=== PATIENT | male | born 1955 | race Caucasian/White ===

== ENCOUNTER 2016-12-27 20:07 | Inpatient (IN) | payer BC ==
[~2016-12-27] VITALS: Ht 182.9 cm; Wt 53.6 kg
[~2016-12-27 20:07] MED LIST changes: -ASPCH81X PO; -ASPI81TA28 PO; -CIPR-255 PO; -CIPR1TAB11 PO; -CLOP1TAB15 PO; -IMD2X PO; -MCRK20 PO; -METO25TA3 PO; -METO25TA56 PO; -MTR500 PO; -RIVA1TAB4 PO; -SIMV20TA2 PO; -SIMV40TA2 PO; -XRL15 PO
[2016-12-27] MEDS ORDERED: METO25TA56 PO ×2 (21:19→22:52)
[2016-12-27] MEDS ORDERED: SIMV20TA2 PO (21:19)
[2016-12-27 21:54] LABS: BASO % 0.3 %; BASO ABS # 0.02 K/uL (0-0.2); COMPLETE YES; EOS % 2.2 %; HEMATOCRIT 35.4 % (42-52); IG% 0.5 %; LYMPH % 26.4 %; LYMPH ABS # 1.67 K/uL (1.2-3.4); MEAN CELL VOLUME 94.4 fL (80-100); MEAN CORPUSCULAR HEMOGLOBIN 30.1 pg (25-34); MEAN CORPUSCULAR HGB CONC 31.9 g/dl (32-36); MEAN PLATELET VOLUME 8.6 fL (7.4-10.4); MONO % 10.4 %; NEUT % 60.2 %; PLATELET COUNT 540 K/uL (130-400); RED BLOOD COUNT 3.75 M/uL (4.7-6.1); WHITE BLOOD COUNT 6.32 K/uL (4.8-10.8)
[2016-12-27] MEDS ORDERED: HEPARIN SOD 5000 UNIT/0.5 ML CARP ONE (21:56)
[2016-12-27] MEDS ORDERED: HEPARIN 25000 UNIT/500 ML D5W ONE (21:56)
[2016-12-27 21:57] LABS: INR 1.1 (0.9-1.1); PARTIAL THROMBOPLASTIN RATIO 1.1; PROTHROMBIN TIME (PATIENT) 11.7 SECONDS (9.0-12.0)
[2016-12-27 22:09] LABS: BUN/CREATININE RATIO 11.8 (10-20); CALCIUM 8.1 mg/dl (8.5-10.1); CREATININE 0.62 mg/dl (0.60-1.40); MAGNESIUM 2.1 mg/dl (1.8-2.4); POTASSIUM 3.4 mmol/L (3.5-5.1)
[2016-12-27 22:20] LABS: ALB/GLOB RATIO 0.3 (0.9-2); THYROID STIMULATING HORMONE 0.921 uIu/ml (0.300-4.500)
--- NOTE | 2016-12-27 22:25 | History and Physical ---
History & Physical Date & Time of Service: Dec 27, 2016 at 22:25 Chief Complaint: L Leg Swelling Primary Care Physician: Alfred Al D.O. History of Present Illness Source: patient, clinic records, hospital records Last May 2016 patient underwent aorto bifemoral bypass, bilateral common femoral endarterectomy at [facility]. Last June 2016, patient woke up with bleeding from his right groin. Patient initially admitted at [facility] where he underwent emergent repair of right femoral artery-graft anastomosis (for bleeding) and thrombectomy of graft as well as femoral arteries. Subsequently transferred to [facility] for definitive care. Upon arrival at [facility], patient was intubated for hemorrhagic shock. R foot remained cadaveric. About 14 surgical procedures during monthlong confinement, including right above -the-knee amputation. Intractable diarrhea also noted during confinement. Stool C. difficile negative. Limited flexible sigmoidoscopy showed diffuse proctosigmoiditis possibly ischemic as per GI note. Loose stools persist as per patient but nothing more than usual. Occasional drainage from right AKA stump, better than usual. No fever, no chills. 2 weeks ago patient fell off his truck while trying to get on a scooter. Patient noted achy left lower extremity pain. Unable to get up us much. Increased left leg swelling noted. No fever no chills. Patient denies chest pain or shortness of breath. Patient saw his PCP yesterday. Sent to [facility] for lower extremity ultrasound. Ultrasound off the left lower extremity showed extensive DVT. Patient sent to the ER by PCPs office. IV heparin started. 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 Physical Exam Vital Signs Date Time Temp Pulse Resp B/P (MAP) Pulse Ox O2 Delivery O2 Flow Rate FiO2 12/27/16 22:17 108 24 107/83 99 Room Air 12/27/16 21:32 100 Room Air 12/27/16 21:30 111 16 119/84 98 Room Air 12/27/16 20:10 36.9 116 18 122/76 99 Room Air General Appearance: + cachetic Head: normocephalic Eyes: + pertinent finding (pale palpebral conjunctivae, dry buccal mucosa) Neck: supple Respiratory/Chest: + decreased breath sounds Cardiovascular: + tachycardia Abdomen/GI: soft Extremities/Musculoskelatal: + pertinent finding (right AKA stump with minimal drainage; left lower extremity swelling some tenderness) Neurologic/Psych: alert Skin: + pallor Diagnostics Laboratory Results Results Past 24 Hours Test 12/27/16 21:00 Range/Units White Blood Count 6.32 4.8-10.8 K/uL Red Blood Count 3.75 4.7-6.1 M/uL Hemoglobin 11.3 14.0-18.0 g/dL Hematocrit 35.4 42-52 % Mean Corpuscular Volume 94.4 80-100 fL Mean Corpuscular Hemoglobin 30.1 25-34 pg Mean Corpuscular Hemoglobin Concent 31.9 32-36 g/dl Platelet Count 540 130-400 K/uL Mean Platelet Volume 8.6 7.4-10.4 fL Neutrophils (%) (Auto) 60.2 % Lymphocytes (%) (Auto) 26.4 % Monocytes (%) (Auto) 10.4 % Eosinophils (%) (Auto) 2.2 % Basophils (%) (Auto) 0.3 % Neutrophils # (Auto) 3.80 1.4-6.5 K/uL Lymphocytes # (Auto) 1.67 1.2-3.4 K/uL Monocytes # (Auto) 0.66 0.11-0.59 K/uL Eosinophils # (Auto) 0.14 0-0.5 K/uL Basophils # (Auto) 0.02 0-0.2 K/uL RDW Standard Deviation 51.6 36.4-46.3 fL RDW Coefficient of Variation 15.0 11.5-14.5 % Immature Granulocyte % (Auto) 0.5 % Immature Granulocyte # (Auto) 0.03 0.00-0.02 K/uL Prothrombin Time 11.7 9.0-12.0 SECONDS Prothromb Time International Ratio 1.1 0.9-1.1 Activated Partial Thromboplast Time 29.3 21.0-31.0 SECONDS Partial Thromboplastin Ratio 1.1 Sodium Level 134 136-145 mmol/L Potassium Level 3.4 3.5-5.1 mmol/L Chloride Level 101 98-107 mmol/L Carbon Dioxide Level 25 21-32 mmol/L Anion Gap 8.0 3-11 mmol/L Blood Urea Nitrogen 7 7-18 mg/dl Creatinine 0.62 0.60-1.40 mg/dl Est Creatinine Clear Calc Drug Dose 94.9 ml/min Estimated GFR () 124.1 Estimated GFR (Non- 107.1 BUN/Creatinine Ratio 11.8 10-20 Random Glucose 79 70-99 mg/dl Calcium Level 8.1 8.5-10.1 mg/dl Magnesium Level 2.1 1.8-2.4 mg/dl Total Bilirubin 0.2 0.2-1 mg/dl Aspartate Amino Transf (AST/SGOT) 29 15-37 U/L Alanine Aminotransferase (ALT/SGPT) 27 12-78 U/L Alkaline Phosphatase 99 45-117 U/L Total Protein 7.9 6.4-8.2 gm/dl Albumin 2.0 3.4-5.0 gm/dl Globulin 5.9 2.5-4.0 gm/dl Albumin/Globulin Ratio 0.3 0.9-2 Thyroid Stimulating Hormone (TSH) 0.921 0.300-4.500 uIu/ml Diagnostic Radiology ULTRASOUND LEFT VENOUS DOPP LOWER EXT UNILAT CLINICAL HISTORY: Left leg swelling COMPARISON STUDY: No previous studies for comparison. FINDINGS: There is extensive thrombus within the left common femoral, superficial femoral, popliteal, and profunda veins. There is also probable thrombus within the posterior tibial and peroneal veins. Color flow is identified within the anterior tibial veins. IMPRESSION: Extensive acute left lower extremity DVT extending from the common femoral vein to the calf veins. Impression Assessment and Plan AP Acute left lower extremity DVT Immobilization from fall from 2 weeks ago Rule out bony lower extremity injury as etiology of lower extremity pain PVD status post her surgery Anemia, hemoglobin better than baseline Hyponatremia possibly chronic Chronic diarrhea from possible ischemic colitis as per inpatient GI evaluation at [facility] 2016. Symptoms at baseline as per patient. Hypokalemia secondary to chronic diarrhea Daily alcohol intake Past tobacco abuse Malnutrition [facility] IV heparin Deferred discussion regarding choice of oral anticoagulant between patient and a.m. provider. Replace potassium plain Xrays of the LLE re post-traumatic pain DT precautions Nutrition consult re: low BMI PTOT eval DVT prophylaxis. Heparin Full code VTE Prophylaxis VTE Risk Assessment Done? Y/N: Yes Risk Level: High
[2016-12-27] MEDS ORDERED: HEPARIN IV LOW DOSE NO BOLUS STA (22:26)
[2016-12-27] MEDS ORDERED: POTASSIUM CHLORIDE 10 MEQ TABCR PO STA (22:26)
[2016-12-27] MEDS ORDERED: MoRPHine SULFATE 2 MG/ML CARP IV PRN (22:30)
[2016-12-27] MEDS ORDERED: ACETAMINOPHEN 325 MG TAB PO PRN (22:30)
[2016-12-27] MEDS ORDERED: LORAZEPAM 2 MG/ML 1 ML VIAL IV PRN (22:30)
[2016-12-27] MEDS ORDERED: ONDANSETRON INJ 2 MG/ML 2 ML VIAL IV PRN (22:30)
[2016-12-27] MEDS ORDERED: MULTI-VITAMIN INFUSION INJ 10 ML, THIAMINE HCL INJ 100 MG, FoLIC ACID INJ 1 MG, POTASSI... IV ONE ×5 (22:30)
[2016-12-27] MEDS ORDERED: TRAMADOL HCL 50 MG TAB PO PRN (22:30)
[2016-12-27] MEDS ORDERED: CLOP1TAB15 PO (22:46)
[2016-12-27] MEDS ORDERED: ASPI81TA28 PO (22:46)
--- NOTE | 2016-12-27 22:47 | EMERGENCY ROOM VISIT NOTE ---
History Report prepared by Iraida: Katherine Delgado Under the Supervision of: Dr. Franco Koenig M.D. First contact with patient: 20:13 Chief Complaint: SWELLING TO EXTREMITY Stated Complaint: L LEG SWELLING History of Present Illness The patient is a 61 year old male who presents to the Emergency Room with complaints of constant left leg swelling beginning 2 weeks ago. The patient states that he has had leg swelling over the last 7 months but in the last 2 weeks it has significantly worsened. He reports that he was seen today by Dr. Al 2 hours ago and was sent for an ultrasound. After the ultrasound resulted 1 hour ago he was told to come in to the ED before he returned home. Per the ultrasound results, the patient has a blood clot in his left leg. He notes that he is on Plavix and has no history of blood clot in leg, lung, or heart. The patient reports that he lost his right leg at the beginning of this year to a vascular blockage with a blowout in the right groin. He notes that he had a muscle taken from the left leg for his right groin and he had pain in the left leg at the time of his right leg surgery. Pt denies LOC, headache, fevers, chills, diaphoresis, visual changes, neck pain, chest pain, breathing difficulties, nausea, vomiting, abdominal pain, back pain, melena, hematochezia , urinary symptoms, numbness, weakness, lymphadenopathy, rash, or other complaints. He states that he has had some diarrhea for 6 months since he left the hospital. The patient reports that he is weak in the left leg due to the muscle flap that they took. He denies any long trips or extended periods of laying down in the weeks prior to his leg pain. Per patient's MRI in October, he has an insufficiency fracture of his lateral tibia plateau and a partial tear of his quad tendon. Source of History: patient Onset: 2 weeks ago Position: knee (left) Quality: other (swelling) Timing: constant Review of Systems See HPI for pertinent positives and negatives. A total of ten systems were reviewed and were otherwise negative. Past Medical & Surgical Medical Problems: (1) DVT (deep venous thrombosis) (2) Hypertension Family History No pertinent family history stated. Social History Smoking Status: Former Smoker Marital Status: Housing Status: lives with significant other Occupation Status: retired Current/Historical Medications Scheduled Metoprolol Tartrate (Lopressor) (Lopressor), 25 MG PO BID Simvastatin (Zocor), 20 MG PO QPM Allergies Coded Allergies: No Known Allergies (Verified , `, 12/27/16) Physical Exam Vital Signs Date Time Temp Pulse Resp B/P (MAP) Pulse Ox O2 Delivery O2 Flow Rate FiO2 12/27/16 22:17 108 24 107/83 99 Room Air 12/27/16 21:32 100 Room Air 12/27/16 21:30 111 16 119/84 98 Room Air 12/27/16 20:10 36.9 116 18 122/76 99 Room Air Physical Exam GENERAL: Awake, alert, well-appearing, in no distress HENT: Normocephalic, atraumatic. Oropharynx unremarkable. EYES: Normal conjunctiva. Sclera non-icteric. NECK: Supple. No nuchal rigidity. FROM. No JVD. RESPIRATORY: Clear to auscultation. CARDIAC: Regular rate, normal rhythm. Extremities warm and well perfused. Pulses equal. ABDOMEN: Soft, non-distended. No tenderness to palpation. No rebound or guarding. No masses. RECTAL: Deferred. MUSCULOSKELETAL: Chest examination reveals no tenderness. The back is symmetrical on inspection without obvious abnormality. There is no CVA tenderness to palpation. No joint edema. LOWER EXTREMITIES: Right AKA present. He had 3+ pitting edema bilaterally, surgical change on the thigh. NEURO: Normal sensorium. No sensory or motor deficits noted. SKIN: No rash or jaundice noted. Medical Decision & Procedures ER Provider Diagnostic Interpretation: Outpatient ultrasound reveals extensive left lower extremity DVT. Laboratory Results 12/27/16 21:00 Red Blood Count 3.75, Mean Corpuscular Volume 94.4, Mean Corpuscular Hemoglobin 30.1, Mean Corpuscular Hemoglobin Concent 31.9, Mean Platelet Volume 8.6, Neutrophils (%) (Auto) 60.2, Lymphocytes (%) (Auto) 26.4, Monocytes (%) (Auto) 10.4, Eosinophils (%) (Auto) 2.2, Basophils (%) (Auto) 0.3, Neutrophils # (Auto ) 3.80, Lymphocytes # (Auto) 1.67, Monocytes # (Auto) 0.66, Eosinophils # (Auto ) 0.14, Basophils # (Auto) 0.02 12/27/16 21:00 Test 12/27/16 21:00 White Blood Count 6.32 K/uL (4.8-10.8) Red Blood Count 3.75 M/uL (4.7-6.1) Hemoglobin 11.3 g/dL (14.0-18.0) Hematocrit 35.4 % (42-52) Mean Corpuscular Volume 94.4 fL (80-100) Mean Corpuscular Hemoglobin 30.1 pg (25-34) Mean Corpuscular Hemoglobin Concent 31.9 g/dl (32-36) Platelet Count 540 K/uL (130-400) Mean Platelet Volume 8.6 fL (7.4-10.4) Neutrophils (%) (Auto) 60.2 % Lymphocytes (%) (Auto) 26.4 % Monocytes (%) (Auto) 10.4 % Eosinophils (%) (Auto) 2.2 % Basophils (%) (Auto) 0.3 % Neutrophils # (Auto) 3.80 K/uL (1.4-6.5) Lymphocytes # (Auto) 1.67 K/uL (1.2-3.4) Monocytes # (Auto) 0.66 K/uL (0.11-0.59) Eosinophils # (Auto) 0.14 K/uL (0-0.5) Basophils # (Auto) 0.02 K/uL (0-0.2) RDW Standard Deviation 51.6 fL (36.4-46.3) RDW Coefficient of Variation 15.0 % (11.5-14.5) Immature Granulocyte % (Auto) 0.5 % Immature Granulocyte # (Auto) 0.03 K/uL (0.00-0.02) Prothrombin Time 11.7 SECONDS (9.0-12.0) Prothromb Time International Ratio 1.1 (0.9-1.1) Activated Partial Thromboplast Time 29.3 SECONDS (21.0-31.0) Partial Thromboplastin Ratio 1.1 Anion Gap 8.0 mmol/L (3-11) Est Creatinine Clear Calc Drug Dose 94.9 ml/min Estimated GFR () 124.1 Estimated GFR (Non- 107.1 BUN/Creatinine Ratio 11.8 (10-20) Calcium Level 8.1 mg/dl (8.5-10.1) Magnesium Level 2.1 mg/dl (1.8-2.4) Total Bilirubin 0.2 mg/dl (0.2-1) Aspartate Amino Transf (AST/SGOT) 29 U/L (15-37) Alanine Aminotransferase (ALT/SGPT) 27 U/L (12-78) Alkaline Phosphatase 99 U/L (45-117) Total Protein 7.9 gm/dl (6.4-8.2) Albumin 2.0 gm/dl (3.4-5.0) Globulin 5.9 gm/dl (2.5-4.0) Albumin/Globulin Ratio 0.3 (0.9-2) Thyroid Stimulating Hormone (TSH) 0.921 uIu/ml (0.300-4.500) Laboratory results reviewed by me Medications Administered Medications (Trade) Dose Ordered Sig/Nadia Route Start Time Stop Time Status Last Admin Dose Admin Heparin Sodium/ Dextrose (Heparin 25,000 Unit/500ml D5W) 25,000 unit STK-MED ONCE .ROUTE 12/27/16 21:56 12/27/16 21:57 DC 12/27/16 22:15 25,000 UNIT Heparin Sodium (Porcine) (Heparin Sq 5000 Unit/0.5ml) 5,000 unit STK-MED ONCE .ROUTE 12/27/16 21:56 12/27/16 21:57 DC 12/27/16 22:14 3,000 UNIT ED Course 2012: The patient was evaluated in room B12B. A complete history and physical exam was performed. 2043: Heparin Sodium/Dextrose 1 ea N/A. 2115: Discussed the patient's case with Dr. Sheth of [facility]. The patient will be evaluated for further treatment and disposition. 2122: Upon reexamination, the patient was doing well. I discussed the test results and treatment plan with him. The patient will be evaluated for further management. Medical Decision Medication Reconciliation: I attest that I have personally reviewed the patient' s current medication list Patient was found to have a slightly elevated blood pressure due to circumstances. I do not believe that the patient requires emergent hypertension monitoring. Prior records reviewed and summarized above. Triage Nursing notes reviewed and agree them. Additional history obtained from the family. The patient's history was concerning for swelling and pain in the leg. Differential diagnosis: Etiologies such as DVT, joint effusion, infection, trauma, muscular, lymphedema , idiopathic, CHF, as well as others were entertained.. Physical examination: The physical examination revealed no signs of infection. Neurovascularly intact. ER treatment provided: IV heparin bolus and drip Diagnostics interpreted by me: The labs revealed mild anemia on CBC. The patient's coags were unremarkable. The chemistries were unremarkable. Imaging studies: The patient's ultrasound report from earlier this evening was reviewed and shows extensive left leg DVT. Consultation: A consultation was placed with the hospitalist. The case was discussed and diagnostics were reviewed. The patient was evaluated in the ER for further treatment. Consults Time Called: 2113 Consulting Physician: Dr. Sheth Returned Call: 2115 Discussed the patient's case with Dr. Sheth of [facility]. The patient will be evaluated for further treatment and disposition. Impression Primary Impression: Deep vein thrombosis (DVT) of left lower extremity Scribe Attestation The scribe's documentation has been prepared under my direction and personally reviewed by me in its entirety. I confirm that the note above accurately reflects all work, treatment, procedures, and medical decision making performed by me. Departure Information Dispostion Being Evaluated By Hospitalist Referrals Alfred Al D.O. (PCP) Patient Instructions My [facility]
[2016-12-27] MEDS ORDERED: SIMV40TA2 PO (22:51)
[2016-12-27 23:45] VITALS: BP 103/73; PULSE 102; TEMP 36.7; O2SAT 98; Ht 182.9 cm; Wt 53.6 kg
[2016-12-28] MEDS ORDERED: LORAZEPAM INJ 0.5 MG in SYRINGE 0.75 ML IV PRN (00:45)
[2016-12-28 04:19] LABS: BASO % 0.5 %; BASO ABS # 0.02 K/uL (0-0.2); COMPLETE YES; EOS % 3.5 %; HEMATOCRIT 27.7 % (42-52); IG% 0.7 %; LYMPH % 33.6 %; LYMPH ABS # 1.36 K/uL (1.2-3.4); MEAN CELL VOLUME 93.9 fL (80-100); MEAN CORPUSCULAR HEMOGLOBIN 30.5 pg (25-34); MEAN CORPUSCULAR HGB CONC 32.5 g/dl (32-36); MEAN PLATELET VOLUME 8.2 fL (7.4-10.4); MONO % 11.1 %; NEUT % 50.6 %; PLATELET COUNT 359 K/uL (130-400); RED BLOOD COUNT 2.95 M/uL (4.7-6.1); WHITE BLOOD COUNT 4.05 K/uL (4.8-10.8)
[2016-12-28 04:50] LABS: INR 1.2 (0.9-1.1); PARTIAL THROMBOPLASTIN RATIO 1.2; PROTHROMBIN TIME (PATIENT) 12.4 SECONDS (9.0-12.0)
[2016-12-28 04:51] LABS: BUN/CREATININE RATIO 10.1 (10-20); CALCIUM 7.5 mg/dl (8.5-10.1); CREATININE 0.46 mg/dl (0.60-1.40); POTASSIUM 3.8 mmol/L (3.5-5.1)
[2016-12-28] MEDS ORDERED: HEPARIN IV BOLUS 4,000 UNIT in SYRINGE 0 ML IV ONE ×2 (05:45→13:30)
[2016-12-28] MEDS: HEPARIN 25000 UNIT/ D5W 500 ML (PHARMACY PREPARED) IV PRN ×4 (06:03→21:24)
--- NOTE | 2016-12-28 06:42 | DIAGNOSTIC IMAGING REPORT ---
LEFT FEMUR 2 VIEWS ROUTINE CLINICAL HISTORY: Left lower extremity pain following fall 2 weeks ago. COMPARISON: None FINDINGS: A left iliac stent is in place. There is extensive vascular calcification. Alignment of the left hip is anatomic. There is no acute fracture within the left femur. There is mild arthritis of the left hip. IMPRESSION: 1. No acute fracture within the left femur. 2. Extensive vascular calcification. Electronically signed by: Tim Avila M.D. 12/28/2016 6:41 AM Dictated Date/Time: 12/28/2016 6:39 AM
--- NOTE | 2016-12-28 06:43 | DIAGNOSTIC IMAGING REPORT ---
LEFT HIP UNILATERAL 2 VIEWS CLINICAL HISTORY: Left lower extremity pain following fall. COMPARISON: None FINDINGS: A left iliac stent is in place. There is extensive vascular calcification. No acute fracture of the left hip is identified. Left hip joint space is preserved. There is mild osteophytosis. IMPRESSION: No acute fracture or dislocation of the left hip. Electronically signed by: Tim Avila M.D. 12/28/2016 6:42 AM Dictated Date/Time: 12/28/2016 6:41 AM
--- NOTE | 2016-12-28 06:44 | DIAGNOSTIC IMAGING REPORT ---
LEFT TIBIA/FIBULA 2 VIEWS ROUTINE CLINICAL HISTORY: Left lower extremity pain following fall. COMPARISON: None FINDINGS: No acute fracture of the left tibia or fibula is identified. Alignment of the left ankle is anatomic. Talar dome is intact. IMPRESSION: No acute fracture of the left tibia or fibula. Electronically signed by: Tim Avila M.D. 12/28/2016 6:43 AM Dictated Date/Time: 12/28/2016 6:42 AM
[2016-12-28 07:26] VITALS: BP 122/74; PULSE 78; TEMP 36.7; O2SAT 98
[2016-12-28] MEDS ORDERED: CLOPIDOGREL BISULFATE 75 MG TAB PO SCH (08:00)
[2016-12-28] MEDS: ASPIRIN 81 MG ECTAB PO SCH (08:20)
[2016-12-28] MEDS: METOPROLOL SUCC 25MG EXT REL TAB PO SCH (08:20)
[2016-12-28] MEDS: RANITIDINE HCL 150 MG TAB PO SCH ×2 (08:20→20:59)
[2016-12-28 12:59] LABS: PARTIAL THROMBOPLASTIN RATIO 1.3
[2016-12-28] MEDS: BOOST PLUS VANILLA PO SCH ×4 (14:18→20:58)
[2016-12-28 15:46] VITALS: BP 102/63; PULSE 69; TEMP 37.1; O2SAT 96
--- NOTE | 2016-12-28 18:33 | Progress Note ---
Medicine Progress Note Date & Time of Visit: Dec 28, 2016 at 18:12. Subjective Pt was seen and examined Lying in bed with no distress sitting at bedside Pt said that his LE swelling improved He denies any chest pain, palpitation, hematuria, dizziness and SOB Objective Last 8 Hrs Date Time Temp Pulse Resp B/P (MAP) Pulse Ox O2 Delivery O2 Flow Rate FiO2 12/28/16 16:00 Room Air 12/28/16 15:46 37.1 69 18 102/63 (76) 96 Room Air Physical Exam: General- No acute distress Head- atraumatic Eyes- PERRL, EOMI ENT- oropharynx clear Neck- supple, no JVD Lungs- clear to auscultation Heart- regular rhythm; no murmur Abdomen- normal bowel sounds, soft, nontender Extremities- +LLE edema, no calf tenderness,right AKA stump with minimal drainage Neuro- alert, oriented x 3; PERRL, EOMI; no facial palsy Skin- warm & dry Laboratory Results: Last 24 Hours Test 12/27/16 21:00 12/28/16 04:03 12/28/16 12:39 White Blood Count 6.32 K/uL 4.05 K/uL Red Blood Count 3.75 M/uL 2.95 M/uL Hemoglobin 11.3 g/dL 9.0 g/dL Hematocrit 35.4 % 27.7 % Mean Corpuscular Volume 94.4 fL 93.9 fL Mean Corpuscular Hemoglobin 30.1 pg 30.5 pg Mean Corpuscular Hemoglobin Concent 31.9 g/dl 32.5 g/dl Platelet Count 540 K/uL 359 K/uL Mean Platelet Volume 8.6 fL 8.2 fL Neutrophils (%) (Auto) 60.2 % 50.6 % Lymphocytes (%) (Auto) 26.4 % 33.6 % Monocytes (%) (Auto) 10.4 % 11.1 % Eosinophils (%) (Auto) 2.2 % 3.5 % Basophils (%) (Auto) 0.3 % 0.5 % Neutrophils # (Auto) 3.80 K/uL 2.05 K/uL Lymphocytes # (Auto) 1.67 K/uL 1.36 K/uL Monocytes # (Auto) 0.66 K/uL 0.45 K/uL Eosinophils # (Auto) 0.14 K/uL 0.14 K/uL Basophils # (Auto) 0.02 K/uL 0.02 K/uL RDW Standard Deviation 51.6 fL 50.7 fL RDW Coefficient of Variation 15.0 % 14.8 % Immature Granulocyte % (Auto) 0.5 % 0.7 % Immature Granulocyte # (Auto) 0.03 K/uL 0.03 K/uL Prothrombin Time 11.7 SECONDS 12.4 SECONDS Prothromb Time International Ratio 1.1 1.2 Activated Partial Thromboplast Time 29.3 SECONDS 31.8 SECONDS 32.7 SECONDS Partial Thromboplastin Ratio 1.1 1.2 1.3 Sodium Level 134 mmol/L 141 mmol/L Potassium Level 3.4 mmol/L 3.8 mmol/L Chloride Level 101 mmol/L 111 mmol/L Carbon Dioxide Level 25 mmol/L 26 mmol/L Anion Gap 8.0 mmol/L 4.0 mmol/L Blood Urea Nitrogen 7 mg/dl 5 mg/dl Creatinine 0.62 mg/dl 0.46 mg/dl Est Creatinine Clear Calc Drug Dose 94.9 ml/min 127.9 ml/min Estimated GFR () 124.1 140.3 Estimated GFR (Non- 107.1 121.0 BUN/Creatinine Ratio 11.8 10.1 Random Glucose 79 mg/dl 82 mg/dl Calcium Level 8.1 mg/dl 7.5 mg/dl Magnesium Level 2.1 mg/dl Total Bilirubin 0.2 mg/dl Aspartate Amino Transf (AST/SGOT) 29 U/L Alanine Aminotransferase (ALT/SGPT) 27 U/L Alkaline Phosphatase 99 U/L Total Protein 7.9 gm/dl Albumin 2.0 gm/dl Globulin 5.9 gm/dl Albumin/Globulin Ratio 0.3 Thyroid Stimulating Hormone (TSH) 0.921 uIu/ml Hepatitis C Antibody Screen NEG Date/Time Source Procedure Growth Status 12/28/16 10:18 Stool C.difficile Toxin B Gene (PCR) - Final No C. difficile toxin B gene detected Complete 12/28/16 01:10 Drainage - Surface Leg Right Upper Gram Stain - Final Resulted 12/28/16 01:10 Drainage - Surface Leg Right Upper Wound Culture Pending Resulted Assessment & Plan Acute LLE DVT s/p fall 2 weeks ago, has not been moving around much Venous Doppler of LLE showed Extensive acute LLE DVT extending from common femoral vein to calf vein Started on heparin drip Already on plavix and aspirin case discussed with Vascular surgery in [place] Dr. Garrett No hx of cardiac stent placed that recommended to stop the plavix and continue aspirin with anticoagulant to lower the risk of bleeding Choice of anticoagulant discussed with patient and bleeding risks discussed for eliquis/xarelto and coumadin Pt does not want to start on comadin he prefers the NOAC will start on xarelto tomorrow family independence case manager will check on stewart PVD status post her surgery Continue aspirin Will discontinue plavix due to the risk of bleeding while on anticoagulant Case discussed with vascular Dr. Garrett Anemia hgb 9 will monitor cbc Hypokalemia Possible related to diarrhea K stable monitor bmp Diarrhea Stools for c-diff negative DVT px On heparin drip CODE STATUS FULL CODE Current Inpatient Medications: Current Inpatient Medications Medications (Trade) Dose Ordered Sig/Nadia Route Start Time Stop Time Status Last Admin Dose Admin Acetaminophen (Tylenol Tab) 650 mg Q4H PRN PO 12/27/16 22:30 01/26/17 22:29 Tramadol HCl (Ultram Tab) 25 mg Q6H PRN PO 12/27/16 22:30 01/26/17 22:29 Ondansetron HCl (Zofran Inj) 4 mg Q6H PRN IV 12/27/16 22:30 01/26/17 22:29 Morphine Sulfate (MoRPHine SULFATE INJ) 2 mg Q3H PRN IV 12/27/16 22:30 01/10/17 22:29 Thiamine HCl (Vitamin B-1 Tab) 100 mg QAM PO 12/29/16 08:00 01/28/17 08:59 Multivitamins (Multivitamin Tab) 1 tab QAM PO 12/29/16 08:00 01/28/17 08:59 Folic Acid (Folvite Tab) 1 mg QAM PO 12/29/16 08:00 01/28/17 08:59 Heparin Sodium (Porcine) 15462 unit/Dextrose 500 ml @ 17 mls/hr Q24H PRN IV 12/27/16 22:45 01/26/17 22:44 12/28/16 06:03 15 MLS/HR Aspirin (Ecotrin Tab) 81 mg DAILY PO 12/28/16 08:00 01/27/17 08:59 12/28/16 08:20 81 MG Clopidogrel Bisulfate (plAVix TAB) 75 mg DAILY PO 12/28/16 08:00 01/27/17 08:59 12/28/16 08:20 75 MG Simvastatin (Zocor Tab) 40 mg QPM PO 12/28/16 21:00 01/27/17 20:59 Metoprolol Succinate (Toprol Xl Tab) 25 mg QAM PO 12/28/16 08:00 01/27/17 08:59 12/28/16 08:20 25 MG Ranitidine HCl (zANTac TAB) 150 mg BID PO 12/28/16 08:00 01/27/17 08:59 12/28/16 08:20 150 MG Lorazepam 0.5 mg/ Syringe 1 ml @ 1 mls/min Q4H PRN IV 12/28/16 00:45 01/27/17 00:44 Enteral Nutritional Formula (Boost Plus Vanilla) 1 can TID PO 12/28/16 14:00 01/27/17 13:59 12/28/16 14:18 1 CAN
[2016-12-28 19:52] LABS: PARTIAL THROMBOPLASTIN RATIO 1.4
[2016-12-28] MEDS ORDERED: HEPARIN IV BOLUS 4,000 UNIT in SYRINGE 0 ML IV SCH (20:45)
[2016-12-28] MEDS ORDERED: SIMVASTATIN 40 MG TAB PO SCH (21:00)
[2016-12-28 23:57] VITALS: BP 120/72; PULSE 75; TEMP 36.8; O2SAT 97
[2016-12-29 03:14] LABS: BASO % 0.4 %; BASO ABS # 0.02 K/uL (0-0.2); EOS % 2.4 %; IG% 0.4 %; LYMPH % 24.7 %; LYMPH ABS # 1.24 K/uL (1.2-3.4); MEAN CELL VOLUME 95.4 fL (80-100); MEAN CORPUSCULAR HEMOGLOBIN 29.3 pg (25-34); MEAN CORPUSCULAR HGB CONC 30.7 g/dl (32-36); MEAN PLATELET VOLUME 8.3 fL (7.4-10.4); NEUT % 64.1 %; PLATELET COUNT 363 K/uL (130-400); RED BLOOD COUNT 3.04 M/uL (4.7-6.1); WHITE BLOOD COUNT 5.03 K/uL (4.8-10.8)
[2016-12-29 03:31] LABS: BUN/CREATININE RATIO 13.6 (10-20); CALCIUM 7.4 mg/dl (8.5-10.1); CREATININE 0.56 mg/dl (0.60-1.40); POTASSIUM 4.1 mmol/L (3.5-5.1)
[2016-12-29 03:37] LABS: INR 1.1 (0.9-1.1); PARTIAL THROMBOPLASTIN RATIO 1.5; PROTHROMBIN TIME (PATIENT) 11.6 SECONDS (9.0-12.0)
[2016-12-29 03:47] LABS: COMPLETE YES; ECHINOCYTES 2+
[2016-12-29] MEDS ORDERED: HEPARIN IV BOLUS 4,000 UNIT in SYRINGE 0 ML IV ONE ×2 (05:15→13:00)
[2016-12-29 07:20] VITALS: BP 116/74; PULSE 65; TEMP 36.6; O2SAT 98
[2016-12-29] MEDS ORDERED: MULTIVITAMIN TAB PO SCH (08:00)
[2016-12-29] MEDS ORDERED: THIAMINE HCL 100 MG TAB PO SCH (08:00)
[2016-12-29] MEDS: RANITIDINE HCL 150 MG TAB PO SCH (08:26)
[2016-12-29] MEDS: METOPROLOL SUCC 25MG EXT REL TAB PO SCH (08:26)
[2016-12-29] MEDS: ASPIRIN 81 MG ECTAB PO SCH (08:26)
[2016-12-29] MEDS: BOOST PLUS VANILLA PO SCH ×4 (08:29→14:00)
[2016-12-29 12:23] LABS: PARTIAL THROMBOPLASTIN RATIO 1.5
[2016-12-29] MEDS ORDERED: RIVAROXABAN TAB 15 MG TAB PO ONE (14:19)
--- NOTE | 2016-12-29 14:32 | Progress Note ---
Medicine Progress Note Date & Time of Visit: Dec 29, 2016 at 14:21. Subjective Pt was seen and examined Sitting in chair with no distress Pt said that he feels fine He said that his LE swelling is much better Denies any chest pain, palpitation dizziness and SOB Objective Last 8 Hrs Date Time Temp Pulse Resp B/P (MAP) Pulse Ox O2 Delivery O2 Flow Rate FiO2 12/29/16 08:00 Room Air 12/29/16 07:20 36.6 65 20 116/74 (88) 98 Room Air Physical Exam: General- No acute distress Head- atraumatic Eyes- PERRL, EOMI ENT- oropharynx clear Neck- supple, no JVD Lungs- clear to auscultation Heart- regular rhythm; no murmur Abdomen- normal bowel sounds, soft, nontender Extremities- +LLE edema, no calf tenderness,right AKA stump with minimal drainage Neuro- alert, oriented x 3; PERRL, EOMI; no facial palsy Skin- warm & dry Laboratory Results: Last 24 Hours Test 12/28/16 19:29 12/29/16 03:03 12/29/16 11:58 Activated Partial Thromboplast Time 36.9 SECONDS 38.6 SECONDS 39.7 SECONDS Partial Thromboplastin Ratio 1.4 1.5 1.5 White Blood Count 5.03 K/uL Red Blood Count 3.04 M/uL Hemoglobin 8.9 g/dL Hematocrit 29.0 % Mean Corpuscular Volume 95.4 fL Mean Corpuscular Hemoglobin 29.3 pg Mean Corpuscular Hemoglobin Concent 30.7 g/dl Platelet Count 363 K/uL Mean Platelet Volume 8.3 fL Neutrophils (%) (Auto) 64.1 % Lymphocytes (%) (Auto) 24.7 % Monocytes (%) (Auto) 8.0 % Eosinophils (%) (Auto) 2.4 % Basophils (%) (Auto) 0.4 % Neutrophils # (Auto) 3.23 K/uL Lymphocytes # (Auto) 1.24 K/uL Monocytes # (Auto) 0.40 K/uL Eosinophils # (Auto) 0.12 K/uL Basophils # (Auto) 0.02 K/uL RDW Standard Deviation 53.0 fL RDW Coefficient of Variation 15.1 % Immature Granulocyte % (Auto) 0.4 % Immature Granulocyte # (Auto) 0.02 K/uL Echinocytes 2+ Prothrombin Time 11.6 SECONDS Prothromb Time International Ratio 1.1 Sodium Level 138 mmol/L Potassium Level 4.1 mmol/L Chloride Level 108 mmol/L Carbon Dioxide Level 27 mmol/L Anion Gap 3.0 mmol/L Blood Urea Nitrogen 8 mg/dl Creatinine 0.56 mg/dl Est Creatinine Clear Calc Drug Dose 105.0 ml/min Estimated GFR () 129.4 Estimated GFR (Non- 111.6 BUN/Creatinine Ratio 13.6 Random Glucose 83 mg/dl Calcium Level 7.4 mg/dl Assessment & Plan Acute LLE DVT s/p fall 2 weeks ago, has not been moving around much Venous Doppler of LLE showed Extensive acute LLE DVT extending from common femoral vein to calf vein Started on heparin drip Already on plavix and aspirin case discussed with Vascular surgery in [place] Dr. Garrett No hx of cardiac stent placed that recommended to stop the plavix and continue aspirin with anticoagulant to lower the risk of bleeding Choice of anticoagulant discussed with patient and bleeding risks discussed for eliquis/xarelto and coumadin Pt does not want to start on coumadin he prefers the NOAC will start on xarelto tomorrow immigration case manager will check on stewart 12/29 No signs of bleeding Will d/c heparin starting on xarelto, he will get the 1st dose in the hospital before d/c Script and immigration case manager provided him with discount coupon Contine xarelto 15 mg BID for 21 days, then continue on xarelto 20mg daily Plavix discontinue to avoid risk for bleeding, case discussed with vascular surgeon Dr. Garrett yesterday Advise pt to watch for sign of bleeding such as hematuria and blood in stools Seek medical attention if bleeding occurs Fall precaution PVD status post her surgery Continue aspirin Plavix discontinued due to the risk of bleeding while on anticoagulant Case discussed with vascular Dr. Garrett On Xarelto for DVT treatment Right LE amputation Fall precaution PT/OT Refused to go to rehab Right Groin Wound Continue daily wound care Wound care consulted Follow up appointment with wound care with Dr. Hunter on 01/04 @ 2:20 pm Anemia hgb 8.9 Stable Hypokalemia Possible related to diarrhea K stable monitor bmp Diarrhea Chronic Stools for c-diff negative DVT px On heparin drip discontinue 1-2 hr before discharge Will give 1st dose of Xarelto before discharge CODE STATUS FULL CODE Current Inpatient Medications: Current Inpatient Medications Medications (Trade) Dose Ordered Sig/Nadia Route Start Time Stop Time Status Last Admin Dose Admin Acetaminophen (Tylenol Tab) 650 mg Q4H PRN PO 12/27/16 22:30 01/26/17 22:29 Tramadol HCl (Ultram Tab) 25 mg Q6H PRN PO 12/27/16 22:30 01/26/17 22:29 Ondansetron HCl (Zofran Inj) 4 mg Q6H PRN IV 12/27/16 22:30 01/26/17 22:29 Morphine Sulfate (MoRPHine SULFATE INJ) 2 mg Q3H PRN IV 12/27/16 22:30 01/10/17 22:29 Thiamine HCl (Vitamin B-1 Tab) 100 mg QAM PO 12/29/16 08:00 01/28/17 08:59 12/29/16 08:26 100 MG Multivitamins (Multivitamin Tab) 1 tab QAM PO 12/29/16 08:00 01/28/17 08:59 12/29/16 08:26 1 TAB Folic Acid (Folvite Tab) 1 mg QAM PO 12/29/16 08:00 01/28/17 08:59 12/29/16 08:26 1 MG Heparin Sodium (Porcine) 35843 unit/Dextrose 500 ml @ 23 mls/hr [id number] PRN IV 12/27/16 22:45 01/26/17 22:44 12/28/16 21:24 19 MLS/HR Aspirin (Ecotrin Tab) 81 mg DAILY PO 12/28/16 08:00 01/27/17 08:59 12/29/16 08:26 81 MG Simvastatin (Zocor Tab) 40 mg QPM PO 12/28/16 21:00 01/27/17 20:59 12/28/16 21:03 40 MG Metoprolol Succinate (Toprol Xl Tab) 25 mg QAM PO 12/28/16 08:00 01/27/17 08:59 12/29/16 08:26 25 MG Ranitidine HCl (zANTac TAB) 150 mg BID PO 12/28/16 08:00 01/27/17 08:59 12/29/16 08:26 150 MG Lorazepam 0.5 mg/ Syringe 1 ml @ 1 mls/min Q4H PRN IV 12/28/16 00:45 01/27/17 00:44 Enteral Nutritional Formula (Boost Plus Vanilla) 1 can TID PO 12/28/16 14:00 01/27/17 13:59 12/29/16 08:29 1 CAN
[2016-12-29] MEDS ORDERED: XRL15 PO (14:34)
--- NOTE | 2016-12-29 14:46 | Discharge Instructions ---
Discharge Instructions Date of Service Dec 29, 2016. Admission Reason for Admission: DVT Discharge Discharge Diagnosis / Problem: (1) Deep vein thrombosis (DVT) of left lower extremity VTE Date & Time Date of VTE Diagnosis: Dec 27, 2016 Time of VTE Diagnosis: 19:45 Discharge Goals Goal(s): Decrease discomfort, Improve function, Increase independence, Improve disease control Activity Recommendations Activity Limitations: resume your previous activity (as tolerated) . Instructions / Follow-Up Instructions / Follow-Up Follow up appointment with your primary care provider Dr. Al on 01/04 @ 3:45 pm Follow up with wound clinic with Dr. Hunter on 01/04 @ 2:20 pm No NSAIDs ( such as Motrin, aleve, ibuprofen, naproxen, ...) to avoid risks of bleeding Plavix discontinued Continue Xarelto 15 mg twice daily for 21 days, then on the 22 days xarelto will change to 20mg daily Fall precaution Medication Instructions: Xarelto Your condition is typically treated with an anticoagulant. Anticoagulants will thin your blood to help prevent new clots. * You should take her medication exactly as directed. * Never skip a dose. * Never take a double dose. If you miss a dose, take it as soon as you remember. Call your Primary Care doctor if you experience any of the following: * Swelling or Pain in your leg * Sudden, continuous pain deep in a muscle * Pain that worsens when you are active or when you stand still for a long time * Chest Pain * Sudden Shortness of Breath * Rapid or pounding heart beat * Fainting * Dizziness * Cough with blood or bloody sputum * Sweating more than normal * Bruises * Heavy or uncontrolled bleeding * Blood in your urine, stool or vomit * Black or tarry stools Caring for Your Self at Home: * Avoid sitting, standing or lying down for long periods without moving your legs and feet * When traveling by car, stop to get out and move around at least once every 3 hours * On long airplane, train or bus rides, get up and move around when possible * If you can't get up, wiggle your toes and tighten your calves to keep your blood moving Follow Up: It is important for you to keep your follow up appointments with your medical provider. Current Hospital Diet Patient's current hospital diet: Regular Diet, Low Lactose Diet Discharge Diet Recommended Diet: Regular Diet Pending Studies Studies pending at discharge: no Medical Emergencies . Who to Call and When: Medical Emergencies: If at any time you feel your situation is an emergency, please call 911 immediately. . Non-Emergent Contact Non-Emergency issues call your: Primary Care Provider Call Non-Emergent contact if: you have any medication questions . . "Provider Documentation" section prepared by Tamika Deluca. . VTE Core Measure Inpt VTE Proph given/why not?: Unfractionated heparin SQ
[2016-12-29 15:17] VITALS: BP 116/74; PULSE 65; TEMP 36.6; O2SAT 98
[2016-12-29] MEDS ORDERED: RIVAROXABAN TAB 15 MG TAB PO SCH (20:00)
--- NOTE | 2016-12-31 10:05 | Discharge Summary ---
Discharge Summary Date of Service Dec 31, 2016. Discharge Summary Admission Date: Dec 27, 2016 at 22:19 Discharge Date: Dec 29, 2016 Discharge Disposition: Home Principal Diagnosis: ACUTE LLE DVT Secondary Diagnoses/Problems: PVD status post her surgery Right LE amputation Right Groin Wound Anemia Hypokalemia Diarrhea Medication Reconciliation New Medications: Rivaroxaban (Xarelto) 15 Mg Tab 15 MG PO BID for 21 Days, TAB Continued Medications: Aspirin (Aspirin Ec) 81 Mg Tab 81 MG PO DAILY Metoprolol Tartrate (Lopressor) (Lopressor) 25 Mg Tab 25 MG PO QAM, TAB Simvastatin (Zocor) 40 Mg Tab 40 MG PO QPM, TAB Discontinued Medications: Clopidogrel (Plavix) 75 Mg Tab 75 MG PO DAILY, TAB Admission Information HPI (per Admitting provider): Last May 2016 patient underwent aorto bifemoral bypass, bilateral common femoral endarterectomy at [facility]. Last June 2016, patient woke up with bleeding from his right groin. Patient initially admitted at [facility] where he underwent emergent repair of right femoral artery-graft anastomosis (for bleeding) and thrombectomy of graft as well as femoral arteries. Subsequently transferred to [facility] for definitive care. Upon arrival at [facility], patient was intubated for hemorrhagic shock. R foot remained cadaveric. About 14 surgical procedures during monthlong confinement, including right above -the-knee amputation. Intractable diarrhea also noted during confinement. Stool C. difficile negative. Limited flexible sigmoidoscopy showed diffuse proctosigmoiditis possibly ischemic as per GI note. Loose stools persist as per patient but nothing more than usual. Occasional drainage from right AKA stump, better than usual. No fever, no chills. 2 weeks ago patient fell off his truck while trying to get on a scooter. Patient noted achy left lower extremity pain. Unable to get up us much. Increased left leg swelling noted. No fever no chills. Patient denies chest pain or shortness of breath. Patient saw his PCP yesterday. Sent to [facility] for lower extremity ultrasound. Ultrasound off the left lower extremity showed extensive DVT. Patient sent to the ER by PCPs office. IV heparin started. Physical Exam (per Admitting): General Appearance: + cachetic Head: normocephalic Eyes: + pertinent finding (pale palpebral conjunctivae, dry buccal mucosa) Neck: supple Respiratory/Chest: + decreased breath sounds Cardiovascular: + tachycardia Abdomen/GI: soft Extremities/Musculoskelatal: + pertinent finding (right AKA stump with minimal drainage; left lower extremity swelling some tenderness) Neurologic/Psych: alert Skin: + pallor Hospital Course Acute LLE DVT s/p fall 2 weeks ago, has not been moving around much Venous Doppler of LLE showed Extensive acute LLE DVT extending from common femoral vein to calf vein Started on heparin drip Already on plavix and aspirin case discussed with Vascular surgery in [place] Dr. Garrett No hx of cardiac stent placed that recommended to stop the plavix and continue aspirin with anticoagulant to lower the risk of bleeding Choice of anticoagulant discussed with patient and bleeding risks discussed for eliquis/xarelto and coumadin Pt does not want to start on coumadin he prefers the NOAC will start on xarelto tomorrow spring encaser will check on stewart 12/29 No signs of bleeding Will d/c heparin starting on xarelto, he will get the 1st dose in the hospital before d/c Script and spring encaser provided him with discount coupon Contine xarelto 15 mg BID for 21 days, then continue on xarelto 20mg daily Plavix discontinue to avoid risk for bleeding, case discussed with vascular surgeon Dr. Garrett yesterday Advise pt to watch for sign of bleeding such as hematuria and blood in stools Seek medical attention if bleeding occurs Fall precaution PVD status post her surgery Continue aspirin Plavix discontinued due to the risk of bleeding while on anticoagulant Case discussed with vascular Dr. Garrett On Xarelto for DVT treatment Right LE amputation Fall precaution PT/OT Refused to go to rehab Right Groin Wound Continue daily wound care Wound care consulted Follow up appointment with wound care with Dr. Hunter on 01/04 @ 2:20 pm Anemia hgb 8.9 Stable Hypokalemia Possible related to diarrhea K stable monitor bmp Diarrhea Chronic Stools for c-diff negative DVT px On heparin drip discontinue 1-2 hr before discharge Will give 1st dose of Xarelto before discharge CODE STATUS FULL CODE Total time spent on discharge = 35 minutes This includes examination of the patient, discharge planning, medication reconciliation, and communication with other providers. Discharge Instructions Discharge Instructions Date of Service Dec 29, 2016. Admission Reason for Admission: DVT Discharge Discharge Diagnosis / Problem: (1) Deep vein thrombosis (DVT) of left lower extremity VTE Date & Time Date of VTE Diagnosis: Dec 27, 2016 Time of VTE Diagnosis: 19:45 Discharge Goals Goal(s): Decrease discomfort, Improve function, Increase independence, Improve disease control Activity Recommendations Activity Limitations: resume your previous activity (as tolerated) . Instructions / Follow-Up Instructions / Follow-Up Follow up appointment with your primary care provider Dr. Al on 01/04 @ 3:45 pm Follow up with wound clinic with Dr. Hunter on 01/04 @ 2:20 pm No NSAIDs ( such as Motrin, aleve, ibuprofen, naproxen, ...) to avoid risks of bleeding Plavix discontinued Continue Xarelto 15 mg twice daily for 21 days, then on the 22 days xarelto will change to 20mg daily Fall precaution Medication Instructions: Xarelto Your condition is typically treated with an anticoagulant. Anticoagulants will thin your blood to help prevent new clots. * You should take her medication exactly as directed. * Never skip a dose. * Never take a double dose. If you miss a dose, take it as soon as you remember. Call your Primary Care doctor if you experience any of the following: * Swelling or Pain in your leg * Sudden, continuous pain deep in a muscle * Pain that worsens when you are active or when you stand still for a long time * Chest Pain * Sudden Shortness of Breath * Rapid or pounding heart beat * Fainting * Dizziness * Cough with blood or bloody sputum * Sweating more than normal * Bruises * Heavy or uncontrolled bleeding * Blood in your urine, stool or vomit * Black or tarry stools Caring for Your Self at Home: * Avoid sitting, standing or lying down for long periods without moving your legs and feet * When traveling by car, stop to get out and move around at least once every 3 hours * On long airplane, train or bus rides, get up and move around when possible * If you can't get up, wiggle your toes and tighten your calves to keep your blood moving Follow Up: It is important for you to keep your follow up appointments with your medical provider. Current Hospital Diet Patient's current hospital diet: Regular Diet, Low Lactose Diet Discharge Diet Recommended Diet: Regular Diet Medical Emergencies . Who to Call and When: Medical Emergencies: If at any time you feel your situation is an emergency, please call 911 immediately. . Non-Emergent Contact Non-Emergency issues call your: Primary Care Provider Call Non-Emergent contact if: you have any medication questions . . Additional Copies To Alfred Al D.O.
--- NOTE | 2016-12-31 13:07 | EDITING REQUIRED CODING QUERY ---
CODING QUERY To promote full compliance with coding requirements relating to patient care, provider participation is requested in all cases of orthopedic coder uncertainty. Please assist us with the question(s) below: Coding Question(s): Dr. Deluca, Please clarify the following diagnosis: Groin wound ( ) Nonhealing surgical wound ( ) Laceration (please state cause) ( ) Open wound (please state cause) ( ) Superficial wound (please state cause) ( ) Puncture wound (please state cause) ( ) Penetrating wound (please state cause) ( ) Other, please explain Physician's Response(s): Thank you for your time, ROSA Morillo, ANTHROPOLOGICAL LINGUIST
[2017-01-04] MEDS ORDERED: CIPR-255 PO (15:09)
[2017-01-20] MEDS ORDERED: RIVA1TAB4 PO (14:59)
[2017-01-20] MEDS ORDERED: CIPR1TAB11 PO (14:59)
[2017-02-24] MEDS ORDERED: CIPR1TAB11 PO (15:00)
[2017-03-17] MEDS ORDERED: METO25TA3 PO (15:25)
[2017-03-17] MEDS ORDERED: ASPCH81X PO (15:25)
[2017-03-17] MEDS ORDERED: SIMV40TA2 PO (15:25)
[2017-03-20] MEDS ORDERED: CIPR1TAB11 PO (11:31)
== END 2016-12-29 15:40 | disposition home or self-care (01) | DRG 300 ==
LOC: C.EDB 20:08 → C.MS4W 22:19 → ENRESERV 22:42
PROVIDERS: ADMIT Internal Medicine; ATTEND Internal Medicine
DX: I82.412 Acute embolism and thrombosis of left femoral vein (principal); Z68.1 Body mass index [BMI] 19.9 or less, adult; E87.1 Hypo-osmolality and hyponatremia; K55.9 Vascular disorder of intestine, unspecified; E46 Unspecified protein-calorie malnutrition; R64 Cachexia; I82.4Z2 Acute embolism and thrombosis of unspecified deep veins of left distal lower extremity; T81.89XD Other complications of procedures, not elsewhere classified, subsequent encounter; Y83.2 Surgical operation with anastomosis, bypass or graft as the cause of abnormal reaction of the patient, or of later complication, without mention of misadventure at the time of the procedure; E87.6 Hypokalemia; D64.9 Anemia, unspecified; R19.7 Diarrhea, unspecified; I10 Essential (primary) hypertension; I73.9 Peripheral vascular disease, unspecified; Z95.820 Peripheral vascular angioplasty status with implants and grafts; Z87.891 Personal history of nicotine dependence; Z91.81 History of falling; Z89.611 Acquired absence of right leg above knee; Z72.89 Other problems related to lifestyle; Z79.02 Long term (current) use of antithrombotics/antiplatelets; Z79.82 Long term (current) use of aspirin; Z79.899 Other long term (current) drug therapy

== ENCOUNTER → 2016-12-27 | Outpatient (CLI) | payer BC ==
[~2016-12-27] MED LIST: ASPCH81X PO; ASPI81TA28 PO; CIPR-255 PO; CIPR1TAB11 PO; CLOP1TAB15 PO; IMD2X PO; LPRUNK PO; MCRK20 PO; METO25TA3 PO; METO25TA56 PO; MTR500 PO; RIVA1TAB4 PO; SIMV20TA2 PO; SIMV40TA2 PO; XRL15 PO; ZCRUNK PO
--- NOTE | 2016-12-27 19:46 | DIAGNOSTIC IMAGING REPORT ---
ULTRASOUND LEFT VENOUS DOPP LOWER EXT UNILAT CLINICAL HISTORY: Left leg swelling COMPARISON STUDY: No previous studies for comparison. FINDINGS: There is extensive thrombus within the left common femoral, superficial femoral, popliteal, and profunda veins. There is also probable thrombus within the posterior tibial and peroneal veins. Color flow is identified within the anterior tibial veins. IMPRESSION: Extensive acute left lower extremity DVT extending from the common femoral vein to the calf veins. Electronically signed by: Damien Gong M.D. 12/27/2016 7:44 PM Dictated Date/Time: 12/27/2016 7:43 PM
== END | disposition home or self-care (01) ==
LOC: C.ULTR 18:51
PROVIDERS: ATTEND Internal Medicine
DX: I82.4Z2 Acute embolism and thrombosis of unspecified deep veins of left distal lower extremity (principal)

== ENCOUNTER 2017-01-26 18:35 | Inpatient (IN) | payer BC ==
[~2017-01-26] VITALS: Ht 182.9 cm; Wt 59.9 kg
[~2017-01-26 18:35] MED LIST changes: +ASPI81TA28 PO; +CIPR1TAB11 PO; -LPRUNK PO; +METO25TA56 PO; +RIVA1TAB4 PO; +SIMV40TA2 PO; -ZCRUNK PO
[2017-01-26] MEDS ORDERED: PIPERACILLIN/TAZOBACTAM 4.5 GM/100ML D5W IV STA (19:02)
[2017-01-26] MEDS ORDERED: VANCOMYCIN INJ 1,000 MG in SODIUM CHLORIDE 0.9% 250ML 250 ML IV STA (19:02)
[2017-01-26] MEDS ORDERED: SODIUM CHLORIDE 0.9% 1000ML 1,000 ML IV STA (19:02)
--- NOTE | 2017-01-26 19:10 | EMERGENCY ROOM VISIT NOTE ---
History Report prepared by Iraida: Justyn Mancini Under the Supervision of: Dr. Ayden Cheney M.D. First contact with patient: 18:45 Chief Complaint: REFERRED BY DOCTOR Stated Complaint: REFERRED BY DOCTOR History of Present Illness The patient is a 62 year old white male with a past medical history of hypertension, hyperlipidemia, a right AKA, and a bilateral femoral artery bypass who presents to the ED with a cc of abdominal pain beginning recently. Positive for trouble urinating and diarrhea since May 2016. Negative fevers , chills, nausea, vomiting, shortness of breath, cough, or burning with urination. The patient received a CT scan yesterday at [facility]. He was referred to the ED by his doctor today for free air in his abdomen. He is currently on Xarelto for a blood clot in his leg. Source of History: patient Onset: recently Position: abdomen Symptom Intensity: mild Quality: ache Timing: constant Associated Symptoms: + diarrhea, + urinary symptoms (Trouble going), No fevers, No chills, No cough, No SOB, No nausea, No vomiting Review of Systems See HPI for pertinent positives and negatives. A total of ten systems were reviewed and were otherwise negative. Past Medical & Surgical Medical Problems: (1) DVT (deep venous thrombosis) (2) Hypertension (3) intravenous beta sonali administration (4) Perforated bowel Family History Abdominal aortic aneurysm (AAA) FH: bladder cancer FH: prostate cancer Social History Smoking Status: Former Smoker Smokeless Tobacco Use: No Alcohol Use: none Drug Use: none Marital Status: Housing Status: lives with significant other Occupation Status: retired Current/Historical Medications Scheduled Aspirin (Aspirin Ec), 81 MG PO DAILY Ciprofloxacin Tab (Cipro), 500 MG PO BID Metoprolol Tartrate (Lopressor) (Lopressor), 25 MG PO QAM Rivaroxaban (Xarelto), 1 TAB PO DAILY Simvastatin (Zocor), 40 MG PO QPM Allergies Coded Allergies: No Known Allergies (Verified , `, 01/26/17) Physical Exam Vital Signs Date Time Temp Pulse Resp B/P (MAP) Pulse Ox O2 Delivery O2 Flow Rate FiO2 01/26/17 22:07 Room Air 01/26/17 20:54 60 20 98/60 95 Room Air 01/26/17 20:40 64 01/26/17 18:43 36.7 78 18 102/62 100 Room Air Physical Exam GENERAL: Awake, alert, emaciated appearing, NAD HENT: Normocephalic, atraumatic. EYES: Normal conjunctiva. Sclera non-icteric. NECK: Supple. No nuchal rigidity. FROM. RESPIRATORY: CTAB, no rhonchi, wheezing, crackles CARDIAC: RRR, no MRG ABDOMEN: Soft, RLQ tenderness and mild suprapubic tenderness, ND, BS+, midline incisional abdominal scar MSK: No chest wall TTP, right AKA with a small wound, well appearing, LLE mild edema at 2+ pitting, no CVA tenderness to palpation NEURO: GCS 15, CN 2-12 intact, moves all 4s on command SKIN: No rash or jaundice noted. Medical Decision & Procedures Laboratory Results 01/26/17 19:25 Red Blood Count 3.22, Mean Corpuscular Volume 91.6, Mean Corpuscular Hemoglobin 29.8, Mean Corpuscular Hemoglobin Concent 32.5, Mean Platelet Volume 8.4, Neutrophils (%) (Auto) 61.8, Lymphocytes (%) (Auto) 24.9, Monocytes (%) (Auto) 8.8, Eosinophils (%) (Auto) 3.9, Basophils (%) (Auto) 0.3, Neutrophils # (Auto) 4.09, Lymphocytes # (Auto) 1.65, Monocytes # (Auto) 0.58, Eosinophils # (Auto) 0.26, Basophils # (Auto) 0.02 01/26/17 19:25 Test 01/26/17 19:25 01/26/17 19:50 01/26/17 20:04 01/26/17 21:00 White Blood Count 6.62 K/uL (4.8-10.8) Red Blood Count 3.22 M/uL (4.7-6.1) Hemoglobin 9.6 g/dL (14.0-18.0) Hematocrit 29.5 % (42-52) Mean Corpuscular Volume 91.6 fL (80-100) Mean Corpuscular Hemoglobin 29.8 pg (25-34) Mean Corpuscular Hemoglobin Concent 32.5 g/dl (32-36) Platelet Count 443 K/uL (130-400) Mean Platelet Volume 8.4 fL (7.4-10.4) Neutrophils (%) (Auto) 61.8 % Lymphocytes (%) (Auto) 24.9 % Monocytes (%) (Auto) 8.8 % Eosinophils (%) (Auto) 3.9 % Basophils (%) (Auto) 0.3 % Neutrophils # (Auto) 4.09 K/uL (1.4-6.5) Lymphocytes # (Auto) 1.65 K/uL (1.2-3.4) Monocytes # (Auto) 0.58 K/uL (0.11-0.59) Eosinophils # (Auto) 0.26 K/uL (0-0.5) Basophils # (Auto) 0.02 K/uL (0-0.2) RDW Standard Deviation 51.9 fL (36.4-46.3) RDW Coefficient of Variation 15.3 % (11.5-14.5) Immature Granulocyte % (Auto) 0.3 % Immature Granulocyte # (Auto) 0.02 K/uL (0.00-0.02) Activated Partial Thromboplast Time 31.5 SECONDS (21.0-31.0) Partial Thromboplastin Ratio 1.2 Anion Gap 5.0 mmol/L (3-11) Est Creatinine Clear Calc Drug Dose 104.3 ml/min Estimated GFR () 130.4 Estimated GFR (Non- 112.5 BUN/Creatinine Ratio 18.3 (10-20) Calcium Level 7.2 mg/dl (8.5-10.1) Magnesium Level 1.9 mg/dl (1.8-2.4) Total Bilirubin 0.2 mg/dl (0.2-1) Direct Bilirubin < 0.1 mg/dl (0-0.2) Aspartate Amino Transf (AST/SGOT) 23 U/L (15-37) Alanine Aminotransferase (ALT/SGPT) 14 U/L (12-78) Alkaline Phosphatase 72 U/L (45-117) Total Protein 6.3 gm/dl (6.4-8.2) Albumin 1.6 gm/dl (3.4-5.0) Lipase 93 U/L (73-393) Thyroid Stimulating Hormone (TSH) 1.560 uIu/ml (0.300-4.500) Venous Blood pH 7.37 (7.36-7.41) Venous Blood Partial Pressure CO2 42 mmHg (38.0-50.0) Venous Blood Partial Pressure O2 32 mmHg Venous Blood HCO3 24 mmol/L Venous Blood Oxygen Saturation < 60.0 % Venous Blood Base Excess -1.8 mEq/L Bedside Lactic Acid Venous 1.61 mmol/L (0.90-1.70) Urine Color YELLOW Urine Appearance CLEAR (CLEAR) Urine pH 6.5 (4.5-7.5) Urine Specific [place] 1.036 (1.000-1.030) Urine Protein NEG (NEG) Urine Glucose (UA) NEG (NEG) Urine Ketones NEG (NEG) Urine Occult Blood NEG (NEG) Urine Nitrite NEG (NEG) Urine Bilirubin NEG (NEG) Urine Urobilinogen NEG (NEG) Urine Leukocyte Esterase TRACE (NEG) Urine WBC (Auto) 5-10 /hpf (0-5) Urine RBC (Auto) 0-4 /hpf (0-4) Urine Hyaline Casts (Auto) 1-5 /lpf (0-5) Urine Epithelial Cells (Auto) 10-20 /lpf (0-5) Urine Bacteria (Auto) NEG (NEG) Laboratory results reviewed by me Medications Administered Medications (Trade) Dose Ordered Sig/Nadia Route Start Time Stop Time Status Last Admin Dose Admin Sodium Chloride 1,000 ml @ 999 mls/hr Q1H1M STAT IV 01/26/17 19:02 01/26/17 20:02 DC 01/26/17 20:11 999 MLS/HR Vancomycin HCl 1000 mg/Sodium Chloride 270 ml @ 125 mls/hr NOW STAT IV 01/26/17 19:02 01/26/17 21:11 DC 01/26/17 20:46 125 MLS/HR Piperacillin Sod/ Tazobactam Sod (Zosyn Iv) 4.5 gm NOW STAT IV 01/26/17 19:02 01/26/17 19:11 DC 01/26/17 20:11 4.5 GM Magnesium Sulfate (Magnesium Sulfate) 1 gm NOW STAT IV 01/26/17 20:32 01/26/17 20:34 DC 01/26/17 20:48 1 GM ED Course 184: The patient was evaluated in room B8. A complete history and physical exam was performed. 1910: [facility] We discussed the patient's case. He recommends antibiotics and for the patient to be transferred to [facility]. 1999: [facility] is unable to accept the patient because of their bed crunch. The patient cannot go to [facility] either. I will talk with Dr. Morin again. 2108: Upon reexamination, the patient was resting. I discussed the test results and treatment plan with him. The patient will be evaluated [facility] Medical Decision The patient is a 62 year old white male with a past medical history of hypertension, hyperlipidemia, a right AKA, and a bilateral femoral artery bypass who presents to the ED with a cc of abdominal pain beginning recently. Positive for diarrhea since May 2016. Negative fevers, chills, nausea, vomiting, shortness of breath, cough, or burning with urination. Triage Nursing notes reviewed. The patient's presentation and history were concerning for perforated viscus, colitis, intraabdominal abscess, diverticulitis, and ruptured diverticula. This is a 62-year-old white male with past medical history of Fen/fem bypass status post clot which resulted in aorto femoral bypass and as such had an infection of his right lower extremity and subsequent AKA who has had persistent diarrhea and weight loss for many months. Also w/ DVT of RLE on xarelto. Patient recently had a CT scan which showed pancolitis and free air in the abdomen. Patient only complains of some very mild lower abdominal pain. Patient denies any nausea or vomiting. Patient is not had any fevers or chills or chest pain or shortness of breath. Patient denies any cough. Patient does have mild wound that is healing over his right lower extremity stump. Given the patient's CT scan empiric anabiotic sore initiated labs and cultures were drawn. Patient does have some swelling to his left lower extremity. I initially spoke with general surgery here he stated that given the complex nature of his prior surgeries he may be better suited for a different hospital. Unfortunately there was no availability at his prior treating hospital. The patient and family member were also refusing to be transported elsewhere. Upon return of the patient's lab work patient had a white count of 6000 and normal lactate. Patient's other labs were fairly unremarkable. I spoke with the general surgeon and explained the current situation is stated that he was agreeable to keep the patient in house provided he was admitted to medicine. We discussed that if the patient got worse we would employer transfer at that time. I spoke with the medicine team who agreed to take the patient in that general surgery was on board with this plan. Patient was admitted to medicine. Medication Reconcilliation Current Medication List: was personally reviewed by me Blood Pressure Screening Patient's blood pressure: Normal blood pressure Blood pressure disposition: Did not require urgent referral Consults Time Called: 1904 Consulting Physician: Dr. Morin - [facility] Hospitalist Returned Call: 1909 I spoke with him about the patient. He recommends antibiotics and transfer to [facility]. 2108: Discussed the patient's case. The patient will be evaluated for further treatment and disposition. Impression Primary Impression: Colitis Additional Impressions: Perforated viscus Hypokalemia Dehydration Scribe Attestation The scribe's documentation has been prepared under my direction and personally reviewed by me in its entirety. I confirm that the note above accurately reflects all work, treatment, procedures, and medical decision making performed by me. Departure Information Dispostion Being Evaluated By Hospitalist Referrals Alfred Al D.O. (PCP) Patient Instructions My [facility] Problem Qualifiers
[2017-01-26 20:16] LABS: VEN BLOOD GAS BASE EXCESS -1.8 mEq/L; VENOUS BLOOD GAS PCO2 42 mmHg (38.0-50.0); VENOUS BLOOD GAS PO2 32 mmHg
[2017-01-26 20:20] LABS: VEN BLD GAS O2 SATURATION < 60.0 %
[2017-01-26 20:29] LABS: ALT/SGPT 14 U/L (12-78); AST/SGOT 23 U/L (15-37); BLOOD UREA NITROGEN 10 mg/dl (7-18); BUN/CREATININE RATIO 18.3 (10-20); CALCIUM 7.2 mg/dl (8.5-10.1); CARBON DIOXIDE 24 mmol/L (21-32); CHLORIDE 106 mmol/L (98-107); CREATININE 0.54 mg/dl (0.60-1.40); GLUCOSE 50 mg/dl (70-99); POTASSIUM 2.6 mmol/L (3.5-5.1); SODIUM 135 mmol/L (136-145)
[2017-01-26 20:31] LABS: ALKALINE PHOSPHATASE 72 U/L (45-117)
[2017-01-26] MEDS ORDERED: POTASSIUM CHLR 20 MEQ / WTR 20 MEQ in PREMIXED WATER 100 ML IV STA (20:32)
[2017-01-26] MEDS ORDERED: MAGNESIUM SULFATE 1GM / D5W 1 GM BAG IV STA (20:32)
[2017-01-26 20:34] LABS: BASO % 0.3 %; BASO ABS # 0.02 K/uL (0-0.2); COMPLETE YES; EOS % 3.9 %; HEMATOCRIT 29.5 % (42-52); IG% 0.3 %; LYMPH % 24.9 %; LYMPH ABS # 1.65 K/uL (1.2-3.4); MEAN CELL VOLUME 91.6 fL (80-100); MEAN CORPUSCULAR HEMOGLOBIN 29.8 pg (25-34); MEAN CORPUSCULAR HGB CONC 32.5 g/dl (32-36); MEAN PLATELET VOLUME 8.4 fL (7.4-10.4); MONO % 8.8 %; NEUT % 61.8 %; PLATELET COUNT 443 K/uL (130-400); RED BLOOD COUNT 3.22 M/uL (4.7-6.1); WHITE BLOOD COUNT 6.62 K/uL (4.8-10.8)
[2017-01-26] MEDS ORDERED: DEXTROSE 50% 50 ML SYR IV ONE (21:15)
[2017-01-26] MEDS ORDERED: NSS + 20MEQ KCL 1000ML 1,000 ML IV SCH (21:15)
[2017-01-26 21:22] LABS: URINE APPEARANCE CLEAR (CLEAR); URINE BILIRUBIN NEG (NEG); URINE COLOR YELLOW; URINE NITRITE NEG (NEG); URINE PH 6.5 (4.5-7.5); URINE SPECIFIC GRAVITY 1.036 (1.000-1.030); UROBILINOGEN NEG (NEG); ZZURINE CULT IF INDIC CATH NO
[2017-01-26 21:23] LABS: MANUAL MICROSCOPIC REQUIRED? NO; REVIEW REQ? NO
[2017-01-26] MEDS ORDERED: THIAMINE HCL 100 MG/ML 2 ML VIAL IV STA (21:23)
[2017-01-26 21:37] LABS: PARTIAL THROMBOPLASTIN RATIO 1.2
[2017-01-26 21:51] LABS: MAGNESIUM 1.9 mg/dl (1.8-2.4); THYROID STIMULATING HORMONE 1.56 uIu/ml (0.300-4.500)
[2017-01-26] MEDS ORDERED: HEPARIN IV LOW DOSE NO BOLUS STA (21:59)
[2017-01-26 22:07] VITALS: Ht 182.9 cm; Wt 59.9 kg
[2017-01-26] MEDS ORDERED: HYDROmorphone INJ 0.5 MG/0.5 ML SYR IV PRN (22:15)
[2017-01-26] MEDS ORDERED: ONDANSETRON INJ 2 MG/ML 2 ML VIAL IV PRN (22:15)
[2017-01-26] MEDS ORDERED: KETOROLAC TROMETHAMINE 30 MG/ML VIAL IV PRN (22:15)
[2017-01-26] MEDS ORDERED: ACETAMINOPHEN IV 650 MG in EMPTY BAG 0 ML IV PRN (22:15)
[2017-01-26] MEDS ORDERED: POTASSIUM CHLORIDE 10 MEQ / 100ML WTR IV SCH (22:30)
[2017-01-26] MEDS: HEPARIN 25,000 UNIT/500ML D5W 500 ML IV PRN (22:32)
[2017-01-26 22:50] VITALS: BP 104/67; PULSE 62; TEMP 36.6; O2SAT 99
--- NOTE | 2017-01-26 23:03 | SURGICAL CONSULTATION ---
DATE OF CONSULTATION: 01/26/2017 I have been asked by Dr. Sheth to see this 62-year-old male who came to the Emergency Room as directed by his primary care physician for evaluation of abdominal pain and a CT scan that noted pancolitis and a foci of free air. The patient has a long complex history. He has multiple vascular issues. He underwent at one point a fem-fem bypass. He then apparently had bilateral femoral artery bypass and then he had an aortobifem bypass. He then developed what he and his described as gushing bleeding from the right groin area. He was evaluated and treated; however, he then developed ischemia of his right lower extremity which then required an AKA. That was done in May, and while in the hospital, he developed diarrhea. He has not had what he would consider a formed normal bowel movement since. He has had intermittent abdominal pain, but over the last week or so, the pain seems to be more intense and also more continuous. It is primarily in the right lower quadrant. He has never had pain like this in the past. He has no dysuria or hematuria, although moving his urine has been more difficult. He has not had hematochezia or melena with the chronic diarrhea. He does not think he has had fever or chills. His appetite had actually been improving over the last 1-2 weeks. PAST MEDICAL HISTORY: Includes peripheral vascular disease that is severe, requiring surgeries as described above. He presently has DVT of the left leg for which he is on Xarelto and he has a history of hypertension. PAST SURGICAL HISTORY: For the multiple vascular procedures and the right AKA. He then required revisions for the bleeding. He has chronic wound in the right groin and also of the AKA incision that he has been seeing the wound care center in [place]. MEDICATIONS: At home included aspirin, Zocor, Xarelto, Lopressor, Cipro. ALLERGIES: None. SOCIAL HISTORY: Up until May of this past year, he was smoking 1 pack a day since he thinks the age of 18. He does not chew tobacco and drank alcohol fairly heavily up until he was placed on the Xarelto. PHYSICAL EXAMINATION: GENERAL: Reveals a cachectic male who answers questions appropriately and appears in no acute distress. VITAL SIGNS: Blood pressure 98/60, heart rate 60, respirations 20, temperature 36.7, pulse oximetry is 95% on room air. HEENT: Reveals the sclerae to be anicteric. Mucous membranes are moist. NECK: Supple with no JVD, no cervical or supraclavicular adenopathy. BACK: Has no spinal or CVA tenderness. LUNGS: Clear. HEART: Regular. ABDOMEN: Has a vertical midline scar that is well healed but there is a wound that is moist. It appears to be serous. There is tenderness of the lower abdomen, right side greater than left. There is no upper abdominal tenderness. He is not distended. LABORATORY DATA: WBC 6.62, H&H is 9.6 and 29.5, platelet count is 443,000. Sodium 135, potassium 2.6, chloride 106, CO2 of 24, BUN 10, creatinine 0.54, glucose 50, calcium 7.2. Total bilirubin is 0.2, AST 23, ALT 14, alkaline phosphatase 72. Albumin 1.6, total protein is 6.3, lipase 93. TSH is 1.56. Lactic acid is 1.6. CT scan was performed at [facility]. It demonstrated the pancolitis with foci of free air. ASSESSMENT AND PLAN: This patient has pancolitis. He has had chronic diarrhea but no blood. There may be a microperforation related to that. I do not feel that he requires immediate surgical intervention as he has no diffuse peritonitis and is hemodynamically stable. I agree with IV antibiotics. If he would need surgical intervention, I think going back to [facility] would be more prudent. Thank you for allowing me to see this patient and participate in his care.
[2017-01-26] MEDS ORDERED: POTASSIUM CHLR 10MEQ / WTR IV SCH (23:30)
[2017-01-26] MEDS ORDERED: THIAMINE HCL INJ 100 MG in SYRINGE 9 ML IV SCH (23:30)
[2017-01-27] MEDS ORDERED: DEXTROSE 50% 50 ML SYR IV ONE
[2017-01-27] MEDS: CIPROFLOXACIN 400MG / D5W IV SCH ×3 (00:18→23:49)
[2017-01-27] MEDS: D5NSS + 20MEQ KCL 1,000 ML IV SCH ×2 (00:18→15:11)
[2017-01-27] MEDS: POTASSIUM CHLR 10 MEQ / WTR 10 MEQ in PREMIXED WATER 100 ML IV SCH ×8 (01:46→08:44)
[2017-01-27] MEDS: METRONIDAZOLE / NSS 500 MG in PREMIXED NSS 100 ML IV SCH ×3 (02:49→18:00)
[2017-01-27 04:00] VITALS: BP 94/51; PULSE 63; TEMP 36.7; O2SAT 95
[2017-01-27 04:22] LABS: BASO % 0.4 %; BASO ABS # 0.02 K/uL (0-0.2); EOS % 6.4 %; HEMATOCRIT 25.7 % (42-52); IG% 0.6 %; LYMPH % 19.9 %; LYMPH ABS # 0.96 K/uL (1.2-3.4); MEAN CELL VOLUME 90.5 fL (80-100); MEAN CORPUSCULAR HEMOGLOBIN 29.9 pg (25-34); MEAN CORPUSCULAR HGB CONC 33.1 g/dl (32-36); MEAN PLATELET VOLUME 8.2 fL (7.4-10.4); MONO % 9.8 %; NEUT % 62.9 %; PLATELET COUNT 330 K/uL (130-400); RED BLOOD COUNT 2.84 M/uL (4.7-6.1); WHITE BLOOD COUNT 4.82 K/uL (4.8-10.8)
[2017-01-27 04:32] LABS: PARTIAL THROMBOPLASTIN RATIO 1.5
[2017-01-27] MEDS ORDERED: NURSING VERBAL MED ORDER ONE (04:45)
[2017-01-27 04:48] LABS: COMPLETE YES; ECHINOCYTES 1+
[2017-01-27 04:52] LABS: CALCIUM 6.5 mg/dl (8.5-10.1); CREATININE 0.46 mg/dl (0.60-1.40); POTASSIUM 3.4 mmol/L (3.5-5.1)
[2017-01-27] MEDS ORDERED: HEPARIN IV BOLUS 4,000 UNIT in SYRINGE 0 ML IV ONE (05:30)
[2017-01-27] MEDS: METOPROLOL TARTRATE 1 MG/ML VIAL IV. SCH ×5 (06:00→23:49)
--- NOTE | 2017-01-27 06:59 | HISTORY & PHYSICAL EXAMINATION ---
DATE OF ADMISSION: 01/26/2017 PRIMARY CARE DOCTOR: Dr. Al. CHIEF COMPLAINT: Abdominal pain, abnormal CT. HISTORY OF PRESENT ILLNESS: History obtained from patient and records. Medical history significant for chronic diarrhea. PVD status post surgery, hypertension, hyperlipidemia, past tobacco and alcohol abuse, chronic anemia (baseline hemoglobin of 8-9), history of left lower extremity DVT ongoing Xarelto, Recent confinement 12/2016 for acute left lower extremity DVT. Patient discharged on Xarelto. Last 06/2016, the patient admitted at [facility] for ischemic right foot, underwent multiple procedures, including R AKA. Intractable diarrhea noted during confinement. C. diff negative. CAT scan abdomen and pelvis dated 07/2016 showed enhancement of the sigmoid colon and rectum, inflammatory versus ischemic. Patient evaluated by GI during confinement. Limited flex sig showed diffuse proctosigmoiditis. Persistent abdominal pain and diarrhea symptoms since the last 8 months, nonbloody, evaluated by [facility] outpatient 2 weeks ago, suspicion for microscopic colitis versus CMV. Stool for cultures recommended. Colonoscopy next month. Antidiarrheal p.r.n. Last week the patient noted achy upper abdominal discomfort, different from usual abdominal pain. Persistent nonbloody diarrhea. No fever, no chills. Patient was seen at PCP's office. Outpatient CT of the pelvis showed pancolitis with scattered foci of pneumoperitoneum in the upper abdomen concerning for perforation. No definite site of perforation identified, although there were scattered air-fluid diverticula in the sigmoid region and ruptured intraperitoneal diverticulum is a possibility. No solid mass identified. Patient directed by PCP to Emergency Room. He received Vancomycin and Zosyn in the Emergency Room. Transfer to tertiary center recommended by surgeon on-call. No available beds for the patient's condition at [facility] as per ER physician. Patient and refused transfer to other institutions. MEDICAL HISTORY: As above. SURGERIES: Vascular procedures, multiple orthopedic debridements, AKA right, hernia repair. HOME MEDICATIONS: Include aspirin, Cipro, metoprolol, Xarelto, simvastatin. ALLERGIES: No known drug allergies. FAMILY HISTORY: Vascular disease, bladder and prostate cancer. PERSONAL AND SOCIAL HISTORY: Past tobacco and alcohol abuse. 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 REVIEW OF SYSTEMS: As per HPI, all other ROS negative. PHYSICAL EXAMINATION: VITAL SIGNS: Blood pressure was noted to be 98/60, pulse rate 60, RR 20, 36.6, sats 95 on room air. GENERAL: Noted to be hyposthenic, irate, chronically ill. Unkempt. SKIN: Pallor. HEENT: Pale palpebral conjunctivae, dry mucosa. Partial alopecia. NECK: No JVD. Supple CHEST: Decreased effort. HEART: Regular rate and rhythm. ABDOMEN: Some distention. Tenderness on the right side and hypogastrium. EXTREMITIES: No edema. Right AKA stump with dressing. NEUROLOGIC: No gross focality. LABORATORY DATA: Hemoglobin was noted to be 9.6, hemoglobin 29.5, white cell count 6.62, platelets 443. Sodium 136, potassium 2.6, chloride 106, CO2 of 24, BUN 10, creatinine 0.5, glucose was noted to be 50. Lactic acid was normal. ASSESSMENT: 1. Perforated bowel, pancolitis on CT chronic diarrhea since 06/2016. Proctosigmoidocolitis noted on 07/2016 CT done during confinement in [facility] Patient not septic and clinically not toxic for now. 2. Hypokalemia secondary to diarrhea. 3. Recent lower extremity DVT ongoing Xarelto 4. Chronic anemia. Hemoglobin at baseline. 5. Peripheral vascular disease, status post surgery. 6. Past tobacco and alcohol abuse. 7. Malnutrition. Low body mass index. PLAN: PCU monitoring due to need for IV administration for patient's home beta sonali while patient is totally n.p.o. Analgesia Cipro, Flagyl Replace potassium. Surgery consult. Dr. Morin has already seen the patient in the Emergency Room. He recommends transfer to [facility] once bed available owing complexity of patient history. (Patient and continue to adamantly refuse to transfer to nearby tertiary hospitals other than [facility] and [facility] for care despite explanation of situation and advice.) Appropriate to hold home Xarelto for recent DVT for now given potential for surgical exploration. Low-dose IV heparin while Xarelto on hold in light of recent DVT. Nutrition consult in a.m. re: low BMI. DVT prophylaxis, heparin Full code. MTDD
[2017-01-27 07:59] VITALS: BP 91/55; PULSE 67; TEMP 36.8; O2SAT 94
[2017-01-27] MEDS: ASPIRIN 300 MG SUPP PR SCH (08:38)
[2017-01-27] MEDS ORDERED: CIPROFLOXACIN CONSULT ACTIVE PRN ×2 (09:00)
--- NOTE | 2017-01-27 11:19 | Progress Note ---
Medicine Progress Note Date & Time of Visit: Jan 27, 2017 at 10:52. Subjective Pt was seen and examined Lying in bed comfortable with no distress Pt said that her abdominal pain improved significantly he said that he continue to have diarrhea that is chronic Pt does not want to be transferred, he would rather stay here to have any surgical intervention done here ([facility]) He said that if we plan to transfer him to [place], he will not go by ambulance He would want his to drive him Denies any chest pain, palpitation, dizziness, palpitation and SOB Objective Last 8 Hrs Date Time Temp Pulse Resp B/P (MAP) Pulse Ox O2 Delivery O2 Flow Rate FiO2 01/27/17 08:00 Room Air 01/27/17 07:59 36.8 67 18 91/55 (67) 94 Room Air 01/27/17 06:00 63 99/53 01/27/17 04:00 36.7 63 18 94/51 (65) 95 Room Air 01/27/17 04:00 Room Air Physical Exam: General- No acute distress Head- atraumatic Eyes- PERRL, EOMI ENT- oropharynx clear Neck- supple, no JVD Lungs- clear to auscultation Heart- regular rhythm; no murmur Abdomen- soft, Non distended, mild tenderness in mid abdomen with palpation Extremities- Right AKA stump with dressing, +edema in LLE Neuro- alert, oriented x 3; PERRL, EOMI; no facial palsy Skin- warm & dry Laboratory Results: Last 24 Hours Test 01/26/17 19:25 01/26/17 19:50 01/26/17 20:04 01/26/17 21:00 White Blood Count 6.62 K/uL Red Blood Count 3.22 M/uL Hemoglobin 9.6 g/dL Hematocrit 29.5 % Mean Corpuscular Volume 91.6 fL Mean Corpuscular Hemoglobin 29.8 pg Mean Corpuscular Hemoglobin Concent 32.5 g/dl Platelet Count 443 K/uL Mean Platelet Volume 8.4 fL Neutrophils (%) (Auto) 61.8 % Lymphocytes (%) (Auto) 24.9 % Monocytes (%) (Auto) 8.8 % Eosinophils (%) (Auto) 3.9 % Basophils (%) (Auto) 0.3 % Neutrophils # (Auto) 4.09 K/uL Lymphocytes # (Auto) 1.65 K/uL Monocytes # (Auto) 0.58 K/uL Eosinophils # (Auto) 0.26 K/uL Basophils # (Auto) 0.02 K/uL RDW Standard Deviation 51.9 fL RDW Coefficient of Variation 15.3 % Immature Granulocyte % (Auto) 0.3 % Immature Granulocyte # (Auto) 0.02 K/uL Activated Partial Thromboplast Time 31.5 SECONDS Partial Thromboplastin Ratio 1.2 Sodium Level 135 mmol/L Potassium Level 2.6 mmol/L Chloride Level 106 mmol/L Carbon Dioxide Level 24 mmol/L Anion Gap 5.0 mmol/L Blood Urea Nitrogen 10 mg/dl Creatinine 0.54 mg/dl Est Creatinine Clear Calc Drug Dose 104.3 ml/min Estimated GFR () 130.4 Estimated GFR (Non- 112.5 BUN/Creatinine Ratio 18.3 Random Glucose 50 mg/dl Calcium Level 7.2 mg/dl Magnesium Level 1.9 mg/dl Total Bilirubin 0.2 mg/dl Direct Bilirubin < 0.1 mg/dl Aspartate Amino Transf (AST/SGOT) 23 U/L Alanine Aminotransferase (ALT/SGPT) 14 U/L Alkaline Phosphatase 72 U/L Total Protein 6.3 gm/dl Albumin 1.6 gm/dl Lipase 93 U/L Thyroid Stimulating Hormone (TSH) 1.560 uIu/ml Venous Blood pH 7.37 Venous Blood Partial Pressure CO2 42 mmHg Venous Blood Partial Pressure O2 32 mmHg Venous Blood HCO3 24 mmol/L Venous Blood Oxygen Saturation < 60.0 % Venous Blood Base Excess -1.8 mEq/L Bedside Lactic Acid Venous 1.61 mmol/L Urine Color YELLOW Urine Appearance CLEAR Urine pH 6.5 Urine Specific [place] 1.036 Urine Protein NEG Urine Glucose (UA) NEG Urine Ketones NEG Urine Occult Blood NEG Urine Nitrite NEG Urine Bilirubin NEG Urine Urobilinogen NEG Urine Leukocyte Esterase TRACE Urine WBC (Auto) 5-10 /hpf Urine RBC (Auto) 0-4 /hpf Urine Hyaline Casts (Auto) 1-5 /lpf Urine Epithelial Cells (Auto) 10-20 /lpf Urine Bacteria (Auto) NEG Test 01/27/17 04:11 White Blood Count 4.82 K/uL Red Blood Count 2.84 M/uL Hemoglobin 8.5 g/dL Hematocrit 25.7 % Mean Corpuscular Volume 90.5 fL Mean Corpuscular Hemoglobin 29.9 pg Mean Corpuscular Hemoglobin Concent 33.1 g/dl Platelet Count 330 K/uL Mean Platelet Volume 8.2 fL Neutrophils (%) (Auto) 62.9 % Lymphocytes (%) (Auto) 19.9 % Monocytes (%) (Auto) 9.8 % Eosinophils (%) (Auto) 6.4 % Basophils (%) (Auto) 0.4 % Neutrophils # (Auto) 3.03 K/uL Lymphocytes # (Auto) 0.96 K/uL Monocytes # (Auto) 0.47 K/uL Eosinophils # (Auto) 0.31 K/uL Basophils # (Auto) 0.02 K/uL RDW Standard Deviation 51.5 fL RDW Coefficient of Variation 15.4 % Immature Granulocyte % (Auto) 0.6 % Immature Granulocyte # (Auto) 0.03 K/uL Echinocytes 1+ Activated Partial Thromboplast Time 39.2 SECONDS Partial Thromboplastin Ratio 1.5 Sodium Level 140 mmol/L Potassium Level 3.4 mmol/L Chloride Level 113 mmol/L Carbon Dioxide Level 22 mmol/L Anion Gap 5.0 mmol/L Blood Urea Nitrogen 6 mg/dl Creatinine 0.46 mg/dl Est Creatinine Clear Calc Drug Dose 122.5 ml/min Estimated GFR () 139.3 Estimated GFR (Non- 120.2 BUN/Creatinine Ratio 12.0 Random Glucose 80 mg/dl Calcium Level 6.5 mg/dl Albumin 1.2 gm/dl Date/Time Source Procedure Growth Status 01/26/17 19:50 Blood Blood Culture Pending Received 01/26/17 19:25 Blood Blood Culture Pending Received 01/27/17 00:02 Stool C.difficile Toxin B Gene (PCR) - Final No C. difficile toxin B gene detected Complete 01/26/17 21:00 Urine,Catheterized Urine Culture Pending Received Assessment & Plan Abdominal pain CT done outpatient showed pancolitis with scattered foci of pneumoperitoneum in the upper abdomen concerning for perforation Pain significantly improved now Continue flagyl and cipro IV Surgery on board recommended conservative management for now And if surgical intervention needed, it will be best to transfer to a tertiary center Hemodynamically stable Keep NPO for now LLE DVT Recent, was started on xarelto Xarelto on hold in case pt has to go for surgery Starting on heparin drip PVD status post surgery Continue aspirin On heparin drip Stable Right LE amputation Fall precaution PT/OT Right Groin Wound Continue daily wound care Stable Anemia hgb 8.5 Continue monitor CBC Hypokalemia Related to chronic diarrhea K replaced monitor bmp Chronic Diarrhea Continue IVF Monitor electrolytes DVT px On heparin drip CODE STATUS FULL CODE Consultants: Surgery Current Inpatient Medications: Current Inpatient Medications Medications (Trade) Dose Ordered Sig/Nadia Route Start Time Stop Time Status Last Admin Dose Admin Potassium Chloride/Dextrose/ Sod Cl 1,000 ml @ 60 mls/hr [id number] IV 01/26/17 23:30 02/25/17 23:29 01/27/17 00:18 60 MLS/HR Ciprofloxacin (Consult) 1 ea UD PRN N/A 01/27/17 09:00 02/26/17 08:59 Metronidazole 500 mg/Prmx 100 ml @ 100 mls/hr Q8H IV 01/27/17 02:00 02/06/17 01:59 01/27/17 02:49 100 MLS/HR Metoprolol Tartrate (Lopressor Iv) 2.5 mg Q6H IV. 01/27/17 00:00 02/26/17 00:00 Aspirin (Aspirin Supp) 300 mg DAILY [place] 01/27/17 09:00 02/26/17 08:59 Acetaminophen 650 mg/Empty Bag 65 ml @ 260 mls/hr Q6H PRN IV 01/26/17 22:15 02/25/17 22:14 Ondansetron HCl (Zofran Inj) 4 mg Q6H PRN IV 01/26/17 22:15 02/25/17 22:14 Hydromorphone HCl (Dilaudid Inj) 0.5 mg Q3H PRN IV 01/26/17 22:15 02/09/17 22:14 Ketorolac Tromethamine (Toradol Inj) 15 mg Q6H PRN IV 01/26/17 22:15 01/31/17 22:14 Heparin Sodium/ Dextrose 500 ml @ 14 mls/hr Q24H PRN IV 01/26/17 22:30 02/25/17 22:29 01/26/17 22:32 12 MLS/HR Ciprofloxacin/ Dextrose 400 mg/ Prmx 200 ml @ 100 mls/hr Q12H IV 01/27/17 00:00 02/06/17 00:00 01/27/17 00:18 100 MLS/HR
[2017-01-27 11:58] VITALS: BP 106/62; PULSE 69; TEMP 36.6; O2SAT 97
[2017-01-27 12:03] LABS: PARTIAL THROMBOPLASTIN RATIO 1.9
[2017-01-27 15:45] VITALS: BP 109/66; PULSE 66; TEMP 36.7; O2SAT 97
--- NOTE | 2017-01-27 15:55 | Surgery Progress Note ---
Surgery Progress Note Date of Service Jan 27, 2017. Subjective No nausea, No vomiting Feels some better today Less pain Has some hunger Objective Vital Signs: Date Time Temp Pulse Resp B/P (MAP) Pulse Ox O2 Delivery O2 Flow Rate FiO2 01/27/17 15:45 36.7 66 22 109/66 (80) 97 Room Air 01/27/17 12:37 69 106/62 01/27/17 12:00 Room Air 01/27/17 11:58 36.6 69 16 106/62 (77) 97 Room Air 01/27/17 08:00 Room Air 01/27/17 07:59 36.8 67 18 91/55 (67) 94 Room Air 01/27/17 06:00 63 99/53 01/27/17 04:00 36.7 63 18 94/51 (65) 95 Room Air 01/27/17 04:00 Room Air 01/27/17 00:00 65 99/60 01/26/17 22:50 36.6 62 18 104/67 (79) 99 Room Air 01/26/17 22:07 Room Air 01/26/17 20:54 60 20 98/60 95 Room Air 01/26/17 20:40 64 01/26/17 18:43 36.7 78 18 102/62 100 Room Air Abdomen: normal bowel sounds, non distended, + tenderness (lower abdomen mostly left and midline, improved compared to last night) Laboratory Results: Results Past 24 Hours Test 01/26/17 19:25 01/26/17 19:50 01/26/17 20:04 01/26/17 21:00 Range/Units White Blood Count 6.62 4.8-10.8 K/uL Red Blood Count 3.22 4.7-6.1 M/uL Hemoglobin 9.6 14.0-18.0 g/dL Hematocrit 29.5 42-52 % Mean Corpuscular Volume 91.6 80-100 fL Mean Corpuscular Hemoglobin 29.8 25-34 pg Mean Corpuscular Hemoglobin Concent 32.5 32-36 g/dl Platelet Count 443 130-400 K/uL Mean Platelet Volume 8.4 7.4-10.4 fL Neutrophils (%) (Auto) 61.8 % Lymphocytes (%) (Auto) 24.9 % Monocytes (%) (Auto) 8.8 % Eosinophils (%) (Auto) 3.9 % Basophils (%) (Auto) 0.3 % Neutrophils # (Auto) 4.09 1.4-6.5 K/uL Lymphocytes # (Auto) 1.65 1.2-3.4 K/uL Monocytes # (Auto) 0.58 0.11-0.59 K/uL Eosinophils # (Auto) 0.26 0-0.5 K/uL Basophils # (Auto) 0.02 0-0.2 K/uL RDW Standard Deviation 51.9 36.4-46.3 fL RDW Coefficient of Variation 15.3 11.5-14.5 % Immature Granulocyte % (Auto) 0.3 % Immature Granulocyte # (Auto) 0.02 0.00-0.02 K/uL Activated Partial Thromboplast Time 31.5 21.0-31.0 SECONDS Partial Thromboplastin Ratio 1.2 Sodium Level 135 136-145 mmol/L Potassium Level 2.6 3.5-5.1 mmol/L Chloride Level 106 98-107 mmol/L Carbon Dioxide Level 24 21-32 mmol/L Anion Gap 5.0 3-11 mmol/L Blood Urea Nitrogen 10 7-18 mg/dl Creatinine 0.54 0.60-1.40 mg/dl Est Creatinine Clear Calc Drug Dose 104.3 ml/min Estimated GFR () 130.4 Estimated GFR (Non- 112.5 BUN/Creatinine Ratio 18.3 10-20 Random Glucose 50 70-99 mg/dl Calcium Level 7.2 8.5-10.1 mg/dl Magnesium Level 1.9 1.8-2.4 mg/dl Total Bilirubin 0.2 0.2-1 mg/dl Direct Bilirubin < 0.1 0-0.2 mg/dl Aspartate Amino Transf (AST/SGOT) 23 15-37 U/L Alanine Aminotransferase (ALT/SGPT) 14 12-78 U/L Alkaline Phosphatase 72 45-117 U/L Total Protein 6.3 6.4-8.2 gm/dl Albumin 1.6 3.4-5.0 gm/dl Lipase 93 73-393 U/L Thyroid Stimulating Hormone (TSH) 1.560 0.300-4.500 uIu/ml Venous Blood pH 7.37 7.36-7.41 Venous Blood Partial Pressure CO2 42 38.0-50.0 mmHg Venous Blood Partial Pressure O2 32 mmHg Venous Blood HCO3 24 mmol/L Venous Blood Oxygen Saturation < 60.0 % Venous Blood Base Excess -1.8 mEq/L Bedside Lactic Acid Venous 1.61 0.90-1.70 mmol/L Urine Color YELLOW Urine Appearance CLEAR CLEAR Urine pH 6.5 4.5-7.5 Urine Specific [place] 1.036 1.000-1.030 Urine Protein NEG NEG Urine Glucose (UA) NEG NEG Urine Ketones NEG NEG Urine Occult Blood NEG NEG Urine Nitrite NEG NEG Urine Bilirubin NEG NEG Urine Urobilinogen NEG NEG Urine Leukocyte Esterase TRACE NEG Urine WBC (Auto) 5-10 0-5 /hpf Urine RBC (Auto) 0-4 0-4 /hpf Urine Hyaline Casts (Auto) 1-5 0-5 /lpf Urine Epithelial Cells (Auto) 10-20 0-5 /lpf Urine Bacteria (Auto) NEG NEG Test 01/27/17 04:11 01/27/17 11:38 Range/Units White Blood Count 4.82 4.8-10.8 K/uL Red Blood Count 2.84 4.7-6.1 M/uL Hemoglobin 8.5 14.0-18.0 g/dL Hematocrit 25.7 42-52 % Mean Corpuscular Volume 90.5 80-100 fL Mean Corpuscular Hemoglobin 29.9 25-34 pg Mean Corpuscular Hemoglobin Concent 33.1 32-36 g/dl Platelet Count 330 130-400 K/uL Mean Platelet Volume 8.2 7.4-10.4 fL Neutrophils (%) (Auto) 62.9 % Lymphocytes (%) (Auto) 19.9 % Monocytes (%) (Auto) 9.8 % Eosinophils (%) (Auto) 6.4 % Basophils (%) (Auto) 0.4 % Neutrophils # (Auto) 3.03 1.4-6.5 K/uL Lymphocytes # (Auto) 0.96 1.2-3.4 K/uL Monocytes # (Auto) 0.47 0.11-0.59 K/uL Eosinophils # (Auto) 0.31 0-0.5 K/uL Basophils # (Auto) 0.02 0-0.2 K/uL RDW Standard Deviation 51.5 36.4-46.3 fL RDW Coefficient of Variation 15.4 11.5-14.5 % Immature Granulocyte % (Auto) 0.6 % Immature Granulocyte # (Auto) 0.03 0.00-0.02 K/uL Echinocytes 1+ Activated Partial Thromboplast Time 39.2 50.2 21.0-31.0 SECONDS Partial Thromboplastin Ratio 1.5 1.9 Sodium Level 140 136-145 mmol/L Potassium Level 3.4 3.5-5.1 mmol/L Chloride Level 113 98-107 mmol/L Carbon Dioxide Level 22 21-32 mmol/L Anion Gap 5.0 3-11 mmol/L Blood Urea Nitrogen 6 7-18 mg/dl Creatinine 0.46 0.60-1.40 mg/dl Est Creatinine Clear Calc Drug Dose 122.5 ml/min Estimated GFR () 139.3 Estimated GFR (Non- 120.2 BUN/Creatinine Ratio 12.0 10-20 Random Glucose 80 70-99 mg/dl Calcium Level 6.5 8.5-10.1 mg/dl Albumin 1.2 3.4-5.0 gm/dl Microbiology Results 01/26/17 Blood Culture, Received Pending 01/26/17 Blood Culture, Received Pending 01/27/17 C.difficile Toxin B Gene (PCR) - Final, Complete No C. difficile toxin B gene detected 01/26/17 Urine Culture - Preliminary, Resulted NO GROWTH - LESS THAN 1,000 COLONIES/... Assessment & Plan Pancolitis, with loci of free air but no diffuse peritonitis Seems to be responding to conservative management Would continue If continues to improve consider clears tomorrow If surgery becomes necessary, would recommend tertiary care center, patient has had his are in [place]
[2017-01-27 19:33] VITALS: BP 106/61; PULSE 69; TEMP 36.9; O2SAT 94
[2017-01-28] VITALS (7 sets, daily range): BP systolic 109–124; BP diastolic 62–70; PULSE 61–69; TEMP 36.6–37; O2SAT 94–98
[2017-01-28] MEDS: METRONIDAZOLE / NSS 500 MG in PREMIXED NSS 100 ML IV SCH ×3 (02:10→18:29)
--- NOTE | 2017-01-28 05:52 | Surgery Progress Note ---
Surgery Progress Note Date of Service Jan 28, 2017. Subjective no worsening abd pain- awake, alert wants something to eat Objective Vital Signs: Date Time Temp Pulse Resp B/P (MAP) Pulse Ox O2 Delivery O2 Flow Rate FiO2 01/28/17 04:15 37.0 69 22 124/66 (85) 98 Room Air 01/28/17 04:00 Room Air 01/28/17 00:02 37.0 69 22 113/62 (79) 94 Room Air 01/28/17 00:00 Room Air 01/27/17 23:49 68 113/62 01/27/17 19:45 Room Air 01/27/17 19:33 36.9 69 22 106/61 (76) 94 Room Air 01/27/17 18:00 66 109/66 01/27/17 16:00 Room Air 01/27/17 15:45 36.7 66 22 109/66 (80) 97 Room Air 01/27/17 12:37 69 106/62 01/27/17 12:00 Room Air 01/27/17 11:58 36.6 69 16 106/62 (77) 97 Room Air 01/27/17 08:00 Room Air 01/27/17 07:59 36.8 67 18 91/55 (67) 94 Room Air 01/27/17 06:00 63 99/53 General Appearance: no apparent distress Respiratory/Chest: no respiratory distress Abdomen: non distended, soft, + pertinent finding (some mid abd tenderness) Laboratory Results: Results Past 24 Hours Test 01/27/17 11:38 01/28/17 05:21 Range/Units Activated Partial Thromboplast Time 50.2 21.0-31.0 SECONDS Partial Thromboplastin Ratio 1.9 Assessment & Plan 01/28/17- seems to be stable- will try sips of clear liquids and advance very slowly. Cont IV atbx.
[2017-01-28 06:14] LABS: BASO % 0.8 %; BASO ABS # 0.03 K/uL (0-0.2); EOS % 9.2 %; HEMATOCRIT 25.9 % (42-52); IG% 0.5 %; LYMPH % 25.1 %; LYMPH ABS # 0.93 K/uL (1.2-3.4); MEAN CELL VOLUME 90.9 fL (80-100); MEAN CORPUSCULAR HEMOGLOBIN 29.5 pg (25-34); MEAN CORPUSCULAR HGB CONC 32.4 g/dl (32-36); MEAN PLATELET VOLUME 8.6 fL (7.4-10.4); MONO % 9.7 %; NEUT % 54.7 %; PLATELET COUNT 336 K/uL (130-400); RED BLOOD COUNT 2.85 M/uL (4.7-6.1); WHITE BLOOD COUNT 3.71 K/uL (4.8-10.8)
[2017-01-28 06:22] LABS: PARTIAL THROMBOPLASTIN RATIO 1.5
[2017-01-28] MEDS: METOPROLOL TARTRATE 1 MG/ML VIAL IV. SCH (06:31)
[2017-01-28 06:46] LABS: COMPLETE YES; ECHINOCYTES 1+; TOXIC GRANULATION 1+
[2017-01-28] MEDS ORDERED: HEPARIN IV BOLUS 4,000 UNIT in SYRINGE 0 ML IV ONE (07:00)
[2017-01-28] MEDS: HEPARIN 25,000 UNIT/500ML D5W 500 ML IV PRN ×2 (07:12→09:41)
[2017-01-28] MEDS: ASPIRIN 300 MG SUPP PR SCH (09:00)
[2017-01-28] MEDS: D5NSS + 20MEQ KCL 1,000 ML IV SCH (09:38)
[2017-01-28] MEDS ORDERED: POTASSIUM CHLORIDE 20 MEQ TABCR PO ONE (09:45)
--- NOTE | 2017-01-28 12:36 | Progress Note ---
Medicine Progress Note Date & Time of Visit: Jan 28, 2017 at 12:28. Subjective Pt was seen and examined Lying in bed with no distress Pt said that his abdominal is better He was started on clear liquid diet and tolerated it so far Continue to have diarrhea denies any n/v, palpitation, chest pain and sob Objective Last 8 Hrs Date Time Temp Pulse Resp B/P (MAP) Pulse Ox O2 Delivery O2 Flow Rate FiO2 01/28/17 12:00 Room Air 01/28/17 11:54 36.6 69 14 111/67 (82) 98 Room Air 01/28/17 08:04 36.8 69 15 118/66 (83) 98 Room Air 01/28/17 08:00 Room Air 01/28/17 06:31 69 124/69 Physical Exam: General- No acute distress Head- atraumatic Eyes- PERRL, EOMI ENT- oropharynx clear Neck- supple, no JVD Lungs- clear to auscultation Heart- regular rhythm; no murmur Abdomen- soft, Non distended, mild tenderness in mid abdomen with palpation Extremities- Right AKA stump with dressing, +edema in LLE Neuro- alert, oriented x 3; PERRL, EOMI; no facial palsy Skin- warm & dry Laboratory Results: Last 24 Hours Test 01/28/17 05:21 White Blood Count 3.71 K/uL Red Blood Count 2.85 M/uL Hemoglobin 8.4 g/dL Hematocrit 25.9 % Mean Corpuscular Volume 90.9 fL Mean Corpuscular Hemoglobin 29.5 pg Mean Corpuscular Hemoglobin Concent 32.4 g/dl Platelet Count 336 K/uL Mean Platelet Volume 8.6 fL Neutrophils (%) (Auto) 54.7 % Lymphocytes (%) (Auto) 25.1 % Monocytes (%) (Auto) 9.7 % Eosinophils (%) (Auto) 9.2 % Basophils (%) (Auto) 0.8 % Neutrophils # (Auto) 2.03 K/uL Lymphocytes # (Auto) 0.93 K/uL Monocytes # (Auto) 0.36 K/uL Eosinophils # (Auto) 0.34 K/uL Basophils # (Auto) 0.03 K/uL RDW Standard Deviation 51.7 fL RDW Coefficient of Variation 15.3 % Immature Granulocyte % (Auto) 0.5 % Immature Granulocyte # (Auto) 0.02 K/uL Toxic Granulation 1+ Echinocytes 1+ Activated Partial Thromboplast Time 38.3 SECONDS Partial Thromboplastin Ratio 1.5 Assessment & Plan Abdominal pain CT done outpatient showed pancolitis with scattered foci of pneumoperitoneum in the upper abdomen concerning for perforation Pain significantly improved now Continue Flagyl and cipro IV Surgery on board recommended conservative management for now And if surgical intervention needed, it will be best to transfer to a tertiary center Hemodynamically stable started on clear liquid diet and advanced as tolerated LLE DVT Recent, was started on xarelto Xarelto on hold in case pt has to go for surgery Continue heparin drip PVD status post surgery Continue aspirin On heparin drip Stable Right LE amputation Fall precaution PT/OT Right Groin Wound Continue daily wound care Stable Anemia hgb 8.4 Continue monitor CBC Hypokalemia Related to chronic diarrhea K replaced monitor bmp Chronic Diarrhea Continue IVF Monitor electrolytes DVT px On heparin drip CODE STATUS FULL CODE Consultants: Surgery Current Inpatient Medications: Current Inpatient Medications Medications (Trade) Dose Ordered Sig/Nadia Route Start Time Stop Time Status Last Admin Dose Admin Potassium Chloride/Dextrose/ Sod Cl 1,000 ml @ 60 mls/hr [id number] IV 01/26/17 23:30 02/25/17 23:29 01/28/17 09:38 60 MLS/HR Ciprofloxacin (Consult) 1 ea UD PRN N/A 01/27/17 09:00 02/26/17 08:59 Metronidazole 500 mg/Prmx 100 ml @ 100 mls/hr Q8H IV 01/27/17 02:00 02/06/17 01:59 01/28/17 09:48 100 MLS/HR Metoprolol Tartrate (Lopressor Iv) 2.5 mg Q6H IV. 01/27/17 00:00 02/26/17 00:00 01/28/17 06:31 2.5 MG Aspirin (Aspirin Supp) 300 mg DAILY [place] 01/27/17 09:00 02/26/17 08:59 Acetaminophen 650 mg/Empty Bag 65 ml @ 260 mls/hr Q6H PRN IV 01/26/17 22:15 02/25/17 22:14 Ondansetron HCl (Zofran Inj) 4 mg Q6H PRN IV 01/26/17 22:15 02/25/17 22:14 Hydromorphone HCl (Dilaudid Inj) 0.5 mg Q3H PRN IV 01/26/17 22:15 02/09/17 22:14 Ketorolac Tromethamine (Toradol Inj) 15 mg Q6H PRN IV 01/26/17 22:15 01/31/17 22:14 Heparin Sodium/ Dextrose 500 ml @ 16 mls/hr Q24H PRN IV 01/26/17 22:30 02/25/17 22:29 01/28/17 09:41 16 MLS/HR Ciprofloxacin/ Dextrose 400 mg/ Prmx 200 ml @ 100 mls/hr Q12H IV 01/27/17 00:00 02/06/17 00:00 01/27/17 23:49 100 MLS/HR
[2017-01-28] MEDS ORDERED: METOPROLOL TARTRATE 25 MG TAB PO ONE (13:15)
[2017-01-28] MEDS: CIPROFLOXACIN 400MG / D5W IV SCH ×2 (13:22→23:59)
[2017-01-29 00:14] VITALS: BP 131/70; PULSE 59; TEMP 36.7; O2SAT 94
[2017-01-29] MEDS: D5NSS + 20MEQ KCL 1,000 ML IV SCH ×2 (01:06→18:15)
[2017-01-29] MEDS: METRONIDAZOLE / NSS 500 MG in PREMIXED NSS 100 ML IV SCH ×3 (02:13→18:15)
--- NOTE | 2017-01-29 06:10 | Surgery Progress Note ---
Surgery Progress Note Date of Service Jan 29, 2017. Subjective tolerating sips- having loose bms- watery has had this for months Objective Vital Signs: Date Time Temp Pulse Resp B/P (MAP) Pulse Ox O2 Delivery O2 Flow Rate FiO2 01/29/17 00:14 36.7 59 18 131/70 (90) 94 Room Air 01/29/17 00:00 Room Air 01/28/17 20:55 36.7 61 16 109/70 (83) 95 Room Air 01/28/17 20:45 Room Air 01/28/17 19:44 36.8 68 19 98 01/28/17 16:00 Room Air 01/28/17 15:08 36.8 62 19 119/65 (83) 98 Room Air 01/28/17 12:00 Room Air 01/28/17 11:54 36.6 69 14 111/67 (82) 98 Room Air 01/28/17 08:04 36.8 69 15 118/66 (83) 98 Room Air 01/28/17 08:00 Room Air 01/28/17 06:31 69 124/69 General Appearance: no apparent distress Respiratory/Chest: no respiratory distress Cardiovascular: regular rate, rhythm Abdomen: soft (mild discomfort- improved) Laboratory Results: Results Past 24 Hours Test 01/28/17 13:09 01/29/17 04:44 Range/Units Activated Partial Thromboplast Time 53.1 21.0-31.0 SECONDS Partial Thromboplastin Ratio 2.0 Assessment & Plan 01/29/17- overall improved- min abd pain- hungry- adv to clear liquids. may benefit from probiotics at some point. Would suspect c diff assoc colitis but study negative. Will need GI input at some point I don't have a specific etiology for the free air on adm , but he does not require surgical intervention at this point 01/28/17- seems to be stable- will try sips of clear liquids and advance very slowly. Cont IV atbx. 01/28/17- seems to be stable- will try sips of clear liquids and advance very slowly. Cont IV atbx.
[2017-01-29 06:59] VITALS: BP 117/69; PULSE 58; TEMP 36.6; O2SAT 94
[2017-01-29 07:04] LABS: BASO % 0.7 %; BASO ABS # 0.02 K/uL (0-0.2); EOS % 6.5 %; IG% 0.4 %; LYMPH % 37.5 %; LYMPH ABS # 1.04 K/uL (1.2-3.4); MEAN CELL VOLUME 90.9 fL (80-100); MEAN CORPUSCULAR HEMOGLOBIN 30.1 pg (25-34); MEAN CORPUSCULAR HGB CONC 33.1 g/dl (32-36); MEAN PLATELET VOLUME 8.1 fL (7.4-10.4); MONO % 9.7 %; NEUT % 45.2 %; PLATELET COUNT 294 K/uL (130-400); RED BLOOD COUNT 2.86 M/uL (4.7-6.1); WHITE BLOOD COUNT 2.77 K/uL (4.8-10.8)
[2017-01-29 07:49] LABS: COMPLETE YES; ECHINOCYTES 1+
[2017-01-29 08:00] VITALS: O2SAT 94
[2017-01-29] MEDS ORDERED: METOPROLOL TARTRATE 25 MG TAB PO SCH (08:00)
[2017-01-29 08:31] LABS: BUN/CREATININE RATIO 4.9 (10-20); CALCIUM 6.8 mg/dl (8.5-10.1); CREATININE 0.41 mg/dl (0.60-1.40); POTASSIUM 2.6 mmol/L (3.5-5.1)
[2017-01-29] MEDS: ASPIRIN 300 MG SUPP PR SCH (09:04)
[2017-01-29] MEDS ORDERED: POTASSIUM CHLORIDE 10 MEQ TABCR PO ONE (09:15)
[2017-01-29] MEDS: POTASSIUM CHLR 10 MEQ / WTR 10 MEQ in PREMIXED WATER 100 ML IV SCH ×4 (09:44→15:06)
[2017-01-29] MEDS: METOPROLOL TARTRATE 25 MG TAB PO SCH ×2 (09:49→20:20)
--- NOTE | 2017-01-29 11:50 | Gastrointestinal Consultation ---
Gastrointestinal Consultation Date of Consultation: Jan 29, 2017 History of Present Illness Mr. Gaines is a 62 year old male patient of Dr. Al with a hx of ischemic vascular disease and recent DVT left leg on Xarelto and aspirin who was seen for diarrhea in the office last week and underwent a CT scan as outpt and was found to have pneumoperitoneum and admitted for futher care. He does not have an acute abdomen, has been seen and followed by surgery with no plans for surgical intervention and has done well after starting on IV abx, but he essentially tells me he feels the exact same as a few weeks ago, but he is hungry. He has been passing up to 10 loose to liquid BMs/day since last May when he underwent vascular surgery and leg amputation for PVD. BMs generally occur post prandially but can occur any time, being unpredictable, urgent, causing some incontinence. He has night time wakening defecation - at least twice each night. . No blood in BMs, no melena. He has not had abdominal pain. No nausea/vomiting. This diarrhea has persisted since recovery phase of his initial aortobifemoral bypass in May. At that time, he had an ileus but the diarrhea began several days after recovery of motility, and it has persisted since. This admission and previously, C.dif has been checked multiple times and has always been negative. Gastroenterology was consulted on inpt admission at [facility] in July, and multiple stool and serologic studies were negative. While in [place] for surgery in Jul 2016, he underwent a flex sig with suggestion of ischemic colitis. T Recommendations were to slow down output and by discharged the patient was on lomotil and titrating up the dose of loperamide. Cholestyramine had been previously attempted but to no effect (and pt refused because it was yet another source of excess fluid intake) Since admission he has had no new acute issues, still having watery diarrhea. Past Medical/Surgical History Medical Problems: (1) Colitis Status: Acute (2) Deep vein thrombosis (DVT) of left lower extremity Status: Acute (3) Dehydration Status: Acute (4) Hypokalemia Status: Acute (5) Perforated viscus Status: Acute Family History Abdominal aortic aneurysm (AAA) FH: bladder cancer FH: prostate cancer Social History Smoking Status: Former Smoker Alcohol Use: none Drug Use: none Marital Status: Housing Status: lives with significant other Occupation Status: retired Allergies Coded Allergies: No Known Allergies (Verified , `, 01/26/17) Current Medications Home Meds and Scripts Medications Dose Route/Sig Max Daily Dose Days Date Category Xarelto (Rivaroxaban) 20 Mg Tab 1 Tab PO DAILY 30 01/20/17 Reported Cipro (Ciprofloxacin) 250 Mg Tab 500 Mg PO BID 14 01/20/17 Reported Zocor (Simvastatin) 40 Mg Tab 40 Mg PO QPM 12/27/16 Reported Aspirin Ec (Aspirin) 81 Mg Tab 81 Mg PO DAILY 12/27/16 Reported Lopressor (Metoprolol Tartrate) 25 Mg Tab 25 Mg PO QAM 12/27/16 Reported Review of Systems Constitutional: + see HPI Eyes: No see HPI, No worsening of vision, No eye pain, No redness, No discharge , No diplopia, No problem reported ENT: No see HPI, No hearing loss, No unusual epistaxis, No nasal symptoms, No sore throat, No tinnitus, No dental problems, No trouble swallowing, No pain on swallowing, No problem reported Cardiac: No see HPI, No chest pain, No orthopnea, No PND, No edema, No claudication, No palpitations, No problem reported Abdomen: + see HPI Physical Exam Date Time Temp Pulse Resp B/P (MAP) Pulse Ox O2 Delivery O2 Flow Rate FiO2 01/29/17 06:59 36.6 58 18 117/69 (85) 94 Room Air 01/29/17 00:14 36.7 59 18 131/70 (90) 94 Room Air 01/29/17 00:00 Room Air 01/28/17 20:55 36.7 61 16 109/70 (83) 95 Room Air 01/28/17 20:45 Room Air 01/28/17 19:44 36.8 68 19 98 01/28/17 16:00 Room Air 01/28/17 15:08 36.8 62 19 119/65 (83) 98 Room Air 01/28/17 12:00 Room Air 01/28/17 11:54 36.6 69 14 111/67 (82) 98 Room Air General Appearance: WD/WN, no apparent distress Eyes: normal inspection ENT: normal ENT inspection Neck: supple Cardiovascular: regular rate, rhythm, no edema Abdomen: normal bowel sounds, non tender, soft Extremities: + pertinent finding (right aka) Neurologic/Psych: employment coach II-XII nml as tested Laboratory Results Last 24 Hours Test 01/28/17 13:09 01/29/17 06:41 Activated Partial Thromboplast Time 53.1 SECONDS 51.1 SECONDS Partial Thromboplastin Ratio 2.0 2.0 White Blood Count 2.77 K/uL Red Blood Count 2.86 M/uL Hemoglobin 8.6 g/dL Hematocrit 26.0 % Mean Corpuscular Volume 90.9 fL Mean Corpuscular Hemoglobin 30.1 pg Mean Corpuscular Hemoglobin Concent 33.1 g/dl Platelet Count 294 K/uL Mean Platelet Volume 8.1 fL Neutrophils (%) (Auto) 45.2 % Lymphocytes (%) (Auto) 37.5 % Monocytes (%) (Auto) 9.7 % Eosinophils (%) (Auto) 6.5 % Basophils (%) (Auto) 0.7 % Neutrophils # (Auto) 1.25 K/uL Lymphocytes # (Auto) 1.04 K/uL Monocytes # (Auto) 0.27 K/uL Eosinophils # (Auto) 0.18 K/uL Basophils # (Auto) 0.02 K/uL RDW Standard Deviation 51.7 fL RDW Coefficient of Variation 15.4 % Immature Granulocyte % (Auto) 0.4 % Immature Granulocyte # (Auto) 0.01 K/uL Echinocytes 1+ Sodium Level 140 mmol/L Potassium Level 2.6 mmol/L Chloride Level 112 mmol/L Carbon Dioxide Level 22 mmol/L Anion Gap 6.0 mmol/L Blood Urea Nitrogen 2 mg/dl Creatinine 0.41 mg/dl Est Creatinine Clear Calc Drug Dose 158.3 ml/min Estimated GFR () 146.1 Estimated GFR (Non- 126.0 BUN/Creatinine Ratio 4.9 Random Glucose 85 mg/dl Calcium Level 6.8 mg/dl Impression Patient is a 62 year old male with persistent diarrhea since aorto-bifem complicated by ischemic graft and subsequent right aka. Plan Etiology of his diarrhea is likely ischemic given As seen and described on the prior CT angiogram, there is occlusion of the right limb of the aorto bi-iliac bypass graft. There is also a thrombosed fem-fem bypass graft in the suprapubic region. Stool studies have been negative Reasonable to try some fiber and hold antidiarrheals until repeat imaging fails to show pneumoperitoneum May require Flex sig to confirm dx, however, given hx of issues immediately post vascular surgery this appears to be chronic ischemia will follow
[2017-01-29] MEDS: CIPROFLOXACIN 400MG / D5W IV SCH ×2 (12:02→23:51)
--- NOTE | 2017-01-29 12:46 | Progress Note ---
Medicine Progress Note Date & Time of Visit: Jan 29, 2017 at 12:39. Subjective Pt was seen and examined Lying in bed with no distress Pt is frustrated because of the recurrent diarrhea Pt said that some days he has multiple episodes of diarrhea he said that he cannot control the diarrhea he said that he is embarrassed to go out because of the diarrhea he said that his abdominal pain is better he tolerates clear liquid diet denies any chest pain, palpitation, dizziness and SOB Objective Last 8 Hrs Date Time Temp Pulse Resp B/P (MAP) Pulse Ox O2 Delivery O2 Flow Rate FiO2 01/29/17 06:59 36.6 58 18 117/69 (85) 94 Room Air Physical Exam: General- No acute distress Head- atraumatic Eyes- PERRL, EOMI ENT- oropharynx clear Neck- supple, no JVD Lungs- clear to auscultation Heart- regular rhythm; no murmur Abdomen- soft, Non distended, mild tenderness in mid abdomen with palpation Extremities- Right AKA stump with dressing, +edema in LLE Neuro- alert, oriented x 3; PERRL, EOMI; no facial palsy Skin- warm & dry Laboratory Results: Last 24 Hours Test 01/28/17 13:09 01/29/17 06:41 Activated Partial Thromboplast Time 53.1 SECONDS 51.1 SECONDS Partial Thromboplastin Ratio 2.0 2.0 White Blood Count 2.77 K/uL Red Blood Count 2.86 M/uL Hemoglobin 8.6 g/dL Hematocrit 26.0 % Mean Corpuscular Volume 90.9 fL Mean Corpuscular Hemoglobin 30.1 pg Mean Corpuscular Hemoglobin Concent 33.1 g/dl Platelet Count 294 K/uL Mean Platelet Volume 8.1 fL Neutrophils (%) (Auto) 45.2 % Lymphocytes (%) (Auto) 37.5 % Monocytes (%) (Auto) 9.7 % Eosinophils (%) (Auto) 6.5 % Basophils (%) (Auto) 0.7 % Neutrophils # (Auto) 1.25 K/uL Lymphocytes # (Auto) 1.04 K/uL Monocytes # (Auto) 0.27 K/uL Eosinophils # (Auto) 0.18 K/uL Basophils # (Auto) 0.02 K/uL RDW Standard Deviation 51.7 fL RDW Coefficient of Variation 15.4 % Immature Granulocyte % (Auto) 0.4 % Immature Granulocyte # (Auto) 0.01 K/uL Echinocytes 1+ Sodium Level 140 mmol/L Potassium Level 2.6 mmol/L Chloride Level 112 mmol/L Carbon Dioxide Level 22 mmol/L Anion Gap 6.0 mmol/L Blood Urea Nitrogen 2 mg/dl Creatinine 0.41 mg/dl Est Creatinine Clear Calc Drug Dose 158.3 ml/min Estimated GFR () 146.1 Estimated GFR (Non- 126.0 BUN/Creatinine Ratio 4.9 Random Glucose 85 mg/dl Calcium Level 6.8 mg/dl Assessment & Plan Abdominal pain CT done outpatient showed pancolitis with scattered foci of pneumoperitoneum in the upper abdomen concerning for perforation Pain significantly improved now Continue flagyl and cipro IV Surgery on board recommended conservative management for now And if surgical intervention needed, it will be best to transfer to a tertiary center Hemodynamically stable tolerates clear liquid diet continue conservative management will repeat imaging Clinically improved LLE DVT Recent, was started on xarelto Xarelto on hold in case pt has to go for surgery Continue on heparin drip will resume xarelto once we are sure that there will be no surgery PVD status post surgery Continue aspirin On heparin drip Stable Right LE amputation Fall precaution PT/OT Right Groin Wound Continue daily wound care Stable Anemia hgb 8.6 Continue monitor CBC Hypokalemia Related to chronic diarrhea K was 2.6 K replaced monitor bmp Chronic Diarrhea Continue IVF Monitor electrolytes GI consulted Recommended to try some fiber hold antidiarrheals until repeat imaging show no pneumoperitoneum DVT px On heparin drip CODE STATUS FULL CODE Consultants: Surgery Current Inpatient Medications: Current Inpatient Medications Medications (Trade) Dose Ordered Sig/Nadia Route Start Time Stop Time Status Last Admin Dose Admin Potassium Chloride/Dextrose/ Sod Cl 1,000 ml @ 60 mls/hr [id number] IV 01/26/17 23:30 02/25/17 23:29 01/29/17 01:06 60 MLS/HR Ciprofloxacin (Consult) 1 ea UD PRN N/A 01/27/17 09:00 02/26/17 08:59 Metronidazole 500 mg/Prmx 100 ml @ 100 mls/hr Q8H IV 01/27/17 02:00 02/06/17 01:59 01/29/17 12:00 100 MLS/HR Acetaminophen 650 mg/Empty Bag 65 ml @ 260 mls/hr Q6H PRN IV 01/26/17 22:15 02/25/17 22:14 Ondansetron HCl (Zofran Inj) 4 mg Q6H PRN IV 01/26/17 22:15 02/25/17 22:14 Hydromorphone HCl (Dilaudid Inj) 0.5 mg Q3H PRN IV 01/26/17 22:15 02/09/17 22:14 Ketorolac Tromethamine (Toradol Inj) 15 mg Q6H PRN IV 01/26/17 22:15 01/31/17 22:14 Heparin Sodium/ Dextrose 500 ml @ 16 mls/hr Q24H PRN IV 01/26/17 22:30 02/25/17 22:29 01/28/17 09:41 16 MLS/HR Ciprofloxacin/ Dextrose 400 mg/ Prmx 200 ml @ 100 mls/hr Q12H IV 01/27/17 00:00 02/06/17 00:00 01/29/17 12:02 100 MLS/HR Metoprolol Tartrate (Lopressor Tab) 12.5 mg BID PO 01/29/17 08:00 02/28/17 07:59 Potassium Chloride 10 meq/ Prmx 100 ml @ 100 mls/hr Q1H IV 01/29/17 09:30 01/29/17 13:29 01/29/17 11:03 100 MLS/HR Aspirin (Ecotrin Tab) 81 mg QAM PO 01/30/17 08:00 03/01/17 07:59
[2017-01-29] MEDS: HEPARIN 25,000 UNIT/500ML D5W 500 ML IV PRN ×2 (14:51→22:50)
[2017-01-29 14:55] VITALS: BP 124/73; PULSE 64; TEMP 36.7; O2SAT 98
[2017-01-29 20:21] VITALS: BP 131/67; PULSE 69
--- NOTE | 2017-01-29 22:40 | Progress Note ---
Internal Med Progress Note Date of Service: Jan 29, 2017. Provider Documentation: Made aware by RN of frequent bloody movements starting yesterday afternoon. No unusual abdominal pain. Patient normotensive. AP LGIB History chronic ischemic colitis as per records. H&H now Hold aspirin, heparin for now. Will relay to AM provider. Vital Signs: Date Time Temp Pulse Resp B/P (MAP) Pulse Ox O2 Delivery O2 Flow Rate FiO2 01/30/17 00:09 36.4 52 18 121/68 (85) 97 Room Air 01/30/17 00:00 Room Air 01/29/17 20:21 69 131/67 (88) 01/29/17 20:00 Room Air 01/29/17 16:00 Room Air 01/29/17 14:55 36.7 64 18 124/73 (90) 98 Room Air 01/29/17 08:00 94 Room Air Lab Results: Results Past 24 Hours Test 01/29/17 23:01 01/30/17 06:40 Range/Units Hemoglobin 8.3 14.0-18.0 g/dL Hematocrit 25.2 42-52 %
[2017-01-29 23:17] LABS: HEMATOCRIT 25.2 % (42-52)
[2017-01-30] MEDS ORDERED: ACETAMINOPHEN 325 MG TAB PO PRN
[2017-01-30 00:09] VITALS: BP 121/68; PULSE 52; TEMP 36.4; O2SAT 97
[2017-01-30] MEDS: METRONIDAZOLE / NSS 500 MG in PREMIXED NSS 100 ML IV SCH ×3 (01:53→18:05)
[2017-01-30 07:09] VITALS: BP 118/67; PULSE 59; TEMP 36.6; O2SAT 96
[2017-01-30 07:10] LABS: BASO % 0.4 %; BASO ABS # 0.01 K/uL (0-0.2); EOS % 5.5 %; HEMATOCRIT 26.6 % (42-52); IG% 0.4 %; LYMPH % 37.6 %; LYMPH ABS # 0.96 K/uL (1.2-3.4); MEAN CELL VOLUME 91.7 fL (80-100); MEAN CORPUSCULAR HEMOGLOBIN 28.6 pg (25-34); MEAN CORPUSCULAR HGB CONC 31.2 g/dl (32-36); MEAN PLATELET VOLUME 8.3 fL (7.4-10.4); MONO % 10.6 %; NEUT % 45.5 %; PLATELET COUNT 256 K/uL (130-400); WHITE BLOOD COUNT 2.55 K/uL (4.8-10.8)
[2017-01-30 07:26] LABS: PARTIAL THROMBOPLASTIN RATIO 1.3
[2017-01-30 07:39] LABS: BUN/CREATININE RATIO 2.9 (10-20); CREATININE 0.42 mg/dl (0.60-1.40); MAGNESIUM 1.7 mg/dl (1.8-2.4); PHOSPHORUS 2.7 mg/dl (2.5-4.9); POTASSIUM 2.7 mmol/L (3.5-5.1)
[2017-01-30] MEDS: METOPROLOL TARTRATE 25 MG TAB PO SCH ×2 (07:58→21:20)
[2017-01-30 08:00] VITALS: O2SAT 96
[2017-01-30] MEDS ORDERED: ASPIRIN 81 MG ECTAB PO SCH (08:00)
[2017-01-30 08:15] LABS: COMPLETE YES; ECHINOCYTES 2+
[2017-01-30] MEDS ORDERED: OPTIRAY 320 IV PRN (08:45)
[2017-01-30] MEDS ORDERED: POTASSIUM CHLORIDE 20 MEQ TABCR PO ONE (09:00)
[2017-01-30] MEDS ORDERED: MAGNESIUM SULFATE 1GM / D5W 1 GM in PREMIXED IN D5W 100 ML IV SCH (09:00)
[2017-01-30] MEDS: POTASSIUM CHLR 10 MEQ / WTR 10 MEQ in PREMIXED WATER 100 ML IV SCH ×4 (09:32→13:30)
[2017-01-30] MEDS: D5NSS + 20MEQ KCL 1,000 ML IV SCH (09:32)
[2017-01-30 12:11] LABS: HEMATOCRIT 28.4 % (42-52)
[2017-01-30] MEDS: CIPROFLOXACIN 400MG / D5W IV SCH (12:26)
--- NOTE | 2017-01-30 13:02 | Gastroenterology Progress Note ---
Progress Note Date of Service: Jan 30, 2017 Subjective Pt evaluation today including: conversation w/ patient, physical exam, chart review, lab review, review of studies, review of inpatient medication list Pt still having profuse diarrhea, reports some blood last night. Still w lower abd discomfort but not pain. Been NPO, and on Cipro/Flagl IV. Plan for repeat CT abd/pelvis to eval for pneumoperitoneum resolution today. Review of Systems Constitutional: No fever, No chills Respiratory: No cough, No shortness of breath Cardiac: No chest pain Abdomen: + pain, + diarrhea, No nausea, No vomiting Medications Current Inpatient Medications Medications (Trade) Dose Ordered Sig/Nadia Route Start Time Stop Time Status Last Admin Dose Admin Potassium Chloride/Dextrose/ Sod Cl 1,000 ml @ 60 mls/hr [id number] IV 01/26/17 23:30 02/25/17 23:29 01/30/17 09:32 60 MLS/HR Ciprofloxacin (Consult) 1 ea UD PRN N/A 01/27/17 09:00 02/26/17 08:59 Metronidazole 500 mg/Prmx 100 ml @ 100 mls/hr Q8H IV 01/27/17 02:00 02/06/17 01:59 01/30/17 09:32 100 MLS/HR Acetaminophen 650 mg/Empty Bag 65 ml @ 260 mls/hr Q6H PRN IV 01/26/17 22:15 02/25/17 22:14 Ondansetron HCl (Zofran Inj) 4 mg Q6H PRN IV 01/26/17 22:15 02/25/17 22:14 Hydromorphone HCl (Dilaudid Inj) 0.5 mg Q3H PRN IV 01/26/17 22:15 02/09/17 22:14 Ketorolac Tromethamine (Toradol Inj) 15 mg Q6H PRN IV 01/26/17 22:15 01/31/17 22:14 Heparin Sodium/ Dextrose 500 ml @ 16 mls/hr Q24H PRN IV 01/26/17 22:30 02/25/17 22:29 Future Hold 01/29/17 22:50 16 MLS/HR Ciprofloxacin/ Dextrose 400 mg/ Prmx 200 ml @ 100 mls/hr Q12H IV 01/27/17 00:00 02/06/17 00:00 01/30/17 12:26 100 MLS/HR Metoprolol Tartrate (Lopressor Tab) 12.5 mg BID PO 01/29/17 08:00 02/28/17 07:59 01/29/17 20:20 12.5 MG Acetaminophen (Tylenol Tab) 650 mg Q6H PRN PO 01/30/17 00:00 03/01/17 00:00 Potassium Chloride 10 meq/ Prmx 100 ml @ 100 mls/hr TODAY@0900,1000,1100,1200 IV 01/30/17 09:00 01/30/17 15:00 01/30/17 12:08 100 MLS/HR Ioversol (Optiray 320) 100 ml UD PRN IV 01/30/17 08:45 02/03/17 08:44 Objective Vital Signs Date Time Temp Pulse Resp B/P (MAP) Pulse Ox O2 Delivery O2 Flow Rate FiO2 01/30/17 08:00 96 Room Air 01/30/17 07:09 36.6 59 18 118/67 (84) 96 Room Air 01/30/17 00:09 36.4 52 18 121/68 (85) 97 Room Air 01/30/17 00:00 Room Air 01/29/17 20:21 69 131/67 (88) 01/29/17 20:00 Room Air 01/29/17 16:00 Room Air 01/29/17 14:55 36.7 64 18 124/73 (90) 98 Room Air Physical Exam General Appearance: + thin Eyes: normal inspection, PERRL, EOMI Neck: supple, no JVD, trachea midline Respiratory/Chest: normal breath sounds, no respiratory distress, no accessory muscle use Cardiovascular: regular rate, rhythm, no gallop, no murmur Abdomen: normal bowel sounds, soft, + tenderness (close to suprapubic area. ) Extremities: normal inspection, + pertinent finding (R AKA) Neurologic/Psych: alert, normal mood/affect, oriented x 3 Skin: normal color, no jaundice, warm/dry, no rash Laboratory Results Last 24 Hours Test 01/29/17 23:01 01/30/17 06:40 01/30/17 10:45 01/30/17 12:00 Hemoglobin 8.3 g/dL 8.3 g/dL 9.1 g/dL Hematocrit 25.2 % 26.6 % 28.4 % White Blood Count 2.55 K/uL Red Blood Count 2.90 M/uL Mean Corpuscular Volume 91.7 fL Mean Corpuscular Hemoglobin 28.6 pg Mean Corpuscular Hemoglobin Concent 31.2 g/dl Platelet Count 256 K/uL Mean Platelet Volume 8.3 fL Neutrophils (%) (Auto) 45.5 % Lymphocytes (%) (Auto) 37.6 % Monocytes (%) (Auto) 10.6 % Eosinophils (%) (Auto) 5.5 % Basophils (%) (Auto) 0.4 % Neutrophils # (Auto) 1.16 K/uL Lymphocytes # (Auto) 0.96 K/uL Monocytes # (Auto) 0.27 K/uL Eosinophils # (Auto) 0.14 K/uL Basophils # (Auto) 0.01 K/uL RDW Standard Deviation 52.5 fL RDW Coefficient of Variation 15.6 % Immature Granulocyte % (Auto) 0.4 % Immature Granulocyte # (Auto) 0.01 K/uL Echinocytes 2+ Activated Partial Thromboplast Time 33.0 SECONDS Partial Thromboplastin Ratio 1.3 Sodium Level 142 mmol/L Potassium Level 2.7 mmol/L Chloride Level 114 mmol/L Carbon Dioxide Level 22 mmol/L Anion Gap 6.0 mmol/L Blood Urea Nitrogen 1 mg/dl Creatinine 0.42 mg/dl Est Creatinine Clear Calc Drug Dose 154.5 ml/min Estimated GFR () 144.6 Estimated GFR (Non- 124.8 BUN/Creatinine Ratio 2.9 Random Glucose 85 mg/dl Calcium Level 7.0 mg/dl Phosphorus Level 2.7 mg/dl Magnesium Level 1.7 mg/dl Stool Occult Blood POSITIVE Assessment and Plan Patient is a 62 year old male with 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 Stool studies negative. Suspect diarrhea etiology is ischemic in nature. He is here also due to finding of pancolitis and pneumoperitoneum of upper abd areas on outpt CT on 01/26/17. - NPO, Cipro/Flagyl IV antibx - Repeat CT abd/pelvis today, depending on results if no signs of pneumoperitoneum, may consider starting diet w CL and antidiarrheals. Also will see if colonoscopy to be done in near future. Discussed w pt possible Surgery referral for colectomy if diarrhea symptoms continue. ATTESTATION: I have performed a history and physical examination of this patient and reviewed the electronic record. Specifically, on physical examination abdomen is soft with hypogastric tenderness. I have discussed the case with SUNDAR Han. The above note reflects my findings, conclusions, and recommendations. Vikas Wu MD
--- NOTE | 2017-01-30 13:32 | DIAGNOSTIC IMAGING REPORT ---
CT SCAN OF THE ABDOMEN AND PELVIS WITH IV CONTRAST CLINICAL HISTORY: GI bleeding. Reported history of pneumoperitoneum. Generalized abdominal pain. COMPARISON STUDY: Abdominal CT dated 01/26/2017. TECHNIQUE: Following the IV administration of 94 cc of Optiray 320, CT scan of the abdomen and pelvis is performed from the lung bases to the proximal femora. Images are reviewed in the axial, sagittal, and coronal planes. IV contrast was administered without complication. Automated dose control exposure was utilized. A dose lowering technique was utilized adhering to the principles of ALARA. CT DOSE: 570.19 mGycm FINDINGS: Lung bases: The heart is normal in size noting a small pericardial effusion. The coronary arteries are densely calcified. Emphysema is suspected. There are small pleural effusions with bibasilar consolidation. Liver: The contrast-enhanced liver is normal in size, contour, and attenuation. There is no intrahepatic biliary ductal dilatation. The hepatic veins and portal veins are patent. Gallbladder: Unremarkable. Spleen: Normal in size and attenuation. Pancreas: Moderately atrophic and grossly unremarkable. Adrenal glands: A 1.9 cm low-attenuation right adrenal nodule and a 1.4 cm low-attenuation left adrenal nodule likely represent fat-containing adenomas but cannot be definitively characterized due to the presence of IV contrast. Kidneys: The contrast enhanced kidneys demonstrate cortical atrophy and are without hydronephrosis. The kidneys enhance symmetrically. Abdominal vasculature: There is advanced atherosclerotic calcification of the abdominal aorta. There is evidence of bilateral iliac artery bypass grafts. The left iliac graft is patent. The right iliac artery graft is thrombosed. There is flow shown within the [place] left iliac artery which is densely calcified. The [place] right iliac vessels are thrombosed. A femorofemoral bypass graft is identified. The graft is thrombosed. A stent is present within the [place] left external iliac artery and appears patent. Deep venous thrombosis is identified within the left iliac vein in the pelvis. This is best seen on axial image #335. This extends peripherally into the left common femoral vein. Bowel: No bowel obstruction is seen. There are scattered colonic diverticula without CT evidence of acute diverticulitis. There is diffuse wall thickening and mucosal edema seen throughout the colon with surrounding inflammation. The appearance is consistent with a nonspecific pancolitis. Mild fold thickening suggested involving the jejunum. The appendix is normal as visualized. There is a large duodenal diverticulum. Peritoneum: No intraperitoneal free air is seen. There is trace perihepatic ascites as well as a small volume of free fluid in the pelvis. Lymphadenopathy: None. Collateral vessels are suggested in the retroperitoneum. Pelvic viscera: The prostate gland is heterogeneous and there is median lobe hypertrophy. The bladder wall is thickened and trabeculated indicating chronic outlet obstruction. Bladder calculi are again noted. There is asymmetric atrophy of the right thigh musculature as compared to the left. Skeletal structures: The skeletal structures appear osteopenic. No lytic or blastic lesions are seen. There is moderate lumbosacral spondylosis. Advanced arthritic change is seen in the hips. There is destructive bony change identified in the inferior aspect of the greater trochanter of the right femur with overlying soft tissue induration highly concerning for osteomyelitis. There is been subtrochanteric amputation. Soft tissues: There is anasarca of the body wall. IMPRESSION: 1. Findings are consistent with a nonspecific pancolitis. This could be on an infectious, inflammatory, or ischemic basis. The degree of mucosal edema raises concern for C. difficile. Clinical correlation will be required. 2. Intraperitoneal free air seen on 01/26/2017 has resolved. There is a small volume of abdominal ascites. 3. There are postoperative changes from bilateral iliac artery bypass grafts as well as femorofemoral bypass. The right iliac artery graft and the femorofemoral bypass are thrombosed. 4. There is deep venous thrombosis identified within the left pelvic veins extending into the left common femoral vein. 5. Destructive change is seen within the anterior/inferior aspect of the greater trochanter of the right femur. There is overlying soft tissue inflammation and the appearance is highly concerning for osteomyelitis. Clinical correlation will be required. Note is made of previous subtrochanteric amputation of the right femur. 6. Prostatomegaly with evidence of chronic bladder outlet obstruction. Bladder calculi are noted. 7. Small pleural effusions with bibasilar consolidation. These have modestly increased in size from 01/26/2017. 8. Bilateral low-attenuation adrenal nodules likely represent adenomas but cannot be definitively characterized due to the presence of IV contrast. 9. There is anasarca of the body wall. 10. Additional findings as above. Electronically signed by: Dimitris Miguel M.D. 01/30/2017 1:31 PM Dictated Date/Time: 01/30/2017 1:09 PM
[2017-01-30 15:47] VITALS: BP 148/81; PULSE 61; TEMP 36.4; O2SAT 98
[2017-01-30 16:00] VITALS: O2SAT 98
--- NOTE | 2017-01-30 17:32 | Progress Note ---
Medicine Progress Note Date & Time of Visit: Jan 30, 2017 at 17:00. Subjective Pt was seen and examined Lying in bed with no distress Pt is frustrated because he is still on clear liquid diet he said that his abdominal pain is mild He has a few episodes of brown stool last night He continue to have recurrent diarrhea Denies any chest pain, palpitation, dizziness and SOB Objective Last 8 Hrs Date Time Temp Pulse Resp B/P (MAP) Pulse Ox O2 Delivery O2 Flow Rate FiO2 01/30/17 15:47 36.4 61 18 148/81 (103) 98 Room Air Physical Exam: General- No acute distress Head- atraumatic Eyes- PERRL, EOMI ENT- oropharynx clear Neck- supple, no JVD Lungs- clear to auscultation Heart- regular rhythm; no murmur Abdomen- soft, Non distended, mild tenderness in mid abdomen with palpation Extremities- Right AKA, +edema in LLE Neuro- alert, oriented x 3; PERRL, EOMI; no facial palsy Skin- warm & dry Laboratory Results: Last 24 Hours Test 01/29/17 23:01 01/30/17 06:40 01/30/17 10:45 01/30/17 12:00 Hemoglobin 8.3 g/dL 8.3 g/dL 9.1 g/dL Hematocrit 25.2 % 26.6 % 28.4 % White Blood Count 2.55 K/uL Red Blood Count 2.90 M/uL Mean Corpuscular Volume 91.7 fL Mean Corpuscular Hemoglobin 28.6 pg Mean Corpuscular Hemoglobin Concent 31.2 g/dl Platelet Count 256 K/uL Mean Platelet Volume 8.3 fL Neutrophils (%) (Auto) 45.5 % Lymphocytes (%) (Auto) 37.6 % Monocytes (%) (Auto) 10.6 % Eosinophils (%) (Auto) 5.5 % Basophils (%) (Auto) 0.4 % Neutrophils # (Auto) 1.16 K/uL Lymphocytes # (Auto) 0.96 K/uL Monocytes # (Auto) 0.27 K/uL Eosinophils # (Auto) 0.14 K/uL Basophils # (Auto) 0.01 K/uL RDW Standard Deviation 52.5 fL RDW Coefficient of Variation 15.6 % Immature Granulocyte % (Auto) 0.4 % Immature Granulocyte # (Auto) 0.01 K/uL Echinocytes 2+ Activated Partial Thromboplast Time 33.0 SECONDS Partial Thromboplastin Ratio 1.3 Sodium Level 142 mmol/L Potassium Level 2.7 mmol/L Chloride Level 114 mmol/L Carbon Dioxide Level 22 mmol/L Anion Gap 6.0 mmol/L Blood Urea Nitrogen 1 mg/dl Creatinine 0.42 mg/dl Est Creatinine Clear Calc Drug Dose 154.5 ml/min Estimated GFR () 144.6 Estimated GFR (Non- 124.8 BUN/Creatinine Ratio 2.9 Random Glucose 85 mg/dl Calcium Level 7.0 mg/dl Phosphorus Level 2.7 mg/dl Magnesium Level 1.7 mg/dl Stool Occult Blood POSITIVE Assessment & Plan Abdominal pain CT done outpatient showed pancolitis with scattered foci of pneumoperitoneum in the upper abdomen concerning for perforation Pain significantly improved now Continue flagyl and cipro IV Surgery on board recommended conservative management for now And if surgical intervention needed, it will be best to transfer to a tertiary center Hemodynamically stable tolerates clear liquid diet continue conservative management will repeat imaging Clinically improved 01/30 continue to have recurrent diarrhea stool Guaiac positive for blood heparin drip was discontinue Aspirin on hold hgb stable Repeat CT abdomen showed abdomen show nonspecific pancolitis and the Intraperitoneal free air seen on 01/26/2017 has resolved will consider to advance diet as tolerated will add antidiarrheal Gastro on board LLE DVT Recent, was started on xarelto Xarelto on hold in case pt has to go for surgery Heparin drip discontinued because of GI bleed with positive guaiac test Once hemoglobin stable, consider to restart anticoagulant because pt is very high risk for block clot. PVD status post surgery aspirin on hold due to GI bleed and positive guaiac stool heparin drip D/C Stable Right LE amputation Fall precaution PT/OT Right Groin Wound Continue daily wound care Stable Anemia Hbg 9.1 Positive stool guaiac Hold heparin drip and aspirin for now Continue monitor CBC Hypokalemia Related to chronic diarrhea K was 2.7 K replaced monitor bmp Chronic Diarrhea Continue IVF Monitor electrolytes GI consulted Repeat CT abdomen showed abdomen show nonspecific pancolitis and the Intraperitoneal free air seen on 01/26/2017 has resolved DVT px D/C heparin drip due to GI Bleed and positive guaiac CODE STATUS FULL CODE Consultants: Surgery Current Inpatient Medications: Current Inpatient Medications Medications (Trade) Dose Ordered Sig/Nadia Route Start Time Stop Time Status Last Admin Dose Admin Potassium Chloride/Dextrose/ Sod Cl 1,000 ml @ 60 mls/hr [id number] IV 01/26/17 23:30 02/25/17 23:29 01/30/17 09:32 60 MLS/HR Ciprofloxacin (Consult) 1 ea UD PRN N/A 01/27/17 09:00 02/26/17 08:59 Metronidazole 500 mg/Prmx 100 ml @ 100 mls/hr Q8H IV 01/27/17 02:00 02/06/17 01:59 01/30/17 09:32 100 MLS/HR Acetaminophen 650 mg/Empty Bag 65 ml @ 260 mls/hr Q6H PRN IV 01/26/17 22:15 02/25/17 22:14 Ondansetron HCl (Zofran Inj) 4 mg Q6H PRN IV 01/26/17 22:15 02/25/17 22:14 Hydromorphone HCl (Dilaudid Inj) 0.5 mg Q3H PRN IV 01/26/17 22:15 02/09/17 22:14 Ketorolac Tromethamine (Toradol Inj) 15 mg Q6H PRN IV 01/26/17 22:15 01/31/17 22:14 Heparin Sodium/ Dextrose 500 ml @ 16 mls/hr Q24H PRN IV 01/26/17 22:30 02/25/17 22:29 Future Hold 01/29/17 22:50 16 MLS/HR Ciprofloxacin/ Dextrose 400 mg/ Prmx 200 ml @ 100 mls/hr Q12H IV 01/27/17 00:00 02/06/17 00:00 01/30/17 12:26 100 MLS/HR Metoprolol Tartrate (Lopressor Tab) 12.5 mg BID PO 01/29/17 08:00 02/28/17 07:59 01/29/17 20:20 12.5 MG Acetaminophen (Tylenol Tab) 650 mg Q6H PRN PO 01/30/17 00:00 03/01/17 00:00 Ioversol (Optiray 320) 100 ml UD PRN IV 01/30/17 08:45 02/03/17 08:44
[2017-01-30 21:20] VITALS: BP 109/66; PULSE 66; O2SAT 96
[2017-01-31 00:12] VITALS: BP 120/70; PULSE 60; TEMP 36.6; O2SAT 95
[2017-01-31] MEDS: CIPROFLOXACIN 400MG / D5W IV SCH ×2 (00:25→11:01)
[2017-01-31] MEDS: METRONIDAZOLE / NSS 500 MG in PREMIXED NSS 100 ML IV SCH ×2 (02:03→09:41)
[2017-01-31] MEDS: D5NSS + 20MEQ KCL 1,000 ML IV SCH ×2 (04:56→21:02)
[2017-01-31 07:19] LABS: BASO % 0.4 %; BASO ABS # 0.01 K/uL (0-0.2); EOS % 6.3 %; HEMATOCRIT 26.4 % (42-52); IG% 0.4 %; LYMPH % 32.1 %; LYMPH ABS # 0.87 K/uL (1.2-3.4); MEAN CELL VOLUME 90.4 fL (80-100); MEAN CORPUSCULAR HEMOGLOBIN 30.1 pg (25-34); MEAN CORPUSCULAR HGB CONC 33.3 g/dl (32-36); MEAN PLATELET VOLUME 8.3 fL (7.4-10.4); MONO % 11.8 %; PLATELET COUNT 226 K/uL (130-400); RED BLOOD COUNT 2.92 M/uL (4.7-6.1); WHITE BLOOD COUNT 2.71 K/uL (4.8-10.8)
[2017-01-31 07:31] VITALS: BP 128/67; PULSE 56; TEMP 36.7; O2SAT 95
[2017-01-31 07:31] LABS: PARTIAL THROMBOPLASTIN RATIO 1.2
[2017-01-31] MEDS: METOPROLOL TARTRATE 25 MG TAB PO SCH ×2 (07:34→21:02)
[2017-01-31 07:53] LABS: COMPLETE YES; ECHINOCYTES 1+
[2017-01-31 08:00] VITALS: O2SAT 95
[2017-01-31 08:58] LABS: BLOOD UREA NITROGEN < 1 mg/dl (7-18); CALCIUM 6.8 mg/dl (8.5-10.1); CARBON DIOXIDE 22 mmol/L (21-32); CHLORIDE 113 mmol/L (98-107); CREATININE 0.47 mg/dl (0.60-1.40); GLUCOSE 86 mg/dl (70-99); MAGNESIUM 1.9 mg/dl (1.8-2.4); POTASSIUM 3.2 mmol/L (3.5-5.1); SODIUM 142 mmol/L (136-145)
[2017-01-31] MEDS ORDERED: POTASSIUM CHLORIDE 20 MEQ TABCR PO ONE (10:15)
--- NOTE | 2017-01-31 15:04 | Progress Note ---
Medicine Progress Note Date & Time of Visit: Jan 31, 2017 at 14:23. Subjective Pt was seen and examined Lying in bed with no distress Pt said that her abdominal pain is mild he said that his diarrhea is less today Denies any chest pain, palpitation, dizziness, fever and sob Objective Last 8 Hrs Date Time Temp Pulse Resp B/P (MAP) Pulse Ox O2 Delivery O2 Flow Rate FiO2 01/31/17 08:00 95 Room Air 01/31/17 07:31 36.7 56 18 128/67 (87) 95 Room Air Physical Exam: General- No acute distress Head- atraumatic Eyes- PERRL, EOMI ENT- oropharynx clear Neck- supple, no JVD Lungs- clear to auscultation Heart- regular rhythm; no murmur Abdomen- soft, Non distended, mild tenderness in mid abdomen with palpation Extremities- Right AKA, +edema in LLE Neuro- alert, oriented x 3; PERRL, EOMI; no facial palsy Skin- warm & dry Laboratory Results: Last 24 Hours Test 01/30/17 17:55 01/31/17 06:58 01/31/17 08:20 Hemoglobin 9.4 g/dL 8.8 g/dL Hematocrit 29.0 % 26.4 % White Blood Count 2.71 K/uL Red Blood Count 2.92 M/uL Mean Corpuscular Volume 90.4 fL Mean Corpuscular Hemoglobin 30.1 pg Mean Corpuscular Hemoglobin Concent 33.3 g/dl Platelet Count 226 K/uL Mean Platelet Volume 8.3 fL Neutrophils (%) (Auto) 49.0 % Lymphocytes (%) (Auto) 32.1 % Monocytes (%) (Auto) 11.8 % Eosinophils (%) (Auto) 6.3 % Basophils (%) (Auto) 0.4 % Neutrophils # (Auto) 1.33 K/uL Lymphocytes # (Auto) 0.87 K/uL Monocytes # (Auto) 0.32 K/uL Eosinophils # (Auto) 0.17 K/uL Basophils # (Auto) 0.01 K/uL RDW Standard Deviation 51.7 fL RDW Coefficient of Variation 15.6 % Immature Granulocyte % (Auto) 0.4 % Immature Granulocyte # (Auto) 0.01 K/uL Echinocytes 1+ Activated Partial Thromboplast Time 31.7 SECONDS Partial Thromboplastin Ratio 1.2 Sodium Level 142 mmol/L Potassium Level 3.2 mmol/L Chloride Level 113 mmol/L Carbon Dioxide Level 22 mmol/L Anion Gap 7.0 mmol/L Blood Urea Nitrogen < 1 mg/dl Creatinine 0.47 mg/dl Est Creatinine Clear Calc Drug Dose 138.1 ml/min Estimated GFR () 138.1 Estimated GFR (Non- 119.1 BUN/Creatinine Ratio Random Glucose 86 mg/dl Calcium Level 6.8 mg/dl Magnesium Level 1.9 mg/dl Erythrocyte Sedimentation Rate 15 mm/hr Assessment & Plan Abdominal pain CT done outpatient showed pancolitis with scattered foci of pneumoperitoneum in the upper abdomen concerning for perforation Pain significantly improved now Continue flagyl and cipro IV Surgery on board recommended conservative management for now And if surgical intervention needed, it will be best to transfer to a tertiary center Hemodynamically stable tolerates clear liquid diet continue conservative management will repeat imaging Clinically improved 01/31 diarrhea seems to improve today stool Guaiac positive for blood yesterday heparin drip was discontinued will change abx to oral Aspirin on hold hgb 8.[address] abdomen showed abdomen show nonspecific pancolitis and the Intraperitoneal free air seen on 01/26/2017 has resolved advanced diet to full liquid Gastro on board Recommended for possible colectomy surgery, but pt refused the idea of surgery at this time LLE DVT Recent, was started on xarelto Xarelto was on hold in case pt had to go for surgery Heparin drip discontinued because of GI bleed with positive guaiac test Once hemoglobin stable, consider to restart anticoagulant because pt is very high risk for block clot. PVD status post surgery aspirin on hold due to GI bleed and positive guaiac stool heparin drip D/C will resume aspirin tomorrow if hgb stable Right LE amputation CT Abd/Pelvis showed Right Illiac Artery Graft and Femorofemoral bypass are thrombosed Case discussed with vascular surgeon Dr. Garrett that said that this is not a new finding That was done during his Right LE amputation Fall precaution PT/OT Right Groin Wound CT abd/pelvis showed destructive bony change identified in the inferior aspect of the greater trochanter of the right femur with overlying soft tissue induration highly concerning for osteomyelitis Case discussed with vascular surgeon Dr. Garrett that said that is not new finding he said ortho had to do some work in his greater trochanter during his hospital at [place] No Leukocytosis, ESR is not very high enough for osteomyelitis No pus or drainage from the wound Continue daily wound care wound care on board Stable Anemia Hbg 8.8 Positive stool guaiac Hold heparin drip and aspirin for now restart aspirin tomorrow if hgb stable Continue monitor CBC Hypokalemia Related to chronic diarrhea K was 3.2 K replaced monitor bmp Chronic Diarrhea Continue IVF Monitor electrolytes GI consulted Repeat CT abdomen showed abdomen show nonspecific pancolitis and the Intraperitoneal free air seen on 01/26/2017 has resolved DVT px D/C heparin drip due to GI Bleed and positive guaiac CODE STATUS FULL CODE Consultants: Surgery Current Inpatient Medications: Current Inpatient Medications Medications (Trade) Dose Ordered Sig/Nadia Route Start Time Stop Time Status Last Admin Dose Admin Potassium Chloride/Dextrose/ Sod Cl 1,000 ml @ 60 mls/hr [id number] IV 01/26/17 23:30 02/25/17 23:29 01/31/17 04:56 60 MLS/HR Ciprofloxacin (Consult) 1 ea UD PRN N/A 01/27/17 09:00 02/26/17 08:59 Metronidazole 500 mg/Prmx 100 ml @ 100 mls/hr Q8H IV 01/27/17 02:00 02/06/17 01:59 01/31/17 02:03 100 MLS/HR Acetaminophen 650 mg/Empty Bag 65 ml @ 260 mls/hr Q6H PRN IV 01/26/17 22:15 02/25/17 22:14 Ondansetron HCl (Zofran Inj) 4 mg Q6H PRN IV 01/26/17 22:15 02/25/17 22:14 Hydromorphone HCl (Dilaudid Inj) 0.5 mg Q3H PRN IV 01/26/17 22:15 02/09/17 22:14 Ketorolac Tromethamine (Toradol Inj) 15 mg Q6H PRN IV 01/26/17 22:15 01/31/17 22:14 Heparin Sodium/ Dextrose 500 ml @ 16 mls/hr Q24H PRN IV 01/26/17 22:30 02/25/17 22:29 Future Hold 01/29/17 22:50 16 MLS/HR Ciprofloxacin/ Dextrose 400 mg/ Prmx 200 ml @ 100 mls/hr Q12H IV 01/27/17 00:00 02/06/17 00:00 01/31/17 00:25 100 MLS/HR Metoprolol Tartrate (Lopressor Tab) 12.5 mg BID PO 01/29/17 08:00 02/28/17 07:59 01/30/17 21:20 12.5 MG Acetaminophen (Tylenol Tab) 650 mg Q6H PRN PO 01/30/17 00:00 03/01/17 00:00 Ioversol (Optiray 320) 100 ml UD PRN IV 01/30/17 08:45 02/03/17 08:44
--- NOTE | 2017-01-31 15:20 | Gastroenterology Progress Note ---
Progress Note Date of Service: Jan 31, 2017 Subjective Pt evaluation today including: conversation w/ patient, physical exam, chart review, lab review, review of studies, review of inpatient medication list Pt feeling frustrated, refused CL breakfast this AM, wants "real food" to eat. Asking about discharge. Still having diarrhea and lower abd pain. CT abd/pelvis: 1. Findings are consistent with a nonspecific pancolitis. This could be on an infectious, inflammatory, or ischemic basis. The degree of mucosal edema raises concern for C. difficile. Clinical correlation will be required. 2. Intraperitoneal free air seen on 01/26/2017 has resolved. There is a small volume of abdominal ascites. 3. There are postoperative changes from bilateral iliac artery bypass grafts as well as femorofemoral bypass. The right iliac artery graft and the femorofemoral bypass are thrombosed. 4. There is deep venous thrombosis identified within the left pelvic veins extending into the left common femoral vein. 5. Destructive change is seen within the anterior/inferior aspect of the greater trochanter of the right femur. There is overlying soft tissue inflammation and the appearance is highly concerning for osteomyelitis. Clinical correlation will be required. Note is made of previous subtrochanteric amputation of the right femur. 6. Prostatomegaly with evidence of chronic bladder outlet obstruction. Bladder calculi are noted. 7. Small pleural effusions with bibasilar consolidation. These have modestly increased in size from 01/26/2017. 8. Bilateral low-attenuation adrenal nodules likely represent adenomas but cannot be definitively characterized due to the presence of IV contrast. 9. There is anasarca of the body wall. Review of Systems Constitutional: No fever, No chills Respiratory: No cough, No shortness of breath Cardiac: No chest pain Abdomen: + pain, + diarrhea, No nausea, No vomiting, No GI bleeding Medications Current Inpatient Medications Medications (Trade) Dose Ordered Sig/Nadia Route Start Time Stop Time Status Last Admin Dose Admin Potassium Chloride/Dextrose/ Sod Cl 1,000 ml @ 60 mls/hr [id number] IV 01/26/17 23:30 02/25/17 23:29 01/31/17 04:56 60 MLS/HR Ciprofloxacin (Consult) 1 ea UD PRN N/A 01/27/17 09:00 02/26/17 08:59 Metronidazole 500 mg/Prmx 100 ml @ 100 mls/hr Q8H IV 01/27/17 02:00 02/06/17 01:59 01/31/17 02:03 100 MLS/HR Acetaminophen 650 mg/Empty Bag 65 ml @ 260 mls/hr Q6H PRN IV 01/26/17 22:15 02/25/17 22:14 Ondansetron HCl (Zofran Inj) 4 mg Q6H PRN IV 01/26/17 22:15 02/25/17 22:14 Hydromorphone HCl (Dilaudid Inj) 0.5 mg Q3H PRN IV 01/26/17 22:15 02/09/17 22:14 Ketorolac Tromethamine (Toradol Inj) 15 mg Q6H PRN IV 01/26/17 22:15 01/31/17 22:14 Heparin Sodium/ Dextrose 500 ml @ 16 mls/hr Q24H PRN IV 01/26/17 22:30 02/25/17 22:29 Future Hold 01/29/17 22:50 16 MLS/HR Ciprofloxacin/ Dextrose 400 mg/ Prmx 200 ml @ 100 mls/hr Q12H IV 01/27/17 00:00 02/06/17 00:00 01/31/17 00:25 100 MLS/HR Metoprolol Tartrate (Lopressor Tab) 12.5 mg BID PO 01/29/17 08:00 02/28/17 07:59 01/30/17 21:20 12.5 MG Acetaminophen (Tylenol Tab) 650 mg Q6H PRN PO 01/30/17 00:00 03/01/17 00:00 Ioversol (Optiray 320) 100 ml UD PRN IV 01/30/17 08:45 02/03/17 08:44 Objective Vital Signs Date Time Temp Pulse Resp B/P (MAP) Pulse Ox O2 Delivery O2 Flow Rate FiO2 01/31/17 07:31 36.7 56 18 128/67 (87) 95 Room Air 01/31/17 00:12 36.6 60 18 120/70 (87) 95 Room Air 01/31/17 00:00 Room Air 01/30/17 21:20 66 18 109/66 (80) 96 Room Air 01/30/17 16:00 98 Room Air 01/30/17 15:47 36.4 61 18 148/81 (103) 98 Room Air Physical Exam General Appearance: no apparent distress, + thin Eyes: normal inspection, PERRL, EOMI Neck: supple, no JVD, trachea midline Respiratory/Chest: normal breath sounds, no respiratory distress, no accessory muscle use Cardiovascular: regular rate, rhythm, no gallop, no murmur Abdomen: normal bowel sounds, soft, + tenderness (mid lower abd area ) Extremities: + pertinent finding (R AKA) Neurologic/Psych: alert, normal mood/affect, oriented x 3 Skin: normal color, no jaundice, no rash Laboratory Results Last 24 Hours Test 01/30/17 10:45 01/30/17 12:00 01/30/17 17:55 01/31/17 06:58 Stool Occult Blood POSITIVE Hemoglobin 9.1 g/dL 9.4 g/dL 8.8 g/dL Hematocrit 28.4 % 29.0 % 26.4 % White Blood Count 2.71 K/uL Red Blood Count 2.92 M/uL Mean Corpuscular Volume 90.4 fL Mean Corpuscular Hemoglobin 30.1 pg Mean Corpuscular Hemoglobin Concent 33.3 g/dl Platelet Count 226 K/uL Mean Platelet Volume 8.3 fL Neutrophils (%) (Auto) 49.0 % Lymphocytes (%) (Auto) 32.1 % Monocytes (%) (Auto) 11.8 % Eosinophils (%) (Auto) 6.3 % Basophils (%) (Auto) 0.4 % Neutrophils # (Auto) 1.33 K/uL Lymphocytes # (Auto) 0.87 K/uL Monocytes # (Auto) 0.32 K/uL Eosinophils # (Auto) 0.17 K/uL Basophils # (Auto) 0.01 K/uL RDW Standard Deviation 51.7 fL RDW Coefficient of Variation 15.6 % Immature Granulocyte % (Auto) 0.4 % Immature Granulocyte # (Auto) 0.01 K/uL Echinocytes 1+ Activated Partial Thromboplast Time 31.7 SECONDS Partial Thromboplastin Ratio 1.2 Sodium Level 142 mmol/L Potassium Level 3.2 mmol/L Chloride Level 113 mmol/L Carbon Dioxide Level 22 mmol/L Anion Gap 7.0 mmol/L Blood Urea Nitrogen < 1 mg/dl Creatinine 0.47 mg/dl Est Creatinine Clear Calc Drug Dose 138.1 ml/min Estimated GFR () 138.1 Estimated GFR (Non- 119.1 BUN/Creatinine Ratio Random Glucose 86 mg/dl Calcium Level 6.8 mg/dl Magnesium Level 1.9 mg/dl Test 01/31/17 08:20 Assessment and Plan Patient is a 62 year old male with 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 Stool studies negative. Suspect diarrhea etiology is ischemic in nature. He is here also due to finding of pancolitis and pneumoperitoneum of upper abd areas on outpt CT on 01/26/17. Repeat CT on 01/30 showed no free air, persistent pancolitis. - Ok to advance diet if tolerating CL - Cipro/Flagyl IV antibx - Restart antidiarrheal (Imodium), no plans for repeat colonoscopy at this time. Will place outpt Colorectal Surgery referral to discuss possible colectomy if diarrhea symptoms continue. ATTESTATION: I have performed a history and physical examination of this patient and reviewed the electronic record. Specifically, on history his diarrhea is improved, on review of overall clinical situation persistent pancolitis as seen on present CT is unlikely to resolve with time. He should be seen in elective consultation with colorectal surgery regarding total colectomy. I have discussed the case with SUNDAR Han. The above note reflects my findings , conclusions, and recommendations. Vikas Wu MD
[2017-01-31] MEDS ORDERED: LOPERAMIDE HCL 2 MG CAP PO PRN (15:30)
[2017-01-31 16:00] VITALS: O2SAT 99
--- NOTE | 2017-01-31 16:15 | Surgery Progress Note ---
Surgery Progress Note Date of Service Jan 31, 2017. Subjective Post OP Day: 5 + feeling well, + bowel movement, + pain controlled, + diet, No complaints, No nausea, No vomiting Objective Vital Signs: Date Time Temp Pulse Resp B/P (MAP) Pulse Ox O2 Delivery O2 Flow Rate FiO2 01/31/17 08:00 95 Room Air 01/31/17 07:31 36.7 56 18 128/67 (87) 95 Room Air 01/31/17 00:12 36.6 60 18 120/70 (87) 95 Room Air 01/31/17 00:00 Room Air 01/30/17 21:20 66 18 109/66 (80) 96 Room Air General Appearance: no apparent distress, + thin Head: normocephalic, atraumatic Neck: trachea midline Respiratory/Chest: no respiratory distress, no accessory muscle use Abdomen: non tender, non distended, soft Extremities: + pertinent finding (Right AKA) Laboratory Results: Results Past 24 Hours Test 01/30/17 17:55 01/31/17 06:58 01/31/17 08:20 Range/Units Hemoglobin 9.4 8.8 14.0-18.0 g/dL Hematocrit 29.0 26.4 42-52 % White Blood Count 2.71 4.8-10.8 K/uL Red Blood Count 2.92 4.7-6.1 M/uL Mean Corpuscular Volume 90.4 80-100 fL Mean Corpuscular Hemoglobin 30.1 25-34 pg Mean Corpuscular Hemoglobin Concent 33.3 32-36 g/dl Platelet Count 226 130-400 K/uL Mean Platelet Volume 8.3 7.4-10.4 fL Neutrophils (%) (Auto) 49.0 % Lymphocytes (%) (Auto) 32.1 % Monocytes (%) (Auto) 11.8 % Eosinophils (%) (Auto) 6.3 % Basophils (%) (Auto) 0.4 % Neutrophils # (Auto) 1.33 1.4-6.5 K/uL Lymphocytes # (Auto) 0.87 1.2-3.4 K/uL Monocytes # (Auto) 0.32 0.11-0.59 K/uL Eosinophils # (Auto) 0.17 0-0.5 K/uL Basophils # (Auto) 0.01 0-0.2 K/uL RDW Standard Deviation 51.7 36.4-46.3 fL RDW Coefficient of Variation 15.6 11.5-14.5 % Immature Granulocyte % (Auto) 0.4 % Immature Granulocyte # (Auto) 0.01 0.00-0.02 K/uL Echinocytes 1+ Activated Partial Thromboplast Time 31.7 21.0-31.0 SECONDS Partial Thromboplastin Ratio 1.2 Sodium Level 142 136-145 mmol/L Potassium Level 3.2 3.5-5.1 mmol/L Chloride Level 113 98-107 mmol/L Carbon Dioxide Level 22 21-32 mmol/L Anion Gap 7.0 3-11 mmol/L Blood Urea Nitrogen < 1 7-18 mg/dl Creatinine 0.47 0.60-1.40 mg/dl Est Creatinine Clear Calc Drug Dose 138.1 ml/min Estimated GFR () 138.1 Estimated GFR (Non- 119.1 BUN/Creatinine Ratio 10-20 Random Glucose 86 70-99 mg/dl Calcium Level 6.8 8.5-10.1 mg/dl Magnesium Level 1.9 1.8-2.4 mg/dl Erythrocyte Sedimentation Rate 15 0-14 mm/hr Assessment & Plan Pancolitis - vitals stable - H&H stable - repeat CT scan showed no pneumoperitoneum, however colitis still present - + bowel movements Plan: Continue current medical management Continue IV fluids advance diet as tolerated No surgical intervention at this time, our services signing off, please call with any concerns/questions Dr. Morin has seen and examined patient, agrees with above
[2017-01-31 16:48] VITALS: BP 119/74; PULSE 65; TEMP 36.9; O2SAT 99
[2017-01-31] MEDS: METRONIDAZOLE 500 MG TAB PO SCH (21:01)
[2017-01-31] MEDS: CIPROFLOXACIN 500 MG TAB PO SCH (21:01)
[2017-02-01 00:42] VITALS: BP 117/73; PULSE 67; TEMP 36.7; O2SAT 96
[2017-02-01 07:06] VITALS: BP 122/73; PULSE 65; TEMP 36.7; O2SAT 96
[2017-02-01 07:47] LABS: HEMATOCRIT 28.7 % (42-52); MEAN CELL VOLUME 92.6 fL (80-100); MEAN CORPUSCULAR HEMOGLOBIN 28.7 pg (25-34); MEAN PLATELET VOLUME 8.7 fL (7.4-10.4); PLATELET COUNT 248 K/uL (130-400); WHITE BLOOD COUNT 4.18 K/uL (4.8-10.8)
[2017-02-01 07:56] LABS: PARTIAL THROMBOPLASTIN RATIO 1.2
[2017-02-01 08:00] VITALS: O2SAT 96
[2017-02-01 08:14] LABS: BLOOD UREA NITROGEN < 1 mg/dl (7-18); CALCIUM 6.9 mg/dl (8.5-10.1); CARBON DIOXIDE 22 mmol/L (21-32); CHLORIDE 114 mmol/L (98-107); CREATININE 0.51 mg/dl (0.60-1.40); GLUCOSE 88 mg/dl (70-99); POTASSIUM 3.1 mmol/L (3.5-5.1); SODIUM 142 mmol/L (136-145)
[2017-02-01 08:55] LABS: BASO % 0.5 %; BASO ABS # 0.02 K/uL (0-0.2); COMPLETE YES; ECHINOCYTES 1+; EOS % 4.1 %; IG% 0.2 %; LYMPH % 23.9 %; MONO % 8.9 %; NEUT % 62.4 %
[2017-02-01] MEDS: METRONIDAZOLE 500 MG TAB PO SCH ×2 (09:15→13:59)
[2017-02-01] MEDS: CIPROFLOXACIN 500 MG TAB PO SCH (09:15)
[2017-02-01] MEDS: METOPROLOL TARTRATE 25 MG TAB PO SCH (09:16)
[2017-02-01] MEDS ORDERED: POTASSIUM CHLORIDE 10 MEQ TABCR PO ONE (10:30)
[2017-02-01] MEDS: D5NSS + 20MEQ KCL 1,000 ML IV SCH (10:42)
--- NOTE | 2017-02-01 11:03 | Gastroenterology Progress Note ---
Progress Note Date of Service: Feb 01, 2017 Subjective Pt evaluation today including: conversation w/ patient, physical exam, chart review, lab review, review of inpatient medication list Pt tolerating regular consistency diet w/o n/v, abd pain. Still having loose stools, took Imodium this AM and hasn't gone to the bathroom. He is feeling frustrated, wants to go home today. Review of Systems Constitutional: No fever, No chills Respiratory: No cough, No shortness of breath Cardiac: No chest pain Abdomen: + diarrhea, No pain, No nausea, No vomiting Medications Current Inpatient Medications Medications (Trade) Dose Ordered Sig/Nadia Route Start Time Stop Time Status Last Admin Dose Admin Potassium Chloride/Dextrose/ Sod Cl 1,000 ml @ 60 mls/hr [id number] IV 01/26/17 23:30 02/25/17 23:29 01/31/17 04:56 60 MLS/HR Acetaminophen 650 mg/Empty Bag 65 ml @ 260 mls/hr Q6H PRN IV 01/26/17 22:15 02/25/17 22:14 Ondansetron HCl (Zofran Inj) 4 mg Q6H PRN IV 01/26/17 22:15 02/25/17 22:14 Hydromorphone HCl (Dilaudid Inj) 0.5 mg Q3H PRN IV 01/26/17 22:15 02/09/17 22:14 Heparin Sodium/ Dextrose 500 ml @ 16 mls/hr Q24H PRN IV 01/26/17 22:30 02/25/17 22:29 Future Hold 01/29/17 22:50 16 MLS/HR Metoprolol Tartrate (Lopressor Tab) 12.5 mg BID PO 01/29/17 08:00 02/28/17 07:59 02/01/17 09:16 12.5 MG Acetaminophen (Tylenol Tab) 650 mg Q6H PRN PO 01/30/17 00:00 03/01/17 00:00 Ioversol (Optiray 320) 100 ml UD PRN IV 01/30/17 08:45 02/03/17 08:44 Ciprofloxacin (Cipro Tab) 500 mg BID PO 01/31/17 20:00 02/06/17 00:00 02/01/17 09:15 500 MG Metronidazole (Flagyl Tab) 500 mg TID PO 01/31/17 20:00 02/10/17 19:59 02/01/17 09:15 500 MG Loperamide HCl (Imodium Cap) 2 mg QID PRN PO 01/31/17 15:30 03/02/17 15:29 02/01/17 09:17 2 MG Objective Vital Signs Date Time Temp Pulse Resp B/P (MAP) Pulse Ox O2 Delivery O2 Flow Rate FiO2 02/01/17 08:00 96 Room Air 02/01/17 07:06 36.7 65 18 122/73 (89) 96 Room Air 02/01/17 00:42 36.7 67 18 117/73 (88) 96 Room Air 02/01/17 00:00 Room Air 01/31/17 16:48 36.9 65 17 119/74 (89) 99 Room Air 01/31/17 16:00 99 Room Air Physical Exam General Appearance: no apparent distress, + obese Eyes: normal inspection, PERRL, EOMI Neck: supple, no JVD, trachea midline Respiratory/Chest: normal breath sounds, no respiratory distress, no accessory muscle use Cardiovascular: regular rate, rhythm, no gallop, no murmur Abdomen: normal bowel sounds, non tender, soft Extremities: normal inspection (R AKA), no pedal edema, no calf tenderness, + pertinent finding Neurologic/Psych: alert, normal mood/affect, oriented x 3 Skin: normal color, no jaundice, no rash Laboratory Results Last 24 Hours Test 02/01/17 07:01 White Blood Count 4.18 K/uL Red Blood Count 3.10 M/uL Hemoglobin 8.9 g/dL Hematocrit 28.7 % Mean Corpuscular Volume 92.6 fL Mean Corpuscular Hemoglobin 28.7 pg Mean Corpuscular Hemoglobin Concent 31.0 g/dl Platelet Count 248 K/uL Mean Platelet Volume 8.7 fL Neutrophils (%) (Auto) 62.4 % Lymphocytes (%) (Auto) 23.9 % Monocytes (%) (Auto) 8.9 % Eosinophils (%) (Auto) 4.1 % Basophils (%) (Auto) 0.5 % Neutrophils # (Auto) 2.61 K/uL Lymphocytes # (Auto) 1.00 K/uL Monocytes # (Auto) 0.37 K/uL Eosinophils # (Auto) 0.17 K/uL Basophils # (Auto) 0.02 K/uL RDW Standard Deviation 53.8 fL RDW Coefficient of Variation 15.8 % Immature Granulocyte % (Auto) 0.2 % Immature Granulocyte # (Auto) 0.01 K/uL Echinocytes 1+ Activated Partial Thromboplast Time 30.8 SECONDS Partial Thromboplastin Ratio 1.2 Sodium Level 142 mmol/L Potassium Level 3.1 mmol/L Chloride Level 114 mmol/L Carbon Dioxide Level 22 mmol/L Anion Gap 6.0 mmol/L Blood Urea Nitrogen < 1 mg/dl Creatinine 0.51 mg/dl Est Creatinine Clear Calc Drug Dose 127.2 ml/min Estimated GFR () 133.5 Estimated GFR (Non- 115.2 BUN/Creatinine Ratio Random Glucose 88 mg/dl Calcium Level 6.9 mg/dl Assessment and Plan Patient is a 62 year old male with 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 Stool studies negative. Suspect diarrhea etiology is ischemic in nature. He is here also due to finding of pancolitis and pneumoperitoneum of upper abd areas on outpt CT on 01/26/17. Repeat CT on 01/30 showed no free air, persistent pancolitis. - Continue regular diet. - Cipro/Flagyl IV antibx - Continue Imodium on PRN basis, no plans for repeat colonoscopy at this time. Will place outpt Colorectal Surgery referral to discuss possible colectomy if diarrhea symptoms continue. - No new GI plans. ATTESTATION: I have performed a history and physical examination of thia patient and reviewed the electronic record. Specifically, on physical examination there is no significant abdominal tenderness. Hypoalbuminemia is likely due to protein loss through the ischemic colon. I have discussed the case with SUNDAR Han. The above note reflects my findings, conclusions, and recommendations. Vikas Wu MD
--- NOTE | 2017-02-01 11:04 | CONSULTATION REPORT ---
DATE OF CONSULTATION: 02/01/2017 REASON FOR CONSULT: Occluded femorofemoral bypass and right iliac artery graft. HISTORY OF PRESENT ILLNESS: The patient is a 62-year-old male who was admitted to the hospital 6 days ago for abdominal pain, was found to have pancolitis and foci of free air on CT. He has been improving. His pain is resolved. He has continued to have multiple liquid or loose bowel movements. He has been advanced over the last few days to a regular diet beginning this morning. GI has been following him and believes this may be an ischemic colitis. We were asked to see him about his occluded bypass grafts. The first of these was performed by Dr. Hernandez in 2009, a left to right femoral bypass. In May of 2016 he had aortobifemoral bypass at [facility]. He had some postoperative complications, wound VAC had been placed. He had began bleeding at home, was seen in [place] and eventually transferred back to [facility] where he had multiple procedures on the right lower extremity and eventually a right above knee amputation. He has had right groin and stump wounds for which he has been following with the [facility]. At the time of admission, he was on Cipro 500 mg b.i.d. for these wounds. PAST MEDICAL HISTORY: Vascular disease as described above, history of DVT, hypertension, his current colitis and a DVT left lower extremity diagnosed in December. CURRENT MEDICATIONS: Cipro 500 mg p.o. b.i.d., Flagyl 500 mg p.o. t.i.d., Imodium 2 mg q.i.d. as needed, Tylenol 650 mg as needed, Lopressor 12.5 mg p.o. b.i.d., Zofran 4 mg IV q. 6 hours as needed, Dilaudid 0.5 mg IV q. 3 hours. ALLERGIES: NKDA. OBJECTIVE: GENERAL: He appears in no acute distress. VITAL SIGNS: Temperature 36.7, pulse 65, respirations 18, blood pressure 122/73, pulse ox 96% on room air. ABDOMEN: Soft, nontender. He has a right groin wound that is draining some purulent material. EXTREMITIES: On the right he has an ulceration of the distal stump without drainage and tenderness throughout the remaining femur. LABORATORY DATA: White count is 4,000, hemoglobin stable at 8.9, hematocrit 28.7, platelets 248,000. Sodium 141, potassium 3.1, BUN less than 1, creatinine 0.5, glucose 88. Last albumin was 1.2. IMAGING: CT in summary shows a nonspecific pancolitis. There is thrombosis of the right iliac and femoral femoral graft. There is DVT in the left pelvic vein extending into the left common femoral vein. There are destructive changes of the right femur concerning for osteomyelitis. IMPRESSIONS: 1. Above knee amputation with nonhealing wounds and underlying osteomyelitis. 2. Colitis, likely ischemic. 3. Malnutrition. PLAN: The patient was seen with Dr. Hernandez. 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 His nutrition will be an issue, but the complexity of his situation would be better managed in a tertiary center. The patient does not recall having a carotid ultrasound, we did go ahead and order that. FARHAD
[2017-02-01] MEDS ORDERED: RIVAROXABAN 20 MG TAB PO ONE (13:40)
--- NOTE | 2017-02-01 13:59 | Progress Note ---
Medicine Progress Note Date & Time of Visit: Feb 01, 2017 at 13:44. Subjective patient seen resting in bed, comfortable states he had 4 BMs, formed, no abdominal pain ,nausea/vomiting, fever/chills denies melena, hematochezia denies pain on the right leg states he is back to his baseline, feels well states he is ready and would like to be discharged today Objective Last 8 Hrs Date Time Temp Pulse Resp B/P (MAP) Pulse Ox O2 Delivery O2 Flow Rate FiO2 02/01/17 08:00 96 Room Air 02/01/17 07:06 36.7 65 18 122/73 (89) 96 Room Air Physical Exam: General- oriented x 3, not in distress, speaks in sentences with no effort Eyes- anicteric Neck- supple, no JVD Lungs- clear breath sounds bilaterally, no rales/wheezes Heart- regular rhythm; no murmur, normal rate Abdomen- normal bowel sounds, soft, nontender Extremities- right lower ext: (+) AKA, 2 wounds- healing well, no signs of active infection, no tenderness on the leg left lower ext: no edema, tenderness Neuro- alert, oriented x 3;no other gross focal deficits Skin- warm & dry Laboratory Results: Last 24 Hours Test 02/01/17 07:01 White Blood Count 4.18 K/uL Red Blood Count 3.10 M/uL Hemoglobin 8.9 g/dL Hematocrit 28.7 % Mean Corpuscular Volume 92.6 fL Mean Corpuscular Hemoglobin 28.7 pg Mean Corpuscular Hemoglobin Concent 31.0 g/dl Platelet Count 248 K/uL Mean Platelet Volume 8.7 fL Neutrophils (%) (Auto) 62.4 % Lymphocytes (%) (Auto) 23.9 % Monocytes (%) (Auto) 8.9 % Eosinophils (%) (Auto) 4.1 % Basophils (%) (Auto) 0.5 % Neutrophils # (Auto) 2.61 K/uL Lymphocytes # (Auto) 1.00 K/uL Monocytes # (Auto) 0.37 K/uL Eosinophils # (Auto) 0.17 K/uL Basophils # (Auto) 0.02 K/uL RDW Standard Deviation 53.8 fL RDW Coefficient of Variation 15.8 % Immature Granulocyte % (Auto) 0.2 % Immature Granulocyte # (Auto) 0.01 K/uL Echinocytes 1+ Activated Partial Thromboplast Time 30.8 SECONDS Partial Thromboplastin Ratio 1.2 Sodium Level 142 mmol/L Potassium Level 3.1 mmol/L Chloride Level 114 mmol/L Carbon Dioxide Level 22 mmol/L Anion Gap 6.0 mmol/L Blood Urea Nitrogen < 1 mg/dl Creatinine 0.51 mg/dl Est Creatinine Clear Calc Drug Dose 127.2 ml/min Estimated GFR () 133.5 Estimated GFR (Non- 115.2 BUN/Creatinine Ratio Random Glucose 88 mg/dl Calcium Level 6.9 mg/dl Assessment & Plan DIARRHEA SECONDARY TO PANCOLITIS, POSSIBLE ISCHEMIA HISTORY OF CHRONIC DIARRHEA CT done outpatient showed pancolitis with scattered foci of pneumoperitoneum in the upper abdomen concerning for perforation repeat CT abdomen: no signs of pneumoperitoneum C Diff: negative Gen Surg consulted: no interventions recommended at this time GI consulted: recommended Cipro and Flagyl, outpatient referral to colorectal surgeon if with recurrence of diarrhea patient's diarrhea resolving continue 4 more days of Cipro and Flagyl to complete 10 days total Imodium PRN follow up with GI in 1-2 weeks LLE DVT started on Xarelto last mong Xarelto was on hold in case pt had to go for surgery, placed on Heparin Hg stable around 9, patient denies melena/hematochezia will resume Xarelto monitor Hg closely PVD status post surgery will resume Aspirin monitor Hg closely Right LE amputation CT Abd/Pelvis showed Right Illiac Artery Graft and Femorofemoral bypass are thrombosed Case discussed with vascular surgeon Dr. Garrett that said that this is not a new finding That was done during his Right LE amputation -- follow up with Dr. Garrett in 1-2 weeks Right Groin Wound CT abd/pelvis showed destructive bony change identified in the inferior aspect of the greater trochanter of the right femur with overlying soft tissue induration highly concerning for osteomyelitis Case discussed with vascular surgeon Dr. Garrett that said that is not new finding he said ortho had to do some work in his greater trochanter during his hospital at [place] Afebrile, No Leukocytosis, Blood cultures negative, No pus or drainage from the wound -- patient would like to be discharged as soon as possible consider MRI of the hip as outpatient ff up with Dr. Garrett in 1-2 weeks ff up with [facility] in 1 week Anemia Hbg remains 8-9 -- monitor Hg as outpatient Hypokalemia Related to chronic diarrhea K was 3.1 -- PO potassium ordered -- repeat K on follow up DISPOSITION ff up with PCP in 3-5 days ff up with GI in 1-2 weeks ff up with Vascular Surgery Dr. Garrett in 1-2 weeks Consultants: Surgery Current Inpatient Medications: Current Inpatient Medications Medications (Trade) Dose Ordered Sig/Nadia Route Start Time Stop Time Status Last Admin Dose Admin Potassium Chloride/Dextrose/ Sod Cl 1,000 ml @ 60 mls/hr [id number] IV 01/26/17 23:30 02/25/17 23:29 01/31/17 04:56 60 MLS/HR Acetaminophen 650 mg/Empty Bag 65 ml @ 260 mls/hr Q6H PRN IV 01/26/17 22:15 02/25/17 22:14 Ondansetron HCl (Zofran Inj) 4 mg Q6H PRN IV 01/26/17 22:15 02/25/17 22:14 Hydromorphone HCl (Dilaudid Inj) 0.5 mg Q3H PRN IV 01/26/17 22:15 02/09/17 22:14 Heparin Sodium/ Dextrose 500 ml @ 16 mls/hr Q24H PRN IV 01/26/17 22:30 02/25/17 22:29 Future Hold 01/29/17 22:50 16 MLS/HR Metoprolol Tartrate (Lopressor Tab) 12.5 mg BID PO 01/29/17 08:00 02/28/17 07:59 02/01/17 09:16 12.5 MG Acetaminophen (Tylenol Tab) 650 mg Q6H PRN PO 01/30/17 00:00 03/01/17 00:00 Ioversol (Optiray 320) 100 ml UD PRN IV 01/30/17 08:45 02/03/17 08:44 Ciprofloxacin (Cipro Tab) 500 mg BID PO 01/31/17 20:00 02/06/17 00:00 02/01/17 09:15 500 MG Metronidazole (Flagyl Tab) 500 mg TID PO 01/31/17 20:00 02/10/17 19:59 02/01/17 09:15 500 MG Loperamide HCl (Imodium Cap) 2 mg QID PRN PO 01/31/17 15:30 03/02/17 15:29 02/01/17 09:17 2 MG Rivaroxaban (Xarelto Tab) 20 mg DAILY PO 02/02/17 08:00 03/04/17 07:59 UNV Rivaroxaban (Xarelto Tab) 20 mg 1340 ONCE PO 02/01/17 13:40 02/01/17 13:41 UNV
[2017-02-01] MEDS ORDERED: MCRK20 PO (14:08)
[2017-02-01] MEDS ORDERED: MTR500 PO (14:08)
[2017-02-01] MEDS ORDERED: IMD2X PO (14:08)
[2017-02-01] MEDS ORDERED: CIPR1TAB11 PO (14:08)
[2017-02-01 14:21] VITALS: BP 122/73; PULSE 65; TEMP 36.7; O2SAT 96
--- NOTE | 2017-02-01 14:21 | Discharge Summary ---
Discharge Summary Date of Service Feb 01, 2017. Discharge Summary Admission Date: Jan 26, 2017 at 22:08 Discharge Date: Feb 01, 2017 Discharge Disposition: Home Principal Diagnosis: DIARRHEA SECONDARY TO PANCOLITIS, POSSIBLE ISCHEMIA HISTORY OF CHRONIC DIARRHEA Secondary Diagnoses/Problems: Please refer to hospital course below. Procedures: CT SCAN OF THE ABDOMEN AND PELVIS WITH IV CONTRAST CLINICAL HISTORY: GI bleeding. Reported history of pneumoperitoneum. Generalized abdominal pain. COMPARISON STUDY: Abdominal CT dated 01/26/2017. TECHNIQUE: Following the IV administration of 94 cc of Optiray 320, CT scan of the abdomen and pelvis is performed from the lung bases to the proximal femora. Images are reviewed in the axial, sagittal, and coronal planes. IV contrast was administered without complication. Automated dose control exposure was utilized. A dose lowering technique was utilized adhering to the principles of ALARA. CT DOSE: 570.19 mGycm FINDINGS: Lung bases: The heart is normal in size noting a small pericardial effusion. The coronary arteries are densely calcified. Emphysema is suspected. There are small pleural effusions with bibasilar consolidation. Liver: The contrast-enhanced liver is normal in size, contour, and attenuation. There is no intrahepatic biliary ductal dilatation. The hepatic veins and portal veins are patent. Gallbladder: Unremarkable. Spleen: Normal in size and attenuation. Pancreas: Moderately atrophic and grossly unremarkable. Adrenal glands: A 1.9 cm low-attenuation right adrenal nodule and a 1.4 cm low-attenuation left adrenal nodule likely represent fat-containing adenomas but cannot be definitively characterized due to the presence of IV contrast. Kidneys: The contrast enhanced kidneys demonstrate cortical atrophy and are without hydronephrosis. The kidneys enhance symmetrically. Abdominal vasculature: There is advanced atherosclerotic calcification of the abdominal aorta. There is evidence of bilateral iliac artery bypass grafts. The left iliac graft is patent. The right iliac artery graft is thrombosed. There is flow shown within the [place] left iliac artery which is densely calcified. The [place] right iliac vessels are thrombosed. A femorofemoral bypass graft is identified. The graft is thrombosed. A stent is present within the [place] left external iliac artery and appears patent. Deep venous thrombosis is identified within the left iliac vein in the pelvis. This is best seen on axial image #335. This extends peripherally into the left common femoral vein. Bowel: No bowel obstruction is seen. There are scattered colonic diverticula without CT evidence of acute diverticulitis. There is diffuse wall thickening and mucosal edema seen throughout the colon with surrounding inflammation. The appearance is consistent with a nonspecific pancolitis. Mild fold thickening suggested involving the jejunum. The appendix is normal as visualized. There is a large duodenal diverticulum. Peritoneum: No intraperitoneal free air is seen. There is trace perihepatic ascites as well as a small volume of free fluid in the pelvis. Lymphadenopathy: None. Collateral vessels are suggested in the retroperitoneum. Pelvic viscera: The prostate gland is heterogeneous and there is median lobe hypertrophy. The bladder wall is thickened and trabeculated indicating chronic outlet obstruction. Bladder calculi are again noted. There is asymmetric atrophy of the right thigh musculature as compared to the left. Skeletal structures: The skeletal structures appear osteopenic. No lytic or blastic lesions are seen. There is moderate lumbosacral spondylosis. Advanced arthritic change is seen in the hips. There is destructive bony change identified in the inferior aspect of the greater trochanter of the right femur with overlying soft tissue induration highly concerning for osteomyelitis. There is been subtrochanteric amputation. Soft tissues: There is anasarca of the body wall. IMPRESSION: 1. Findings are consistent with a nonspecific pancolitis. This could be on an infectious, inflammatory, or ischemic basis. The degree of mucosal edema raises concern for C. difficile. Clinical correlation will be required. 2. Intraperitoneal free air seen on 01/26/2017 has resolved. There is a small volume of abdominal ascites. 3. There are postoperative changes from bilateral iliac artery bypass grafts as well as femorofemoral bypass. The right iliac artery graft and the femorofemoral bypass are thrombosed. 4. There is deep venous thrombosis identified within the left pelvic veins extending into the left common femoral vein. 5. Destructive change is seen within the anterior/inferior aspect of the greater trochanter of the right femur. There is overlying soft tissue inflammation and the appearance is highly concerning for osteomyelitis. Clinical correlation will be required. Note is made of previous subtrochanteric amputation of the right femur. 6. Prostatomegaly with evidence of chronic bladder outlet obstruction. Bladder calculi are noted. 7. Small pleural effusions with bibasilar consolidation. These have modestly increased in size from 01/26/2017. 8. Bilateral low-attenuation adrenal nodules likely represent adenomas but cannot be definitively characterized due to the presence of IV contrast. 9. There is anasarca of the body wall. 10. Additional findings as above. Electronically signed by: Dimitris Miguel M.D. 01/30/2017 1:31 PM Consultations: Gastroenterology, General Surgery Pending Studies/Follow-Up: Repeat CBC, Potassium; Please refer to hospital course below for further details. Medication Reconciliation New Medications: Potassium Chloride (Klor-Con M20) 20 Meq Tabcr 40 MEQ PO DAILY for 7 Days, #14 TABS 0 Refills Loperamide Hcl (Imodium) 2 Mg Cap 2 MG PO QID PRN for Diarrhea, #20 CAP 0 Refills Metronidazole (Metronidazole) 500 Mg Tab 500 MG PO TID for 4 Days, #12 TAB 0 Refills Continued Medications: Aspirin (Aspirin Ec) 81 Mg Tab 81 MG PO DAILY Ciprofloxacin Tab (Cipro) 250 Mg Tab 500 MG PO BID for 4 Days, #16 TAB 0 Refills (This prescription has been renewed) Metoprolol Tartrate (Lopressor) (Lopressor) 25 Mg Tab 25 MG PO QAM, TAB Rivaroxaban (Xarelto) 20 Mg Tab 1 TAB PO DAILY for 30 Days, #30 TAB 11 Refills Simvastatin (Zocor) 40 Mg Tab 40 MG PO QPM, TAB Admission Information HPI (per Admitting provider): PRIMARY CARE DOCTOR: Dr. Al. CHIEF COMPLAINT: Abdominal pain, abnormal CT. HISTORY OF PRESENT ILLNESS: History obtained from patient and records. Medical history significant for chronic diarrhea. PVD status post surgery, hypertension, hyperlipidemia, past tobacco and alcohol abuse, chronic anemia (baseline hemoglobin of 8-9), history of left lower extremity DVT ongoing Xarelto, Recent confinement 12/2016 for acute left lower extremity DVT. Patient discharged on Xarelto. Last 06/2016, the patient admitted at [facility] for ischemic right foot, underwent multiple procedures, including R AKA. Intractable diarrhea noted during confinement. C. diff negative. CAT scan abdomen and pelvis dated 07/2016 showed enhancement of the sigmoid colon and rectum, inflammatory versus ischemic. Patient evaluated by GI during confinement. Limited flex sig showed diffuse proctosigmoiditis. Persistent abdominal pain and diarrhea symptoms since the last 8 months, nonbloody, evaluated by [facility] GI outpatient 2 weeks ago, suspicion for microscopic colitis versus CMV. Stool for cultures recommended. Colonoscopy next month. Antidiarrheal p.r.n. Last week the patient noted achy upper abdominal discomfort, different from usual abdominal pain. Persistent nonbloody diarrhea. No fever, no chills. Patient was seen at PCP's office. Outpatient CT of the pelvis showed pancolitis with scattered foci of pneumoperitoneum in the upper abdomen concerning for perforation. No definite site of perforation identified, although there were scattered air-fluid diverticula in the sigmoid region and ruptured intraperitoneal diverticulum is a possibility. No solid mass identified. Patient directed by PCP to Emergency Room. He received Vancomycin and Zosyn in the Emergency Room. Transfer to tertiary center recommended by surgeon on-call. No available beds for the patient's condition at [facility] as per ER physician. Patient and refused transfer to other institutions. Physical Exam (per Admitting): VITAL SIGNS: Blood pressure was noted to be 98/60, pulse rate 60, RR 20, 36.6, sats 95 on room air. GENERAL: Noted to be hyposthenic, irate, chronically ill. Unkempt. SKIN: Pallor. HEENT: Pale palpebral conjunctivae, dry mucosa. Partial alopecia. NECK: No JVD. Supple CHEST: Decreased effort. HEART: Regular rate and rhythm. ABDOMEN: Some distention. Tenderness on the right side and hypogastrium. EXTREMITIES: No edema. Right AKA stump with dressing. NEUROLOGIC: No gross focality. Hospital Course DIARRHEA SECONDARY TO PANCOLITIS, POSSIBLE ISCHEMIA HISTORY OF CHRONIC DIARRHEA CT done outpatient showed pancolitis with scattered foci of pneumoperitoneum in the upper abdomen concerning for perforation repeat CT abdomen: no signs of pneumoperitoneum C Diff: negative Gen Surg consulted: no interventions recommended at this time GI consulted: recommended Cipro and Flagyl, outpatient referral to colorectal surgeon if with recurrence of diarrhea patient's diarrhea resolving continue 4 more days of Cipro and Flagyl to complete 10 days total Imodium PRN follow up with GI in 1-2 weeks LEFT LOWER EXTREMITY DVT diagnosed last month and was started on Xarelto at that time CT abdomen/pelvis during this admission: There is deep venous thrombosis identified within the left pelvic veins extending into the left common femoral vein. Xarelto was on hold in case pt had to go for surgery, placed on Heparin Hg stable around 9, patient denies melena/hematochezia resume Xarelto monitor Hg closely Right LE amputation CT Abd/Pelvis showed Right Illiac Artery Graft and Femorofemoral bypass are thrombosed Case discussed with vascular surgeon Dr. Garrett in [facility] that said that this is not a new finding That was done during his Right LE amputation -- follow up with Dr. Garrett in 1-2 weeks PVD status post surgery resume Aspirin, Statin monitor Hg closely -- follow up with Dr. Garrett in 1-2 weeks Right Groin Wound CT abd/pelvis showed destructive bony change identified in the inferior aspect of the greater trochanter of the right femur with overlying soft tissue induration highly concerning for osteomyelitis Case discussed with vascular surgeon Dr. Garrett that said that is not new finding he said ortho had to do some work in his greater trochanter during his hospital at [place] Afebrile, No Leukocytosis, Blood cultures negative, No pus or drainage from the wound -- patient wanted to be discharged as soon as possible consider MRI of the hip as outpatient to r/o Osteomyelitis ff up with Dr. Garrett in 1-2 weeks ff up with W[facility] Care Center in 1 week Anemia Hg remains 8-9 -- monitor Hg as outpatient Hypokalemia Related to chronic diarrhea K was 3.1 -- PO potassium ordered -- repeat K on follow up Bilateral Adrenal Nodules seen on CT Abdomen/Pelvis: A 1.9 cm low-attenuation right adrenal nodule and a 1.4 cm low-attenuation left adrenal nodule likely represent fat-containing adenomas but cannot be definitively characterized due to the presence of IV contrast. -- ff up as outpatient DISPOSITION ff up with PCP in 3-5 days ff up with GI in 1-2 weeks ff up with Vascular Surgery Dr. Garrett in 1-2 weeks Total time spent on discharge = 45 mins This includes examination of the patient, discharge planning, medication reconciliation, and communication with other providers. Discharge Instructions Discharge Instructions Date of Service Feb 01, 2017. Admission Reason for Admission: Intervenous Beta Allen Administration Discharge Discharge Diagnosis / Problem: DIARRHEA, PANCOLITIS Discharge Goals Goal(s): Diagnostic testing, Therapeutic intervention Activity Recommendations Activity Limitations: as noted below (INCREASE ACTIVITY GRADUALLY TOLERATED) . Instructions / Follow-Up Instructions / Follow-Up PLEASE REVIEW YOUR NEW MEDICATION LIST AND FOLLOW INSTRUCTIONS CAREFULLY. CALL PRIMARY CARE PHYSICIAN OR RETURN TO ER IMMEDIATELY IF WITH RECURRENCE OF SYMPTOMS, BLEEDING, FEVER/CHILLS, WEAKNESS, INCREASING REDNESS/SWELLING/PAIN ON THE WOUND OR LEG. ENSURE ADEQUATE DAILY FLUID. INCLUDE YOGURT IN YOUR DAILY DIET. FOLLOW UP WITH DR. SLAUGHTER (ASSOCIATE OF DR. AL) ON MONDAY FEBRUARY 06, 2017 AT 10:00AM. FOLLOW UP WITH WOUND CARE CENTER IN 1 WEEK. FOLLOW UP WITH [facility] PLANS STAFF OFFICER AND VASCULAR SURGEON IN 1-2 WEEKS. Current Hospital Diet Patient's current hospital diet: AHA Diet (Heart Healthy), Low Lactose Diet Discharge Diet Recommended Diet: AHA Diet (Heart Healthy), Low Lactose Diet Procedures Procedures Performed: CT ABDOMEN/PELVIS Pending Studies Studies pending at discharge: yes (REPEAT BLOOD WORK BY PRIMARY CARE PHYSICIAN. ) List of pending studies: REPEAT BLOOD WORK C/O PRIMARY CARE PROVIDER Medical Emergencies . Who to Call and When: Medical Emergencies: If at any time you feel your situation is an emergency, please call 911 immediately. . Non-Emergent Contact Non-Emergency issues call your: Primary Care Provider, Break Out Worker, Surgeon Call Non-Emergent contact if: you have a fever, wound has increased drainage, wound has increased redness, wound has increased pain, you have any medication questions . . "Provider Documentation" section prepared by Chay Caballero. . VTE Core Measure Inpt VTE Proph given/why not?: Contraindicated
[2017-02-02] MEDS ORDERED: RIVAROXABAN 20 MG TAB PO SCH (17:00)
[2017-02-24] MEDS ORDERED: CIPR1TAB11 PO (15:00)
[2017-03-17] MEDS ORDERED: METO25TA3 PO (15:25)
[2017-03-17] MEDS ORDERED: ASPCH81X PO (15:25)
[2017-03-17] MEDS ORDERED: SIMV40TA2 PO (15:25)
[2017-03-20] MEDS ORDERED: CIPR1TAB11 PO (11:31)
== END 2017-02-01 15:15 | disposition home or self-care (01) | DRG 385 ==
LOC: C.EDB 18:37 → EDBEDREQSVC 22:04 → C.2E 22:08 → EDBEDREQ 22:11 → ENRESERV 22:31 → C.MS4W 01-28 20:21
PROVIDERS: ADMIT Internal Medicine; ATTEND Internal Medicine
DX: K51.018 Ulcerative (chronic) pancolitis with other complication (principal); K63.1 Perforation of intestine (nontraumatic); K55.9 Vascular disorder of intestine, unspecified; I82.412 Acute embolism and thrombosis of left femoral vein; M86.9 Osteomyelitis, unspecified; R64 Cachexia; E46 Unspecified protein-calorie malnutrition; Z68.1 Body mass index [BMI] 19.9 or less, adult; T82.868A Thrombosis due to vascular prosthetic devices, implants and grafts, initial encounter; T81.89XA Other complications of procedures, not elsewhere classified, initial encounter; Y83.2 Surgical operation with anastomosis, bypass or graft as the cause of abnormal reaction of the patient, or of later complication, without mention of misadventure at the time of the procedure; E87.6 Hypokalemia; E86.0 Dehydration; R15.9 Full incontinence of feces; D35.02 Benign neoplasm of left adrenal gland; D35.01 Benign neoplasm of right adrenal gland; I10 Essential (primary) hypertension; E78.5 Hyperlipidemia, unspecified; I73.9 Peripheral vascular disease, unspecified; D53.9 Nutritional anemia, unspecified; Z53.29 Procedure and treatment not carried out because of patient's decision for other reasons; Z87.891 Personal history of nicotine dependence; Z86.59 Personal history of other mental and behavioral disorders; Z89.611 Acquired absence of right leg above knee; Z79.82 Long term (current) use of aspirin; Z79.2 Long term (current) use of antibiotics; Z79.01 Long term (current) use of anticoagulants; Z79.899 Other long term (current) drug therapy

== ENCOUNTER → 2017-03-24 | Day surgery (SDC) | payer BC ==
[2017-03-17 15:26] VITALS: Ht 182.9 cm; Wt 53.6 kg
[~2017-03-24] VITALS: Ht 182.9 cm; Wt 53.6 kg
[~2017-03-24] MED LIST changes: +ASPCH81X PO; -ASPI81TA28 PO; +EpHEDrine SULFATE 50MG/5ML SYR ONE; +IMD2X PO; +LIDOCAINE HCL 2% 2 ML VIAL (20MG/ML) ONE; +METO25TA3 PO; -METO25TA56 PO; +PROPOFOL IV EMULSION 10 MG/ML 20 ML VIAL IV ONE; +SODIUM CHLORIDE 0.9% 500ML 500 ML IV ONE
[2017-03-24 10:34] VITALS: TEMP 36.6
--- NOTE | 2017-03-24 11:48 | Endo History and Physical ---
History & Physical Date of Service: Mar 24, 2017. Chief Complaint: diarrhea Referring Physician: Dr. Alfred Al History of Present Illness hx of colon polyps Past Surgical History Hx Cardiac Surgery: No Hx Internal Defibrillator: No Hx Pacemaker: No Hx Abdominal Surgery: Yes (INGUINAL HERNIA REPAIR) Hx of Implantable Prosthesis: No Hx Post-Op Nausea and Vomiting: No Hx Cancer Surgery: No Hx Thoracic Surgery: No Hx Orthopedic: Yes (MULTIPLE RT LEG SX/DEBRIDEMENTS, RT AKA) Hx Urinary Tract Surgery: No Family History None Social History Smoking Status: Former Smoker Hx Substance Use: No Hx Alcohol Use: No Allergies Coded Allergies: No Known Allergies (Verified , `, 03/17/17) Current Medications Reported Home Medications Medications Dose Route/Sig Max Daily Dose Days Date Category Cipro (Ciprofloxacin) 250 Mg Tab 750 Mg PO BID 30 03/20/17 Reported Aspirin Chewable (Aspirin) 81 Mg Chew 81 Mg PO QAM 03/17/17 Reported Toprol Xl (Metoprolol Succinate) 25 Mg Tabcr 25 Mg PO HS 03/17/17 Reported Zocor (Simvastatin) 40 Mg Tab 40 Mg PO QAM 03/17/17 Reported Imodium (Loperamide Hcl) 2 Mg Cap 2 Mg PO QID PRN 02/01/17 Rx Xarelto (Rivaroxaban) 20 Mg Tab 1 Tab PO QPM 30 01/20/17 Reported Vital Signs Weight (Kilograms): 53.64 Height (Feet): 6 Height (Inches): 0 Date Time Temp Pulse Resp B/P (MAP) Pulse Ox O2 Delivery O2 Flow Rate FiO2 03/24/17 10:34 36.6 65 20 113/71 (85) 98 Room Air Physical Exam General Appearance: no apparent distress Respiratory/Chest: Auscultation: breath sounds normal Cardiovascular: Heart Auscultation: RRR Abdomen: Inspection & Palpation: soft Liver: non-tender Assessment and Plan stable for colonoscopy
--- NOTE | 2017-03-24 12:29 | GI REPORT ---
Procedure Date: 03/24/2017 12:01 PM Procedure: Colonoscopy Indications: Chronic diarrhea Medicines: See the Anesthesia note for documentation of the administered medications Complications: No immediate complications. Estimated Blood Loss: Estimated blood loss was minimal. Procedure: Pre-Anesthesia Assessment: - Prior to the procedure, a History and Physical was performed, and patient medications, allergies and sensitivities were reviewed. The patient's tolerance of previous anesthesia was reviewed. - The risks and benefits of the procedure and the sedation options and risks were discussed with the patient. All questions were answered and informed consent was obtained. - Patient identification and proposed procedure were verified prior to the procedure by the physician and the nurse. The procedure was verified in the pre-procedure area. - Pre-procedure physical examination revealed no contraindications to sedation. - After reviewing the risks and benefits, the patient was deemed in satisfactory condition to undergo the procedure. After I obtained informed consent, the scope was passed under direct vision. Throughout the procedure, the patient's blood pressure, pulse, and oxygen saturations were monitored continuously. The scope was introduced through the anus with the intention of advancing to the cecum. The scope was advanced to the rectum before the procedure was aborted. Medications were given. The colonoscopy was performed without difficulty. The patient tolerated the procedure well. The quality of the bowel preparation was good. Findings: The perianal and digital rectal examinations were normal. A severe stenosis was found in the rectum and was non-traversed the surrounding mucosa appeared abnormal/hyperplastic. Biopsies were taken with a cold forceps for histology. Verification of patient identification for the specimen was done by the physician and nurse using the patient's name and medical record number. Estimated blood loss was minimal. A 4 mm polyp was found in the rectum. The polyp was sessile. The polyp was removed with a cold snare. Resection and retrieval were complete. Verification of patient identification for the specimen was done by the physician and nurse using the patient's name and medical record number. Estimated blood loss was minimal. Impression: - Stricture in the rectum unclear if benign or malignant process. Biopsied. - One 4 mm polyp in the rectum, removed with a cold snare. Resected and retrieved. Recommendation: - Await pathology results. - Will need surgical referral. - This was discussed with patient and . - Discharge patient to home. Jared Patel M.D. Jared Patel MD 03/24/2017 12:28:44 PM This report has been signed electronically. Note Initiated On: 03/24/2017 12:01 PM I attest to the content of the Intraoperative Record and orders documented therein, exceptions below
--- NOTE | 2017-03-24 12:31 | Discharge Instructions ---
Endoscopy Patient Instructions Date / Procedure(s) Performed Mar 24, 2017. Colonoscopy Allergy Information Coded Allergies: No Known Allergies (Verified , `, 03/17/17) Discharge Date / Findings Mar 24, 2017. Rectal stricture. This was biopsied and will need surgical referral. Medication Instructions Stopped Medication(s): Last dose Xarelto on Monday,asa yesterday Provider Instructions Activity Restrictions - No exercising or heavy lifting for 24 hours. - Do not drink alcohol the day of the procedure. - Do not drive a car or operate machinery until the day after the procedure. - Do not make any important decisions or sign important papers in 24 hours after the procedure. Following Day: - Return to full activity which may include returning to work/school. Diet Start your diet with liquids and light foods (jello, soup, juice, toast). Then eat your usual diet if not nauseated. Treatment For Common After Affects For mild abdominal pain, bloating, or excessive gas: - Rest - Eat lightly - Lie on right side Follow-Up Information Follow-up with Dr. Alfred Al as scheduled Anesthesia Information What You Should Know You have had a procedure that required some medicine to reduce anxiety and discomfort. This treatment is called moderate sedation. After receiving the treatment, you may be sleepy, but you will be able to breathe on your own. The effects of the treatment may last for several hours. Follow these instructions along with Activity/Diet recommendations noted above: * Do NOT do anything where dizziness or clumsiness would be dangerous. * Rest quietly at home today, then you can be up and about tomorrow. * Have a responsible person stay with you the rest of today. * You may have had an I.V. today. If so, you may take the dressing off later today. Recommendations Call your doctor if: * Trouble breathing * Continuous vomiting for more than 24 hours * Temperature above 101 degrees * Severe abdominal pain or bloating * Pain not relieved by pain medicine ordered * There is increased drainage or redness from any incision * A large amount of rectal bleeding greater than 2-3 tablespoons. (If you had a polyp/s removed or have hemorrhoids, a small amount of blood - from the rectum is to be expected.) * You have any unanswered questions or concerns. IN THE EVENT OF A SERIOUS EMERGENCY, GO TO THE NEAREST EMERGENCY ROOM Your discharge instructions were prepared by provider Jared Patel. Patient Instructions Signature Page Navin Lovelaceremberto Patient (or Guardian) Signature/Date: I have read and understand the instructions given to me by my caregivers. Caregiver/RN/Doctor Signature/Date: The above-named patient and/or guardian has received patient instructions on this date. + Original Patient Signature Page (only) stays with chart. Please make copy for patient.
[2017-03-24 12:45] VITALS: BP 117/69; PULSE 62; O2SAT 99
--- NOTE | 2017-03-24 13:02 | Anesthesiology Progress Note ---
Anesthesia Post Op Note Date & Time Mar 24, 2017 at 13:02 Vital Signs Pain Intensity: 0 Vital Signs Past 12 Hours Date Time Temp Pulse Resp B/P (MAP) Pulse Ox O2 Delivery O2 Flow Rate FiO2 03/24/17 12:45 62 20 117/69 (85) 99 Room Air 03/24/17 12:30 66 20 114/68 (83) 100 Room Air 03/24/17 12:15 71 20 107/64 (78) 100 Room Air 03/24/17 10:34 36.6 65 20 113/71 (85) 98 Room Air Notes Mental Status: alert / awake / arousable, participated in evaluation Pt Amnestic to Procedure: Yes Nausea / Vomiting: adequately controlled Pain: adequately controlled Airway Patency, RR, SpO2: stable & adequate BP & HR: stable & adequate Hydration State: stable & adequate Anesthetic Complications: no major complications apparent
== END | disposition home or self-care (01) ==
LOC: C.GI 10:11
PROVIDERS: ATTEND Internal Medicine Gastroenterology
DX: K62.4 Stenosis of anus and rectum (principal); K62.1 Rectal polyp; Z86.010 Personal history of colon polyps; Z87.891 Personal history of nicotine dependence; Z79.01 Long term (current) use of anticoagulants; Z79.82 Long term (current) use of aspirin; Z79.899 Other long term (current) drug therapy

== ENCOUNTER 2018-07-10 16:05 | Inpatient (IN) ==
[2018-07-10] MEDS ORDERED: MoRPHine SULFATE 4 MG/ML 1 ML CARP\\VIAL IV PRN (16:40)
[2018-07-10] MEDS ORDERED: ONDANSETRON INJ 2 MG/ML 2 ML VIAL IV STA (16:40)
[2018-07-10] MEDS ORDERED: SODIUM CHLORIDE 0.9% 1000ML 1,000 ML IV SCH ×2 (16:45→22:42)
--- NOTE | 2018-07-10 16:56 | Emergency Department Note ---
Entered by Linnette Walker acting as a scribe for Vikas Meier DO History of Present Illness General Chief complaint: Abdominal Pain Stated complaint: ABDOMINAL PAIN, PHYSICIAN REFERRED Source: patient Mode of arrival: ambulatory Limitations: no limitations History of Present Illness Provider complaint: referral Onset (ago): hour(s) (earlier today) Location: head (generalized) Pain Consistency: + other (episode) Maximum Pain Intensity: 10 Current Pain Intensity: 5 Quality: + other (abn lab results) Associated symptoms: + chest pain, + cough and + nausea/vomiting; no shortness of breath The patient is a 63 year old male who presents to the Emergency Room after being referred by his PCP. The patient's family member at bedside reports that the patient had lab work performed earlier today and was referred to the ER for a suspected kidney failure. The patient states that he has been vomiting but denies any hematemesis. He also notes that his last bowel movement was green and reports that he does have a history of blockage in his bowels. Per family, the patient has not had a cholecystectomy performed. The family also states that he has not been urinating as frequently. The patient denies any alcohol or tobacco use. He also notes that he has had a mild chest pain and cough but denies any shortness of breath. Per family, the patient is prescribed aspirin and Plavix. The family reports that the patient had a fever of 103 F last week. The patient states that he has had a few blood transfusions performed in the past. He notes that he has a history of peripheral artery disease. Home Medications Home Medications Medication Instructions Recorded Confirmed Type aspirin 81 mg PO DAILY 07/10/18 07/10/18 History clopidogrel [Plavix] 75 mg PO DAILY 07/10/18 07/10/18 History ferrous sulfate [iron] 325 mg PO BID 07/10/18 07/10/18 History simvastatin 40 mg PO DAILY 07/10/18 07/10/18 History Allergies Allergy/AdvReac Type Severity Reaction Status Date / Time piperacillin Allergy Unknown Unverified 07/10/18 17:40 Past Med/Surg History Medical History Peripheral artery disease Hypertension (Chronic) DVT (deep venous thrombosis) Perforated bowel Surgical History Amputated right leg Family History Father Bladder cancer Social History Current Living Situation: Spouse Other Information That Helps Us Care for You: No Feels Safe at Home: Yes Safety Concerns: Feels Safe At This Time Smoking Status: Former smoker Hx Alcohol Use: No Hx Substance Use: No Beliefs That Will Affect Care: None Preferred Language: [place] Citizen Communication Ability: Effective Pediatric Ophthalmologist Required: No Review of Systems See HPI for pertinent positives & negatives. and A total of 10 systems reviewed and were otherwise negative Physical Exam Vital Signs Vital Signs - 24 hr 07/10/18 16:23 07/10/18 18:28 07/10/18 19:02 Temperature 36.5 C Temperature Source Oral Sepsis Recent Fever Within 48 Hours No Sepsis Action Taken by Nursing No Action Required Pulse Rate 116 H Pulse Rate [Finger] Pulse Rate [Left] 102 H 94 H Pulse Rate [Right Brachial] Pulse Rhythm Regular Pulse Strength Normal Pulse Strength [Finger] Respiratory Rate 20 18 22 Respiratory Effort / Characteristics Non-Labored Spontaneous Non-Labored Spontaneous Non-Labored Respiratory Depth Normal Normal Normal Respiratory Pattern Regular Regular Blood Pressure 137/86 Blood Pressure [Left Arm] Blood Pressure [Right Arm] 158/100 H 161/94 H Blood Pressure Mean 103 Blood Pressure Mean [Left Arm] Blood Pressure Mean [Right Arm] 119 116 Blood Pressure Position Sitting Blood Pressure Position [Left Arm] Blood Pressure Position [Right Arm] Lying Pulse Oximetry 96 98 100 Oxygen Delivery Method Room Air Room Air Room Air 07/10/18 19:58 07/10/18 21:47 07/10/18 22:24 Temperature 36.6 C Temperature Source Oral Sepsis Recent Fever Within 48 Hours Sepsis Action Taken by Nursing Pulse Rate Pulse Rate [Finger] Pulse Rate [Left] 85 88 96 H Pulse Rate [Right Brachial] Pulse Rhythm Pulse Strength Pulse Strength [Finger] Respiratory Rate 22 20 18 Respiratory Effort / Characteristics Spontaneous Non-Labored Spontaneous Non-Labored Respiratory Depth Normal Normal Respiratory Pattern Regular Blood Pressure Blood Pressure [Left Arm] Blood Pressure [Right Arm] 149/86 H 132/79 161/90 H Blood Pressure Mean Blood Pressure Mean [Left Arm] Blood Pressure Mean [Right Arm] 107 96 113 Blood Pressure Position Blood Pressure Position [Left Arm] Blood Pressure Position [Right Arm] Lying Lying Pulse Oximetry 100 98 100 Oxygen Delivery Method Room Air Room Air Room Air 07/10/18 22:42 07/11/18 04:56 07/11/18 07:00 Temperature 36.6 C 36.8 C 36.7 C Temperature Source Oral Oral Oral Sepsis Recent Fever Within 48 Hours Sepsis Action Taken by Nursing Pulse Rate Pulse Rate [Finger] 94 H Pulse Rate [Left] Pulse Rate [Right Brachial] 96 H 99 H Pulse Rhythm Pulse Strength Pulse Strength [Finger] Normal Respiratory Rate 18 18 Respiratory Effort / Characteristics Non-Labored Spontaneous Respiratory Depth Normal Normal Respiratory Pattern Regular Blood Pressure Blood Pressure [Left Arm] Blood Pressure [Right Arm] 161/91 H 133/80 128/77 Blood Pressure Mean Blood Pressure Mean [Left Arm] Blood Pressure Mean [Right Arm] 114 97 94 Blood Pressure Position Blood Pressure Position [Left Arm] Blood Pressure Position [Right Arm] Lying Lying Lying Pulse Oximetry 100 97 94 Oxygen Delivery Method Room Air Room Air Room Air 07/11/18 11:24 Temperature 36.7 C Temperature Source Oral Sepsis Recent Fever Within 48 Hours Sepsis Action Taken by Nursing Pulse Rate Pulse Rate [Finger] 93 H Pulse Rate [Left] Pulse Rate [Right Brachial] Pulse Rhythm Pulse Strength Pulse Strength [Finger] Respiratory Rate 18 Respiratory Effort / Characteristics Respiratory Depth Respiratory Pattern Blood Pressure Blood Pressure [Left Arm] 132/83 Blood Pressure [Right Arm] Blood Pressure Mean Blood Pressure Mean [Left Arm] 99 Blood Pressure Mean [Right Arm] Blood Pressure Position Blood Pressure Position [Left Arm] Lying Blood Pressure Position [Right Arm] Pulse Oximetry 97 Oxygen Delivery Method Room Air GENERAL: Patient is awake and alert. He is somewhat anxious appearing and appears to be uncomfortable. EYES: The conjunctivae are clear. The pupils are round and reactive. EARS, NOSE, MOUTH AND THROAT: Mucous members are dry. NECK: The neck is nontender and supple. RESPIRATORY: Shallow respirations were noted. There were diminished breath sounds in the right lung field. CARDIOVASCULAR: Tachycardic rate with regular rhythm was noted. There is no definite murmur. GASTROINTESTINAL: The abdomen is soft and diffusely tender. There is guarding in the left upper quadrant. There was a dark fecal matter noted in the ostomy bag. 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 SKIN: There is no obvious evidence of any rash. No pedal edema was noted in the left leg. NEUROLOGIC: Patient is awake alert and oriented x3. Course 1638: Past medical records reviewed. The patient was evaluated in room C3, and a complete history and physical examination were performed. 1836: I reviewed the patient's case with SUNDAR Domingo - [facility] Hospitalist. She will evaluate the patient for further management. Administered Medications Aspirin (Ecotrin Ectab) 81 mg PO DAILY JOSEPH Stop: 08/10/18 08:59 Last Admin: 07/11/18 07:37 Dose: 81 mg Calcium Carbonate (Tums) 1,500 mg PO Q3H JOSEPH Stop: 07/11/18 13:31 Last Admin: 07/11/18 10:55 Dose: 1,500 mg Clopidogrel Bisulfate (Plavix) 75 mg PO DAILY JOSEPH Stop: 08/10/18 08:59 Last Admin: 07/11/18 07:37 Dose: 75 mg Ferrous Sulfate (Feosol) 325 mg PO BID JOSEPH Stop: 08/09/18 22:41 Last Admin: 07/11/18 08:48 Dose: 325 mg Admin: 07/11/18 00:44 Dose: 325 mg Heparin Sodium (Porcine) (Heparin Sodium (Porcine)) 5,000 units SQ Q12H JOSEPH Stop: 08/10/18 05:59 Last Admin: 07/11/18 06:24 Dose: Not Given Sodium Bicarbonate 150 meq/ (Dextrose) 1,150 mls @ 125 mls/hr IV .Q9H12M JOSEPH Stop: 08/10/18 10:29 Last Admin: 07/11/18 10:39 Dose: 125 mls/hr Simvastatin (Zocor) 40 mg PO DAILY JOSEPH Stop: 08/10/18 08:59 Last Admin: 07/11/18 07:37 Dose: 40 mg Discontinued Medications Sodium Chloride (Nss 1000ml) 1,000 mls @ 999 mls/hr IV .Q1H1M JOSEPH Stop: 07/10/18 17:45 Last Infusion: 07/10/18 19:16 Dose: 0 mls/hr Admin: 07/10/18 18:15 Dose: 999 mls/hr Sodium Chloride (Nss 1000ml) 1,000 mls @ 999 mls/hr IV .Q1H1M ONE Stop: 07/10/18 19:04 Last Infusion: 07/10/18 19:16 Dose: 0 mls/hr Admin: 07/10/18 18:13 Dose: 999 mls/hr Ceftriaxone Sodium (Rocephin) 1,000 mg in 50 mls @ 100 mls/hr IV NOW STA Stop: 07/10/18 19:00 Last Infusion: 07/10/18 19:38 Dose: 0 mls/hr Admin: 07/10/18 19:03 Dose: 100 mls/hr Sodium Chloride (Nss 1000ml) 1,000 mls @ 75 mls/hr IV .[id number] JOSEPH Stop: 08/09/18 22:41 Last Infusion: 07/11/18 07:04 Dose: 0 mls/hr Admin: 07/11/18 00:13 Dose: 75 mls/hr Morphine Sulfate (Morphine Sulfate) 4 mg IV Q15M PRN PRN Reason: Pain Stop: 07/24/18 16:39 Last Admin: 07/10/18 18:14 Dose: 4 mg Ondansetron HCl (Zofran) 4 mg IV NOW STA Stop: 07/10/18 16:41 Last Admin: 07/10/18 18:14 Dose: 4 mg Medical Decision Making Differential Diagnosis Differential diagnosis includes: gastritis, peptic ulcer disease, GERD, gallbladder disease, pancreatitis, small bowel obstruction, acute coronary syndrome, pericarditis, ischemic bowel, irritable bowel disease, irritable bowel syndrome, appendicitis, diverticulitis, malignancy, hernia, UTI, torsion, perforation, trauma, and kidney stones. Medical Records Attestation: I reviewed the patient's medical records. Home Medications Current Medication List: was personally reviewed by me Laboratory Data Attestation: I reviewed the patient's lab results. Result diagrams: 07/11/18 05:27 07/11/18 05:27 Lab Results 07/10/18 07/10/18 07/10/18 Range/Units 17:05 17:05 17:05 WBC 14.30 H (4.8-10.8) K/uL RBC 3.33 L (4.7-6.1) M/uL Hgb 10.0 L (14.0-18.0) g/dL Hct 30.4 L (42-52) % MCV 91.3 (80-100) fL MCH 30.0 (25-34) pg MCHC 32.9 (32-36) g/dL RDW Std Deviation 49.8 H (36.4-46.3) fL RDW Coeff of [place] 15.2 H (11.5-14.5) % Plt Count 342 (130-400) K/uL MPV 11.1 H (7.4-10.4) fL Immature Gran % (Auto) 0.4 % Neut % (Auto) 91.1 % Lymph % (Auto) 4.8 % Irwin % (Auto) 3.5 % Eos % (Auto) 0.1 % Baso % (Auto) 0.1 % Immature Gran # (Auto) 0.06 H (0.00-0.02) K/uL Neut # (Auto) 13.03 H (1.4-6.5) K/uL Lymph # (Auto) 0.69 L (1.2-3.4) K/uL [place]win # (Auto) 0.50 (0.11-0.59) K/uL Eos # (Auto) 0.01 (0-0.5) K/uL Baso # (Auto) 0.01 (0-0.2) K/uL RBC Morphology ESR 86 H (0-14) mm/hr PT 11.9 (9.0-12.0) Seconds INR 1.2 H (0.9-1.1) APTT 26.9 (21.0-31.0) Seconds PTT Ratio 1.0 Sodium (136-145) mmol/L Potassium (3.5-5.1) mmol/L Chloride (98-107) mmol/L Carbon Dioxide (21-32) mmol/L Anion Gap (3-11) BUN (7-18) mg/dl Creatinine (0.6-1.4) mg/dl Est Cr Clr Drug Dosing Est GFR ( Amer) Est GFR (Non-Af Amer) BUN/Creatinine Ratio (10-20) Glucose (70-99) mg/dl Osmolality (280-300) mOsm/kg Calcium (8.5-10.1) mg/dl Magnesium (1.8-2.4) mg/dl Total Bilirubin (0.2-1) mg/dl Direct Bilirubin (0-0.2) mg/dl AST (15-37) U/L ALT (12-78) U/L Alkaline Phosphatase (45-117) U/L C-Reactive Protein (0-0.29) mg/dl Total Protein (6.4-8.2) gm/dl Albumin (3.4-5.0) gm/dl Globulin (2.5-4.0) gm/dl Albumin/Globulin Ratio (0.9-2) Lipase (73-393) U/L TSH (0.300-4.500) uIu/ml Specimen Hemolysis Urine Color Urine Appearance (Clear) Urine pH (4.5-7.5) Ur Specific [place] (1.000-1.030) Urine Protein (Negative) Urine Glucose (UA) (Negative) Urine Ketones (Negative) Urine Blood (Negative) Urine Nitrite (Negative) Urine Bilirubin (Negative) Urine Urobilinogen (Negative) Ur Leukocyte Esterase (Negative) Urine WBC (Auto) (0-5) /hpf Urine RBC (Auto) (0-4) /hpf U Hyaline Cast (Auto) (0-5) /lpf U Epithel Cells (Auto) (0-5) /lpf Urine Bacteria (Auto) (Negative) Urine Yeast Urine Osmolality (500-800) mOsm/kg Ur Random Sodium mmol/L 07/10/18 07/10/18 07/10/18 Range/Units 17:05 18:25 22:51 WBC (4.8-10.8) K/uL RBC (4.7-6.1) M/uL Hgb (14.0-18.0) g/dL Hct (42-52) % MCV (80-100) fL MCH (25-34) pg MCHC (32-36) g/dL RDW Std Deviation (36.4-46.3) fL RDW Coeff of [place] (11.5-14.5) % Plt Count (130-400) K/uL MPV (7.4-10.4) fL Immature Gran % (Auto) % Neut % (Auto) % Lymph % (Auto) % [place]win % (Auto) % Eos % (Auto) % Baso % (Auto) % Immature Gran # (Auto) (0.00-0.02) K/uL Neut # (Auto) (1.4-6.5) K/uL Lymph # (Auto) (1.2-3.4) K/uL [place]win # (Auto) (0.11-0.59) K/uL Eos # (Auto) (0-0.5) K/uL Baso # (Auto) (0-0.2) K/uL RBC Morphology ESR (0-14) mm/hr PT (9.0-12.0) Seconds INR (0.9-1.1) APTT (21.0-31.0) Seconds PTT Ratio Sodium 125 L (136-145) mmol/L Potassium 4.5 (3.5-5.1) mmol/L Chloride 96 L (98-107) mmol/L Carbon Dioxide 18 L (21-32) mmol/L Anion Gap 11.0 (3-11) BUN 74 H (7-18) mg/dl Creatinine 3.98 H (0.6-1.4) mg/dl Est Cr Clr Drug Dosing Not Reportable Est GFR ( Amer) 17.4 Est GFR (Non-Af Amer) 15.0 BUN/Creatinine Ratio 18.6 (10-20) Glucose 99 (70-99) mg/dl Osmolality 293 (280-300) mOsm/kg Calcium 9.0 (8.5-10.1) mg/dl Magnesium (1.8-2.4) mg/dl Total Bilirubin 0.3 (0.2-1) mg/dl Direct Bilirubin (0-0.2) mg/dl AST 91 H (15-37) U/L ALT 73 (12-78) U/L Alkaline Phosphatase 190 H (45-117) U/L C-Reactive Protein 12.90 H (0-0.29) mg/dl Total Protein 9.1 H (6.4-8.2) gm/dl Albumin 2.1 L (3.4-5.0) gm/dl Globulin 7.0 H (2.5-4.0) gm/dl Albumin/Globulin Ratio 0.3 L (0.9-2) Lipase 116 (73-393) U/L TSH (0.300-4.500) uIu/ml Specimen Hemolysis Urine Color Yellow Urine Appearance Turbid H (Clear) Urine pH 6.5 (4.5-7.5) Ur Specific [place] 1.011 (1.000-1.030) Urine Protein 2+ H (Negative) Urine Glucose (UA) Negative (Negative) Urine Ketones Negative (Negative) Urine Blood 3+ H (Negative) Urine Nitrite Negative (Negative) Urine Bilirubin Negative (Negative) Urine Urobilinogen Negative (Negative) Ur Leukocyte Esterase 3+ H (Negative) Urine WBC (Auto) >30 H (0-5) /hpf Urine RBC (Auto) 10-30 H (0-4) /hpf U Hyaline Cast (Auto) 1-5 (0-5) /lpf U Epithel Cells (Auto) 5-10 H (0-5) /lpf Urine Bacteria (Auto) Negative (Negative) Urine Yeast Not Reportable Urine Osmolality (500-800) mOsm/kg Ur Random Sodium mmol/L 07/10/18 07/11/18 07/11/18 Range/Units 22:51 05:27 05:27 WBC 10.91 H (4.8-10.8) K/uL RBC 2.86 L (4.7-6.1) M/uL Hgb 8.5 L (14.0-18.0) g/dL Hct 26.4 L (42-52) % MCV 92.3 (80-100) fL MCH 29.7 (25-34) pg MCHC 32.2 (32-36) g/dL RDW Std Deviation 50.7 H (36.4-46.3) fL RDW Coeff of [place] 15.2 H (11.5-14.5) % Plt Count 266 (130-400) K/uL MPV 10.4 (7.4-10.4) fL Immature Gran % (Auto) 0.5 % Neut % (Auto) 90.0 % Lymph % (Auto) 4.9 % Irwin % (Auto) 4.1 % Eos % (Auto) 0.4 % Baso % (Auto) 0.1 % Immature Gran # (Auto) 0.05 H (0.00-0.02) K/uL Neut # (Auto) 9.82 H (1.4-6.5) K/uL Lymph # (Auto) 0.54 L (1.2-3.4) K/uL Irwin # (Auto) 0.45 (0.11-0.59) K/uL Eos # (Auto) 0.04 (0-0.5) K/uL Baso # (Auto) 0.01 (0-0.2) K/uL RBC Morphology Unremarkable ESR (0-14) mm/hr PT (9.0-12.0) Seconds INR (0.9-1.1) APTT (21.0-31.0) Seconds PTT Ratio Sodium 131 L 133 L (136-145) mmol/L Potassium 3.8 D 3.6 (3.5-5.1) mmol/L Chloride 103 109 H (98-107) mmol/L Carbon Dioxide 17 L 15 L (21-32) mmol/L Anion Gap 10.0 9.0 (3-11) BUN 62 H 55 H (7-18) mg/dl Creatinine 2.87 H D 2.23 H D (0.6-1.4) mg/dl Est Cr Clr Drug Dosing 17.2 22.1 Est GFR ( Amer) 25.8 35.1 Est GFR (Non-Af Amer) 22.3 30.2 BUN/Creatinine Ratio 21.7 H 24.9 H (10-20) Glucose 88 79 (70-99) mg/dl Osmolality (280-300) mOsm/kg Calcium 8.3 L 7.8 L (8.5-10.1) mg/dl Magnesium 2.1 (1.8-2.4) mg/dl Total Bilirubin (0.2-1) mg/dl Direct Bilirubin (0-0.2) mg/dl AST (15-37) U/L ALT (12-78) U/L Alkaline Phosphatase (45-117) U/L C-Reactive Protein (0-0.29) mg/dl Total Protein (6.4-8.2) gm/dl Albumin (3.4-5.0) gm/dl Globulin (2.5-4.0) gm/dl Albumin/Globulin Ratio (0.9-2) Lipase (73-393) U/L TSH 0.267 L (0.300-4.500) uIu/ml Specimen Hemolysis Urine Color Urine Appearance (Clear) Urine pH (4.5-7.5) Ur Specific [place] (1.000-1.030) Urine Protein (Negative) Urine Glucose (UA) (Negative) Urine Ketones (Negative) Urine Blood (Negative) Urine Nitrite (Negative) Urine Bilirubin (Negative) Urine Urobilinogen (Negative) Ur Leukocyte Esterase (Negative) Urine WBC (Auto) (0-5) /hpf Urine RBC (Auto) (0-4) /hpf U Hyaline Cast (Auto) (0-5) /lpf U Epithel Cells (Auto) (0-5) /lpf Urine Bacteria (Auto) (Negative) Urine Yeast Urine Osmolality (500-800) mOsm/kg Ur Random Sodium mmol/L 07/11/18 07/11/18 07/11/18 Range/Units 05:27 07:56 07:56 WBC (4.8-10.8) K/uL RBC (4.7-6.1) M/uL Hgb (14.0-18.0) g/dL Hct (42-52) % MCV (80-100) fL MCH (25-34) pg MCHC (32-36) g/dL RDW Std Deviation (36.4-46.3) fL RDW Coeff of [place] (11.5-14.5) % Plt Count (130-400) K/uL MPV (7.4-10.4) fL Immature Gran % (Auto) % Neut % (Auto) % Lymph % (Auto) % [place] % (Auto) % Eos % (Auto) % Baso % (Auto) % Immature Gran # (Auto) (0.00-0.02) K/uL Neut # (Auto) (1.4-6.5) K/uL Lymph # (Auto) (1.2-3.4) K/uL [place]win # (Auto) (0.11-0.59) K/uL Eos # (Auto) (0-0.5) K/uL Baso # (Auto) (0-0.2) K/uL RBC Morphology ESR (0-14) mm/hr PT (9.0-12.0) Seconds INR (0.9-1.1) APTT (21.0-31.0) Seconds PTT Ratio Sodium (136-145) mmol/L Potassium (3.5-5.1) mmol/L Chloride (98-107) mmol/L Carbon Dioxide (21-32) mmol/L Anion Gap (3-11) BUN (7-18) mg/dl Creatinine (0.6-1.4) mg/dl Est Cr Clr Drug Dosing Est GFR ( Amer) Est GFR (Non-Af Amer) BUN/Creatinine Ratio (10-20) Glucose (70-99) mg/dl Osmolality (280-300) mOsm/kg Calcium (8.5-10.1) mg/dl Magnesium (1.8-2.4) mg/dl Total Bilirubin 0.2 (0.2-1) mg/dl Direct Bilirubin 0.1 (0-0.2) mg/dl AST 42 H (15-37) U/L ALT 45 (12-78) U/L Alkaline Phosphatase 132 H (45-117) U/L C-Reactive Protein (0-0.29) mg/dl Total Protein 6.8 D (6.4-8.2) gm/dl Albumin 1.6 L (3.4-5.0) gm/dl Globulin (2.5-4.0) gm/dl Albumin/Globulin Ratio (0.9-2) Lipase (73-393) U/L TSH (0.300-4.500) uIu/ml Specimen Hemolysis Urine Color Urine Appearance (Clear) Urine pH (4.5-7.5) Ur Specific [place] (1.000-1.030) Urine Protein (Negative) Urine Glucose (UA) (Negative) Urine Ketones (Negative) Urine Blood (Negative) Urine Nitrite (Negative) Urine Bilirubin (Negative) Urine Urobilinogen (Negative) Ur Leukocyte Esterase (Negative) Urine WBC (Auto) (0-5) /hpf Urine RBC (Auto) (0-4) /hpf U Hyaline Cast (Auto) (0-5) /lpf U Epithel Cells (Auto) (0-5) /lpf Urine Bacteria (Auto) (Negative) Urine Yeast Urine Osmolality 283 L (500-800) mOsm/kg Ur Random Sodium 53 mmol/L Imaging Data Radiologist's Impression: Radiology results as stated below per my review and the radiologist's interpretation: XR chest 1V portable HISTORY: 63 years-old Male abd pain acute generalized abdominal pain with acute atypical chest pain COMPARISON: CT abdomen and pelvis 01/30/2017 TECHNIQUE: Portable AP view of the chest FINDINGS: Mild left hemidiaphragm elevation. Cardiac mediastinal and hilar silhouettes are within normal limits. The lungs appear hyperinflated without pneumothorax, large pleural effusion, overt pulmonary edema or focal airspace consolidation. Degenerative changes of the shoulders and spine. IMPRESSION: No acute process. The above report was generated using voice recognition software. It may contain grammatical, syntax or spelling errors. Electronically signed by: Rafael Rodriguez M.D. 07/10/2018 4:56 PM ABDOMEN AND PELVIS CT WITHOUT CONTRAST CT DOSE: 250.46 mGy.cm HISTORY: Acute nausea and vomiting [place] TECHNIQUE: Multiaxial CT images of the abdomen and pelvis were performed without contrast. A dose lowering technique was utilized adhering to the principles of ALARA. COMPARISON STUDY: CT abdomen and pelvis 01/30/2017 FINDINGS: Mild subsegmental bibasilar atelectasis. No pneumatosis or pneumoperitoneum. Study is mildly motion degraded. Trace pericardial effusion. Coronary arterial calcifications are noted. Hepatic steatosis. No intrahepatic biliary ductal dilation or evidence of cirrhosis. Spleen, pancreas and adrenal glands appear unremarkable. Right kidney is unremarkable. 3 mm calcification about the inferior pole left kidney suggests renal calculus or vascular calcification. Moderate left-sided hydroureteronephrosis. Marked distention of the urinary bladder measuring up to 11.9 x 11.5 x 15.4 cm demonstrating irregular wall thickening with multiple internal septations and layering debris with bladder calculi. Prostamegaly. Calcification of the aorta. Bilateral iliac artery bypass grafts noted. Mildly prominent periarticular lymph nodes are seen measuring up to 9 mm which appear unchanged to decrease in size from comparison. Small sliding-type hiatal hernia with mild wall thickening about the distal esophagus. No bowel obstruction. Trace free fluid about the dependent pelvis. The distended bladder compresses the adjacent sigmoid colon. Mild colonic diverticulosis without acute diverticulitis. Small parastomal hernia about the left lower quadrant. Appendix appears normal. Soft tissues are unremarkable. Amputation of the right upper leg with right femoral stump noted. Severe osteoarthritis about the right hip. 30% anterior plate compression deformity at L1 with 3 mm retropulsion is new from comparison. No significant adjacent stranding, high-grade central canal or foraminal narrowing. Mild central depression about the superior endplate L4 of less than 20% is also progressed from comparison. IMPRESSION: 1. Prostatomegaly with marked urinary bladder distention and irregular wall thickening. Multiple internal septations are also noted within the urinary bladder with dependent debris and bladder calculi. Findings are suggestive of bladder outlet obstruction. Correlation with urinalysis and cystoscopy recommended. 2. Moderate left-sided hydroureteronephrosis. 3. Age-indeterminate 25% anterior endplate compression deformity of the L1 vertebral body with 3 mm retropulsion is new from 01/30/2017. Additionally, 20% central endplate compression of the L4 vertebral body is also new from comparison. 4. Small hiatal hernia with mild wall thickening of the distal esophagus. 5. No bowel obstruction. 6. Additional findings as above. Electronically signed by: Rafael Rodriguez M.D. 07/10/2018 6:15 PM ECG Data Attestation: I personally reviewed and interpreted this ECG as follows: Indication: SOB/dyspnea Rate (beats per minute): 109 Rhythm: sinus tachycardia Findings: no acute ischemic change and no ectopy Comparison ECG Date: no prior available Blood Pressure Blood Pressure Findings: Elevated blood pressure Blood Pressure Disposition: further management by hospitalist [facility] Narrative The patient is a 63-year-old male who presented to the emergency department for an evaluation of nausea and vomiting. The patient has been having abdominal pain as well as vomiting recently. He was seen by his primary care physician today and was sent to the emergency department because of abnormal creatinine. The patient has a history and physical exam consistent with renal failure however his CAT scan appears to be consistent with postobstructive uropathy. A Reynolds catheter was placed. The patient was treated with IV fluids as well as IV antibiotics. He was also given IV antiemetics. The patient was reevaluated multiple times. I discussed his case with the on-call [facility] hospitalist group. They have agreed to evaluate the patient in the emergency department for further management and disposition. I discussed the patient's laboratory and radiographic studies with him and his family member. Impression & Plan Uropathy, obstructive, Urine retention, Acute renal failure, Pyelonephritis Discharge Plan Visit Data *Final* Discharge Date/Time: 07/10/18 21:58 Chief Complaint: Abdominal Pain Stated Complaint: ABDOMINAL PAIN, PHYSICIAN REFERRED ED Provider: Vikas Meier Discharge Problem: Uropathy, obstructive, Urine retention, Acute renal failure, Pyelonephritis Patient Disposition: Admitted As Inpatient Discharge Instructions Interventions: ED Discharge Assessment Last Done: 07/10/18 21:58 The scribe's documentation has been prepared under my direction and personally reviewed by me in its entirety. I confirm that the note above accurately reflects all work, treatment, procedures, and medical decision making performed by me.
[2018-07-10 17:19] LABS: Hematocrit (blood only) 30.4 % (42-52); Mean Corpuscular Hgb Conc 32.9 g/dL (32-36); Mean Corpuscular Volume 91.3 fL (80-100); Mean Platelet Volume 11.1 fL (7.4-10.4); Platelet Count 342 K/uL (130-400); RDW Coefficient of Variation 15.2 % (11.5-14.5); RDW Standard Deviation 49.8 fL (36.4-46.3); Red Blood Count 3.33 M/uL (4.7-6.1)
[2018-07-10 17:48] LABS: Basophils # (auto) 0.01 K/uL (0-0.2); Basophils % (auto) 0.1 %; Eosinophils # (auto) 0.01 K/uL (0-0.5); Eosinophils % (auto) 0.1 %; INR 1.2 (0.9-1.1); Immature Granulocytes # (auto) 0.06 K/uL (0.00-0.02); Immature Granulocytes % (auto) 0.4 %; Lymphocytes # (auto) 0.69 K/uL (1.2-3.4); Lymphocytes % (auto) 4.8 %; Monocytes % (auto) 3.5 %; Neutrophils # (auto) 13.03 K/uL (1.4-6.5); Neutrophils % (auto) 91.1 %; Partial Thromboplastin Time 26.9 Seconds (21.0-31.0); Prothrombin Time 11.9 Seconds (9.0-12.0)
[2018-07-10] MEDS ORDERED: SODIUM CHLORIDE 0.9% 1000ML 1,000 ML IV ONE (18:04)
[2018-07-10 18:06] LABS: Alanine Aminotransferase 73 U/L (12-78); Albumin Globulin Ratio 0.3 (0.9-2); Albumin Level 2.1 gm/dl (3.4-5.0); Alkaline Phosphatase 190 U/L (45-117); Aspartate Aminotransferase 91 U/L (15-37); BUN Creatinine Ratio 18.6 (10-20); Bilirubin,Total 0.3 mg/dl (0.2-1); Blood Urea Nitrogen 74 mg/dl (7-18); Carbon Dioxide 18 mmol/L (21-32); Chloride 96 mmol/L (98-107); Est GFR (African American) 17.4; Glucose 99 mg/dl (70-99); Potassium 4.5 mmol/L (3.5-5.1); Sodium 125 mmol/L (136-145); Total Protein 9.1 gm/dl (6.4-8.2)
--- NOTE | 2018-07-10 18:17 | CT Scan Report ---
ABDOMEN AND PELVIS CT WITHOUT CONTRAST CT DOSE: 250.46 mGy.cm HISTORY: Acute nausea and vomiting NV TECHNIQUE: Multiaxial CT images of the abdomen and pelvis were performed without contrast. A dose lo wering technique was utilized adhering to the principles of ALARA. COMPARISON STUDY: CT abdomen and pelvis 01/30/2017 FINDINGS: Mild subsegmental bibasilar atelectasis. No pneumatosis or pneumoperitoneum. Study is mildly motion d egraded. Trace pericardial effusion. Coronary arterial calcifications are noted. Hepatic steatosis. No intrahepatic biliary ductal dilation or evidence of cirrhosis. Spleen, pancreas and adrenal glands appear unremarkable. Right kidney is unremarkable. 3 mm calcification about the i nferior pole left kidney suggests renal calculus or vascular calcification. Moderate left-sided hydro ureteronephrosis. Marked distention of the urinary bladder measuring up to 11.9 x 11.5 x 15.4 cm demo nstrating irregular wall thickening with multiple internal septations and layering debris with bladde r calculi. Prostamegaly. Calcification of the aorta. Bilateral iliac artery bypass grafts noted. Mild ly prominent periarticular lymph nodes are seen measuring up to 9 mm which appear unchanged to decrea se in size from comparison. Small sliding-type hiatal hernia with mild wall thickening about the distal esophagus. No bowel obstr uction. Trace free fluid about the dependent pelvis. The distended bladder compresses the adjacent si gmoid colon. Mild colonic diverticulosis without acute diverticulitis. Small parastomal hernia about the left lower quadrant. Appendix appears normal. Soft tissues are unremarkable. Amputation of the ri ght upper leg with right femoral stump noted. Severe osteoarthritis about the right hip. 30% anterior plate compression deformity at L1 with 3 mm retropulsion is new from comparison. No significant aida cent stranding, high-grade central canal or foraminal narrowing. Mild central depression about the lundberg perior endplate L4 of less than 20% is also progressed from comparison. IMPRESSION: 1. Prostatomegaly with marked urinary bladder distention and irregular wall thickening. Multiple inte rnal septations are also noted within the urinary bladder with dependent debris and bladder calculi. Findings are suggestive of bladder outlet obstruction. Correlation with urinalysis and cystoscopy rec ommended. 2. Moderate left-sided hydroureteronephrosis. 3. Age-indeterminate 25% anterior endplate compression deformity of the L1 vertebral body with 3 mm r etropulsion is new from 01/30/2017. Additionally, 20% central endplate compression of the L4 vertebral body is also new from comparison. 4. Small hiatal hernia with mild wall thickening of the distal esophagus. 5. No bowel obstruction. 6. Additional findings as above. Electronically signed by: Rafael Rodriguez M.D. 07/10/2018 6:15 PM
[2018-07-10] MEDS ORDERED: cefTRIAXone SODIUM 1,000 MG/50 ML BAG IV STA (18:31)
[2018-07-10 18:45] LABS: Appearance Urine Turbid (Clear); Bacteria Urine Automated Negative (Negative); Bilirubin Urine Negative (Negative); Color Urine Yellow; Glucose Urine UA Negative (Negative); Ketones Urine Negative (Negative); Leukocyte Esterase Urine 3+ (Negative); Nitrite Urine Negative (Negative); Protein Urine 2+ (Negative); Specific Gravity Urine 1.011 (1.000-1.030); Urobilinogen Urine Negative (Negative); WBC Urine Automated >30 /hpf (0-5); pH Urine 6.5 (4.5-7.5)
[2018-07-10] MEDS ORDERED: NITROGLYCERIN SL 0.4 MG/TAB TAB SL PRN (22:42)
[2018-07-10] MEDS ORDERED: ONDANSETRON INJ 2 MG/ML 2 ML VIAL IV PRN (22:42)
[2018-07-10] MEDS ORDERED: HYDROmorphone INJ 0.5 MG/0.5 ML SYR IV PRN (22:42)
[2018-07-10] MEDS ORDERED: ALUMINUM/MAGNESIUM SUSP 30 ML UDC PO PRN (22:42)
--- NOTE | 2018-07-10 23:22 | History and Physical Report ---
DATE OF ADMISSION: 07/10/2018 CHIEF COMPLAINT: Abdominal pain, nausea, TAZ. HISTORY OF PRESENT ILLNESS: This is a 63-year-old male with past medical history significant for hyperlipidemia, peripheral artery disease, lower limb ischemia status post right AKA, history of bowel ischemia status post colostomy, iron deficiency anemia, hypertension, tobacco use disorder, presents with abdominal pain, nausea, cough, went to family doctor and labs done showed TAZ and hyponatremia and advised to come to the ER. As per the , the patient had a fever of 103 about 2-3 weeks ago, but next day it subsided and since then he is not feeling well, poor appetite, not eating much, but getting weaker and today he had 1 episode of vomiting and has a chronic cough. He refused to come to the hospital all these days but today because of the symptoms getting worse, he went to family doctor and was directed to the ER. Currently resting comfortably, hemodynamically stable. Complains of headaches on and off. No blurred vision. No sore throat. He has difficulty swallowing, once in a while. He gets chest pain once in a while, but currently asymptomatic. There is no shortness of breath or cough, brings some phlegm once in a while. Was nauseous earlier, currently okay. Complains of abdominal discomfort and says he is urinating less and less since last 3 weeks. He says he has noticed blood in the urine, once in a while. He says colostomy output looks black sometimes and it clears up the next day, currently it is green color. He had right lower above-knee amputation in 2017. Since then, he has ambulatory dysfunction. He does not like to use crutches. He is using the wheelchair most of the times but he can get to the wheelchair and go to bathroom and get in the car without help and he uses walker sometimes in the house. ALLERGIES: ZOSYN. PAST MEDICAL HISTORY: As mentioned above. PAST SURGICAL HISTORY: Right leg amputation, right leg fasciotomy, bilateral femoral endarterectomy, bilateral exposure of femoral artery, left iliac artery angioplasty and stent, sigmoidoscopy, laparoscopic loop distal transverse colostomy, muscle and myocutaneous or fasciocutaneous flap lower extremity on the right side and on left side, bilateral debridement of skin, subcutaneous tissue, and muscle, negative pressure wound therapy, revision of colostomy, repair of paracolostomy hernia, left femoral to right femoral bypass. MEDICATIONS: The patient is on Zocor 40 mg p.o. at bedtime, Plavix 75 mg p.o. daily, aspirin 81 mg p.o. daily, ferrous sulfate 325 mg 1 tablet b.i.d. FAMILY HISTORY: Significant for father had AAA and bladder cancer and prostate cancer. SOCIAL HISTORY: and lives with his . Quit smoking in 2016. Smoked 1 pack a day for 40 years. Stopped drinking in 12/2016. No drug use. REVIEW OF SYMPTOMS: As per HPI. Rest of review of systems negative. PHYSICAL EXAMINATION: GENERAL: The patient is of moderate built, not in acute distress. VITAL SIGNS: Temperature is 36.5, pulse 85, respiratory rate 22, blood pressure 149/86, oxygen saturation 100% room air. HEENT: No pallor, no icterus. Pupils equal, round react to light. NECK: No JVD, no neck masses, no carotid bruit. CARDIOVASCULAR: S1, S2 heard, regular rate and rhythm, no murmur, no gallop. RESPIRATORY SYSTEM: Clear to auscultation bilaterally. No wheezing, no crackles. ABDOMEN: Soft, bowel sounds present, nontender. No distention. CENTRAL NERVOUS SYSTEM: Cranial nerves II-XII grossly intact. Nonfocal. EXTREMITIES: Right above knee amputations. No edema or erythema seen. LABORATORIES: WBC 14, hemoglobin 10, hematocrit 30.4, platelets 342. PT 11.9, INR 1.2, APTT 26.9. Sodium 125, potassium 4.5, chloride 96, bicarbonate 18, anion gap 11, BUN 74, creatinine 3.98. Total bilirubin 0.3, calcium 9, glucose 99, AST 91, ALT 73, alkaline phosphatase 190. Serial troponin 12.9, lipase 116. Urinalysis positive for blood and leukocyte esterase, Chest x-ray, no acute process seen. CT of the abdomen and pelvis shows prostatomegaly with marked urinary bladder distention and irregular wall thickening, multiple internal septations are also noted within the urinary bladder with dependent debris and bladder calculi. Findings are suggestive of bladder outlet obstruction. Correlation with urinalysis and cystoscopy recommended. Moderate left-sided hydroureteronephrosis age indeterminate 25% anterior endplate compression deformity of L1 vertebral body and L4 vertebral body. Small hiatal hernia with mild wall thickening of the distal esophagus. No bowel obstruction. EKG: Shows sinus tachycardia with rate of 109, no acute ST changes seen. ASSESSMENT AND PLAN: This is a 63-year-old male who presents with not feeling well, nausea, cough, abdominal pain, and found to have acute kidney injury and hyponatremia and urinary obstruction, and bladder outlet obstruction. 1. Acute kidney injury. Baseline creatinine about 0.8. Presently with creatinine of 3.9, BUN of 74. CAT scan showing prostatomegaly and bladder outlet obstruction, bladder calculi. Reynolds was placed in the Emergency Room and draining some debris in the urine. Urine looks infected. Started on antibiotics, Rocephin. Urine cultures. We will consult urology for for urine retention and for possible cystoscopy. Placing the patient on gentle fluids, IV normal saline at 75 mL per hour. Follow the repeat labs. 2. Hyponatremia. Sodium of 125. As per , he is not eating or drinking much for the last 3 weeks, since getting sick and had an episode of vomiting today. Ostomies are working okay. Most likely hypovolemic and hypotonic hyponatremia. We will get urine osmolality, serum osmolality, urine sodium. Gentle fluids and normal saline 75 mL per hour and check a BMP every 6 hours. Consulted nephrology for further recommendations. 3. Urinary tract infection on antibiotics, Rocephin. Follow urine culture.elevated CRP. Will also get blood cultures. 4. Metabolic acidosis. Bicarbonate of 18, mostly from acute kidney injury. We will follow the labs. 5. Anemia with hemoglobin of 10. Seems to be on baseline. The patient is on iron supplements. 6. History of peripheral vascular disease, has right above knee amputation for limb ischemia. Had multiple procedures done for lower extremities. On aspirin, Plavix, and statin.Mostly wheel chair bound. Uses walker sometimes. 7. Moderate malnutrition. We will consult nutrition while the patient will be in the hospital. 8. History of bowel ischemia status post colostomy. 9. History of tobacco use disorder, quit smoking, 10. elevated liver function tests, elevated AST. We will repeat labs. We will consider to get a liver ultrasound if still elevated 11. Deep vein thrombosis prophylaxis, heparin subcutaneously, sequential compression devices. DISPOSITION: Close monitoring in the med surg/tele. Level 1 full code. PT and OT prior to discharge. Social service to help with discharge planning. [facility]
[2018-07-10 23:35] LABS: BUN Creatinine Ratio 21.7 (10-20); Calcium 8.3 mg/dl (8.5-10.1); Creatinine Clr Calc Pharmacy 17.2 ml/min; Est GFR (African American) 25.8; Est GFR (Non-African American) 22.3; Potassium 3.8 mmol/L (3.5-5.1)
[2018-07-11] MEDS: FERROUS SULFATE 325 MG TAB PO SCH ×3 (00:44→20:34)
[2018-07-11 05:46] LABS: Hematocrit (blood only) 26.4 % (42-52); Hemoglobin 8.5 g/dL (14.0-18.0); Mean Corpuscular Hgb Conc 32.2 g/dL (32-36); Mean Corpuscular Volume 92.3 fL (80-100); Mean Platelet Volume 10.4 fL (7.4-10.4); Platelet Count 266 K/uL (130-400); RDW Coefficient of Variation 15.2 % (11.5-14.5); RDW Standard Deviation 50.7 fL (36.4-46.3); Red Blood Count 2.86 M/uL (4.7-6.1); White Blood Count 10.91 K/uL (4.8-10.8)
[2018-07-11 06:11] LABS: Basophils # (auto) 0.01 K/uL (0-0.2); Basophils % (auto) 0.1 %; Eosinophils # (auto) 0.04 K/uL (0-0.5); Eosinophils % (auto) 0.4 %; Immature Granulocytes # (auto) 0.05 K/uL (0.00-0.02); Immature Granulocytes % (auto) 0.5 %; Lymphocytes # (auto) 0.54 K/uL (1.2-3.4); Lymphocytes % (auto) 4.9 %; Monocytes # (auto) 0.45 K/uL (0.11-0.59); Monocytes % (auto) 4.1 %; Neutrophils # (auto) 9.82 K/uL (1.4-6.5); RBC Morphology Unremarkable
[2018-07-11 06:19] LABS: BUN Creatinine Ratio 24.9 (10-20); Calcium 7.8 mg/dl (8.5-10.1); Creatinine Clr Calc Pharmacy 22.1 ml/min; Est GFR (African American) 35.1; Est GFR (Non-African American) 30.2; Magnesium 2.1 mg/dl (1.8-2.4); Potassium 3.6 mmol/L (3.5-5.1)
[2018-07-11] MEDS: HEPARIN SOD 5,000 UNIT/0.5 ML VIAL SQ SCH ×3 (06:19→18:04)
[2018-07-11 06:45] LABS: Albumin Level 1.6 gm/dl (3.4-5.0); Bilirubin Direct 0.1 mg/dl (0-0.2); Bilirubin,Total 0.2 mg/dl (0.2-1); Total Protein 6.8 gm/dl (6.4-8.2)
[2018-07-11] MEDS: SIMVASTATIN 40 MG TAB PO SCH (07:37)
[2018-07-11] MEDS: ASPIRIN 81 MG ECTAB PO SCH (07:37)
[2018-07-11] MEDS: CLOPIDOGREL BISULFATE 75 MG TAB PO SCH (07:37)
--- NOTE | 2018-07-11 08:54 | Nephrology Consultation ---
Date of Consultation July 11, 2018 Assessment & Plan (1) Acute renal failure: baseline creatinine 0.8. Presenting creatinine 4.0; down to 2.2 after 12 hrs of therapy. combination prerenal and obstructive most likely. sed rate / inflammatory markers elevated > f/u blood cxs -IVF changes as below -daily bmp -f/u urology recs and cont hardin Present on Admission?: Yes (2) Uropathy, obstructive: bladder wall thickened w/ sediment/stones, L hydroureteronephropathy > bladder outlet obstruction +/- other pathology in this smoker w/ +FH of bladder CA -f/u urology recs; does not see them as OP Present on Admission?: Yes (3) Urine retention: s/p hardin placement; chronic issue based on imaging; f/u urology recs Present on Admission?: Yes (4) Disorder of fluid or electrolyte: on presentation had metabolic acidosis, TAZ, hyponatremia, hypocalcemia > > now with hyperchloremia, worsening acidosis >change to bicarb gtt at 125 mL /hr -recheck bmp later today -ordered po calcium -repeat labs ordered 1600 Present on Admission?: Yes History of Present Illness Reason for Consultation: TAZ Requesting Physician: DR Garcia Attending Physician: Jayme Dave MD History of Present Illness 63 y/o M whom I'm asked to see for TAZ after he was sent by pcp to ER when OP labs showed TAZ. PMH includes severe vascular dz, htn, active tobacco abuse, h/ o R AKA and colostomy d/t ischemic bowel and BL iliac artery stents, chronic ambulatory dysfunction. He went to Dr Al for acute visit yesterday w/ 3 wks of postprandial emesis, diffuse abd pain, cough, decreased po, and F to 103 reported a few days back. decreased uop also reported. His baseline creatinine in 03/2018 was 0.8. Yesterday in clinic sNa 127, bicarb 16, creat 3.7, WBC 15K; also w/ mild transaminitis. creat 4 on arrival here and sNa 125, bicarb 18. He has been afebrile and normotensive. He had 2L NS then NS at 75 mL (ivf off now). labs improving today. admission imaging remarkable for L hydroureteronephrosis and bladder pathology as below Allergies Allergy/AdvReac Type Severity Reaction Status Date / Time piperacillin Allergy Unknown Unverified 07/10/18 17:40 Home Medications Home Medications Medication Instructions Recorded Confirmed Type aspirin 81 mg PO DAILY 07/10/18 07/10/18 History clopidogrel [Plavix] 75 mg PO DAILY 07/10/18 07/10/18 History ferrous sulfate [iron] 325 mg PO BID 07/10/18 07/10/18 History simvastatin 40 mg PO DAILY 07/10/18 07/10/18 History Patient History Medical History Peripheral artery disease Hypertension (Chronic) DVT (deep venous thrombosis) Perforated bowel Surgical History Amputated right leg Family History Father Bladder cancer Social History marital status: Current Living Situation: Spouse Other Information That Helps Us Care for You: No Feels Safe at Home: Yes Safety Concerns: Feels Safe At This Time Smoking Status: Former smoker Hx Alcohol Use: No Hx Substance Use: No Beliefs That Will Affect Care: None Communication Ability: Effective Review of Systems Constitutional: + fatigue and + weakness but feels much better than yesterday Eyes: no worsening vision Ear, Nose, Mouth, Throat: no dry mouth Respiratory: no dyspnea Cardiovascular: no chest pain, no palpitations and no edema Gastrointestinal: as per Subjective / HPI; no abdominal pain today less n but still had to work hard to get breakfast down; denies change in colostomy output denies issues w/ hardin Musculoskeletal: no joint pain and no myalgia Integumentary: no rash Neurologic: + generalized weakness; no localized weakness and no confusion Psychiatric: no behavioral changes and no confusion Endocrine: + fatigue Hematologic / Lymphatic: no easy bleeding Physical Exam 2 Vital Signs (Past 24 Hours): Last Vital Signs Temp 36.7 C 07/11/18 07:00 Pulse 94 H 07/11/18 07:00 Resp 18 07/11/18 07:00 BP 128/77 07/11/18 07:00 Pulse Ox 94 07/11/18 07:00 Constitutional: well developed, well nourished, + cachectic and cooperative on ra A& 0 x 3; belches at times in exam Eyes: EOM intact bilaterally ENMT: Ears: no external ear abnormality Nose: no external nose abnormality Mouth: + dry oral mucous membranes Neck: no nuchal rigidity Respiratory: normal respiratory effort Auscultation: + diminished lung sounds Cardiovascular: Rate/Rhythm: regular rhythm and + tachycardic Extremities: no edema Gastrointestinal (Abdomen): Inspection/Auscultation: normal bowel sounds Percussion/Palpation: abdomen soft; abdomen nontender colostomy present Musculoskeletal: Extremities: strength 5/5 throughout Skin: no rashes, warm and dry Neurologic: [place], fluent speech, no tremor Genitourinary: hardin w/ ample urine Results & Data Laboratory Results Abnormal lab results 07/10/18 07/10/18 07/10/18 Range/Units 17:05 17:05 17:05 WBC 14.30 H (4.8-10.8) K/uL RBC 3.33 L (4.7-6.1) M/uL Hgb 10.0 L (14.0-18.0) g/dL Hct 30.4 L (42-52) % RDW Std Deviation 49.8 H (36.4-46.3) fL RDW Coeff of [place] 15.2 H (11.5-14.5) % MPV 11.1 H (7.4-10.4) fL Immature Gran # (Auto) 0.06 H (0.00-0.02) K/uL Neut # (Auto) 13.03 H (1.4-6.5) K/uL Lymph # (Auto) 0.69 L (1.2-3.4) K/uL ESR 86 H (0-14) mm/hr INR 1.2 H (0.9-1.1) Sodium (136-145) mmol/L Chloride (98-107) mmol/L Carbon Dioxide (21-32) mmol/L BUN (7-18) mg/dl Creatinine (0.6-1.4) mg/dl BUN/Creatinine Ratio (10-20) Calcium (8.5-10.1) mg/dl AST (15-37) U/L Alkaline Phosphatase (45-117) U/L C-Reactive Protein (0-0.29) mg/dl Total Protein (6.4-8.2) gm/dl Albumin (3.4-5.0) gm/dl Globulin (2.5-4.0) gm/dl Albumin/Globulin Ratio (0.9-2) TSH (0.300-4.500) uIu/ml Urine Appearance (Clear) Urine Protein (Negative) Urine Blood (Negative) Ur Leukocyte Esterase (Negative) Urine WBC (Auto) (0-5) /hpf Urine RBC (Auto) (0-4) /hpf U Epithel Cells (Auto) (0-5) /lpf Urine Osmolality (500-800) mOsm/kg 07/10/18 07/10/18 07/10/18 Range/Units 17:05 18:25 22:51 WBC (4.8-10.8) K/uL RBC (4.7-6.1) M/uL Hgb (14.0-18.0) g/dL Hct (42-52) % RDW Std Deviation (36.4-46.3) fL RDW Coeff of [place] (11.5-14.5) % MPV (7.4-10.4) fL Immature Gran # (Auto) (0.00-0.02) K/uL Neut # (Auto) (1.4-6.5) K/uL Lymph # (Auto) (1.2-3.4) K/uL ESR (0-14) mm/hr INR (0.9-1.1) Sodium 125 L 131 L (136-145) mmol/L Chloride 96 L (98-107) mmol/L Carbon Dioxide 18 L 17 L (21-32) mmol/L BUN 74 H 62 H (7-18) mg/dl Creatinine 3.98 H 2.87 H D (0.6-1.4) mg/dl BUN/Creatinine Ratio 21.7 H (10-20) Calcium 8.3 L (8.5-10.1) mg/dl AST 91 H (15-37) U/L Alkaline Phosphatase 190 H (45-117) U/L C-Reactive Protein 12.90 H (0-0.29) mg/dl Total Protein 9.1 H (6.4-8.2) gm/dl Albumin 2.1 L (3.4-5.0) gm/dl Globulin 7.0 H (2.5-4.0) gm/dl Albumin/Globulin Ratio 0.3 L (0.9-2) TSH (0.300-4.500) uIu/ml Urine Appearance Turbid H (Clear) Urine Protein 2+ H (Negative) Urine Blood 3+ H (Negative) Ur Leukocyte Esterase 3+ H (Negative) Urine WBC (Auto) >30 H (0-5) /hpf Urine RBC (Auto) 10-30 H (0-4) /hpf U Epithel Cells (Auto) 5-10 H (0-5) /lpf Urine Osmolality (500-800) mOsm/kg 07/11/18 07/11/18 07/11/18 Range/Units 05:27 05:27 05:27 WBC 10.91 H (4.8-10.8) K/uL RBC 2.86 L (4.7-6.1) M/uL Hgb 8.5 L (14.0-18.0) g/dL Hct 26.4 L (42-52) % RDW Std Deviation 50.7 H (36.4-46.3) fL RDW Coeff of [place] 15.2 H (11.5-14.5) % MPV (7.4-10.4) fL Immature Gran # (Auto) 0.05 H (0.00-0.02) K/uL Neut # (Auto) 9.82 H (1.4-6.5) K/uL Lymph # (Auto) 0.54 L (1.2-3.4) K/uL ESR (0-14) mm/hr INR (0.9-1.1) Sodium 133 L (136-145) mmol/L Chloride 109 H (98-107) mmol/L Carbon Dioxide 15 L (21-32) mmol/L BUN 55 H (7-18) mg/dl Creatinine 2.23 H D (0.6-1.4) mg/dl BUN/Creatinine Ratio 24.9 H (10-20) Calcium 7.8 L (8.5-10.1) mg/dl AST 42 H (15-37) U/L Alkaline Phosphatase 132 H (45-117) U/L C-Reactive Protein (0-0.29) mg/dl Total Protein (6.4-8.2) gm/dl Albumin 1.6 L (3.4-5.0) gm/dl Globulin (2.5-4.0) gm/dl Albumin/Globulin Ratio (0.9-2) TSH 0.267 L (0.300-4.500) uIu/ml Urine Appearance (Clear) Urine Protein (Negative) Urine Blood (Negative) Ur Leukocyte Esterase (Negative) Urine WBC (Auto) (0-5) /hpf Urine RBC (Auto) (0-4) /hpf U Epithel Cells (Auto) (0-5) /lpf Urine Osmolality (500-800) mOsm/kg 07/11/18 Range/Units 07:56 WBC (4.8-10.8) K/uL RBC (4.7-6.1) M/uL Hgb (14.0-18.0) g/dL Hct (42-52) % RDW Std Deviation (36.4-46.3) fL RDW Coeff of [place] (11.5-14.5) % MPV (7.4-10.4) fL Immature Gran # (Auto) (0.00-0.02) K/uL Neut # (Auto) (1.4-6.5) K/uL Lymph # (Auto) (1.2-3.4) K/uL ESR (0-14) mm/hr INR (0.9-1.1) Sodium (136-145) mmol/L Chloride (98-107) mmol/L Carbon Dioxide (21-32) mmol/L BUN (7-18) mg/dl Creatinine (0.6-1.4) mg/dl BUN/Creatinine Ratio (10-20) Calcium (8.5-10.1) mg/dl AST (15-37) U/L Alkaline Phosphatase (45-117) U/L C-Reactive Protein (0-0.29) mg/dl Total Protein (6.4-8.2) gm/dl Albumin (3.4-5.0) gm/dl Globulin (2.5-4.0) gm/dl Albumin/Globulin Ratio (0.9-2) TSH (0.300-4.500) uIu/ml Urine Appearance (Clear) Urine Protein (Negative) Urine Blood (Negative) Ur Leukocyte Esterase (Negative) Urine WBC (Auto) (0-5) /hpf Urine RBC (Auto) (0-4) /hpf U Epithel Cells (Auto) (0-5) /lpf Urine Osmolality 283 L (500-800) mOsm/kg Diagnostic Findings ct abd/pelvis no con FINDINGS: Mild subsegmental bibasilar atelectasis. No pneumatosis or pneumoperitoneum. Study is mildly motion degraded. Trace pericardial effusion. Coronary arterial calcifications are noted. Hepatic steatosis. No intrahepatic biliary ductal dilation or evidence of cirrhosis. Spleen, pancreas and adrenal glands appear unremarkable. Right kidney is unremarkable. 3 mm calcification about the inferior pole left kidney suggests renal calculus or vascular calcification. Moderate left-sided hydroureteronephrosis. Marked distention of the urinary bladder measuring up to 11.9 x 11.5 x 15.4 cm demonstrating irregular wall thickening with multiple internal septations and layering debris with bladder calculi. Prostamegaly. Calcification of the aorta. Bilateral iliac artery bypass grafts noted. Mildly prominent periarticular lymph nodes are seen measuring up to 9 mm which appear unchanged to decrease in size from comparison. Small sliding-type hiatal hernia with mild wall thickening about the distal esophagus. No bowel obstruction. Trace free fluid about the dependent pelvis. The distended bladder compresses the adjacent sigmoid colon. Mild colonic diverticulosis without acute diverticulitis. Small parastomal hernia about the left lower quadrant. Appendix appears normal. Soft tissues are unremarkable. Amputation of the right upper leg with right femoral stump noted. Severe osteoarthritis about the right hip. 30% anterior plate compression deformity at L1 with 3 mm retropulsion is new from comparison. No significant adjacent stranding, high-grade central canal or foraminal narrowing. Mild central depression about the superior endplate L4 of less than 20% is also progressed from comparison. IMPRESSION: 1. Prostatomegaly with marked urinary bladder distention and irregular wall thickening. Multiple internal septations are also noted within the urinary bladder with dependent debris and bladder calculi. Findings are suggestive of bladder outlet obstruction. Correlation with urinalysis and cystoscopy recommended. 2. Moderate left-sided hydroureteronephrosis. 3. Age-indeterminate 25% anterior endplate compression deformity of the L1 vertebral body with 3 mm retropulsion is new from 01/30/2017. Additionally, 20% central endplate compression of the L4 vertebral body is also new from comparison. 4. Small hiatal hernia with mild wall thickening of the distal esophagus. 5. No bowel obstruction. 6. Additional findings as above. CXR no acute process _ (1) Acute renal failure Acute renal failure type: unspecified Qualified Code(s): N17.9 - Acute kidney failure, unspecified
[2018-07-11] MEDS: SODIUM BICARBONATE 8.4% 150 MEQ in DEXTROSE 5% 1,000 ML IV SCH ×2 (10:39→19:42)
[2018-07-11] MEDS: CALCIUM CARBONATE 500 MG CHEWABLE TAB PO SCH ×2 (10:55→13:19)
--- NOTE | 2018-07-11 11:41 | Urology Consultation ---
Date of Consultation July 11, 2018 Assessment & Plan (1) Acute renal failure: (2) Uropathy, obstructive: (3) Urine retention: (4) Hydronephrosis of left kidney: 63yo M with multiple comorbidities Presents with significant TAZ, urinary retention, L hydronephrosis, prostatomegaly, abnormal bladder imaging with sediment/calculi, abnormal UA. It appears these issues are acute on chronic in nature. Care discussed with Dr. Gan. Appreciate nephrology's input. It is encouraging that Cr and symptoms are improving with hardin catheter in place. Bladder acutely distended with very large volume retention. Recommend maintain catheter for 10-14d to allow max drainage and bladder rest. We will begin tamsulosin, please monitor for hypotension. hold for systolic bp < 90, lightheadedness, dizziness. Will check PSA with AM labs. Agree with plan and will add finasteride . Pt may need cic .Wilian Gan UA abnormal. UC&S pending, please treat based on sensitivities for 7-10days. Will plan to repeat renal U/S in 2-3days to assess for resolution of L hydro, as this is likely as a result of MUNOZ. No stones or other obvious reason for obstruction notable. Patient does not require surgical intervention at this time. Patient would certainly benefit from outpatient cystoscopy to fully evaluate prostatomegaly and bladder abnormalities on imaging, +tobacco and + Fhx bladder cancer are of note. Thank you for the consultation. We will continue to monitor closely with primary service. History of Present Illness Attending Physician: Jayme Dave MD History of Present Illness 63yo M presented to ED after evaluation by PCP for period of feeling unwell with nausea/vomitting, fevers, decreased urination and abdominal pain. PCP labs revealed acute kidney failure. CT imaging reveals L moderate hydronephrosis, Prostatomegaly with significant bladder distention, irregular . Bladder also with multiple internal septations, thickening, debri and calculi. Sig PMHx: PAD with ischemia status post right AKA, history of bowel ischemia status post colostomy in September 2017. on Plavix. Ambulatory dysfunction, uses wheelchair mostly. Hardin catheter placed, drained >1,000 cc per nursing note, which relieved abdominal pain. Cr on presentation of 3.98, improved to 2.27. Pt is not very forthcoming with information, but does report no previous urologic issues or urologic evaluation. He states he has never had issues with urination prior to this admission, however CT suggests chronic outlet obstruction. Primary team notes indicate patient has had difficulty urinating x3 weeks per . Not currently present at bedside. Patient is currently not on any BPH medication. +tobacco user and family hx bladder ca, reports one episode of hematuria which he associates to bowel dysfunction issues in September. Never evaluated. Allergies Allergy/AdvReac Type Severity Reaction Status Date / Time piperacillin Allergy Unknown Unverified 07/10/18 17:40 Home Medications Home Medications Medication Instructions Recorded Confirmed Type aspirin 81 mg PO DAILY 07/10/18 07/10/18 History clopidogrel [Plavix] 75 mg PO DAILY 07/10/18 07/10/18 History ferrous sulfate [iron] 325 mg PO BID 07/10/18 07/10/18 History simvastatin 40 mg PO DAILY 07/10/18 07/10/18 History Patient History Medical History Peripheral artery disease Hypertension (Chronic) DVT (deep venous thrombosis) Perforated bowel Surgical History Amputated right leg Family History Father Bladder cancer Social History marital status: Current Living Situation: Spouse Other Information That Helps Us Care for You: No Feels Safe at Home: Yes Safety Concerns: Feels Safe At This Time Smoking Status: Former smoker Hx Alcohol Use: No Hx Substance Use: No Beliefs That Will Affect Care: None Communication Ability: Effective Review of Systems Constitutional: + weakness; no fever and no chills Eyes: no diplopia Ear, Nose, Mouth, Throat: no ear trauma Respiratory: + cough; no dyspnea Cardiovascular: no chest pain Gastrointestinal: no abdominal pain, no nausea and no vomiting Genitourinary (Male): no difficulty urinating, no urinary hesitancy and no hematuria Integumentary: no acne Neurologic: + generalized weakness; no numbness Psychiatric: + depression; no hopelessness and no anxiety Endocrine: + fatigue Physical Exam 2 Vital Signs (Past 24 Hours): Last Vital Signs Temp 36.7 C 07/11/18 11:24 Pulse 93 H 07/11/18 11:24 Resp 18 07/11/18 11:24 BP 132/83 07/11/18 11:24 Pulse Ox 97 07/11/18 11:24 Constitutional: well developed Eyes: no photophobia wears corrective lenses ENMT: Ears: no hearing impairment Neck: trachea midline, no thyromegaly Respiratory: no respiratory distress and does not use accessory muscles Cardiovascular: Vessels: no JVD Gastrointestinal (Abdomen): Inspection/Auscultation: abdomen not distended and no abdominal edema Musculoskeletal: Head/Neck/Chest: normocephalic Skin: no rashes, warm and dry (in exposed areas) Neurologic: awake; not confused and not obtunded Psychiatric: Orientation: alert and oriented x 3 Eye Contact: + poor eye contact Affect: + flat affect Genitourinary: hardin: patent, cloudy/turbid. no sediment/hematuria/clots _ (1) Acute renal failure Acute renal failure type: unspecified Qualified Code(s): N17.9 - Acute kidney failure, unspecified
[2018-07-11 12:34] LABS: BUN Creatinine Ratio 23.7 (10-20); Calcium 7.9 mg/dl (8.5-10.1); Creatinine Clr Calc Pharmacy 21.3 ml/min; Est GFR (African American) 34.1; Est GFR (Non-African American) 29.4; Potassium 3.5 mmol/L (3.5-5.1)
[2018-07-11 16:32] LABS: BUN Creatinine Ratio 24.2 (10-20); Calcium 8.4 mg/dl (8.5-10.1); Creatinine Clr Calc Pharmacy 22.9 ml/min; Est GFR (African American) 37.3; Est GFR (Non-African American) 32.1; Potassium 3.7 mmol/L (3.5-5.1)
[2018-07-11] MEDS: cefTRIAXone SODIUM 1,000 MG in DEXTROSE 5% 50 ML IV SCH (18:04)
--- NOTE | 2018-07-11 18:45 | Hospitalist Progress Note ---
Date of Service July 11, 2018 Assessment & Plan (1) Acute renal failure: Patient is a 63 yr male who presents with nausea, cough, abdominal pain and found to have TAZ, hyponatremia and urinary obstruction, and bladder outlet obstruction Acute Renal Failure Bladder outlet obstruction Moderate left-sided hydroureteronephrosis Likely pre renal and secondary to Prostatomegaly R/O UTI Baseline Cr:0.8 Cr:3.98>>>1.12 Appreciate Nephrology/Urology recommendations Monitor renal function PSA levels pending Continue IV fluids Continue flomax Cultures: pending Continue IV Ceftriaxone for now Hyponatremia: Metabolic Acidosis Monitor Chemistries Continue IV fluids per Nephrology Sodium levels better Chronic Anemia: YURI Hb seemed to be at [place] Continue iron supplements. PVD: S/P R AKA Continue aspirin, Plavix, and statin Mostly wheel chair bound. Uses walker sometimes. 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 DVT Px: Heparin SQ Code Status: Full Code Disposition: Expect to discharge home when stable PT/ OT prior to discharge Subjective Patient is seen and examined at bedside Feels better since time of admission Reports some back pain Chronic cough Denies chest pain, dyspnea, dizziness Renal function is improving Physical Exam 2 Vital Signs (Past 24 Hours): Last Vital Signs Temp 37.1 C 07/11/18 15:27 Pulse 95 H 07/11/18 16:00 Resp 20 07/11/18 15:27 BP 150/76 H 07/11/18 15:27 Pulse Ox 98 07/11/18 15:27 Physical Exam: Physical Exam: Vitals signs as noted above General Appearance:Chronic ill appearing, thin, no apparent distress Head: normocephalic, Atraumatic Eyes: normal inspection, EOMI Neck: supple, Trachea midline Respiratory/Chest: Decreased breath sounds, CTA Cardiovascular: S1, S2, No murmur, +Tachycardia Abdomen/GI:Soft, Non tender, Bowel sounds present, +Colostomy bag Extremities/Musculoskelatal:normal inspection, no edema, Right AKA Neurologic/Psych:AAOX3, grossly no focal neurological deficits Skin: normal color, warm Results & Data Laboratory Results Short CBC 07/11/18 Range/Units 05:27 WBC 10.91 H (4.8-10.8) K/uL Hgb 8.5 L (14.0-18.0) g/dL Hct 26.4 L (42-52) % Plt Count 266 (130-400) K/uL BMP 07/10/18 07/11/18 07/11/18 22:51 05:27 11:44 Sodium 131 L 133 L 130 L Potassium 3.8 D 3.6 3.5 Chloride 103 109 H 106 Carbon Dioxide 17 L 15 L 17 L BUN 62 H 55 H 54 H Creatinine 2.87 H D 2.23 H D 2.28 H Glucose 88 79 113 H Calcium 8.3 L 7.8 L 7.9 L 07/11/18 16:03 Sodium 131 L Potassium 3.7 Chloride 103 Carbon Dioxide 20 L BUN 51 H Creatinine 2.12 H Glucose 85 Calcium 8.4 L Liver Function 07/11/18 Range/Units 05:27 Total Bilirubin 0.2 (0.2-1) mg/dl Direct Bilirubin 0.1 (0-0.2) mg/dl AST 42 H (15-37) U/L ALT 45 (12-78) U/L Alkaline Phosphatase 132 H (45-117) U/L Albumin 1.6 L (3.4-5.0) gm/dl Urine 07/10/18 Range/Units 18:25 Urine Color Yellow Urine Appearance Turbid H (Clear) Urine pH 6.5 (4.5-7.5) Ur Specific [place] 1.011 (1.000-1.030) Urine Protein 2+ H (Negative) Urine Glucose (UA) Negative (Negative) _ (1) Acute renal failure Acute renal failure type: unspecified Qualified Code(s): N17.9 - Acute kidney failure, unspecified
[2018-07-11] MEDS: TAMSULOSIN HCL 0.4 MG CAP PO SCH (20:34)
[2018-07-12] MEDS: ACETAMINOPHEN 325 MG TAB PO PRN ×2 (01:45→18:56)
[2018-07-12] MEDS: HEPARIN SOD 5,000 UNIT/0.5 ML VIAL SQ SCH ×2 (05:21→18:27)
[2018-07-12] MEDS: SODIUM BICARBONATE 8.4% 150 MEQ in DEXTROSE 5% 1,000 ML IV SCH ×3 (05:21→22:50)
[2018-07-12] MEDS: CLOPIDOGREL BISULFATE 75 MG TAB PO SCH (07:37)
[2018-07-12] MEDS: ASPIRIN 81 MG ECTAB PO SCH (07:37)
[2018-07-12] MEDS: SIMVASTATIN 40 MG TAB PO SCH (07:37)
[2018-07-12] MEDS: FERROUS SULFATE 325 MG TAB PO SCH ×2 (07:37→20:30)
--- NOTE | 2018-07-12 07:45 | Nephrology Progress Note ---
Date of Service July 12, 2018 Assessment & Plan (1) Acute renal failure: baseline creatinine 0.8. Presenting creatinine 4.0; down to 2.1 yesterday afternoon w/ mild acidosis, mild hyponatrmeia. combination prerenal and obstructive most likely. sed rate /inflammatory markers elevated > f/u blood cxs -IVF changes as below -daily bmp >> f/u pending labs from this am -f/u urology recs and cont hardin >>defer to primary service > may need more definitive IV access or not (2) Uropathy, obstructive: bladder wall thickened w/ sediment/stones, L hydroureteronephropathy > bladder outlet obstruction +/- other pathology in this smoker w/ +FH of bladder CA -f/u urology recs; does not see them as OP (3) Urine retention: s/p hardin placement; chronic issue based on imaging; f/u urology recs (4) Disorder of fluid or electrolyte: on presentation had metabolic acidosis, TAZ, hyponatremia, hypocalcemia > > yesterday with hyperchloremia, worsening acidosis >changed yesterday afternoon to bicarb gtt at 125 mL /hr <> adjust IVF based on am labs results -he had 2 doses po calcium yesterday; no standing dose Subjective seen on rounds; can't do/refusing labs b/c arm too sore. no sob, no N; abd pain better. denies voiding c/o or edema Physical Exam 2 Vital Signs (Past 24 Hours): Last Vital Signs Temp 36.5 C 07/12/18 04:52 Pulse 86 07/12/18 04:52 Resp 18 07/12/18 04:52 BP 109/66 07/12/18 04:52 Pulse Ox 98 07/12/18 04:52 Constitutional: well developed, well nourished, + cachectic and cooperative on RA Eyes: EOM intact bilaterally ENMT: Ears: no external ear abnormality Nose: no external nose abnormality Mouth: + dry oral mucous membranes Neck: no nuchal rigidity Respiratory: normal respiratory effort Auscultation: + diminished lung sounds Cardiovascular: RRR, no murmur, no edema Gastrointestinal (Abdomen): Inspection/Auscultation: normal bowel sounds Percussion/Palpation: abdomen soft; abdomen nontender colostomy RLQ Musculoskeletal: Extremities: strength 5/5 throughout R AKA Skin: no rashes, warm and dry Neurologic: [place], fluent speech Psychiatric: gruff affect _ (1) Acute renal failure Acute renal failure type: unspecified Qualified Code(s): N17.9 - Acute kidney failure, unspecified
[2018-07-12 10:15] LABS: Hematocrit (blood only) 28.1 % (42-52); Hemoglobin 8.9 g/dL (14.0-18.0); Mean Corpuscular Hgb Conc 31.7 g/dL (32-36); Mean Corpuscular Volume 91.8 fL (80-100); Platelet Count 226 K/uL (130-400); RDW Coefficient of Variation 15.3 % (11.5-14.5); RDW Standard Deviation 50.3 fL (36.4-46.3); Red Blood Count 3.06 M/uL (4.7-6.1); White Blood Count 10.12 K/uL (4.8-10.8)
[2018-07-12 10:51] LABS: Calcium 8.1 mg/dl (8.5-10.1); Creatinine Clr Calc Pharmacy 32.9 ml/min; Est GFR (African American) 55.3; Est GFR (Non-African American) 47.7; Potassium 2.7 mmol/L (3.5-5.1); Prostate Specific Antigen 0.29 ng/ml (0-4)
--- NOTE | 2018-07-12 14:51 | Hospitalist Progress Note ---
Date of Service July 12, 2018 Assessment & Plan (1) Acute renal failure: Patient is a 63 yr male who presents with nausea, cough, abdominal pain and found to have TAZ, hyponatremia and urinary obstruction, and bladder outlet obstruction Acute Renal Failure Bladder outlet obstruction Moderate left-sided hydroureteronephrosis Likely pre renal and secondary to Prostatomegaly UTI Baseline Cr:0.8 Cr:3.98>>>2.12>>1.53 Appreciate Nephrology/Urology recommendations Monitor renal function PSA levels normal Decrease IV fluids Continue flomax Urine Culture: Gram negative bacilli Continue IV Ceftriaxone Day #2 Continue to maintain hardin catheter for 10-14 days Plan to repeat Ultrasound in 2-3 days No plan for surgical intervention May need outpatient Cystoscopy Hyponatremia: Hypokalemia: Hypocalcemia: Metabolic Acidosis--Improved Normal Ionized Calcium levels Monitor Chemistries Appreciate Nephrology Help Sodium levels:131 today Chronic Anemia: YURI Hb seemed to be at baseline Continue iron supplements. PVD: S/P R AKA Continue aspirin, Plavix, and statin Mostly wheel chair bound. Uses walker sometimes. 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 DVT Px: Heparin SQ Code Status: Full Code Disposition: Expect to discharge home when stable PT/ OT prior to discharge Subjective Patient is seen and examined at bedside States feeling lot better this morning No new complaints Renal function improving Has Chronic cough Denies chest pain, dyspnea, dizziness Eager to get discharged Physical Exam 2 Vital Signs (Past 24 Hours): Last Vital Signs Temp 36.9 C 07/12/18 11:06 Pulse 105 H 07/12/18 11:06 Resp 18 07/12/18 11:06 BP 109/65 07/12/18 11:06 Pulse Ox 96 07/12/18 11:06 Physical Exam: Physical Exam: Vitals signs as noted above General Appearance:Chronic ill appearing, thin, no apparent distress Head: normocephalic, Atraumatic Eyes: normal inspection, EOMI Neck: supple, Trachea midline Respiratory/Chest: Decreased breath sounds, CTA Cardiovascular: S1, S2, No murmur, +Tachycardia Abdomen/GI:Soft, Non tender, Bowel sounds present, +Colostomy bag Extremities/Musculoskelatal:normal inspection, no edema, Right AKA Neurologic/Psych:AAOX3, grossly no focal neurological deficits Skin: normal color, warm Results & Data Laboratory Results Short CBC 07/12/18 Range/Units 09:58 WBC 10.12 (4.8-10.8) K/uL Hgb 8.9 L (14.0-18.0) g/dL Hct 28.1 L (42-52) % Plt Count 226 (130-400) K/uL BMP 07/11/18 07/12/18 16:03 09:58 Sodium 131 L 131 L Potassium 3.7 2.7 L D Chloride 103 93 L Carbon Dioxide 20 L 31 BUN 51 H 40 H Creatinine 2.12 H 1.53 H D Glucose 85 96 Calcium 8.4 L 8.1 L _ (1) Acute renal failure Acute renal failure type: unspecified Qualified Code(s): N17.9 - Acute kidney failure, unspecified
[2018-07-12] MEDS ORDERED: POTASSIUM CHLORIDE 10 MEQ TABCR PO ONE (15:00)
[2018-07-12] MEDS: POTASSIUM CHLORIDE / WTR 10 MEQ/100 ML PLCT IV SCH ×4 (15:32→18:33)
--- NOTE | 2018-07-12 17:20 | Urology Progress Note ---
Date of Service July 12, 2018 Assessment & Plan (1) Pyelonephritis: Having some tachycardia and low grade fevers this evening. BC prelim negative UC&S prelim 50,000 cfu gram negative bacilli. Continue ceftriaxone for broad spectrum coverage, plan to convert to PO for 14d course when based on sensitivities. (2) Hydronephrosis of left kidney: Repeat renal ultrasound to evaluate for resolution of obstructive uropathy secondary to bladder outlet obstruction. (3) Urine retention: Cr continues to improve. appreciate nephrology's input. Bladder acutely distended with very large volume retention. Recommend maintain catheter for 10-14d to allow max drainage and bladder rest. Will arrange outpatient voiding trial with our office. Will continue to follow with primary service. Subjective 63yo M significant TAZ, urinary retention, L hydronephrosis, prostatomegaly, abnormal bladder imaging with sediment/calculi, abnormal UA. Patient appears to be in better spirits today. at bedside at time of evaluation. Some tachycardia and low grade fevers this evening. Catheter remains patient, denies significant bother or spasms. Denies nausea/vomiting. Appetite improving. Denies chest pain/ shortness of breath. Review of Systems All systems reviewed & are unremarkable except as noted in HPI & below Physical Exam 2 Vital Signs (Past 24 Hours): Last Vital Signs Temp 38.0 C H 07/12/18 15:32 Pulse 121 H 07/12/18 15:32 Resp 18 07/12/18 15:32 BP 144/75 H 07/12/18 15:32 Pulse Ox 96 07/12/18 15:32 Physical Exam: A&Ox3 RRR abd soft, nontender. Ostomy intact. : catheter draining cloudy, opaque yellow urine. patent.
[2018-07-12] MEDS: cefTRIAXone SODIUM 1,000 MG in DEXTROSE 5% 50 ML IV SCH (18:27)
[2018-07-12] MEDS: TAMSULOSIN HCL 0.4 MG CAP PO SCH (20:30)
[2018-07-13] MEDS: HEPARIN SOD 5,000 UNIT/0.5 ML VIAL SQ SCH (05:14)
[2018-07-13 06:37] LABS: Hematocrit (blood only) 25.9 % (42-52); Hemoglobin 8.1 g/dL (14.0-18.0); Mean Corpuscular Hgb Conc 31.3 g/dL (32-36); Mean Corpuscular Volume 93.8 fL (80-100); Mean Platelet Volume 10.6 fL (7.4-10.4); Platelet Count 224 K/uL (130-400); RDW Coefficient of Variation 15.7 % (11.5-14.5); RDW Standard Deviation 52.1 fL (36.4-46.3); Red Blood Count 2.76 M/uL (4.7-6.1); White Blood Count 9.22 K/uL (4.8-10.8)
[2018-07-13 07:11] LABS: BUN Creatinine Ratio 28.7 (10-20); Calcium 7.3 mg/dl (8.5-10.1); Creatinine Clr Calc Pharmacy 47.8 ml/min; Est GFR (African American) 83.3; Est GFR (Non-African American) 71.9; Potassium 3.7 mmol/L (3.5-5.1)
--- NOTE | 2018-07-13 08:29 | Ultrasound Report ---
EXAMINATION: RENAL ULTRASOUND CLINICAL HISTORY: Left-sided hydronephrosis COMPARISON STUDY: CT scan dated 07/10/2018 FINDINGS: The right kidney measures 12.5 cm. The left kidney measures 12.7 cm. There is no evidence of hydronephrosis. There are no renal masses. The liver appears echogenic suggesting hepatic steatos is. There is a joint Reynolds catheter. The bladder appears septated/trabeculated. IMPRESSION : 1. No hydronephrosis identified 2. Thick bladder septations.. Indwelling Reynolds catheter. Electronically signed by: Damien Gong M.D. 07/13/2018 8:28 AM
[2018-07-13] MEDS ORDERED: CIPROFLOXACIN 500 MG TAB PO SCH (09:00)
[2018-07-13] MEDS: SIMVASTATIN 40 MG TAB PO SCH (09:19)
[2018-07-13] MEDS: ASPIRIN 81 MG ECTAB PO SCH (09:19)
[2018-07-13] MEDS: CLOPIDOGREL BISULFATE 75 MG TAB PO SCH (09:19)
[2018-07-13] MEDS: FERROUS SULFATE 325 MG TAB PO SCH (09:20)
--- NOTE | 2018-07-13 11:06 | Urology Progress Note ---
Date of Service July 13, 2018 Assessment & Plan (1) Hydronephrosis of left kidney: Repeat renal ultrasound demonstrates resolution of hydronephrosis. PSA 0.29, excellent. Pt understands he will go home with a hardin and will finish antibiotics and return for a voiding trial . If he is unable to void he will need a catheter replaced or to learn CIC Will add finasteride to tamsulosin will need cysto (2) Uropathy, obstructive: Cr improved from 1.53 to 1. 09 today. No fevers overnight. UC&S positive for pseudomonas, almost pansensitive. Recommend 14d course of therapy based on sensitivities. (3) Urine retention: Maintain hardin catheter for 2-3 weeks. Outpatient voiding trial and follow-up to be arranged. Continue tamsulosin. Consider adding finesteride to regimen as outpatient. Subjective 63yo M significant TAZ, urinary retention, L hydronephrosis, prostatomegaly, abnormal bladder imaging with sediment/calculi, abnormal UA. VSS, no fevers overnight Catheter remains patient, denies significant bother or spasms. Denies nausea/vomiting. Appetite improving. Denies chest pain/ shortness of breath. Ready to go home Constitutional: + weakness; no fever and no chills Respiratory: + cough; no dyspnea Neurologic: + generalized weakness; no numbness Psychiatric: + depression; no hopelessness and no anxiety Physical Exam 2 Vital Signs (Past 24 Hours): Last Vital Signs Temp 36.7 C 07/13/18 07:01 Pulse 89 07/13/18 07:01 Resp 18 07/13/18 07:01 BP 128/77 07/13/18 07:01 Pulse Ox 95 07/13/18 07:01 Genitourinary: unable to feel prostate secondary to stenotic rectum and pain
--- NOTE | 2018-07-13 13:01 | Hospitalist Progress Note ---
Date of Service July 13, 2018 Assessment & Plan (1) Acute renal failure: Patient is a 63 yr male who presents with nausea, cough, abdominal pain and found to have TAZ, hyponatremia and urinary obstruction, and bladder outlet obstruction Acute Renal Failure Bladder outlet obstruction Moderate left-sided hydroureteronephrosis Likely pre renal and secondary to Prostatomegaly Complicated UTI Baseline Cr:0.8 Cr:3.98>>>2.12>>1.53>>1.09 Appreciate Nephrology/Urology recommendations Monitor renal function PSA levels normal Discontinue IV fluids Continue flomax and Finasteride as per Urology Urine Culture:Pseudomonas Continue IV Ceftriaxone Day #2>> Transitioned to Cipro Continue to maintain hardin catheter for 10-14 days-- Voiding trial as outpatient Repeat renal Ultrasound: No hydronephrosis identified No plan for surgical intervention Needs outpatient Cystoscopy and FU with Urology as outpatient Hyponatremia: Hypokalemia: Hypocalcemia: Metabolic Acidosis--Resolved Normal Ionized Calcium levels Monitor Chemistries Appreciate Nephrology Help Monitor Sodium levels Chronic Anemia: YURI Hb seemed to be at baseline Continue iron supplements. PVD: S/P R AKA Continue aspirin, Plavix, and statin Mostly wheel chair bound. Uses walker sometimes. 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 DVT Px: Heparin SQ Code Status: Full Code Disposition: Expect to discharge home when stable PT/ OT prior to discharge Subjective Patient is seen and examined at bedside Doing well today Offers no complaints Renal function back to baseline Renal USD: hydronephrosis resolved Has Chronic cough Denies chest pain, dyspnea, dizziness Eager to get discharged Physical Exam 2 Vital Signs (Past 24 Hours): Last Vital Signs Temp 36.7 C 07/13/18 07:01 Pulse 89 07/13/18 07:01 Resp 18 07/13/18 07:01 BP 128/77 07/13/18 07:01 Pulse Ox 95 07/13/18 07:01 Physical Exam: Physical Exam: Vitals signs as noted above General Appearance:Chronic ill appearing, thin, no apparent distress Head: normocephalic, Atraumatic Eyes: normal inspection, EOMI Neck: supple, Trachea midline Respiratory/Chest: Decreased breath sounds, CTA Cardiovascular: S1, S2, No murmur Abdomen/GI:Soft, Non tender, Bowel sounds present, +Colostomy bag Extremities/Musculoskelatal:normal inspection, no edema, Right AKA Neurologic/Psych:AAOX3, grossly no focal neurological deficits Skin: normal color, warm Results & Data Laboratory Results Short CBC 07/13/18 Range/Units 06:10 WBC 9.22 (4.8-10.8) K/uL Hgb 8.1 L (14.0-18.0) g/dL Hct 25.9 L (42-52) % Plt Count 224 (130-400) K/uL BMP 07/13/18 06:10 Sodium 130 L Potassium 3.7 D Chloride 91 L Carbon Dioxide 36 H BUN 31 H Creatinine 1.09 Glucose 87 Calcium 7.3 L Diagnostic Findings Renal USD: 1. No hydronephrosis identified 2. Thick bladder septations.. Indwelling Hardin catheter. _ (1) Acute renal failure Acute renal failure type: unspecified Qualified Code(s): N17.9 - Acute kidney failure, unspecified
--- NOTE | 2018-07-13 13:10 | Discharge Summary ---
Date of Service July 13, 2018 Admission HPI Per Admitting Provider CHIEF COMPLAINT: Abdominal pain, nausea, TAZ. HISTORY OF PRESENT ILLNESS: This is a 63-year-old male with past medical history significant for hyperlipidemia, peripheral artery disease, lower limb ischemia status post right AKA, history of bowel ischemia status post colostomy, iron deficiency anemia, hypertension, tobacco use disorder, presents with abdominal pain, nausea, cough, went to family doctor and labs done showed TAZ and hyponatremia and advised to come to the ER. As per the , the patient had a fever of 103 about 2-3 weeks ago, but next day it subsided and since then he is not feeling well, poor appetite, not eating much, but getting weaker and today he had 1 episode of vomiting and has a chronic cough. He refused to come to the hospital all these days but today because of the symptoms getting worse, he went to family doctor and was directed to the ER. Currently resting comfortably, hemodynamically stable. Complains of headaches on and off. No blurred vision. No sore throat. He has difficulty swallowing, once in a while. He gets chest pain once in a while, but currently asymptomatic. There is no shortness of breath or cough, brings some phlegm once in a while. Was nauseous earlier, currently okay. Complains of abdominal discomfort and says he is urinating less and less since last 3 weeks. He says he has noticed blood in the urine, once in a while. He says colostomy output looks black sometimes and it clears up the next day, currently it is green color. He had right lower above-knee amputation in 2017. Since then, he has ambulatory dysfunction. He does not like to use crutches. He is using the wheelchair most of the times but he can get to the wheelchair and go to bathroom and get in the car without help and he uses walker sometimes in the house. Admission Exam Per Admitting Provider PHYSICAL EXAMINATION: GENERAL: The patient is of moderate built, not in acute distress. VITAL SIGNS: Temperature is 36.5, pulse 85, respiratory rate 22, blood pressure 149/86, oxygen saturation 100% room air. HEENT: No pallor, no icterus. Pupils equal, round react to light. NECK: No JVD, no neck masses, no carotid bruit. CARDIOVASCULAR: S1, S2 heard, regular rate and rhythm, no murmur, no gallop. RESPIRATORY SYSTEM: Clear to auscultation bilaterally. No wheezing, no crackles. ABDOMEN: Soft, bowel sounds present, nontender. No distention. CENTRAL NERVOUS SYSTEM: Cranial nerves II-XII grossly intact. Nonfocal. EXTREMITIES: Right above knee amputations. No edema or erythema seen. Principal Diagnosis Discharge Information Discharge Diagnosis TAZ Metabolic Acidosis Complicated UTI Bladder outlet obstruction Hyponatremia BPH Discharge Goals Decrease discomfort,Improve disease control, Improve function Discharge Activity Limitations Resume your previous activity Discharge Data Allergies Allergy/AdvReac Type Severity Reaction Status Date / Time piperacillin Allergy Unknown Unverified 07/10/18 17:40 Consultations 07/10/18 18:36 ED Decision to Admit Stat 07/10/18 22:42 Consult Case Management - Discharge Planning Routine Consult Nephrology Routine 07/11/18 08:00 Consult Urology Routine Procedures Performed CT ABD: 1. Prostatomegaly with marked urinary bladder distention and irregular wall thickening. Multiple internal septations are also noted within the urinary bladder with dependent debris and bladder calculi. Findings are suggestive of bladder outlet obstruction. Correlation with urinalysis and cystoscopy recommended. 2. Moderate left-sided hydroureteronephrosis. 3. Age-indeterminate 25% anterior endplate compression deformity of the L1 vertebral body with 3 mm retropulsion is new from 01/30/2017. Additionally, 20% central endplate compression of the L4 vertebral body is also new from comparison. 4. Small hiatal hernia with mild wall thickening of the distal esophagus. 5. No bowel obstruction. 6. Additional findings as above. CXR: No acute process. Renal USD: 1. No hydronephrosis identified 2. Thick bladder septations.. Indwelling Hardin catheter. Ordered Studies 07/10/18 16:40 CT abd pelvis wo con Stat 07/13/18 06:00 US renal/blad retro comp Routine Hospital Course (1) Acute renal failure: Patient is a 63 yr male who presents with nausea, cough, abdominal pain and found to have TAZ, hyponatremia and urinary obstruction, and bladder outlet obstruction Acute Renal Failure Bladder outlet obstruction Moderate left-sided hydroureteronephrosis Likely pre renal and secondary to Prostatomegaly Complicated UTI Baseline Cr:0.8 Cr:3.98>>>2.12>>1.53>>1.09 Appreciate Nephrology/Urology recommendations Monitor renal function PSA levels normal Discontinue IV fluids Continue flomax and Finasteride as per Urology Urine Culture:Pseudomonas Continue IV Ceftriaxone Day #2>> Transitioned to Cipro Continue to maintain hardin catheter for 10-14 days-- Voiding trial as outpatient Repeat renal Ultrasound: No hydronephrosis identified No plan for surgical intervention Needs outpatient Cystoscopy and FU with Urology as outpatient Hyponatremia: Hypokalemia: Hypocalcemia: Metabolic Acidosis--Resolved Normal Ionized Calcium levels Monitor Chemistries Appreciate Nephrology Help Monitor Sodium levels Chronic Anemia: YURI Hb seemed to be at baseline Continue iron supplements. PVD: S/P R AKA Continue aspirin, Plavix, and statin Mostly wheel chair bound. Uses walker sometimes. 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 DVT Px: Heparin SQ Code Status: Full Code Disposition: Expect to discharge home when stable PT/ OT prior to discharge Total Time Total Time Spent Total Time Spent (In Minutes): 37 minutes Total Time Includes: Examination of the Patient, Discharge Planning, Medication Reconciliation, Communication With Other Providers and Other Discharge Plan Discharge Items Patient Disposition: Home - Self-Care Reason For Visit: TAZ,ABDOMINAL PAIN Discharge Diagnosis: TAZ Metabolic Acidosis Complicated UTI Bladder outlet obstruction Hyponatremia BPH Discharge Goals: Decrease discomfort, Improve disease control and Improve function Activity: Resume your previous activity Exercise/Sports: Gradually increase as tolerated Non-emergency contact: Primary Care Provider, Newspaper Clipper and Urologist Call non-emergency contact if: you have any medication questions, your symptoms worsen, your pain is not controlled, your pain is worsening, your pain is unusual for you, your pain is concerning for you and you have a fever Diet: Regular Addtl Provider Instructions: Follow up with your PCP on 07/16/18 at 2:45pm Follow up with your Urologist Dr.Charles Gan in 1-2 weeks Complete the antibiotic course as prescribed Continue hardin catheter for 2-3 weeks. Voiding trial as outpatient as per Urology Get Cystoscopy as per your Urologist recommendations as outpatient Seek immediate medical attention if your symptoms reoccur or worsen Prescriptions: New ciprofloxacin HCl 500 mg Tablet 500 mg PO BID 10 Days Qty: 20 RF: 0 tamsulosin 0.4 mg Capsule 0.4 mg PO HS 30 Days Qty: 30 RF: 1 finasteride [Proscar] 5 mg Tablet 5 mg PO QAM 30 Days Qty: 30 RF: 1 Continue clopidogrel [Plavix] 75 mg Tablet 75 mg PO DAILY RF: 0 aspirin 81 mg Tablet,Delayed Release (Dr/Ec) 81 mg PO DAILY RF: 0 simvastatin 40 mg Tablet 40 mg PO DAILY RF: 0 ferrous sulfate [iron] 325 mg (65 mg iron) Tablet 325 mg PO BID RF: 0 Stand-Alone Forms: [facility] Discharge Orders: Discharge Order (Routine); Ordered 07/13/18 Ordered By: Jayme Dave Admission Data Admit Date/Time: 07/10/18 20:45 Attending Provider: Jayme Dave Admit Provider: Semaj Garcia Primary Care Provider: Alfred Al Other Providers: Semaj Garcia ; Martha Montano ; Kurt Juarez ; Aly Shin I ; Katarina Garcia ; Surya Jones ; Wilian Gan ; Rufus Salinas ; Henry Oseguera I. ; Arthur Darby ; Sapna Modi ; Stan Beebe II ; Debbie Murphy ; Odalis Parikh Service: Telemetry Other Pending Studies at Discharge: No
[2018-07-14] MEDS ORDERED: FINASTERIDE 5 MG TAB PO SCH (09:00)
== END 2018-07-13 15:35 | disposition home or self-care (01) ==
LOC: ED 16:05 → SUATTDRO 20:45 → 2N 20:45

== ENCOUNTER 2018-07-16 16:20 | Inpatient (IN) ==
[2018-07-16] MEDS ORDERED: CEFEPIME 1,000 MG in SYRINGE 0 ML IV STA (17:22)
[2018-07-16] MEDS ORDERED: ACETAMINOPHEN 500 MG TAB PO STA (17:22)
[2018-07-16] MEDS ORDERED: SODIUM CHLORIDE 0.9% 1000ML 2,000 ML IV ONE (17:22)
--- NOTE | 2018-07-16 17:38 | XRay Report ---
XR chest 1V portable CLINICAL HISTORY: possible sepsis COMPARISON STUDY: 05/10/2018 FINDINGS: The bones soft tissues and hemidiaphragms are normal. The cardiomediastinal silhouette is n ormal. The lungs are clear. The pulmonary vasculature is normal. IMPRESSION: Negative chest. The above report was generated using voice recognition software. It may contain grammatical, syntax or spelling errors. Electronically signed by: Michael Starks M.D. 07/16/2018 5:36 PM
[2018-07-16 17:39] LABS: Basophils # (auto) 0.01 K/uL (0-0.2); Basophils % (auto) 0.1 %; Eosinophils # (auto) 0.03 K/uL (0-0.5); Eosinophils % (auto) 0.2 %; Hematocrit (blood only) 28.7 % (42-52); Hemoglobin 8.9 g/dL (14.0-18.0); Immature Granulocytes # (auto) 0.05 K/uL (0.00-0.02); Immature Granulocytes % (auto) 0.4 %; Lymphocytes # (auto) 0.21 K/uL (1.2-3.4); Lymphocytes % (auto) 1.7 %; Mean Corpuscular Volume 94.7 fL (80-100); Mean Platelet Volume 10.7 fL (7.4-10.4); Monocytes # (auto) 0.26 K/uL (0.11-0.59); Monocytes % (auto) 2.1 %; Neutrophils # (auto) 11.84 K/uL (1.4-6.5); Neutrophils % (auto) 95.5 %; Platelet Count 288 K/uL (130-400); RDW Coefficient of Variation 15.8 % (11.5-14.5); RDW Standard Deviation 53.7 fL (36.4-46.3); Red Blood Count 3.03 M/uL (4.7-6.1)
[2018-07-16 17:49] LABS: Alanine Aminotransferase 47 U/L (12-78); Albumin Level 1.8 gm/dl (3.4-5.0); Aspartate Aminotransferase 55 U/L (15-37); BUN Creatinine Ratio 13.6 (10-20); Blood Urea Nitrogen 18 mg/dl (7-18); Calcium 7.6 mg/dl (8.5-10.1); Carbon Dioxide 29 mmol/L (21-32); Chloride 91 mmol/L (98-107); Est GFR (African American) 67.9; Est GFR (Non-African American) 58.6; Glucose 84 mg/dl (70-99); Magnesium 1.5 mg/dl (1.8-2.4); Potassium 3.9 mmol/L (3.5-5.1); Sodium 129 mmol/L (136-145)
[2018-07-16 17:53] LABS: Albumin Globulin Ratio 0.3 (0.9-2); Alkaline Phosphatase 140 U/L (45-117); Bilirubin,Total 0.5 mg/dl (0.2-1); Globulin 5.8 gm/dl (2.5-4.0); Total Protein 7.6 gm/dl (6.4-8.2); Troponin I < 0.015 ng/ml (0-0.045)
[2018-07-16 18:01] LABS: INR 1.2 (0.9-1.1); Partial Thromboplastin Ratio 1.1; Partial Thromboplastin Time 27.8 Seconds (21.0-31.0); Prothrombin Time 12.4 Seconds (9.0-12.0)
[2018-07-16 18:04] LABS: RBC Morphology Unremarkable
[2018-07-16] MEDS ORDERED: SODIUM CHLORIDE 0.9% 500 ML IV ONE (18:38)
--- NOTE | 2018-07-16 19:33 | History & Physical Report ---
Date of Service July 16, 2018 Assessment & Plan (1) Complicated urinary tract infection: Recent 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 for further evaluation as an outpatient Has an indwelling Reynolds catheter Recently diagnosed Pseudomonas UTI on Cipro as an outpatient Admitted with increasing temperature and sinus tachycardia Urine culture and blood culture have been sent Started with intravenous cefepime 2 g twice daily Ultrasound of the abdomen to rule out any hydronephrosis May need to have urology evaluation if the condition does not improve Recent history of obstructive uropathy with AK I and hydronephrosis secondary to bladder wall abnormality as per CAT scan Has indwelling Reynolds catheter and has been on Proscar and Flomax as per urology Will need to have outpatient urology appointment on discharge (2) Sepsis: Admits to criteria of sepsis on admission Likely secondary to complicated UTI Temperature 39.2, tachycardia, tachypnea, increased white count and lactate of 3.0 We will get intravenous fluid and antibiotic Repeat lactic in 6 Present on Admission?: Yes (3) Hyponatremia: Noted to have electrolyte abnormality in the past Sodium is 129 today We will give normal saline We will monitor while in the hospital (4) Peripheral artery disease: History of severe peripheral arterial disease Status post right AKA Status post stent placement in the femoral arteries No acute symptoms (5) Tachycardia: Noted to have sinus tachycardia with a rate of [address]-T wave changes in clinic today Tachycardia seems to be due to high temperature of 39.2C Repeat EKG showed improvement of tachycardia and improvement of ST-T wave changes Doubt any ACS Present on Admission?: Yes History of Present Illness Chief Complaint: Fever ,tachycardia with EKG changes Primary Care Provider: Alfred Al DO He is a 63-year-old male with past medical history significant for hyperlipidemia, peripheral artery disease, lower limb ischemia status post right AKA, history of bowel ischemia status postcolostomy, iron deficiency anemia, hypertension, tobacco use disorder,presents with recent admission to the hospital for AK I secondary to obstructive uropathy secondary to bladder wall abnormalities. He was noted to have Pseudomonas UTI and was sent home on of this month on oral Cipro. He has been feeling a lot better since discharge from the hospital and went for a regular checkup with his primary care provider today. He has been complaining of feeling of feverish since last night and noted to have a temperature of 102 F with a tachycardia of [address]-T wave changes and he was sent to ER for further evaluation. He denies any complaints of chest pain, palpitation, shortness of breath, any abdominal pain nausea and/or vomiting. He has noted to have tachycardia in the emergency room and the EKG showed sinus rhythm with a rate of [address]-T wave changes. He was noted to have high temperature of 39 degrees and his lactate was elevated to 3.0 with a white count minimally elevated. He did not have any urinary symptoms. He has started with intravenous cefepime,cultures were sent and was admitted to medical floor for continuation of care. Allergies Allergy/AdvReac Type Severity Reaction Status Date / Time piperacillin Allergy Unknown Unverified 07/10/18 17:40 Home Medications Home Medications Medication Instructions Recorded Confirmed Type aspirin 81 mg PO DAILY 07/10/18 07/10/18 History clopidogrel [Plavix] 75 mg PO DAILY 07/10/18 07/10/18 History ferrous sulfate [iron] 325 mg PO BID 07/10/18 07/10/18 History simvastatin 40 mg PO DAILY 07/10/18 07/10/18 History ciprofloxacin HCl 500 mg PO BID 10 Days #20 tab 07/13/18 Rx finasteride [Proscar] 5 mg PO QAM 30 Days #30 tab 07/13/18 Rx tamsulosin 0.4 mg PO HS 30 Days #30 cap 07/13/18 Rx Past Med/Surg History Medical History Peripheral artery disease Hypertension (Chronic) DVT (deep venous thrombosis) Perforated bowel Surgical History Amputated right leg Family History Father Bladder cancer Social History marital status: Current Living Situation: Spouse Other Information That Helps Us Care for You: No Feels Safe at Home: Yes Safety Concerns: Feels Safe At This Time Smoking Status: Former smoker Hx Alcohol Use: No Hx Substance Use: No Beliefs That Will Affect Care: None Preferred Language: Stateless Communication Ability: Effective Review of Systems All systems reviewed & are unremarkable except as noted in HPI & below Has Reynolds catheter and is draining urine normally. Physical Exam 2 Vital Signs (Past 24 Hours): Last Vital Signs Temp 39.2 C H 07/16/18 16:43 Pulse 103 H 07/16/18 18:54 Resp 18 07/16/18 18:54 BP 112/61 07/16/18 18:54 Pulse Ox 95 07/16/18 18:54 Physical Exam: Lying in bed comfortably Constitutional: WD/WN, vitals as above Eyes: PERRL, conjunctivae normal, anicteric sclerae ENMT: external ear and nose normal, oropharynx normal Respiratory: normal respiratory effort, lungs clear to auscultation Cardiovascular: Rate/Rhythm: regular rhythm and + tachycardic Heart Sounds : normal S1 and normal S2 Gastrointestinal (Abdomen): Inspection/Auscultation: abdomen normal to inspection and normal bowel sounds No tenderness in renal angles Neurologic: Alert, awake and oriented x3. Has right-sided AKA. Generally weak without any focal neuro deficit. Results & Data Laboratory Results Short CBC 07/16/18 Range/Units 16:59 WBC 12.40 H (4.8-10.8) K/uL Hgb 8.9 L (14.0-18.0) g/dL Hct 28.7 L (42-52) % Plt Count 288 (130-400) K/uL BMP 07/16/18 16:59 Sodium 129 L Potassium 3.9 Chloride 91 L Carbon Dioxide 29 BUN 18 Creatinine 1.29 Glucose 84 Calcium 7.6 L Cardiac Enzymes 07/16/18 Range/Units 16:59 Troponin I < 0.015 (0-0.045) ng/ml Liver Function 07/16/18 Range/Units 16:59 Total Bilirubin 0.5 (0.2-1) mg/dl AST 55 H (15-37) U/L ALT 47 (12-78) U/L Alkaline Phosphatase 140 H (45-117) U/L Albumin 1.8 L (3.4-5.0) gm/dl Medications Administered Current Inpatient Medications Cefepime HCl 2,000 mg/ Syringe 20 mls @ 5.5 mls/min IV Q12H JOSEPH Stop: 07/26/18 19:29 Code Status & VTE Plan Code Status DNR VTE Prophylaxis Plan VTE Prophylaxis will be ordered: Yes _ (1) Sepsis Sepsis type: sepsis due to unspecified organism Qualified Code(s): A41.9 - Sepsis, unspecified organism
[2018-07-16 20:39] LABS: Appearance Urine Cloudy (Clear); Bacteria Urine Automated Negative (Negative); Bilirubin Urine Negative (Negative); Color Urine Yellow; Glucose Urine UA Negative (Negative); Ketones Urine Negative (Negative); Leukocyte Esterase Urine 3+ (Negative); Nitrite Urine Negative (Negative); Specific Gravity Urine 1.011 (1.000-1.030); Urobilinogen Urine Negative (Negative); WBC Urine Automated >30 /hpf (0-5); pH Urine 8.5 (4.5-7.5)
[2018-07-16 20:42] LABS: Protein Urine 1+ (Negative)
[2018-07-16] MEDS ORDERED: NSS + 20MEQ KCL 20 MEQ/1,000 ML BAG IV SCH (21:00)
--- NOTE | 2018-07-16 21:36 | Emergency Department Note ---
Entered by Linnette Walker acting as a scribe for History of Present Illness General Chief complaint: Cardiac Assessment Stated complaint: RACING HEART RATE Source: patient Mode of arrival: ambulatory Limitations: no limitations History of Present Illness Provider complaint: cardiac assesment Onset (ago): hour(s) ([employer]TS[employer]) Location: chest Pain Consistency: + other (episode) Quality: + other (cardiac) Associated symptoms: + denies other symptoms (rhinorrhea, dairrhea, abdominal pain, ear pain, throat pain); no chest pain, no cough and no shortness of breath The patient is a 63 year old male who presents to the Emergency Room for a cardiac assessment. The patient's family at bedside reports that the patient was admitted last week at this hospital for kidney failure and discharged 3 days ago. She states the patient had a follow-up appointment earlier today where he had an abnormal EKG and was referred to the ER. The patient denies any coughs, rhinorrhea, chest pain, shortness of breath, diarrhea, abdominal pain, ear pain or throat pain. Per family, the patient has a hardin in place since last Monday secondary to his enlarged prostate. Home Medications Home Medications Medication Instructions Recorded Confirmed Type aspirin 81 mg PO DAILY 07/10/18 07/10/18 History clopidogrel [Plavix] 75 mg PO DAILY 07/10/18 07/10/18 History ferrous sulfate [iron] 325 mg PO BID 07/10/18 07/10/18 History simvastatin 40 mg PO DAILY 07/10/18 07/10/18 History ciprofloxacin HCl 500 mg PO BID 10 Days #20 tab 07/13/18 Rx finasteride [Proscar] 5 mg PO QAM 30 Days #30 tab 07/13/18 Rx tamsulosin 0.4 mg PO HS 30 Days #30 cap 07/13/18 Rx Allergies Allergy/AdvReac Type Severity Reaction Status Date / Time piperacillin Allergy Unknown Unverified 07/10/18 17:40 Past Med/Surg History Medical History Peripheral artery disease Hypertension (Chronic) DVT (deep venous thrombosis) Perforated bowel Surgical History Amputated right leg Family History Father Bladder cancer Social History marital status: Current Living Situation: Spouse Other Information That Helps Us Care for You: No Feels Safe at Home: Yes Safety Concerns: Feels Safe At This Time Smoking Status: Former smoker Hx Alcohol Use: No Hx Substance Use: No Beliefs That Will Affect Care: None Preferred Language: Turkmen Communication Ability: Effective Review of Systems See HPI for pertinent positives & negatives. and A total of 10 systems reviewed and were otherwise negative Physical Exam Vital Signs Vital Signs - 24 hr 07/16/18 16:43 07/16/18 17:46 07/16/18 17:51 Temperature 39.2 C H Temperature Source Oral Sepsis Recent Fever Within 48 Hours Yes Sepsis New/Unexplained Change in Mental Status No Sepsis Action Taken by Nursing No Action Required Pulse Rate 135 H Pulse Rate [Apical] Pulse Rhythm Regular Pulse Rhythm [Apical] Pulse Strength Normal Pulse Strength [Apical] Respiratory Rate 20 Respiratory Effort / Characteristics Non-Labored Spontaneous Non-Labored Spontaneous Non-Labored Spontaneous Respiratory Depth Normal Normal Normal Respiratory Pattern Regular Regular Blood Pressure 134/75 Blood Pressure [Right Arm] Blood Pressure Mean 94 Blood Pressure Mean [Right Arm] Blood Pressure Position Sitting Pulse Oximetry 96 Oxygen Delivery Method Room Air Room Air Room Air 07/16/18 17:52 07/16/18 18:08 07/16/18 18:54 Temperature Temperature Source Sepsis Recent Fever Within 48 Hours Sepsis New/Unexplained Change in Mental Status Sepsis Action Taken by Nursing Pulse Rate 121 H Pulse Rate [Apical] 119 H 103 H Pulse Rhythm Regular Pulse Rhythm [Apical] Regular Regular Pulse Strength Pulse Strength [Apical] Normal Respiratory Rate 20 25 H 18 Respiratory Effort / Characteristics Non-Labored Spontaneous Respiratory Depth Normal Normal Respiratory Pattern Regular Blood Pressure Blood Pressure [Right Arm] 138/66 112/61 Blood Pressure Mean Blood Pressure Mean [Right Arm] 90 78 Blood Pressure Position Pulse Oximetry 96 95 95 Oxygen Delivery Method Room Air Room Air Room Air 07/16/18 20:02 Temperature 38 C H Temperature Source Oral Sepsis Recent Fever Within 48 Hours Sepsis New/Unexplained Change in Mental Status Sepsis Action Taken by Nursing Pulse Rate Pulse Rate [Apical] 91 H Pulse Rhythm Pulse Rhythm [Apical] Regular Pulse Strength Pulse Strength [Apical] Normal Respiratory Rate 18 Respiratory Effort / Characteristics Non-Labored Spontaneous Respiratory Depth Normal Respiratory Pattern Regular Blood Pressure Blood Pressure [Right Arm] 104/64 Blood Pressure Mean Blood Pressure Mean [Right Arm] 77 Blood Pressure Position Pulse Oximetry 96 Oxygen Delivery Method Room Air GENERAL: Lying in bed, moderate distress, ill appearing. EYE EXAM: normal conjunctiva. OROPHARYNX: no exudate, no erythema, lips, buccal mucosa, and tongue normal and mucous membranes are moist NECK: supple, no nuchal rigidity, no adenopathy, non-tender LUNGS: Clear to auscultation. Normal chest wall mechanics HEART: Tachycardic, S1 normal and S2 normal ABDOMEN: abdomen soft, non-tender, normo-active bowel, sounds, no masses, no rebound or guarding. Ostomy in left mid abdomen. BACK: Back is symmetrical on inspection and there is no deformity, no midline tenderness, no CVA tenderness. : hardin in place SKIN: no rashes and no bruising UPPER EXTREMITIES: upper extremities are grossly normal. LOWER EXTREMITIES: No pitting edema. Right knee amputation. NEURO EXAM: Normal sensorium, cranial nerves II-XII grossly intact, normal speech, no gross weakness of arms, no gross weakness of legs. Course ED COURSE: Vital signs were reviewed and are within normal limits. The patients medical record was reviewed The above diagnostic studies were performed and reviewed. ED treatments and interventions as stated above. 1718: The patient was evaluated in room B7. A complete history and physical examination was performed. 1833: I discussed my findings with the patient and he understands and agrees with the treatment plan. Based on the patients age, coexisting illnesses, exam and lab findings the decision to treat as an inpatient was made. The patient remained stable while under my care. The patient will be evaluated for further management. Administered Medications Potassium Chloride/Sodium Chloride (Normal Saline W/20 Meq Kcl) 20 meq in 1, 000 mls @ 150 mls/hr IV .Q6H40M [facility] Stop: 07/17/18 16:59 Last Admin: 07/16/18 21:07 Dose: 150 mls/hr Discontinued Medications Acetaminophen (Tylenol) 1,000 mg PO NOW STA Stop: 07/16/18 17:23 Last Admin: 07/16/18 18:06 Dose: 1,000 mg Cefepime HCl 1,000 mg/ Syringe 11.3 mls @ 5.5 mls/min IV NOW STA Stop: 07/16/18 17:24 Last Admin: 07/16/18 18:06 Dose: 5.5 mls/min Sodium Chloride (Nss 1000ml) 2,000 mls @ 999 mls/hr IV .Q2H1M ONE Stop: 07/16/18 19:22 Last Admin: 07/16/18 18:05 Dose: 999 mls/hr Sodium Chloride (Nss) 500 mls @ 999 mls/hr IV .Q31M ONE Stop: 07/16/18 19:08 Last Infusion: 07/16/18 19:37 Dose: 0 mls/hr Admin: 07/16/18 18:59 Dose: 999 mls/hr Medical Decision Making Differential Diagnosis Differential Diagnosis includes: sepsis, UTI, pneumonia, bacteremia, metabolic process, electrolyte abnormalities, cardiac sources, intracerebral event, intra- abdominal process, toxicological process, neurologic process, as well as others were entertained. Medical Records Attestation: I reviewed the patient's medical records. Home Medications Current Medication List: was personally reviewed by me Laboratory Data Attestation: I reviewed the patient's lab results. Result diagrams: 07/16/18 16:59 07/16/18 16:59 Lab Results 07/16/18 07/16/18 07/16/18 Range/Units 16:59 16:59 16:59 WBC 12.40 H (4.8-10.8) K/uL RBC 3.03 L (4.7-6.1) M/uL Hgb 8.9 L (14.0-18.0) g/dL Hct 28.7 L (42-52) % MCV 94.7 (80-100) fL MCH 29.4 (25-34) pg MCHC 31.0 L (32-36) g/dL RDW Std Deviation 53.7 H (36.4-46.3) fL RDW Coeff of [place] 15.8 H (11.5-14.5) % Plt Count 288 (130-400) K/uL MPV 10.7 H (7.4-10.4) fL Immature Gran % (Auto) 0.4 % Neut % (Auto) 95.5 % Lymph % (Auto) 1.7 % Grundy % (Auto) 2.1 % Eos % (Auto) 0.2 % Baso % (Auto) 0.1 % Immature Gran # (Auto) 0.05 H (0.00-0.02) K/uL Neut # (Auto) 11.84 H (1.4-6.5) K/uL Lymph # (Auto) 0.21 L (1.2-3.4) K/uL Grundy # (Auto) 0.26 (0.11-0.59) K/uL Eos # (Auto) 0.03 (0-0.5) K/uL Baso # (Auto) 0.01 (0-0.2) K/uL RBC Morphology Unremarkable PT 12.4 H (9.0-12.0) Seconds INR 1.2 H (0.9-1.1) APTT 27.8 (21.0-31.0) Seconds PTT Ratio 1.1 Sodium 129 L (136-145) mmol/L Potassium 3.9 (3.5-5.1) mmol/L Chloride 91 L (98-107) mmol/L Carbon Dioxide 29 (21-32) mmol/L Anion Gap 9.0 (3-11) BUN 18 (7-18) mg/dl Creatinine 1.29 (0.6-1.4) mg/dl Est Cr Clr Drug Dosing Not Reportable Est GFR ( Amer) 67.9 Est GFR (Non-Af Amer) 58.6 BUN/Creatinine Ratio 13.6 (10-20) Glucose 84 (70-99) mg/dl POC Lactic Acid Gregory (0.90-1.70) mmol/L Calcium 7.6 L (8.5-10.1) mg/dl Magnesium 1.5 L (1.8-2.4) mg/dl Total Bilirubin 0.5 (0.2-1) mg/dl AST 55 H (15-37) U/L ALT 47 (12-78) U/L Alkaline Phosphatase 140 H (45-117) U/L Troponin I < 0.015 (0-0.045) ng/ml Total Protein 7.6 (6.4-8.2) gm/dl Albumin 1.8 L (3.4-5.0) gm/dl Globulin 5.8 H (2.5-4.0) gm/dl Albumin/Globulin Ratio 0.3 L (0.9-2) Urine Color Urine Appearance (Clear) Urine pH (4.5-7.5) Ur Specific Perry (1.000-1.030) Urine Protein (Negative) Urine Glucose (UA) (Negative) Urine Ketones (Negative) Urine Blood (Negative) Urine Nitrite (Negative) Urine Bilirubin (Negative) Urine Urobilinogen (Negative) Ur Leukocyte Esterase (Negative) Urine WBC (Auto) (0-5) /hpf Urine RBC (Auto) (0-4) /hpf U Hyaline Cast (Auto) (0-5) /lpf U Epithel Cells (Auto) (0-5) /lpf Urine Bacteria (Auto) (Negative) Urine Yeast 07/16/18 07/16/18 Range/Units 17:35 20:05 WBC (4.8-10.8) K/uL RBC (4.7-6.1) M/uL Hgb (14.0-18.0) g/dL Hct (42-52) % MCV (80-100) fL MCH (25-34) pg MCHC (32-36) g/dL RDW Std Deviation (36.4-46.3) fL RDW Coeff of [place] (11.5-14.5) % Plt Count (130-400) K/uL MPV (7.4-10.4) fL Immature Gran % (Auto) % Neut % (Auto) % Lymph % (Auto) % Grundy % (Auto) % Eos % (Auto) % Baso % (Auto) % Immature Gran # (Auto) (0.00-0.02) K/uL Neut # (Auto) (1.4-6.5) K/uL Lymph # (Auto) (1.2-3.4) K/uL Grundy # (Auto) (0.11-0.59) K/uL Eos # (Auto) (0-0.5) K/uL Baso # (Auto) (0-0.2) K/uL RBC Morphology PT (9.0-12.0) Seconds INR (0.9-1.1) APTT (21.0-31.0) Seconds PTT Ratio Sodium (136-145) mmol/L Potassium (3.5-5.1) mmol/L Chloride (98-107) mmol/L Carbon Dioxide (21-32) mmol/L Anion Gap (3-11) BUN (7-18) mg/dl Creatinine (0.6-1.4) mg/dl Est Cr Clr Drug Dosing Est GFR ( Amer) Est GFR (Non-Af Amer) BUN/Creatinine Ratio (10-20) Glucose (70-99) mg/dl POC Lactic Acid Gregory 3.07 H (0.90-1.70) mmol/L Calcium (8.5-10.1) mg/dl Magnesium (1.8-2.4) mg/dl Total Bilirubin (0.2-1) mg/dl AST (15-37) U/L ALT (12-78) U/L Alkaline Phosphatase (45-117) U/L Troponin I (0-0.045) ng/ml Total Protein (6.4-8.2) gm/dl Albumin (3.4-5.0) gm/dl Globulin (2.5-4.0) gm/dl Albumin/Globulin Ratio (0.9-2) Urine Color Yellow Urine Appearance Cloudy H (Clear) Urine pH 8.5 H (4.5-7.5) Ur Specific Perry 1.011 (1.000-1.030) Urine Protein 1+ H (Negative) Urine Glucose (UA) Negative (Negative) Urine Ketones Negative (Negative) Urine Blood 3+ H (Negative) Urine Nitrite Negative (Negative) Urine Bilirubin Negative (Negative) Urine Urobilinogen Negative (Negative) Ur Leukocyte Esterase 3+ H (Negative) Urine WBC (Auto) >30 H (0-5) /hpf Urine RBC (Auto) >30 H (0-4) /hpf U Hyaline Cast (Auto) 1-5 (0-5) /lpf U Epithel Cells (Auto) 5-10 H (0-5) /lpf Urine Bacteria (Auto) Negative (Negative) Urine Yeast Not Reportable Imaging Data Radiologist's Impression: Radiology results as stated below per my review and the radiologist's interpretation: XR chest 1V portable CLINICAL HISTORY: possible sepsis COMPARISON STUDY: 05/10/2018 FINDINGS: The bones soft tissues and hemidiaphragms are normal. The cardiomediastinal silhouette is normal. The lungs are clear. The pulmonary vasculature is normal. IMPRESSION: Negative chest. The above report was generated using voice recognition software. It may contain grammatical, syntax or spelling errors. Electronically signed by: Michael Starks M.D. 07/16/2018 5:36 PM ECG Data Attestation: I personally reviewed and interpreted this ECG as follows: Rate (beats per minute): 111 Rhythm: sinus tachycardia Findings: + other (normal axis) and + Q waves (septal) Comparison ECG Date: from (10-JUL-2018) Change: no significant change Blood Pressure Blood Pressure Findings: Normal blood pressure Blood Pressure Disposition: did not require urgent referral MDM Narrative Patient is a 63-year-old male who presents the ER tachycardic referred in from the PCPs office. Heart rate was in the 130s. He was found to be febrile with a temperature of 39. Labs were obtained and showed a leukocytosis of 12.4 thousand. Hemoglobin with anemia of 8.9. INR was unremarkable. BMP with mild hyponatremia. Lactate was elevated at 3.07. Troponin was negative. UA with white cells and esterase. Patient was given 2.5 L of IV normal saline. Heart rate trended down from the 130s to low 110s. EKG showed a sinus tach. Patient was given IV Zosyn as well. They are updated bedside. Patient was admitted to the hospital following unremarkable chest x-ray with a Hardin in place for longer than 1 week which I do favor is causing urosepsis. Impression & Plan Sepsis, Acute UTI Discharge Plan Visit Data *Final* Discharge Date/Time: 07/16/18 20:16 Chief Complaint: Cardiac Assessment Stated Complaint: RACING HEART RATE ED Provider: Paco Uribe Discharge Problem: Sepsis, Acute UTI Patient Disposition: Admitted As Inpatient Discharge Instructions Interventions: ED Discharge Assessment Last Done: 07/16/18 20:16 The scribe's documentation has been prepared under my direction and personally reviewed by me in its entirety. I confirm that the note above accurately reflects all work, treatment, procedures, and medical decision making performed by me.
[2018-07-16] MEDS: TAMSULOSIN HCL 0.4 MG CAP PO SCH (22:26)
[2018-07-16] MEDS: FERROUS SULFATE 325 MG TAB PO SCH (22:27)
[2018-07-16] MEDS: HEPARIN SOD 5,000 UNIT/0.5 ML VIAL SQ SCH (22:28)
[2018-07-17] MEDS ORDERED: NSS + 20MEQ KCL 20 MEQ/1,000 ML BAG IV ONE (00:25)
[2018-07-17] MEDS ORDERED: NSS + 20MEQ KCL 20 MEQ/1,000 ML BAG IV SCH (02:30)
[2018-07-17 03:09] LABS: Basophils # (auto) 0.01 K/uL (0-0.2); Basophils % (auto) 0.1 %; Eosinophils # (auto) 0.08 K/uL (0-0.5); Eosinophils % (auto) 0.8 %; Hematocrit (blood only) 28.9 % (42-52); Hemoglobin 9.1 g/dL (14.0-18.0); Immature Granulocytes # (auto) 0.04 K/uL (0.00-0.02); Immature Granulocytes % (auto) 0.4 %; Lymphocytes # (auto) 0.52 K/uL (1.2-3.4); Lymphocytes % (auto) 5.3 %; Mean Corpuscular Hgb Conc 31.5 g/dL (32-36); Mean Corpuscular Volume 95.7 fL (80-100); Mean Platelet Volume 10.1 fL (7.4-10.4); Monocytes # (auto) 0.37 K/uL (0.11-0.59); Monocytes % (auto) 3.8 %; Neutrophils # (auto) 8.82 K/uL (1.4-6.5); Neutrophils % (auto) 89.6 %; Platelet Count 264 K/uL (130-400); RDW Standard Deviation 54.1 fL (36.4-46.3); Red Blood Count 3.02 M/uL (4.7-6.1); White Blood Count 9.84 K/uL (4.8-10.8)
[2018-07-17 03:41] LABS: BUN Creatinine Ratio 13.7 (10-20); Calcium 7.2 mg/dl (8.5-10.1); Creatinine Clr Calc Pharmacy 44.7 ml/min; Est GFR (African American) 82.4; Est GFR (Non-African American) 71.1; Magnesium 1.4 mg/dl (1.8-2.4); Phosphorus 3.5 mg/dl (2.5-4.9)
[2018-07-17] MEDS ORDERED: SODIUM CHLORIDE 0.9% 1000ML 1,000 ML IV ONE (04:08)
--- NOTE | 2018-07-17 04:14 | Hospitalist Progress Note ---
Date of Service July 17, 2018 Subjective Made aware by RN of worsening lactic acidosis. AP Sepsis secondary to complicated UTI Ongoing Cefepime Rx for known history of Pseudomonas UTI Worsening lactic acidosis IVF bolus, follow lactic acid Add IV Vancomycin to Cefepime for gram-positive coverage. Physical Exam 2 Vital Signs (Past 24 Hours): Last Vital Signs Temp 37.3 C 07/17/18 04:06 Pulse 120 H 07/17/18 04:06 Resp 18 07/17/18 04:06 BP 132/77 07/17/18 04:06 Pulse Ox 97 07/17/18 04:06
[2018-07-17] MEDS ORDERED: VANCOMYCIN CONSULT ACTIVE PRN (04:17)
[2018-07-17] MEDS ORDERED: VANCOMYCIN HCL 1,000 MG in SODIUM CHLORIDE 0.9% 250 ML IV SCH (04:30)
[2018-07-17] MEDS: MAGNESIUM SULFATE / D5W 1 GM/100 ML BAG IV SCH ×3 (04:53→06:49)
[2018-07-17] MEDS ORDERED: SODIUM CHLORIDE 0.9% 1000ML 1,000 ML IV SCH (05:00)
[2018-07-17] MEDS: HEPARIN SOD 5,000 UNIT/0.5 ML VIAL SQ SCH ×2 (08:04→21:29)
[2018-07-17] MEDS: FERROUS SULFATE 325 MG TAB PO SCH ×2 (08:05→21:29)
[2018-07-17] MEDS: FINASTERIDE 5 MG TAB PO SCH (08:05)
[2018-07-17] MEDS: ASPIRIN 81 MG ECTAB PO SCH (08:05)
[2018-07-17] MEDS: CLOPIDOGREL BISULFATE 75 MG TAB PO SCH (08:05)
[2018-07-17] MEDS: SIMVASTATIN 40 MG TAB PO SCH (08:05)
[2018-07-17] MEDS: SODIUM CHLORIDE 0.9% 1000ML 1,000 ML IV SCH ×3 (08:07→23:50)
--- NOTE | 2018-07-17 10:41 | Pharmacy Report ---
Pharmacy Abx Initial Consult - Date of Service July 17, 2018 - Pharmacy Dosing Scope Date of Consult: 07-17-18 Consultation requested by: Dr. Sheth Pharmacy is consulted to initiate vancomycin IV/PO dosing therapy, order appropriate labs and adjust drug dose/frequency. - Subjective The patient is a 63 year old M admitted on 07/16/18 19:15. - Objective Height: 6 ft Weight: 46 kg Vital Signs (Past 12hrs): Vital Signs Temp Pulse Pulse Resp BP BP Pulse Ox 07/17/18 07:40 36.8 C 84 16 102/61 99 07/17/18 04:06 37.3 C 120 H 18 132/77 97 07/17/18 02:00 36.8 C 07/16/18 23:50 36.4 C L 71 18 105/61 99 Lab Results (24hrs): Laboratory Tests (24 Hours) 07/17/18 07/17/18 07/16/18 02:55 02:55 16:59 WBC 9.84 Neut # (Auto) 8.82 H Creatinine 1.10 1.29 Est Cr Clr Drug Dosing 44.7 Not Reportable 07/16/18 16:59 WBC 12.40 H Neut # (Auto) 11.84 H Creatinine Est Cr Clr Drug Dosing Micro Results: 07/16/18 20:05 Urine Culture - Pending Urine,Clean Catch 07/16/18 16:58 Blood Culture - Pending Blood 07/16/18 16:52 Blood Culture - Pending Blood - Risk Factors for Resistance * History of infection with a multidrug-resistant organism: [Pseudomonas] * Antimicrobial use within the last 90 days [ciprofloxacin] - Assessment & Plan Assessment/Plan: Patient started on cefepime and vancomycin for possible sepsis/UTI. Previously on ciprofloxacin outpatient due to urine culture growing pseudomonas. Blood cultures and urine cultures pending. Vancomycin: * 1000 mg x 1 given this am (~21 mg/kg) * Will start maintenance dosing of vancomycin 750 mg (~16 mg/kg) iv q 18 hrs to achieve an estimated trough ~15 - 20 mcg/ml (goal for UTI/sepsis) * Estimated kinetics: t1/2~15 hrs, ke~0.04 hr-1, CrCl ~44 ml/min * Will plan to obtain trough in next 2-3 days if or sooner if renal function changes Pharmacy will continue to follow and will adjust dose/frequency as necessary. Thank you.
--- NOTE | 2018-07-17 11:56 | Hospitalist Progress Note ---
Date of Service July 17, 2018 Assessment & Plan (1) Sepsis: Meet sepsis criteria on admission Tem p 39.2, HR above 120's, elevated WBC and lactic acid Mostly due to complicated UTI Recently diagnosed Pseudomonas UTI on Cipro as an outpatient Received Vanco and Cefepime in the ER On IV cefepime and Vanco for now Repeat lactic acid and WBC wnl Blood cx and urine cx pending (2) Complicated urinary tract infection: Recent 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 for further evaluation as an outpatient. Has an indwelling Reynolds catheter Recently diagnosed Pseudomonas UTI on Cipro as an outpatient Failed outpatient therapy with cipro Renal Ultrasound on 07/13 showed no hydronephrosis Follow up urine cx (3) Hyponatremia: Noted to have electrolyte abnormality in the past Sodium is 129 on admission Na today 136 Will d/c IVF Continue monitor CBC (4) Peripheral artery disease: History of severe peripheral arterial disease Status post right AKA Status post stent placement in the femoral arteries No acute symptoms Continue aspirin and statin (5) Tachycardia: Due to sepsis EKG on admission showed tachycardia Received IVF and abx Troponin negative on admission Denies any chest pain Resolved H/O bowel ischemia S/P colostomy H/O Tobacco use disorder [employer] S[employer]ze to quit smoking DVT Px: Heparin SQ Code Status DNR Disposition Possible discharge tomorrow Subjective Pt was seen and examined Lying in bed with no distress Pt said that he feels ok He said that he does not want to come back once discharge He said that he does not have any chill or fever today Denies any chest pain, palpitation, dizziness and SOB Physical Exam 2 Vital Signs (Past 24 Hours): Last Vital Signs Temp 36.8 C 07/17/18 07:40 Pulse 84 07/17/18 07:40 Resp 16 07/17/18 07:40 BP 102/61 07/17/18 07:40 Pulse Ox 99 07/17/18 07:40 Physical Exam: General- No acute distress Head- atraumatic Eyes- PERRL, EOMI, ENT- oropharynx clear Neck- supple, no JVD Lungs- clear to auscultation Heart- regular rhythm Abdomen- normal bowel sounds, soft, nontender Extremities- no calf tenderness in LLE, Right AKA Neuro- alert, oriented x 3; PERRL, EOMI Skin- warm & dry _ (1) Sepsis Sepsis type: sepsis due to unspecified organism Qualified Code(s): A41.9 - Sepsis, unspecified organism
[2018-07-17] MEDS ORDERED: CEFEPIME 2,000 MG in SYRINGE 7.5 ML IV SCH (18:00)
[2018-07-17] MEDS: TAMSULOSIN HCL 0.4 MG CAP PO SCH (21:29)
[2018-07-17] MEDS ORDERED: VANCOMYCIN HCL 750 MG in SODIUM CHLORIDE 0.9% 250 ML IV SCH (22:00)
[2018-07-18] MEDS ORDERED: ACETAMINOPHEN 325 MG TAB PO PRN (00:28)
[2018-07-18] MEDS ORDERED: SODIUM CHLORIDE 0.9% 1000ML 1,000 ML IV SCH (00:48)
[2018-07-18 07:28] LABS: Hematocrit (blood only) 22.2 % (42-52); Hemoglobin 6.9 g/dL (14.0-18.0); Mean Corpuscular Hgb Conc 31.1 g/dL (32-36); Mean Corpuscular Volume 95.3 fL (80-100); Mean Platelet Volume 10.1 fL (7.4-10.4); Platelet Count 187 K/uL (130-400); RDW Standard Deviation 55.2 fL (36.4-46.3); Red Blood Count 2.33 M/uL (4.7-6.1)
[2018-07-18 07:48] LABS: BUN Creatinine Ratio 20.7 (10-20); Calcium 6.7 mg/dl (8.5-10.1); Creatinine Clr Calc Pharmacy 62.3 ml/min; Est GFR (African American) 110.8; Est GFR (Non-African American) 95.6; Potassium 3.7 mmol/L (3.5-5.1)
[2018-07-18] MEDS: HEPARIN SOD 5,000 UNIT/0.5 ML VIAL SQ SCH (08:29)
[2018-07-18] MEDS: SIMVASTATIN 40 MG TAB PO SCH (08:34)
[2018-07-18] MEDS: ASPIRIN 81 MG ECTAB PO SCH (08:34)
[2018-07-18] MEDS: FERROUS SULFATE 325 MG TAB PO SCH ×2 (08:34→21:01)
[2018-07-18] MEDS: CLOPIDOGREL BISULFATE 75 MG TAB PO SCH (08:34)
[2018-07-18] MEDS: FINASTERIDE 5 MG TAB PO SCH (08:34)
[2018-07-18 10:44] LABS: Hematocrit (blood only) 24.2 % (42-52); Hemoglobin 7.7 g/dL (14.0-18.0); Mean Corpuscular Volume 93.8 fL (80-100); Mean Platelet Volume 9.4 fL (7.4-10.4); Platelet Count 186 K/uL (130-400); RDW Coefficient of Variation 15.9 % (11.5-14.5); Red Blood Count 2.58 M/uL (4.7-6.1); White Blood Count 6.05 K/uL (4.8-10.8)
[2018-07-18 10:45] LABS: Reticulocytes # 0.05 10^6/uL (0.02-0.10)
[2018-07-18 10:46] LABS: Mean Corpuscular Hgb Conc 31.8 g/dL (32-36)
[2018-07-18 11:06] LABS: Ferritin 784.5 ng/ml (8-388); Magnesium 1.9 mg/dl (1.8-2.4)
[2018-07-18 11:23] LABS: Basophils # (auto) 0.01 K/uL (0-0.2); Basophils % (auto) 0.2 %; Eosinophils # (auto) 0.15 K/uL (0-0.5); Eosinophils % (auto) 2.5 %; Immature Granulocytes # (auto) 0.02 K/uL (0.00-0.02); Immature Granulocytes % (auto) 0.3 %; Lymphocytes # (auto) 0.49 K/uL (1.2-3.4); Lymphocytes % (auto) 8.1 %; Monocytes # (auto) 0.38 K/uL (0.11-0.59); Monocytes % (auto) 6.3 %; Neutrophils % (auto) 82.6 %
--- NOTE | 2018-07-18 16:55 | Hospitalist Progress Note ---
Date of Service July 18, 2018 Assessment & Plan (1) Sepsis: on admission patient met sepsis criteria on admission Tem p 39.2, HR above 120's, elevated WBC and lactic acid and this has been attributed to complicated urinary tract infection (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, has indwelling hardin catheter , previous to this hospitalization found to have Pseudomonas urinary tract infection on had been on ciprofloxacin as outpatient) on this admission, patient was on Vancomycin and Cefepime since this ED presentation Because admission cultures have been negative to date, patient has been transitioned from Vancomycin and Cefepime to oral ciprofloxacin as of 07/18/18 will continue to observe as inpatient while on oral antibiotics (2) Complicated urinary tract infection: as above (3) Hyponatremia: Noted to have electrolyte abnormality in the past Sodium is 129 on admission Hyponatremia has resolved Anemia may be secondary to hemodilution from IV fluids during this hospital stay Hemoglobin measured as 6.9 on AM of 07/18/18 but without intervention, it was 7.7 on repeat on 07/18/18 Fecal occult blood from colostomy negative for occult blood History of bowel ischemia in the past has colostomy and colostomy bag (4) Peripheral artery disease: History of severe peripheral arterial disease History of right leg amputation History of stent placement in the femoral arteries Continue aspirin and statin (5) Tachycardia: Due to sepsis EKG on admission showed tachycardia Received IVF and abx Troponin negative on admission Denies any chest pain tachycardia had Resolved currently normal heart rate H/O Tobacco use disorder Counseled to quit smoking DVT Px: SCD and DANYELL hose Code Status: DNR Aleena [phone] at bedside Subjective Patient had febrile temperaure of 39 Celsius (102.2 F) Today He feels warm subjectively but at bedside the measured temperature of 37.2 Celsius which does not meet criteria for fever Patient denies acute pain. denies shortness of breath. denies chest pain. Hgb did decline today compared to yesterday but no blood from orifices. Patient allowed hospitalist to discuss his health with his Aleena at bedside Physical Exam 2 Vital Signs (Past 24 Hours): Last Vital Signs Temp 36.9 C 07/18/18 15:59 Pulse 88 07/18/18 15:59 Resp 18 07/18/18 15:59 BP 164/72 H 07/18/18 15:59 Pulse Ox 98 07/18/18 15:59 Constitutional: WD/WN, vitals as above Eyes: PERRL, conjunctivae normal, anicteric sclerae ENMT: external ear and nose normal, oropharynx normal Neck: normal visual inspection Respiratory: normal respiratory effort, lungs clear to auscultation Cardiovascular: RRR, no murmur, no edema Musculoskeletal: Head/Neck/Chest: normocephalic and head atraumatic right leg amputee Neurologic: PERRL, EOMI, accommodation nl, no face palsy, no dysarthria CN' s II-XI intact bilaterally Psychiatric: Orientation: alert and oriented x 3 Genitourinary: hardin _ (1) Sepsis Sepsis type: sepsis due to unspecified organism Qualified Code(s): A41.9 - Sepsis, unspecified organism
[2018-07-18] MEDS: CIPROFLOXACIN 500 MG TAB PO SCH (21:01)
[2018-07-18] MEDS: TAMSULOSIN HCL 0.4 MG CAP PO SCH (21:01)
[2018-07-19 06:02] LABS: Hemoglobin 7.2 g/dL (14.0-18.0); Mean Corpuscular Hgb Conc 31.3 g/dL (32-36); Mean Corpuscular Volume 93.1 fL (80-100); Mean Platelet Volume 10.2 fL (7.4-10.4); Platelet Count 194 K/uL (130-400); RDW Coefficient of Variation 15.8 % (11.5-14.5); RDW Standard Deviation 53.2 fL (36.4-46.3); Red Blood Count 2.47 M/uL (4.7-6.1); White Blood Count 6.96 K/uL (4.8-10.8)
[2018-07-19 06:19] LABS: Basophils # (auto) 0.01 K/uL (0-0.2); Basophils % (auto) 0.1 %; Eosinophils # (auto) 0.18 K/uL (0-0.5); Eosinophils % (auto) 2.6 %; Immature Granulocytes # (auto) 0.02 K/uL (0.00-0.02); Immature Granulocytes % (auto) 0.3 %; Lymphocytes % (auto) 10.1 %; Monocytes # (auto) 0.43 K/uL (0.11-0.59); Monocytes % (auto) 6.2 %; Neutrophils # (auto) 5.62 K/uL (1.4-6.5); Neutrophils % (auto) 80.7 %
[2018-07-19 06:42] LABS: Albumin Level 1.1 gm/dl (3.4-5.0); BUN Creatinine Ratio 20.6 (10-20); Calcium 6.7 mg/dl (8.5-10.1); Creatinine Clr Calc Pharmacy 64.7 ml/min; Est GFR (African American) 112.5; Est GFR (Non-African American) 97.1; Potassium 3.7 mmol/L (3.5-5.1)
[2018-07-19 06:45] LABS: Albumin Globulin Ratio 0.3 (0.9-2); Bilirubin,Total 0.2 mg/dl (0.2-1); Globulin 4.1 gm/dl (2.5-4.0); Total Protein 5.2 gm/dl (6.4-8.2)
[2018-07-19] MEDS: CLOPIDOGREL BISULFATE 75 MG TAB PO SCH (08:33)
[2018-07-19] MEDS: FERROUS SULFATE 325 MG TAB PO SCH ×2 (08:33→21:11)
[2018-07-19] MEDS: ASPIRIN 81 MG ECTAB PO SCH (08:33)
[2018-07-19] MEDS: SIMVASTATIN 40 MG TAB PO SCH (08:33)
[2018-07-19] MEDS: FINASTERIDE 5 MG TAB PO SCH (08:33)
[2018-07-19] MEDS: CIPROFLOXACIN 500 MG TAB PO SCH (08:33)
[2018-07-19] MEDS ORDERED: SODIUM CHLORIDE 0.9% 250 ML IV PRN (10:42)
[2018-07-19 11:29] LABS: Cdiff Antigen Positive; Cdiff Toxin A+B Negative (Negative)
[2018-07-19] MEDS: VANCOMYCIN HCL 125 MG/2.5ML SOLN PO SCH ×3 (11:40→23:25)
[2018-07-19] MEDS: RASPBERRY SYRUP 5 ML UDP PO SCH ×3 (11:40→23:25)
--- NOTE | 2018-07-19 15:02 | Hospitalist Progress Note ---
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, has indwelling hardin catheter , previous to this hospitalization found to have Pseudomonas urinary tract infection on had been on ciprofloxacin as outpatient) on this admission, patient was on Vancomycin and Cefepime since this ED presentation Because admission cultures have been negative to date as of 07/18/18 , patient was transitioned from Vancomycin and Cefepime to oral ciprofloxacin as of 07/18/18 initially thought that patient may have complicated urinary tract infection from chronic indwelling hardin catheter however patient found to have Stool sample positive for C.difficile Toxin and it is possible, that patient may be having C.difficile colitis as source of the fever oral Ciprofloxacin discontinued as of 07/19/18 and instead start Vancomycin 125 mg PO q6 hours for C.difficile colitis (2) Complicated urinary tract infection: as above (3) Hyponatremia: Noted to have electrolyte abnormality in the past Sodium is 129 on admission Hyponatremia has resolved Anemia may be secondary to hemodilution from IV fluids during this hospital stay Hemoglobin measured as 6.9 on AM of 07/18/18 but without intervention, it was 7.7 on repeat on 07/18/18 Fecal occult blood from colostomy negative for occult blood on 07/18/18 and 07/19/18 iron studies suggestive that patient has anemia of chronic disease but because hemoglobin continues to be low as 7.2 on 07/19/18, will give patient 1 unit PRBC on 07/19/18 History of bowel ischemia in the past has colostomy and colostomy bag (4) Peripheral artery disease: History of severe peripheral arterial disease History of right leg amputation History of stent placement in the femoral arteries Continue aspirin and statin (5) Tachycardia: Due to sepsis EKG on admission showed tachycardia Received IVF and abx Troponin negative on admission Denies any chest pain tachycardia had Resolved currently normal heart rate H/O Tobacco use disorder Counseled to quit smoking DVT Px: SCD and DANYELL hose Code Status: DNR Aleena [phone] Disposition: will continue to monitor patient as inpatient for fever and will also repeat CBC tomorrow after blood transfusion Subjective Patient's Hemoglobin 7.2 today. 2nd FOBT test negative Stool sample positive for C.difficile Toxin Patient denies gross bleeding Patient denies abdominal pain. denies chest pain. denies shortness of breath. denies vomiting Has been afebrile since night of 07/17/18 Physical Exam 2 Vital Signs (Past 24 Hours): Last Vital Signs Temp 36.9 C 07/19/18 14:30 Pulse 77 07/19/18 14:30 Resp 18 07/19/18 14:30 BP 135/76 07/19/18 14:30 Pulse Ox 98 07/19/18 13:35 Constitutional: WD/WN, vitals as above Eyes: PERRL, conjunctivae normal, anicteric sclerae ENMT: external ear and nose normal, oropharynx normal Neck: normal visual inspection Respiratory: normal respiratory effort, lungs clear to auscultation Cardiovascular: RRR, no murmur, no edema Musculoskeletal: Head/Neck/Chest: normocephalic and head atraumatic Neurologic: PERRL, EOMI, accommodation nl, no face palsy, no dysarthria CN' s II-XI intact bilaterally Psychiatric: Orientation: alert and oriented x 3 _ (1) Sepsis Sepsis type: sepsis due to unspecified organism Qualified Code(s): A41.9 - Sepsis, unspecified organism
[2018-07-19] MEDS: TAMSULOSIN HCL 0.4 MG CAP PO SCH (21:11)
[2018-07-20] MEDS: RASPBERRY SYRUP 5 ML UDP PO SCH ×2 (05:32→11:56)
[2018-07-20] MEDS: VANCOMYCIN HCL 125 MG/2.5ML SOLN PO SCH ×2 (05:33→11:56)
[2018-07-20 07:08] LABS: Hematocrit (blood only) 24.8 % (42-52); Hemoglobin 8.1 g/dL (14.0-18.0); Mean Corpuscular Volume 91.5 fL (80-100); Mean Platelet Volume 10.1 fL (7.4-10.4); Platelet Count 194 K/uL (130-400); Red Blood Count 2.71 M/uL (4.7-6.1); White Blood Count 7.46 K/uL (4.8-10.8)
[2018-07-20 07:15] LABS: Mean Corpuscular Hgb Conc 32.7 g/dL (32-36)
[2018-07-20 07:38] LABS: Basophils # (auto) 0.01 K/uL (0-0.2); Basophils % (auto) 0.1 %; Eosinophils # (auto) 0.15 K/uL (0-0.5); Immature Granulocytes # (auto) 0.03 K/uL (0.00-0.02); Immature Granulocytes % (auto) 0.4 %; Lymphocytes % (auto) 10.7 %; Monocytes # (auto) 0.57 K/uL (0.11-0.59); Monocytes % (auto) 7.6 %; Neutrophils % (auto) 79.2 %
[2018-07-20 07:46] LABS: BUN Creatinine Ratio 21.7 (10-20); Calcium 6.8 mg/dl (8.5-10.1); Creatinine Clr Calc Pharmacy 63.1 ml/min; Est GFR (African American) 111.3; Est GFR (Non-African American) 96.1; Magnesium 1.7 mg/dl (1.8-2.4); Potassium 3.6 mmol/L (3.5-5.1)
[2018-07-20] MEDS: SIMVASTATIN 40 MG TAB PO SCH (08:27)
[2018-07-20] MEDS: ASPIRIN 81 MG ECTAB PO SCH (08:28)
[2018-07-20] MEDS: FINASTERIDE 5 MG TAB PO SCH (08:28)
[2018-07-20] MEDS: FERROUS SULFATE 325 MG TAB PO SCH (08:28)
[2018-07-20] MEDS: CLOPIDOGREL BISULFATE 75 MG TAB PO SCH (08:28)
[2018-07-20] MEDS ORDERED: MAGNESIUM OXIDE 400 MG TAB PO SCH (10:00)
[2018-07-20] MEDS: MAGNESIUM SULFATE / D5W 1 GM/100 ML BAG IV SCH ×2 (10:48→11:55)
--- NOTE | 2018-07-20 16:34 | Hospitalist Progress Note ---
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, has indwelling hardin catheter , previous to this hospitalization found to have Pseudomonas urinary tract infection on had been on ciprofloxacin as outpatient) on this admission, patient was on Vancomycin and Cefepime since this ED presentation Because admission cultures have been negative to date as of 07/18/18 , patient was transitioned from Vancomycin and Cefepime to oral ciprofloxacin as of 07/18/18 initially thought that patient may have complicated urinary tract infection from chronic indwelling hardin catheter however patient found to have Stool sample positive for C.difficile Toxin and it is possible, that patient may be having C.difficile colitis as source of the fever oral Ciprofloxacin discontinued as of 07/19/18 and instead start Vancomycin 125 mg PO q6 hours for C.difficile colitis continue PO Vancomycin as outpatient (2) Complicated urinary tract infection: as above oral Ciprofloxacin discontinued as of 07/19/18 and instead start Vancomycin 125 mg PO q6 hours for C.difficile colitis recommend no further Ciprofloxacin at this time patient had trial of void with hardin removed on 07/20/18 upon removal of hardin, nurse reported some blood seen that was not in hardin bag patient insisted he needed to have some measures to prevent from wetting himself given his relative immobility to get to commode discharge with hardin catheter patient instructed to make appointment with [facility] - Urology (Address: [address] [place] [address], [place] [address] ) in case of further problems with urine retention Anemia may be secondary to hemodilution from IV fluids during this hospital stay Hemoglobin measured as 6.9 on AM of 07/18/18 but without intervention, it was 7.7 on repeat on 07/18/18 Fecal occult blood from colostomy negative for occult blood on 07/18/18 and 07/19/18 iron studies suggestive that patient has anemia of chronic disease because hemoglobin continues to be low as 7.2 on 07/19/18, patient received 1 unit PRBC on 07/19/18 Hgb as 8.1 History of bowel ischemia in the past has colostomy and colostomy bag (3) Hyponatremia: Noted to have electrolyte abnormality in the past Sodium is 129 on admission Hyponatremia has resolved Hypomagnesemia serum magnesium 1.7 on 07/20/18 and given IV and oral supplements Discharge prescription made for oral magnesium supplements (4) Peripheral artery disease: History of severe peripheral arterial disease History of right leg amputation History of stent placement in the femoral arteries Continue aspirin and statin (5) Tachycardia: Due to sepsis EKG on admission showed tachycardia Received IVF and abx Troponin negative on admission Denies any chest pain tachycardia had Resolved currently normal heart rate H/O Tobacco use disorder Counseled to quit smoking DVT Px: SCD and DANYELL hose Code Status: DNR Aleena [phone] Main Discharge Diagnosis Sepsis, possible urinary tract infection, C.difficile colitis, anemia, Hypomagnesemia Discharge Instructions Patient is discharged with prescription for oral Vancomycin to treat C.difficile Patient is discharged with prescription for magnesium supplements Patient is discharged with condom cath Follow up appointments please make appointment with [facility] Address: [address] [place] [address] , [place] [address] 07/26/2018 11 AM Provider Alfred Al DO Department General Internal Medicine [facility] 07/31/2018 4:00 PM Provider Alfred Al DO Department General Internal Medicine [facility] Subjective Has been afebrile since night of 07/17/18 patient had trial of void with hardin removed on 07/20/18 upon removal of hardin, nurse reported some blood seen that was not in hardin bag patient insisted he needed to have some measures to prevent from wetting himself given his relative immobility to get to commode discharge with hardin catheter patient instructed to make appointment with [facility] (Address: [address] [place] [address] , [place] [address] ) in case of further problems with urine retention Patient's at bedside and while she listened to the follow up plans, she demonstrated some animosity to physician. She did not seem to agree that patient had exposure to C.difficile but she was explained the reasons for considering C.difficile infection and that patient had no fever as of this time while on oral Vancomycin and that blood and urine cultures are negative. Physician discussed with patient and about follow up plans with urology and primary care but it is unclear whether patient and his will participate in the follow ups Physical Exam 2 Vital Signs (Past 24 Hours): Last Vital Signs Temp 36.7 C 07/20/18 16:05 Pulse 120 H 07/20/18 16:05 Resp 18 07/20/18 16:05 BP 105/61 07/20/18 16:05 Pulse Ox 98 07/20/18 16:05 Constitutional: WD/WN, vitals as above Eyes: PERRL, conjunctivae normal, anicteric sclerae ENMT: external ear and nose normal, oropharynx normal Neck: normal visual inspection Respiratory: normal respiratory effort, lungs clear to auscultation Cardiovascular: RRR, no murmur, no edema Musculoskeletal: Head/Neck/Chest: normocephalic and head atraumatic Neurologic: PERRL, EOMI, accommodation nl, no face palsy, no dysarthria CN' s II-XI intact bilaterally Psychiatric: Orientation: alert and oriented x 3 _ (1) Sepsis Sepsis type: sepsis due to unspecified organism Qualified Code(s): A41.9 - Sepsis, unspecified organism
--- NOTE | 2018-07-20 16:52 | Discharge Summary ---
Date of Service July 20, 2018 Admission HPI Per Admitting Provider He is a 63-year-old male with past medical history significant for hyperlipidemia, peripheral artery disease, lower limb ischemia status post right AKA, history of bowel ischemia status postcolostomy, iron deficiency anemia, hypertension, tobacco use disorder,presents with recent admission to the hospital for AK I secondary to obstructive uropathy secondary to bladder wall abnormalities. He was noted to have Pseudomonas UTI and was sent home on of this month on oral Cipro. He has been feeling a lot better since discharge from the hospital and went for a regular checkup with his primary care provider today. He has been complaining of feeling of feverish since last night and noted to have a temperature of 102 F with a tachycardia of [address]-T wave changes and he was sent to ER for further evaluation. He denies any complaints of chest pain, palpitation, shortness of breath, any abdominal pain nausea and/or vomiting. He has noted to have tachycardia in the emergency room and the EKG showed sinus rhythm with a rate of [address]-T wave changes. He was noted to have high temperature of 39 degrees and his lactate was elevated to 3.0 with a white count minimally elevated. He did not have any urinary symptoms. He has started with intravenous cefepime,cultures were sent and was admitted to medical floor for continuation of care. Admission Exam Per Admitting Provider Physical Exam: Lying in bed comfortably Constitutional: WD/WN, vitals as above Eyes: PERRL, conjunctivae normal, anicteric sclerae ENMT: external ear and nose normal, oropharynx normal Respiratory: normal respiratory effort, lungs clear to auscultation Cardiovascular: Rate/Rhythm: regular rhythm and + tachycardic Heart Sounds : normal S1 and normal S2 Gastrointestinal (Abdomen): Inspection/Auscultation: abdomen normal to inspection and normal bowel sounds No tenderness in renal angles Neurologic: Alert, awake and oriented x3. Has right-sided AKA. Generally weak without any focal neuro deficit. Principal Diagnosis Sepsis, possible urinary tract infection, C.difficile colitis, anemia, Hypomagnesemia Discharge Exam Constitutional WD/WN, vitals as above Eyes PERRL, conjunctivae normal, anicteric sclerae ENMT external ear and nose normal, oropharynx normal Neck normal visual inspection Respiratory normal respiratory effort, lungs clear to auscultation Cardiovascular RRR, no murmur, no edema Musculoskeletal Head/Neck/Chest: normocephalic and head atraumatic Neurologic PERRL, EOMI, accommodation nl, no face palsy, no dysarthria CN's II-XI intact bilaterally Psychiatric Orientation: alert and oriented x 3 Discharge Data Allergies Allergy/AdvReac Type Severity Reaction Status Date / Time piperacillin Allergy Unknown Unverified 07/10/18 17:40 Consultations 07/16/18 18:32 ED Decision to Admit Stat Hospital Course (1) Sepsis: on admission patient met sepsis criteria on admission Tem p 39.2, HR above 120's, elevated WBC and lactic acid and this has been attributed to complicated urinary tract infection (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, has indwelling hardin catheter , previous to this hospitalization found to have Pseudomonas urinary tract infection on had been on ciprofloxacin as outpatient) on this admission, patient was on Vancomycin and Cefepime since this ED presentation Because admission cultures have been negative to date as of 07/18/18 , patient was transitioned from Vancomycin and Cefepime to oral ciprofloxacin as of 07/18/18 initially thought that patient may have complicated urinary tract infection from chronic indwelling hardin catheter however patient found to have Stool sample positive for C.difficile Toxin and it is possible, that patient may be having C.difficile colitis as source of the fever oral Ciprofloxacin discontinued as of 07/19/18 and instead start Vancomycin 125 mg PO q6 hours for C.difficile colitis continue PO Vancomycin as outpatient (2) Complicated urinary tract infection: as above oral Ciprofloxacin discontinued as of 07/19/18 and instead start Vancomycin 125 mg PO q6 hours for C.difficile colitis recommend no further Ciprofloxacin at this time patient had trial of void with hardin removed on 07/20/18 upon removal of hardin, nurse reported some blood seen that was not in hardin bag patient insisted he needed to have some measures to prevent from wetting himself given his relative immobility to get to commode discharge with hardin catheter patient instructed to make appointment with [facility] - Urology (Address: [address] [place] [address] , [place] [address] ) in case of further problems with urine retention Anemia may be secondary to hemodilution from IV fluids during this hospital stay Hemoglobin measured as 6.9 on AM of 07/18/18 but without intervention, it was 7.7 on repeat on 07/18/18 Fecal occult blood from colostomy negative for occult blood on 07/18/18 and 07/19/18 iron studies suggestive that patient has anemia of chronic disease because hemoglobin continues to be low as 7.2 on 07/19/18, patient received 1 unit PRBC on 07/19/18 Hgb as 8.1 History of bowel ischemia in the past has colostomy and colostomy bag (3) Hyponatremia: Noted to have electrolyte abnormality in the past Sodium is 129 on admission Hyponatremia has resolved Hypomagnesemia serum magnesium 1.7 on 07/20/18 and given IV and oral supplements Discharge prescription made for oral magnesium supplements (4) Peripheral artery disease: History of severe peripheral arterial disease History of right leg amputation History of stent placement in the femoral arteries Continue aspirin and statin (5) Tachycardia: Due to sepsis EKG on admission showed tachycardia Received IVF and abx Troponin negative on admission Denies any chest pain tachycardia had Resolved currently normal heart rate H/O Tobacco use disorder Counseled to quit smoking DVT Px: SCD and DANYELL hose Code Status: DNR Aleena [phone] Main Discharge Diagnosis Sepsis, possible urinary tract infection, C.difficile colitis, anemia, Hypomagnesemia Discharge Instructions Patient is discharged with prescription for oral Vancomycin to treat C.difficile Patient is discharged with prescription for magnesium supplements Patient is discharged with condom cath Follow up appointments please make appointment with [facility] Address: [address] [place] [address], [place], [place] [address] 07/26/2018 11 AM Provider Alfred Al DO Department General Internal Medicine [facility] 07/31/2018 4:00 PM Provider Alfred Al DO Department General Internal Medicine [facility] Total Time Total Time Spent Total Time Spent (In Minutes): 40 minutes Total Time Includes: Examination of the Patient, Discharge Planning and Medication Reconciliation Discharge Plan Discharge Items Patient Disposition: Home - Self-Care Reason For Visit: COMPLICATED UTI Discharge Diagnosis: Sepsis, possible urinary tract infection, C.difficile colitis, anemia, Hypomagnesemia Condition: Good Discharge Goals: Improve disease control Activity: Resume your previous activity Non-emergency contact: Primary Care Provider Call non-emergency contact if: you have any medication questions Diet: Regular Addtl Provider Instructions: Discharge Instructions Patient is discharged with prescription for oral Vancomycin to treat C.difficile Patient is discharged with prescription for magnesium supplements Patient is discharged with condom cath Follow up appointments please make appointment with [facility]rology Address: [address] [place] [address] Dr [place], [place] [address] 07/26/2018 11 AM Provider Alfred Al DO Department General Internal Medicine [facility] 07/31/2018 4:00 PM Provider Alfred Al DO Department General Internal Medicine [facility] Prescriptions: New magnesium oxide 400 mg magnesium tablet 400 mg PO DAILY 5 Days Qty: 5 RF: 0 vancomycin 125 mg capsule 125 mg PO Q6H 8 Days Qty: 32 RF: 0 Continue clopidogrel [Plavix] 75 mg Tablet 75 mg PO DAILY RF: 0 aspirin 81 mg Tablet,Delayed Release (Dr/Ec) 81 mg PO DAILY RF: 0 simvastatin 40 mg Tablet 40 mg PO DAILY RF: 0 ferrous sulfate [iron] 325 mg (65 mg iron) Tablet 325 mg PO BID RF: 0 tamsulosin 0.4 mg Capsule 0.4 mg PO HS 30 Days Qty: 30 RF: 1 finasteride [Proscar] 5 mg Tablet 5 mg PO QAM 30 Days Qty: 30 RF: 1 Discontinued ciprofloxacin HCl 500 mg Tablet 500 mg PO BID 10 Days Qty: 20 RF: 0 Stand-Alone Forms: My [facility] Discharge Orders: Discharge Order (Routine); Ordered 07/20/18 Ordered By: Milton Huitron Admission Data Admit Date/Time: 07/18/18 16:56 Attending Provider: Milton Huitron Admit Provider: Odalis Parikh Primary Care Provider: Alfred Al Other Providers: Odalis Parikh Service: Medical Other Interventions: Discharge Summary Assessment (RN) Last Done: 07/20/18 16:05 DC Date/Time DO NOT enter until pt leaves facility: 07/20/18 16:22
== END 2018-07-20 16:22 | disposition home or self-care (01) | DRG 872 ==
LOC: 4W 16:20 → ED 16:20 → SUATTDRO 19:15 → 4W 20:16

== ENCOUNTER 2018-07-21 11:39 | Inpatient (IN) ==
[2018-07-21 13:02] LABS: Hematocrit (blood only) 24.2 % (42-52); Hemoglobin 7.7 g/dL (14.0-18.0); Mean Corpuscular Hgb Conc 31.8 g/dL (32-36); Mean Corpuscular Volume 91.7 fL (80-100); Mean Platelet Volume 10.1 fL (7.4-10.4); Platelet Count 232 K/uL (130-400); RDW Coefficient of Variation 15.7 % (11.5-14.5); RDW Standard Deviation 52.1 fL (36.4-46.3); Red Blood Count 2.64 M/uL (4.7-6.1); White Blood Count 8.71 K/uL (4.8-10.8)
--- NOTE | 2018-07-21 13:10 | Emergency Department Note ---
Entered by Frances Maguire acting as a scribe for Vikas Meier DO History of Present Illness General Chief complaint: Syncope Stated complaint: BLEEDING, PASSED OUT Source: patient and family () Mode of arrival: ambulatory Limitations: no limitations History of Present Illness Provider complaint: Syncope Onset (ago): hour(s) (this morning) Location: head Radiation: non-radiation Pain Consistency: + other (episode) Maximum Pain Intensity: 5 Quality: + other (syncope) Associated symptoms: + headaches and + other (Additional symptoms: resolved nose bleed, hematuria, scrotal swelling. Denies: neck pain) Treatments prior to arrival: none The patient is a 63 year old male with a history of hypertension, a DVT, an ostomy, an enlarged prostate, and a right leg amputation secondary to peripheral artery disease who presents to the Emergency Room with complaints of an episode of syncope occurring this morning. The patient reports that he was outside on his patio when he passed out and fell forward off of his wheelchair. He states that he hit the front of his head but was able to get up after he regained consciousness to call a neighbor for help. He notes that he developed a headache and now-resolved nose bleed after his fall but no neck pain. He adds that he felt well this morning, and he denies ever passing out before. He expresses belief that his episode of syncope today was related to his urinary symptoms. The patient reports that he was discharged from the hospital yesterday with a complicated UTI. He notes that he received a blood fusion during his admission. He states that he was placed on a catheter upon discharge and has since been experiencing hematuria, which the doctor claimed was due to irritation. His notes that she does not believe irritation is the cause of the hematuria because the hematuria has not yet resolved. Per , the patient has no preexisting bladder issues and has not had a scope performed by urology yet because the patient must be an outpatient to do so. She adds that the patient was admitted to the hospital on July 13 for abdominal pain. The patient further complains of scrotal swelling. Per , the patient is currently on Plavix and baby aspirin. His tetanus shot reportedly is up to date. The patient and his vocalize their preference to go to [facility] for further management because they are unsatisfied with the care they have previously received at [facility]. Home Medications Home Medications Medication Instructions Recorded Confirmed Type aspirin 81 mg PO DAILY 07/10/18 07/21/18 History clopidogrel [Plavix] 75 mg PO DAILY 07/10/18 07/21/18 History ferrous sulfate [iron] 325 mg PO BID 07/10/18 07/21/18 History simvastatin 40 mg PO DAILY 07/10/18 07/21/18 History finasteride [Proscar] 5 mg PO QAM 30 Days #30 tab 07/13/18 07/21/18 Rx tamsulosin 0.4 mg PO HS 30 Days #30 cap 07/13/18 07/21/18 Rx magnesium oxide 400 mg PO DAILY 5 Days #5 tab 07/20/18 07/21/18 Rx vancomycin 125 mg PO Q6H 8 Days #32 cap 07/20/18 07/21/18 Rx Allergies Allergy/AdvReac Type Severity Reaction Status Date / Time piperacillin Allergy Unknown Unverified 07/21/18 12:42 Past Med/Surg History Medical History Enlarged prostate Acute UTI (Acute) Hydronephrosis of left kidney Uropathy, obstructive (Acute) Acute renal failure (Acute) Pyelonephritis (Acute) Peripheral artery disease Hypertension (Chronic) DVT (deep venous thrombosis) Medical non-compliance (Resolved) Perforated bowel Surgical History Amputated right leg Social History marital status: Current Living Situation: Spouse current occupational status: retired Other Information That Helps Us Care for You: No Feels Safe at Home: Yes Safety Concerns: Feels Safe At This Time Smoking Status: Former smoker Hx Alcohol Use: No Hx Substance Use: No Beliefs That Will Affect Care: None Preferred Language: Ukrainian Communication Ability: Effective Corrections Caseworker Required: No Review of Systems See HPI for pertinent positives & negatives. and A total of 10 systems reviewed and were otherwise negative Physical Exam Vital Signs Vital Signs - 24 hr 07/21/18 11:41 07/21/18 13:04 07/21/18 14:42 Temperature 36.4 C L Temperature Source Oral Sepsis Recent Fever Within 48 Hours No Sepsis New/Unexplained Change in Mental Status No Sepsis Action Taken by Nursing No Action Required Pulse Rate 111 H 82 Pulse Rate [Apical] 71 Pulse Rhythm Regular Pulse Rhythm [Apical] Regular Pulse Strength [Apical] Respiratory Rate 20 20 18 Respiratory Effort / Characteristics Non-Labored Spontaneous Respiratory Depth Normal Normal Respiratory Pattern Blood Pressure 126/72 Blood Pressure [Right Arm] 128/69 Blood Pressure Mean 90 Blood Pressure Mean [Right Arm] 88 Pulse Oximetry 100 100 99 Oxygen Delivery Method Room Air Room Air Room Air 07/21/18 15:00 07/21/18 15:30 07/21/18 16:00 Temperature Temperature Source Sepsis Recent Fever Within 48 Hours Sepsis New/Unexplained Change in Mental Status Sepsis Action Taken by Nursing Pulse Rate 75 76 Pulse Rate [Apical] 75 Pulse Rhythm Pulse Rhythm [Apical] Pulse Strength [Apical] Respiratory Rate 18 17 18 Respiratory Effort / Characteristics Respiratory Depth Respiratory Pattern Blood Pressure 125/72 138/80 Blood Pressure [Right Arm] 142/73 H Blood Pressure Mean 89 99 Blood Pressure Mean [Right Arm] 96 Pulse Oximetry 99 99 98 Oxygen Delivery Method Room Air 07/21/18 17:32 07/21/18 18:20 07/21/18 18:34 Temperature 36.4 C L Temperature Source Oral Sepsis Recent Fever Within 48 Hours Sepsis New/Unexplained Change in Mental Status Sepsis Action Taken by Nursing Pulse Rate 76 82 Pulse Rate [Apical] 75 Pulse Rhythm Pulse Rhythm [Apical] Regular Pulse Strength [Apical] Normal Respiratory Rate 20 20 Respiratory Effort / Characteristics Non-Labored Respiratory Depth Normal Respiratory Pattern Regular Blood Pressure 138/79 Blood Pressure [Right Arm] 121/75 Blood Pressure Mean Blood Pressure Mean [Right Arm] 90 Pulse Oximetry 98 95 Oxygen Delivery Method Room Air Room Air GENERAL: Patient is awake and alert. He is somewhat anxious appearing and appears to be uncomfortable. EYES: The conjunctivae are clear. The pupils are round and reactive. EARS, NOSE, MOUTH AND THROAT: There is ecchymosis and swelling noted over the forehead. There is no abrasion noted to the left side of the face. There is tenderness over the bridge of the nose. There is clotted blood in both nares but no active bleeding. No septal hematoma was noted. NECK: The neck is nontender and supple. RESPIRATORY: Normal respiratory effort is noted there is no evidence of wheezing rhonchi or rales CARDIOVASCULAR: Regular rate and rhythm noted there no murmurs rubs or gallops normal S1 normal S2 GASTROINTESTINAL: The abdomen is mildly distended. There is diffuse tenderness to palpation but no guarding or rigidity. MUSCULOSKELETAL/EXTREMITIES: There is tenderness to palpation over the left shoulder. Range of motion appears intact. Right [id number] amputation was noted. SKIN: There is no obvious evidence of any rash. Left-sided pedal edema was noted. Multiple skin tears were noted over both upper extremities. NEUROLOGIC: Patient is awake alert and oriented x3. Course 1220: At this time the patient was evaluated by the medical student, Bree Ann. The student's findings were discussed with me. We discussed a possible treatment plan and differential diagnoses for the patient. 1235: Past medical records reviewed. The patient was evaluated in room B8, and a complete history and physical examination were performed. 1459: I reviewed the patient's case with Dr. Pat - Millie Valencia. Dr. Pat will evaluate the patient for further management. Consultations Consultation #1: I reviewed the patient's case with Dr. Pat - Millie Valencia. Dr. Pat will evaluate the patient for further management. Time: 14:59 Administered Medications Acetaminophen (Tylenol) 650 mg PO Q4H PRN PRN Reason: Pain or Fever Stop: 08/20/18 16:09 Last Admin: 07/21/18 17:02 Dose: 650 mg Parenteral Electrolytes (Normosol-R) 1,000 mls @ 80 mls/hr IV .[id number] JOSEPH Stop: 08/20/18 16:59 Last Admin: 07/21/18 18:20 Dose: 80 mls/hr Ioversol (Optiray 320 100ml) 94 ml IV ONCE PRN PRN Reason: Interaction Checking Stop: 07/25/18 17:37 Last Admin: 07/21/18 17:38 Dose: 94 ml Medical Decision Making Differential Diagnosis Differential diagnosis: Etiologies such as vasovagal event, infection, anemia, hypoglycemia, hypovolemia , electrolyte abnormalities, dysrhythmias, cardiac ischemia, cardiac tamponade, valvular heart disease, structural heart disease, seizure, vascular stenosis/ dissection, pulmonary embolism, intracerebral event, toxicological process, neurologic event, as well as others were entertained. Medical Records Attestation: I reviewed the patient's medical records. Home Medications Current Medication List: was personally reviewed by me Laboratory Data Attestation: I reviewed the patient's lab results. Result diagrams: 07/21/18 12:20 07/21/18 12:20 Lab Results 07/21/18 07/21/18 07/21/18 Range/Units 12:20 12:20 12:20 WBC 8.71 (4.8-10.8) K/uL RBC 2.64 L (4.7-6.1) M/uL Hgb 7.7 L (14.0-18.0) g/dL Hct 24.2 L (42-52) % MCV 91.7 (80-100) fL MCH 29.2 (25-34) pg MCHC 31.8 L (32-36) g/dL RDW Std Deviation 52.1 H (36.4-46.3) fL RDW Coeff of [place] 15.7 H (11.5-14.5) % Plt Count 232 (130-400) K/uL MPV 10.1 (7.4-10.4) fL Immature Gran % (Auto) 0.2 % Neut % (Auto) 87.7 % Lymph % (Auto) 6.7 % Gilliam % (Auto) 4.7 % Eos % (Auto) 0.6 % Baso % (Auto) 0.1 % Immature Gran # (Auto) 0.02 (0.00-0.02) K/uL Neut # (Auto) 7.64 H (1.4-6.5) K/uL Lymph # (Auto) 0.58 L (1.2-3.4) K/uL Gilliam # (Auto) 0.41 (0.11-0.59) K/uL Eos # (Auto) 0.05 (0-0.5) K/uL Baso # (Auto) 0.01 (0-0.2) K/uL RBC Morphology Unremarkable PT Cancelled INR Cancelled APTT Cancelled PTT Ratio Cancelled Sodium 136 (136-145) mmol/L Potassium 4.1 (3.5-5.1) mmol/L Chloride 108 H (98-107) mmol/L Carbon Dioxide 22 (21-32) mmol/L Anion Gap 6.0 (3-11) BUN 22 H (7-18) mg/dl Creatinine 0.98 (0.6-1.4) mg/dl Est Cr Clr Drug Dosing 54.6 ml/min Est GFR ( Amer) 94.7 Est GFR (Non-Af Amer) 81.7 BUN/Creatinine Ratio 22.7 H (10-20) Glucose 89 (70-99) mg/dl Calcium 7.2 L (8.5-10.1) mg/dl Magnesium 2.0 (1.8-2.4) mg/dl Total Bilirubin 0.4 (0.2-1) mg/dl AST 47 H (15-37) U/L ALT 37 (12-78) U/L Alkaline Phosphatase 114 (45-117) U/L Total Creatine Kinase 19 L (39-308) U/L CK-MB (CK-2) 1.0 (0.5-3.6) ng/ml CK/CKMB % Calc 5.3 H (0-3.0) Troponin I < 0.015 (0-0.045) ng/ml Total Protein 6.4 (6.4-8.2) gm/dl Albumin 1.4 L (3.4-5.0) gm/dl Globulin 5.0 H (2.5-4.0) gm/dl Albumin/Globulin Ratio 0.3 L (0.9-2) Lipase 140 (73-393) U/L TSH 1.210 (0.300-4.500) uIu/ml Urine Color Urine Appearance (Clear) Urine pH (4.5-7.5) Ur Specific Franklin (1.000-1.030) Urine Protein (Negative) Urine Glucose (UA) (Negative) Urine Ketones (Negative) Urine Blood (Negative) Urine Nitrite (Negative) Urine Bilirubin (Negative) Urine Urobilinogen (Negative) Ur Leukocyte Esterase (Negative) Urine RBC (0-4) /hpf Urine WBC (0-5) /hpf Ur Epithelial Cells (0-5) /lpf Urine Bacteria (Negative) Blood Type Antibody Screen Crossmatch 07/21/18 07/21/18 07/21/18 Range/Units 14:35 14:35 14:38 WBC (4.8-10.8) K/uL RBC (4.7-6.1) M/uL Hgb (14.0-18.0) g/dL Hct (42-52) % MCV (80-100) fL MCH (25-34) pg MCHC (32-36) g/dL RDW Std Deviation (36.4-46.3) fL RDW Coeff of [place] (11.5-14.5) % Plt Count (130-400) K/uL MPV (7.4-10.4) fL Immature Gran % (Auto) % Neut % (Auto) % Lymph % (Auto) % Gilliam % (Auto) % Eos % (Auto) % Baso % (Auto) % Immature Gran # (Auto) (0.00-0.02) K/uL Neut # (Auto) (1.4-6.5) K/uL Lymph # (Auto) (1.2-3.4) K/uL Gilliam # (Auto) (0.11-0.59) K/uL Eos # (Auto) (0-0.5) K/uL Baso # (Auto) (0-0.2) K/uL RBC Morphology PT 12.1 H INR 1.2 H APTT 27.5 PTT Ratio 1.1 Sodium (136-145) mmol/L Potassium (3.5-5.1) mmol/L Chloride (98-107) mmol/L Carbon Dioxide (21-32) mmol/L Anion Gap (3-11) BUN (7-18) mg/dl Creatinine (0.6-1.4) mg/dl Est Cr Clr Drug Dosing ml/min Est GFR ( Amer) Est GFR (Non-Af Amer) BUN/Creatinine Ratio (10-20) Glucose (70-99) mg/dl Calcium (8.5-10.1) mg/dl Magnesium (1.8-2.4) mg/dl Total Bilirubin (0.2-1) mg/dl AST (15-37) U/L ALT (12-78) U/L Alkaline Phosphatase (45-117) U/L Total Creatine Kinase (39-308) U/L CK-MB (CK-2) (0.5-3.6) ng/ml CK/CKMB % Calc (0-3.0) Troponin I (0-0.045) ng/ml Total Protein (6.4-8.2) gm/dl Albumin (3.4-5.0) gm/dl Globulin (2.5-4.0) gm/dl Albumin/Globulin Ratio (0.9-2) Lipase (73-393) U/L TSH (0.300-4.500) uIu/ml Urine Color Red Urine Appearance Cloudy H (Clear) Urine pH (4.5-7.5) Ur Specific Franklin 1.011 (1.000-1.030) Urine Protein (Negative) Urine Glucose (UA) (Negative) Urine Ketones (Negative) Urine Blood (Negative) Urine Nitrite (Negative) Urine Bilirubin (Negative) Urine Urobilinogen (Negative) Ur Leukocyte Esterase (Negative) Urine RBC >30 H (0-4) /hpf Urine WBC >30 H (0-5) /hpf Ur Epithelial Cells 5-10 H (0-5) /lpf Urine Bacteria 1+ H (Negative) Blood Type A Positive Antibody Screen NEGATIVE Crossmatch See Detail Imaging Data Radiologist's Impression: Radiology results as stated below per my review and the radiologist's interpretation: CT SCAN OF THE CERVICAL SPINE CLINICAL HISTORY: Syncope. COMPARISON STUDY: No priors. TECHNIQUE: CT scan of the cervical spine is performed from the skull base to the upper thoracic spine. Images are reviewed in the axial, sagittal, and coronal planes. IV contrast was not administered for this examination. A dose lowering technique was utilized adhering to the principles of ALARA. CT DOSE: 937.17 mGy.cm FINDINGS: Skeletal structures: The skeletal structures are osteopenic. There is no evidence of fracture or subluxation involving the cervical spine. Vertebral body height and alignment are maintained. There is straightening of the cervical lordosis. The odontoid process and lateral masses are intact. The atlantoaxial articulation is preserved noting mild productive degenerative change. The spinous processes appear intact. Intervertebral discs: The disc spaces are maintained. Central canal: Grossly patent. Soft tissues: The prevertebral and paraspinous soft tissues are within normal limits. There is atherosclerotic calcification of the carotid bulbs. Calvarium: The visualized calvarium at the skull base appears intact. Brain parenchyma: Partially visualized brain parenchyma the skull base is within normal limits noting age-related involutional change. Sinuses and mastoids: The visualized paranasal sinuses are clear. The mastoid air cells are well pneumatized. Lung apices: Clear as visualized. IMPRESSION: There is no evidence of fracture or subluxation involving the cervical spine Electronically signed by: Dimitris Miguel M.D. 07/21/2018 2:[address] SCAN OF THE BRAIN WITHOUT IV CONTRAST CLINICAL HISTORY: Syncope. COMPARISON STUDY: No priors. TECHNIQUE: Unenhanced axial CT scan of the brain is performed from the vertex to the skull base. A dose lowering technique was utilized adhering to the principles of ALARA. FINDINGS: Brain parenchyma: There are age-related involutional changes noting mild subcortical and periventricular microangiopathic change. There is no hemorrhage , mass effect, or evidence of acute territorial ischemia by CT criteria. Amaya- white matter differentiation is preserved. No extra-axial fluid collection is seen. Ventricles, sulci, cisterns: Prominent secondary to involutional change. Intracranial vasculature: There is atherosclerotic calcification of the cavernous carotid and vertebral arteries. Calvarium: The skeletal structures are osteopenic. No depressed calvarial fracture is identified. Soft tissues: There is a small frontal scalp contusion. Sinuses and mastoids: Mucosal thickening is noted in the right sphenoid sinus. The remaining visualized paranasal sinuses are clear. The mastoid air cells are well pneumatized. Orbits: The bony orbits are grossly intact. IMPRESSION: There is no hemorrhage, mass effect, or evidence of acute territorial ischemia by CT criteria. Electronically signed by: Dimitris Miguel M.D. 07/21/2018 2:10 PM LEFT SHOULDER 3 VIEWS CLINICAL HISTORY: Fall. FINDINGS: 3 views of the left shoulder are obtained. No prior studies are available for comparison at the time of dictation. The skeletal structures are osteopenic. There is no radiographic evidence of left shoulder fracture or dislocation. The glenohumeral and acromioclavicular joints appear maintained. Mild soft tissue edema is seen overlying the shoulder. The visualized left upper lobe lung parenchyma appears clear. IMPRESSION: There is no radiographic evidence of left shoulder fracture or dislocation. Electronically signed by: Dimitris Miguel M.D. 07/21/2018 1:44 PM SINGLE VIEW CHEST CLINICAL HISTORY: Fall. FINDINGS: 2 AP, portable, upright chest radiographs are compared to study dated 07/16/2018. The examination is degraded by portable technique and patient rotation. The heart is top normal for projection, noting atherosclerotic calcification of the thoracic aorta. Emphysema and chronic interstitial thickening are similar to previous. There is a small left pleural effusion with left basilar consolidation. Atelectasis is noted at the right lung base. No pneumothorax is seen. The skeletal structures are osteopenic. The bony thorax is grossly intact. Degenerative change is noted throughout the thoracic spine. IMPRESSION: 1. Emphysema. 2. There is a small left pleural effusion with left basilar consolidation, which is new from 07/16/2018. Correlate clinically for evidence of pneumonia/ aspiration pneumonitis. Radiographic follow-up to resolution is recommended. Electronically signed by: Dimitris Miguel M.D. 07/21/2018 1:46 PM ECG Data Attestation: I personally reviewed and interpreted this ECG as follows: Indication: syncope Rate (beats per minute): 93 Rhythm: normal sinus Findings: + other (no ST segment); no ectopy Comparison ECG Date: from (07/16/18) Change: no significant change Blood Pressure Blood Pressure Findings: Normal blood pressure MDM Narrative The patient is a 63-year-old male who presented to the emergency department for an evaluation after having a syncopal episode. The patient has multiple medical problems including peripheral vascular disease. The patient has been experiencing hematuria which initially was thought to be related to irritation of his bladder from a Reynolds catheter however he has had Reynolds catheter removed and continues to have hematuria. He was recently an inpatient at our facility and was just discharged recently. The patient received blood transfusion while he was in the emergency department. They were unable to have a formal urologic evaluation while they were in our facility. I discussed the patient's laboratory and radiographic studies with him. Ultimately I did discuss his case with the on-call [facility] hospitalist group. I am very concerned if the patient continues to experience this degree of hematuria he will continue to drop his hemoglobin. I would wonder if his syncopal episode today was secondary to significant anemia. The patient was agreeable to evaluation in our facility. Impression & Plan Syncope, Facial contusion, Hematuria, Anemia, Skin tear, Contusion of left shoulder Discharge Plan Visit Data *Final* Discharge Date/Time: 07/21/18 17:32 Chief Complaint: Syncope Stated Complaint: BLEEDING, PASSED OUT ED Provider: Vikas Meier Discharge Problem: Syncope, Facial contusion, Hematuria, Anemia, Skin tear, Contusion of left shoulder Patient Disposition: Admitted As Inpatient Discharge Instructions Interventions: ED Discharge Assessment Last Done: 07/21/18 17:32 The scribe's documentation has been prepared under my direction and personally reviewed by me in its entirety. I confirm that the note above accurately reflects all work, treatment, procedures, and medical decision making performed by me.
[2018-07-21 13:13] LABS: Alanine Aminotransferase 37 U/L (12-78); Albumin Level 1.4 gm/dl (3.4-5.0); Aspartate Aminotransferase 47 U/L (15-37); BUN Creatinine Ratio 22.7 (10-20); Blood Urea Nitrogen 22 mg/dl (7-18); Calcium 7.2 mg/dl (8.5-10.1); Carbon Dioxide 22 mmol/L (21-32); Chloride 108 mmol/L (98-107); Creatinine Clr Calc Pharmacy 54.6 ml/min; Est GFR (African American) 94.7; Est GFR (Non-African American) 81.7; Glucose 89 mg/dl (70-99); Potassium 4.1 mmol/L (3.5-5.1); Sodium 136 mmol/L (136-145)
[2018-07-21 13:23] LABS: Albumin Globulin Ratio 0.3 (0.9-2); Alkaline Phosphatase 114 U/L (45-117); Bilirubin,Total 0.4 mg/dl (0.2-1); Creatine Kinase 19 U/L (39-308); Total Protein 6.4 gm/dl (6.4-8.2); Troponin I < 0.015 ng/ml (0-0.045)
[2018-07-21 13:36] LABS: Basophils # (auto) 0.01 K/uL (0-0.2); Basophils % (auto) 0.1 %; Eosinophils # (auto) 0.05 K/uL (0-0.5); Eosinophils % (auto) 0.6 %; Immature Granulocytes # (auto) 0.02 K/uL (0.00-0.02); Immature Granulocytes % (auto) 0.2 %; Lymphocytes # (auto) 0.58 K/uL (1.2-3.4); Lymphocytes % (auto) 6.7 %; Monocytes # (auto) 0.41 K/uL (0.11-0.59); Monocytes % (auto) 4.7 %; Neutrophils # (auto) 7.64 K/uL (1.4-6.5); Neutrophils % (auto) 87.7 %; RBC Morphology Unremarkable
--- NOTE | 2018-07-21 13:45 | XRay Report ---
LEFT SHOULDER 3 VIEWS CLINICAL HISTORY: Fall. FINDINGS: 3 views of the left shoulder are obtained. No prior studies are available for comparison at the time of dictation. The skeletal structures are osteopenic. There is no radiographic evidence of left shoulder fracture or dislocation. The glenohumeral and acromioclavicular joints appear maintaine d. Mild soft tissue edema is seen overlying the shoulder. The visualized left upper lobe lung parench yma appears clear. IMPRESSION: There is no radiographic evidence of left shoulder fracture or dislocation. Electronically signed by: Dimitris Miguel M.D. 07/21/2018 1:44 PM
--- NOTE | 2018-07-21 13:48 | XRay Report ---
SINGLE VIEW CHEST CLINICAL HISTORY: Fall. FINDINGS: 2 AP, portable, upright chest radiographs are compared to study dated 07/16/2018. The examina tion is degraded by portable technique and patient rotation. The heart is top normal for projection, noting atherosclerotic calcification of the thoracic aorta. Emphysema and chronic interstitial thick ening are similar to previous. There is a small left pleural effusion with left basilar consolidation . Atelectasis is noted at the right lung base. No pneumothorax is seen. The skeletal structures are o steopenic. The bony thorax is grossly intact. Degenerative change is noted throughout the thoracic sp ine. IMPRESSION: 1. Emphysema. 2. There is a small left pleural effusion with left basilar consolidation, which is new from 07/16/2018 . Correlate clinically for evidence of pneumonia/aspiration pneumonitis. Radiographic follow-up to re solution is recommended. Electronically signed by: Dimitris Miguel M.D. 07/21/2018 1:46 PM
--- NOTE | 2018-07-21 14:12 | CT Scan Report ---
CT SCAN OF THE BRAIN WITHOUT IV CONTRAST CLINICAL HISTORY: Syncope. COMPARISON STUDY: No priors. TECHNIQUE: Unenhanced axial CT scan of the brain is performed from the vertex to the skull base. A do se lowering technique was utilized adhering to the principles of ALARA. FINDINGS: Brain parenchyma: There are age-related involutional changes noting mild subcortical and periventric ular microangiopathic change. There is no hemorrhage, mass effect, or evidence of acute territorial i schemia by CT criteria. Amaya-white matter differentiation is preserved. No extra-axial fluid collecti on is seen. Ventricles, sulci, cisterns: Prominent secondary to involutional change. Intracranial vasculature: There is atherosclerotic calcification of the cavernous carotid and vertebr al arteries. Calvarium: The skeletal structures are osteopenic. No depressed calvarial fracture is identified. Soft tissues: There is a small frontal scalp contusion. Sinuses and mastoids: Mucosal thickening is noted in the right sphenoid sinus. The remaining visualiz ed paranasal sinuses are clear. The mastoid air cells are well pneumatized. Orbits: The bony orbits are grossly intact. IMPRESSION: There is no hemorrhage, mass effect, or evidence of acute territorial ischemia by CT brandee mcarthur. Electronically signed by: Dimitris Miguel M.D. 07/21/2018 2:10 PM
--- NOTE | 2018-07-21 14:16 | CT Scan Report ---
CT SCAN OF THE CERVICAL SPINE CLINICAL HISTORY: Syncope. COMPARISON STUDY: No priors. TECHNIQUE: CT scan of the cervical spine is performed from the skull base to the upper thoracic spine . Images are reviewed in the axial, sagittal, and coronal planes. IV contrast was not administered fo r this examination. A dose lowering technique was utilized adhering to the principles of ALARA. CT DOSE: 937.17 mGy.cm FINDINGS: Skeletal structures: The skeletal structures are osteopenic. There is no evidence of fracture or subl uxation involving the cervical spine. Vertebral body height and alignment are maintained. There is st raightening of the cervical lordosis. The odontoid process and lateral masses are intact. The atlant oaxial articulation is preserved noting mild productive degenerative change. The spinous processes ap pear intact. Intervertebral discs: The disc spaces are maintained. Central canal: Grossly patent. Soft tissues: The prevertebral and paraspinous soft tissues are within normal limits. There is athero sclerotic calcification of the carotid bulbs. Calvarium: The visualized calvarium at the skull base appears intact. Brain parenchyma: Partially visualized brain parenchyma the skull base is within normal limits noting age-related involutional change. Sinuses and mastoids: The visualized paranasal sinuses are clear. The mastoid air cells are well pneu matized. Lung apices: Clear as visualized. IMPRESSION: There is no evidence of fracture or subluxation involving the cervical spine Electronically signed by: Dimitris Miguel M.D. 07/21/2018 2:15 PM
[2018-07-21 14:55] LABS: Appearance Urine Cloudy (Clear); Color Urine Red
[2018-07-21 14:57] LABS: Specific Gravity Urine 1.011 (1.000-1.030)
[2018-07-21 14:59] LABS: INR 1.2 (0.9-1.1); Partial Thromboplastin Ratio 1.1; Partial Thromboplastin Time 27.5 Seconds (21.0-31.0); Prothrombin Time 12.1 Seconds (9.0-12.0)
[2018-07-21 15:01] LABS: RBC Urine >30 /hpf (0-4)
[2018-07-21 15:02] LABS: Bacteria Urine 1+ (Negative); WBC Urine >30 /hpf (0-5)
[2018-07-21] MEDS ORDERED: NITROGLYCERIN SL 0.4 MG/TAB TAB SL PRN (16:10)
[2018-07-21] MEDS ORDERED: ACETAMINOPHEN 325 MG TAB PO PRN (16:10)
[2018-07-21] MEDS ORDERED: ONDANSETRON INJ 2 MG/ML 2 ML VIAL IV PRN (16:10)
--- NOTE | 2018-07-21 17:01 | History & Physical Report ---
Date of Service July 21, 2018 Assessment & Plan (1) Hematuria: presented with gross hematuria hx of chronic urinary retention ordered for Hardin -draining hines coloured urine with blood clots hold Aspirin /Plavix ( pts home meds ) Urology consult requested CT abdomen /pelvis with contrast ordered for UA and culture empiric Abx with IV Azactum ( pt is allergic to Zosyn ) avoid all anticoagulats follow H&H Present on Admission?: Yes (2) Syncope: possible due to anemia /hypotension no evidence of ACS or arrythmia pt will be admitted to Tele cont correct anemia with PRBC transfusion , to Keep Hb> 8 ( severe PVD ) CT head -no evidence of CVA Present on Admission?: Yes (3) Facial contusion: due to fall cont local wound care CT of cervical spine : no Fx Present on Admission?: Yes (4) Anemia: acute blood loss anemia with underlying anemia of chronic disease possible due to ongoing Hematuria monitor H&H transfuse to keep Hb > 8 check stool for heme occult Present on Admission?: Yes (5) Acute UTI: possible UTI hx of urinary retention , hemtura follow culture empiric Abx with Azactum Present on Admission?: Yes (6) Tachycardia: due to dehydration , anemia , vol loss pt denies of any feeling of palpitation , SOB or chest heaviness cont IVF , tranfuse PRBC as needed to correct anemia monitor in tele ordered for ECHO Present on Admission?: Yes (7) Hyponatremia: due to dehydration , poor PO intake IV fluid follow lytes (8) Complicated urinary tract infection: possible due to chronic urinary retention management out lined as above (9) Urine retention: chronic CT abdomen /pelvis ordered for Hardin Urology consult Present on Admission?: Yes (10) Acute renal failure: due to urinary retention /dehydration IVF follow lytes CT abdomen pelvis avoid NSAID Present on Admission?: Yes (11) Amputated right leg: due to severe PVD Present on Admission?: Yes (12) Peripheral artery disease: hold aspirin , plavix for gross hematuria , anemia Present on Admission?: Yes (13) C. difficile diarrhea: stool was positive for C diff in last admission cont PO vanco ordered for repeat C diff assay contact precaution CODE STATUS : DNR/DNI DISPOSITION ; to be determined lives with , wheel chair bound presents with significant deconditioning Pt/OT when medially stable will benefit with rehab Social service consulted for discharge planning Present on Admission?: Yes History of Present Illness Chief Complaint: fall /blood in urine Primary Care Provider: Alfred Al, DO this is a 63 yo M with severe Peripheral vascular disease s/p rt lower ext below knee amputation , s/p colectomy was discharged from [facility] yesterday 07/21/18 -with diagnosis of C diff colitis, urinary retention anemia , requiring 1 unit of PRBC transfusion pt had a syncope episode this Am fell out of his wheel chair , landed on floor , with facial contusion , nose bleed, left shoulder skin tear pt denies of any chest pain , SOB or palpitation prior to fall did not lost consciousness pt had been having ongoing hematuria , warner blood from urethra since hardin was discontinued prior to discharge home yesterday presented with Anemia ; HB ~7 , tachycardia , hypotension no report of fever or chills no headache , or blurred vision , no weakness or paresthesia Allergies Allergy/AdvReac Type Severity Reaction Status Date / Time piperacillin Allergy Unknown Unverified 07/21/18 12:42 Home Medications Home Medications Medication Instructions Recorded Confirmed Type aspirin 81 mg PO DAILY 07/10/18 07/21/18 History clopidogrel [Plavix] 75 mg PO DAILY 07/10/18 07/21/18 History ferrous sulfate [iron] 325 mg PO BID 07/10/18 07/21/18 History simvastatin 40 mg PO DAILY 07/10/18 07/21/18 History finasteride [Proscar] 5 mg PO QAM 30 Days #30 tab 07/13/18 07/21/18 Rx tamsulosin 0.4 mg PO HS 30 Days #30 cap 07/13/18 07/21/18 Rx magnesium oxide 400 mg PO DAILY 5 Days #5 tab 07/20/18 07/21/18 Rx vancomycin 125 mg PO Q6H 8 Days #32 cap 07/20/18 07/21/18 Rx Past Med/Surg History Medical History Enlarged prostate Acute UTI (Acute) Hydronephrosis of left kidney Uropathy, obstructive (Acute) Acute renal failure (Acute) Pyelonephritis (Acute) Peripheral artery disease Hypertension (Chronic) DVT (deep venous thrombosis) Medical non-compliance (Resolved) Perforated bowel Surgical History Amputated right leg Family History Father Bladder cancer Social History marital status: Current Living Situation: Spouse current occupational status: retired Other Information That Helps Us Care for You: No Feels Safe at Home: Yes Safety Concerns: Feels Safe At This Time Smoking Status: Former smoker Hx Alcohol Use: No Hx Substance Use: No Beliefs That Will Affect Care: None Communication Ability: Effective Review of Systems All systems reviewed & are unremarkable except as noted in HPI & below Physical Exam 2 Vital Signs (Past 24 Hours): Last Vital Signs Temp 36.4 C L 07/21/18 11:41 Pulse 75 07/21/18 16:00 Resp 18 07/21/18 16:00 BP 142/73 H 07/21/18 16:00 Pulse Ox 98 07/21/18 16:00 Constitutional: + ill appearing and + cachectic Eyes: + anicteric sclerae ENMT: Mouth: + dry oral mucous membranes dried blood on nose multiple skin tear , facial laceration wound present , mostly on rt side of face -injury occured after fall Respiratory: normal respiratory effort; no respiratory distress, no labored breathing and no cough Auscultation: lungs clear to auscultation bilaterally ; no crackles and no wheezes Gastrointestinal (Abdomen): Percussion/Palpation: abdomen soft; abdomen nontender colostomy bag on left lower quadrant Musculoskeletal: s/p rt BKA Skin: multiple skin tear on face , shoulder , hand and arm -injury sustained after fall Neurologic: PERRL, EOMI, accommodation nl, no face palsy, no dysarthria Psychiatric: Orientation: alert and oriented x 3 Affect: + depressed affect Code Status & VTE Plan Code Status CODE STATUS : DNR/DNI -discussed with Patient VTE Prophylaxis Plan VTE Prophylaxis will be ordered: Yes Reason for no VTE drug order: Contraindicated (gross hematuria /anemia ) _ (1) Hematuria Glomerular morphologic changes: Hematuria type: unspecified type Qualified Code(s): R31.9 - Hematuria, unspecified (2) Syncope Encounter type: Syncope type: unspecified Qualified Code(s): R55 - Syncope and collapse (3) Facial contusion Encounter type: initial encounter Qualified Code(s): S00.83XA - Contusion of other part of head, initial encounter (4) Anemia Anemia type: unspecified type Bone marrow failure anemia type: Chronic kidney disease stage: Folate deficiency anemia type: Hemolytic anemia type: Iron deficiency anemia type: Other causes of anemia: Vitamin B12 deficiency anemia type: Qualified Code(s): D64.9 - Anemia, unspecified (5) Acute renal failure Acute renal failure type: unspecified Qualified Code(s): N17.9 - Acute kidney failure, unspecified
[2018-07-21] MEDS ORDERED: IOVERSOL 100ml IV PRN (17:38)
[2018-07-21] MEDS ORDERED: VANCOMYCIN 125 MG PO SCH (17:57)
[2018-07-21] MEDS ORDERED: SODIUM CHLORIDE 0.9% 250 ML IV PRN ×2 (17:57→20:56)
[2018-07-21] MEDS: NORMOSOL-R 1,000 ML IV SCH (18:20)
--- NOTE | 2018-07-21 18:46 | CT Scan Report ---
CT SCAN OF THE ABDOMEN AND PELVIS WITH IV CONTRAST CLINICAL HISTORY: Hematuria. Generalized abdominal pain. COMPARISON STUDY: Abdominal CT dated 07/10/2018 and 01/30/2017. TECHNIQUE: Following the IV administration of 94 cc of Optiray 320, CT scan of the abdomen and pelvi s is performed from the lung bases to the proximal femora. Images are reviewed in the axial, sagittal , and coronal planes. IV contrast was administered without complication. A dose lowering technique wa s utilized adhering to the principles of ALARA. CT DOSE: 280.85 mGy.cm FINDINGS: Lung bases: The heart is top normal in size and there is a small pericardial effusion. The coronary a rteries are densely calcified. Emphysema is noted. There are small pleural effusions with bibasilar c onsolidation, new from 07/10/2018. Liver: The contrast-enhanced liver is normal in size, contour, and attenuation. There is no intrahepa tic biliary ductal dilatation. The hepatic veins and portal veins are patent. Gallbladder: Calcified gallstones are noted. There is no CT evidence of acute cholecystitis. Spleen: Normal in size and attenuation. Pancreas: Unremarkable. Adrenal glands: Unremarkable. Kidneys: The contrast enhanced kidneys are normal in size and there is mild to moderate bilateral hyd roureteronephrosis, left greater than right. The kidneys enhance heterogeneously. A 3 mm nonobstructi ng calculus is seen in the left lower pole. Scattered subcentimeter cortical hypodensities likely rep resent cysts but are too small for definitive characterization. Abdominal vasculature: There is advanced atherosclerotic calcification of the abdominal aorta. There are postoperative changes from aortoiliac bypass surgery. The aortic bypass and the left iliac bypass are patent. The right iliac bypass is thrombosed. A stent is present within the [place] left external iliac artery. There is some reconstitution of flow within the [place] left iliac vessels. Bowel: There are postoperative changes from left-sided colon resection with left lower quadrant colos janes. No bowel obstruction is identified. There is wall thickening and hyperemia seen involving the r ectosigmoid colon. The appendix is not clearly identified. Peritoneum: There is no intraperitoneal free air or abdominal ascites. Lymphadenopathy: There are numerous mildly enlarged retroperitoneal and iliac chain lymph nodes which measure up to 13 mm in short axis. Pelvic viscera: There is nonspecific presacral induration. The prostate gland is mildly enlarged and heterogeneous. The bladder is markedly abnormal in appearance. The bladder is distended and a Reynolds c atheter is in place. The bladder wall is thickened comment trabeculated, and hyperemic. There are lar ge intraluminal septations. There is a large volume of hyperdense debris within the bladder lumen, li steve representing blood clots. Gas is also seen within the bladder lumen. Pericystic inflammation is observed. There is an ovoid fluid collection identified in the right peroneal soft tissues as seen on image #[id number]. This measures 3.4 x 2.0 cm, and is located between the obturator internus muscle and the prostate gland. Skeletal structures: The skeletal structures are osteopenic. There are mild superior endplate ben cornel deformities of L1 and L4. Lumbar sacral spondylosis is observed. No lytic or blastic lesions are seen. There has been amputation of the subtrochanteric right femur, with asymmetric atrophy of the r ight pelvic musculature. Erosive change is suggested involving the anterior aspect of the intertrocha nteric right femur. This closely abuts the dermal surface. Cutaneous defect/wound suggested. Soft tissues: There is body wall edema. IMPRESSION: 1. The bladder is markedly abnormal in appearance and is distended despite a Reynolds catheter in place. The bladder wall is thickened and trabeculated, likely related to chronic outlet obstruction. 2. The bladder wall is hyperemic and there is pericystic inflammation. Nonspecific gas is noted withi n the bladder lumen. Correlate clinically and with urinalysis for evidence of cystitis. 3. There are thick internal septations within the bladder lumen, as well as a large amount of hyperde nse intraluminal debris. The debris likely represents blood clots. 4. There is mild to moderate bilateral hydroureteronephrosis, left greater than right. This is likely related to bladder outlet obstruction. 5. There are postoperative changes from partial left colon resection with left lower quadrant ostomy. No bowel obstruction is seen. 6. There are small pleural effusions with bibasilar consolidation. This could present atelectasis and /or pneumonia and clinical correlation will required. This is new from 07/10/2018. 7. The kidneys demonstrate heterogeneous enhancement. This may related to obstruction/hydronephrosis. Correlate clinically and with urinalysis for evidence of ascending urinary tract infection. 8. Cholelithiasis without CT evidence of acute cholecystitis. 9. There is an indeterminant 3.4 cm ovoid fluid collection identified in the right perineal soft tiss ues. A small abscess is not excluded. This is new from 01/30/2017. 10. Mucosal thickening and hyperemia are noted in the rectosigmoid colon. This may be on an infectiou s basis or could be related to previous pelvic radiation. Clinical correlation will be required. 11. There are postoperative changes from aortobiiliac bypass surgery. The right iliac bypass is occlu ded. 12. There has been subtrochanteric resection of the right femur. Erosive change is suggested within t he anterior intertrochanteric right femur. This may represent bony remodeling and postoperative costa e. Osteomyelitis would be impossible to exclude and clinical correlation will be required. This costa es have been present dating back to 01/30/2017. 13. Left-sided nephrolithiasis. 14. There are mildly enlarged retroperitoneal and iliac chain lymph nodes which are likely on a react esau basis. 15. Additional findings as above. Electronically signed by: Dimitris Miguel M.D. 07/21/2018 6:44 PM
[2018-07-21] MEDS ORDERED: AZTREONAM 1,000 MG in DEXTROSE 5% 100 ML IV ONE (20:00)
[2018-07-21 20:42] LABS: Hematocrit (blood only) 21.3 % (42-52); Hemoglobin 6.7 g/dL (14.0-18.0)
[2018-07-21] MEDS ORDERED: ACETAMINOPHEN 325 MG TAB PO STA (20:56)
[2018-07-21] MEDS: RASPBERRY SYRUP 5 ML UDP PO SCH (21:11)
[2018-07-21] MEDS: VANCOMYCIN HCL 125 MG/2.5ML SOLN PO SCH (21:12)
[2018-07-21] MEDS: FERROUS SULFATE 325 MG TAB PO SCH (21:12)
[2018-07-21] MEDS: TAMSULOSIN HCL 0.4 MG CAP PO SCH (21:12)
[2018-07-21] MEDS ORDERED: FUROSEMIDE 20 MG in SYRINGE 0 ML IV ONE (23:50)
[2018-07-22] MEDS: RASPBERRY SYRUP 5 ML UDP PO SCH ×5 (00:04→23:35)
[2018-07-22] MEDS: VANCOMYCIN HCL 125 MG/2.5ML SOLN PO SCH ×5 (00:04→23:35)
[2018-07-22] MEDS: AZTREONAM 1,000 MG in DEXTROSE 5% 100 ML IV SCH ×3 (04:20→20:25)
[2018-07-22] MEDS: NORMOSOL-R 1,000 ML IV SCH (06:33)
[2018-07-22] MEDS: FINASTERIDE 5 MG TAB PO SCH (07:20)
[2018-07-22] MEDS: FERROUS SULFATE 325 MG TAB PO SCH ×2 (07:20→20:24)
[2018-07-22] MEDS: SIMVASTATIN 40 MG TAB PO SCH (07:21)
[2018-07-22 08:18] LABS: INR 1.2 (0.9-1.1); Prothrombin Time 11.9 Seconds (9.0-12.0)
[2018-07-22 08:27] LABS: BUN Creatinine Ratio 24.9 (10-20); Calcium 7.3 mg/dl (8.5-10.1); Est GFR (African American) 107.5; Est GFR (Non-African American) 92.7
[2018-07-22 08:31] LABS: Prostate Specific Antigen 0.174 ng/ml (0-4)
[2018-07-22 09:05] LABS: Basophils # (auto) 0.02 K/uL (0-0.2); Basophils % (auto) 0.3 %; Eosinophils # (auto) 0.27 K/uL (0-0.5); Eosinophils % (auto) 3.5 %; Hematocrit (blood only) 31.4 % (42-52); Hemoglobin 10.3 g/dL (14.0-18.0); Immature Granulocytes # (auto) 0.04 K/uL (0.00-0.02); Immature Granulocytes % (auto) 0.5 %; Lymphocytes # (auto) 0.59 K/uL (1.2-3.4); Lymphocytes % (auto) 7.6 %; Mean Corpuscular Hgb Conc 32.8 g/dL (32-36); Mean Corpuscular Volume 89.7 fL (80-100); Mean Platelet Volume 10.6 fL (7.4-10.4); Monocytes # (auto) 0.38 K/uL (0.11-0.59); Monocytes % (auto) 4.9 %; Neutrophils # (auto) 6.47 K/uL (1.4-6.5); Neutrophils % (auto) 83.2 %; Platelet Count 219 K/uL (130-400); RDW Coefficient of Variation 16.2 % (11.5-14.5); RDW Standard Deviation 51.9 fL (36.4-46.3); White Blood Count 7.77 K/uL (4.8-10.8)
[2018-07-22] MEDS: PANTOprazole 40 MG in DEXTROSE 5% 100 ML IV SCH ×3 (11:23→21:32)
[2018-07-22 11:43] LABS: Hematocrit (blood only) 27.8 % (42-52); Hemoglobin 9.2 g/dL (14.0-18.0)
--- NOTE | 2018-07-22 12:17 | Urology Consultation ---
Date of Consultation July 22, 2018 Assessment & Plan (1) Urine retention: Hematuria; retention - on plavix - catheter currently draining well and urine is relatively clear - base on admission CT - high probability that he has residual clot in the bladder, but at present he is stable - he has very substantial comorbidities - poor surgical candidate - attempt to manage catheter conservative (prn manual irrigation) if at all possible History of Present Illness Attending Physician: Malathi Pat MD History of Present Illness Pt recently admitted with hydro, urinary retention (in the setting of numerous comordidities) - catheter placed - improvement in hydro - developed hematuria - after d/c home, he fell and was readmitted last night - reports some dysuria/bladder discomfort with the catheter as well as persistent hematuria - today - he denies any new suprapubic tenderness, no bladder spasms, catheter has been draining well Allergies Allergy/AdvReac Type Severity Reaction Status Date / Time piperacillin Allergy Unknown Unverified 07/21/18 12:42 Home Medications Home Medications Medication Instructions Recorded Confirmed Type aspirin 81 mg PO DAILY 07/10/18 07/21/18 History clopidogrel [Plavix] 75 mg PO DAILY 07/10/18 07/21/18 History ferrous sulfate [iron] 325 mg PO BID 07/10/18 07/21/18 History simvastatin 40 mg PO DAILY 07/10/18 07/21/18 History finasteride [Proscar] 5 mg PO QAM 30 Days #30 tab 07/13/18 07/21/18 Rx tamsulosin 0.4 mg PO HS 30 Days #30 cap 07/13/18 07/21/18 Rx magnesium oxide 400 mg PO DAILY 5 Days #5 tab 07/20/18 07/21/18 Rx vancomycin 125 mg PO Q6H 8 Days #32 cap 07/20/18 07/21/18 Rx Patient History Medical History Enlarged prostate Acute UTI (Acute) Hydronephrosis of left kidney Uropathy, obstructive (Acute) Acute renal failure (Acute) Pyelonephritis (Acute) Peripheral artery disease Hypertension (Chronic) DVT (deep venous thrombosis) Medical non-compliance (Resolved) Perforated bowel Surgical History Amputated right leg Family History Father Bladder cancer Social History marital status: Current Living Situation: Spouse current occupational status: retired Other Information That Helps Us Care for You: No Feels Safe at Home: Yes Safety Concerns: Feels Safe At This Time Smoking Status: Former smoker Hx Alcohol Use: No Hx Substance Use: No Beliefs That Will Affect Care: None Preferred Language: Libyan Communication Ability: Effective Lye Bath Operator Required: No Review of Systems Constitutional: as per Subjective / HPI and + body aches Respiratory: no cough and no dyspnea Cardiovascular: no chest pain and no dyspnea Gastrointestinal: + abdominal pain; no nausea Genitourinary (Male): + dysuria and + hematuria Musculoskeletal: no back pain and no neck pain Integumentary: no rash Endocrine: no fatigue Physical Exam 2 Vital Signs (Past 24 Hours): Last Vital Signs Temp 36.7 C 07/22/18 11:26 Pulse 82 07/22/18 11:26 Resp 16 07/22/18 11:26 BP 120/75 07/22/18 11:26 Pulse Ox 96 07/22/18 11:26 Physical Exam: AFVSS nad large abrasion on head no resp distress RRR abd - numerous scars throughout abd and in each groin (vasculopath) - bladder not palpably distended - urine in tubing is predominantly clear, blood in bag
--- NOTE | 2018-07-22 17:28 | Hospitalist Progress Note ---
Date of Service July 22, 2018 Physical Exam 2 Vital Signs (Past 24 Hours): Last Vital Signs Temp 36.7 C 07/22/18 15:24 Pulse 64 07/22/18 16:00 Resp 18 07/22/18 15:24 BP 144/72 H 07/22/18 15:24 Pulse Ox 97 07/22/18 15:24
[2018-07-22 20:21] LABS: Hematocrit (blood only) 27.5 % (42-52); Hemoglobin 9.1 g/dL (14.0-18.0)
[2018-07-22] MEDS: TAMSULOSIN HCL 0.4 MG CAP PO SCH (20:24)
--- NOTE | 2018-07-22 22:01 | Hospitalist Progress Note ---
Date of Service July 22, 2018 Assessment & Plan (1) GI bleed: melena /mahogony stool noted in colostomy bag stool heme occult positive persented with severe anemia required 2 units of PRBC tx NPO except for ice chips /sips of water IV PPI follow H&H transfuse for Hb < 8 GI eval requested Present on Admission?: Yes (2) Hematuria: ongoing hematuia hx of chronic urinary retention Hardin -draining hines coloured urine with blood clots hold Aspirin /Plavix ( pts home meds ) CT abdomen /pelvis with contrast : . The bladder is markedly abnormal in appearance and is distended despite a Hardin catheter in place. The bladder wall is thickened and trabeculated, likely related to chronic outlet obstruction. 2. The bladder wall is hyperemic and there is pericystic inflammation. Nonspecific gas is noted within the bladder lumen. Correlate clinically and with urinalysis for evidence of cystitis. 3. There are thick internal septations within the bladder lumen, as well as a large amount of hyperdense intraluminal debris. The debris likely represents blood clots. 4. There is mild to moderate bilateral hydroureteronephrosis, left greater than right. This is likely related to bladder outlet obstruction. Urology consult requested appreciate input recommend to cont with hardin / - catheter currently draining well and urine is relatively clear - base on admission CT - high probability that he has residual clot in the bladder, but at present he is stable - he has very substantial comorbidities - poor surgical candidate/pt is high risk for anesthesia , no plan for cystoscopy - attempt to manage catheter conservative (prn manual irrigation) if at all possible empiric Abx with IV Azactum ( pt is allergic to Zosyn ) avoid all anticoagulats follow H&H (3) Syncope: possible due to anemia /hypotension no evidence of ACS or arrythmia cont correct anemia with PRBC transfusion , to Keep Hb> 8 ( severe PVD ) CT head -no evidence of CVA (4) Facial contusion: due to fall cont local wound care CT of cervical spine : no Fx (5) Anemia: acute blood loss anemia with underlying anemia of chronic disease possible due to ongoing Hematuria /concern for GI bleed s/p 2 units of PRBC transfusion over night post tx Hb improved 10.2 follow serial H&H (6) Tachycardia: due to dehydration , anemia , vol loss resolved after IVF , tranfuse PRBC as needed to correct anemia monitor in tele (7) Complicated urinary tract infection: possible due to chronic urinary retention management out lined as above (8) Urine retention: chronic CT abdomen /pelvis : report as above cont indwelling Hardin -will need to be in indefinitely Urology consult appreciated (9) Amputated right leg: due to severe PVD (10) Peripheral artery disease: hold aspirin , plavix for gross hematuria , anemia (11) C. difficile diarrhea: stool was positive for C diff in last admission repeat C diff assay -negative contact precaution CODE STATUS : DNR/DNI DISPOSITION ; monitor in tele lives with , wheel chair bound presents with significant deconditioning Pt/OT when medially stable will benefit with rehab Social service consulted for discharge planning updated at bedside Subjective hb dropped to 6.7 last night s/p 2 units of PRBC transfusion hardin continues to drain hines colored urine with blood clots vital remains stable no fever or chills nursing noted melanotic stool in colostomy bag stool heme occult positive ordered for NPO IV PPI GI eval requested Physical Exam 2 Vital Signs (Past 24 Hours): Last Vital Signs Temp 36.8 C 07/22/18 19:42 Pulse 82 07/22/18 19:42 Resp 20 07/22/18 19:42 BP 132/69 07/22/18 19:42 Pulse Ox 96 07/22/18 19:42 Constitutional: + ill appearing and + cachectic Eyes: + anicteric sclerae ENMT: Mouth: + dry oral mucous membranes Respiratory: normal respiratory effort; no respiratory distress, no labored breathing and no cough Auscultation: lungs clear to auscultation bilaterally ; no crackles and no wheezes Gastrointestinal (Abdomen): Percussion/Palpation: abdomen soft; abdomen nontender Neurologic: PERRL, EOMI, accommodation nl, no face palsy, no dysarthria Psychiatric: Orientation: alert and oriented x 3 Affect: + depressed affect _ (1) Hematuria Glomerular morphologic changes: Hematuria type: unspecified type Qualified Code(s): R31.9 - Hematuria, unspecified (2) GI bleed GI bleed type/associated pathology: melena Qualified Code(s): K92.1 - Melena (3) Anemia Anemia type: unspecified type Bone marrow failure anemia type: Chronic kidney disease stage: Folate deficiency anemia type: Hemolytic anemia type: Iron deficiency anemia type: Other causes of anemia: Vitamin B12 deficiency anemia type: Qualified Code(s): D64.9 - Anemia, unspecified (4) Syncope Encounter type: Syncope type: unspecified Qualified Code(s): R55 - Syncope and collapse (5) Facial contusion Encounter type: initial encounter Qualified Code(s): S00.83XA - Contusion of other part of head, initial encounter
[2018-07-23] MEDS: PANTOprazole 40 MG in DEXTROSE 5% 100 ML IV SCH ×3 (02:28→15:06)
[2018-07-23] MEDS: AZTREONAM 1,000 MG in DEXTROSE 5% 100 ML IV SCH ×3 (04:07→20:25)
[2018-07-23] MEDS: VANCOMYCIN HCL 125 MG/2.5ML SOLN PO SCH ×4 (05:20→23:54)
[2018-07-23] MEDS: RASPBERRY SYRUP 5 ML UDP PO SCH ×4 (05:20→23:54)
[2018-07-23 07:05] LABS: INR 1.2 (0.9-1.1)
[2018-07-23 07:24] LABS: BUN Creatinine Ratio 18.1 (10-20); Calcium 6.9 mg/dl (8.5-10.1); Creatinine Clr Calc Pharmacy 91.8 ml/min; Est GFR (Non-African American) 103.5; Potassium 3.5 mmol/L (3.5-5.1)
[2018-07-23 09:04] LABS: Basophils # (auto) 0.01 K/uL (0-0.2); Basophils % (auto) 0.2 %; Eosinophils # (auto) 0.18 K/uL (0-0.5); Eosinophils % (auto) 3.1 %; Hematocrit (blood only) 28.4 % (42-52); Hemoglobin 9.1 g/dL (14.0-18.0); Immature Granulocytes # (auto) 0.02 K/uL (0.00-0.02); Immature Granulocytes % (auto) 0.3 %; Lymphocytes # (auto) 0.84 K/uL (1.2-3.4); Lymphocytes % (auto) 14.7 %; Mean Platelet Volume 9.9 fL (7.4-10.4); Monocytes # (auto) 0.34 K/uL (0.11-0.59); Monocytes % (auto) 5.9 %; Neutrophils # (auto) 4.34 K/uL (1.4-6.5); Neutrophils % (auto) 75.8 %; Platelet Count 235 K/uL (130-400); RDW Coefficient of Variation 16.5 % (11.5-14.5); RDW Standard Deviation 53.6 fL (36.4-46.3); Red Blood Count 3.12 M/uL (4.7-6.1); White Blood Count 5.73 K/uL (4.8-10.8)
[2018-07-23 09:19] LABS: BUN Creatinine Ratio 17.1 (10-20); Creatinine Clr Calc Pharmacy 78.5 ml/min; Est GFR (African American) 112.5; Est GFR (Non-African American) 97.1
--- NOTE | 2018-07-23 10:06 | Urology Progress Note ---
Date of Service July 23, 2018 Assessment & Plan (1) Urine retention: plavix on hold due to heme + stool, required 2u PRBC. NPO while awaiting GI assessment. Retention with Hematuria: UC&S pending. prelim negative. Catheter remains to be draining well, some red bloody in tubing but cleared to pink while evaluating pt. Has not required irrigation per nursing. Denies suprapubic tenderness or distention. Will continue to monitor for now. PRN hand irrigation order placed if indicated. Subjective Pt offers no new concerns or complaints from perspective. Denies suprapubic tenderness, bladder spasms or other urinary bother with catheter in place. Reports being hungry. Review of Systems All systems reviewed & are unremarkable except as noted in HPI & below Constitutional: as per Subjective / HPI and + body aches Gastrointestinal: + abdominal pain; no nausea Genitourinary (Male): + dysuria and + hematuria Physical Exam 2 Vital Signs (Past 24 Hours): Last Vital Signs Temp 36.8 C 07/23/18 08:49 Pulse 75 07/23/18 08:49 Resp 16 07/23/18 08:49 BP 130/73 07/23/18 08:49 Pulse Ox 95 07/23/18 08:49 Physical Exam: A&Ox3 Resp: RRR CV: no JVD, no edema Abd: general tenderness in all 4 quadrants on light palpation. ostomy intact. No suprapubic tenderness on palpation : Reynolds catheter intact, draining red to pink. Scant clots. Skin: healing lacerations to face. no active bleeding. Psych: irritable
[2018-07-23] MEDS: FINASTERIDE 5 MG TAB PO SCH ×2 (10:28→12:12)
[2018-07-23] MEDS: SIMVASTATIN 40 MG TAB PO SCH ×2 (10:28→12:12)
[2018-07-23] MEDS: FERROUS SULFATE 325 MG TAB PO SCH ×3 (10:28→20:25)
--- NOTE | 2018-07-23 13:35 | Gastrointestinal Consultation ---
Date of Consultation July 23, 2018 Assessment & Plan (1) C. difficile diarrhea: Present on Admission?: Yes (2) Anemia: Present on Admission?: Yes (3) Hematuria: Present on Admission?: Yes (4) GI bleed: Pt is a 63 y/o male w complicated past medical hx as noted above currently admitted w hematuria, hx of chronic urinary retention & hydronephrosis , Reynolds cath in. He is anemic, blood ct improved w 3U PRBC transfusion. He does have hx of ischemic colitis s/p partial colectomy and ostomy creation last year , and currently w Cdiff infection. Stools appeared melanotic over weekend but today appears to be normal in color and semi formed. CT abd/pelvis w hyperemia and thickening of rectosigmoid area. Blood ct didn't drop over weekend. - Monitor H/H and transfuse prn - Complete Vancomycin 125mg QID x 14 days course total for Cdiff - Would defer colonoscopy evaluation at this time. Suspect prior melena and CT bowel changes may be related to Cdiff colitis. - May consider colonoscopy eval in outpt setting in 6-8 week's time if GI bleeding still suspected. - Advance diet as tolerated. Present on Admission?: Yes Supervising Physician Co-Signing Physician Notes I saw and evaluated the patient. We are consulted for question about anemia and question of melena. Review of the patient's stool appears that he has brown stool today but it is heme-positive. This could be related to his recent C diff infection. Physical examination No obvious distress No scleral icterus Impression: Patient with C diff infection likely the cause of his heme- positive stool. Certainly we could talk about a outpatient colonoscopy in 6-8 weeks. Please call with any questions or concerns during the remainder to [place]. Would recommend a 2 week course of vancomycin. History of Present Illness Reason for Consultation: Anemia, GI bleed Requesting Physician: Dr. Malathi Pat Attending Physician: Dr. Jessica Yi History of Present Illness Pt is a 71 y/o w complicated past medical hx including PVD s/p R BKA, ischemic colitis s/p colectomy w colostomy creation and revision October & February 2018, recent Cdiff colitis (Dx 07/19/18), BPH, HTN, hx of DVT, obtructive uropathy, hydronephrosis currently admitted for hematuria. He was noted to be anemic. H/H 02/06 on admisstion, treated w 3U PRBC total - 1U 07/18, 2U 07/21. H/H now 03/09. He is still on Vancomycin 125mg QID for Cdiff. It was noted on his ostomy bag yesterday that his stools were melanotic in appearance thus GI consulted for possible GI bleed. CT abd/pelvis done showed thickening and some hyperemia at rectosigmoid region. He does c/o generalized abd pain, no n/v. Colostomy contains brown stools w greenish tint, no blood or melena noted. Allergies Allergy/AdvReac Type Severity Reaction Status Date / Time piperacillin Allergy Unknown Unverified 07/21/18 12:42 Home Medications Home Medications Medication Instructions Recorded Confirmed Type aspirin 81 mg PO DAILY 07/10/18 07/21/18 History clopidogrel [Plavix] 75 mg PO DAILY 07/10/18 07/21/18 History ferrous sulfate [iron] 325 mg PO BID 07/10/18 07/21/18 History simvastatin 40 mg PO DAILY 07/10/18 07/21/18 History finasteride [Proscar] 5 mg PO QAM 30 Days #30 tab 07/13/18 07/21/18 Rx tamsulosin 0.4 mg PO HS 30 Days #30 cap 07/13/18 07/21/18 Rx magnesium oxide 400 mg PO DAILY 5 Days #5 tab 07/20/18 07/21/18 Rx vancomycin 125 mg PO Q6H 8 Days #32 cap 07/20/18 07/21/18 Rx Patient History Medical History Enlarged prostate Acute UTI (Acute) Hydronephrosis of left kidney Uropathy, obstructive (Acute) Acute renal failure (Acute) Pyelonephritis (Acute) Peripheral artery disease (Chronic) Hypertension (Chronic) DVT (deep venous thrombosis) Medical non-compliance (Resolved) Perforated bowel Surgical History Amputated right leg (Acute) Family History Father Bladder cancer Social History marital status: Current Living Situation: Spouse current occupational status: retired Other Information That Helps Us Care for You: No Feels Safe at Home: Yes Safety Concerns: Feels Safe At This Time Smoking Status: Former smoker Hx Alcohol Use: No Hx Substance Use: No Beliefs That Will Affect Care: None Communication Ability: Effective Review of Systems Constitutional: as per Subjective / HPI Respiratory: no cough and no dyspnea Cardiovascular: no chest pain, no lightheadedness and no edema Gastrointestinal: as per Subjective / HPI, + abdominal pain and + melena; no heartburn, no nausea and no vomiting Physical Exam 2 Vital Signs (Past 24 Hours): Last Vital Signs Temp 36.8 C 07/23/18 12:08 Pulse 73 07/23/18 12:08 Resp 18 07/23/18 12:08 BP 138/76 07/23/18 12:08 Pulse Ox 96 07/23/18 12:08 Constitutional: WD/WN, vitals as above well groomed, cooperative and comfortable Eyes: PERRL, conjunctivae normal, anicteric sclerae ENMT: external ear and nose normal, oropharynx normal Respiratory: normal respiratory effort, lungs clear to auscultation Cardiovascular: RRR, no murmur, no edema Gastrointestinal (Abdomen): LLQ ostomy w brown/greenish stool output. stools semi soft, no blood noted. Abd tender to palpation, hypoactive bowel sounds present. Skin: no rashes, warm and dry no jaundice Neurologic: Motor/Sensory: no asterixis Psychiatric: A+Ox3, euthymic affect Lymphatic: no lymphedema Results & Data Laboratory Results Laboratory Results - last 48 hr 07/21/18 07/21/18 07/21/18 12:20 14:35 14:35 WBC RBC Hgb Hct MCV MCH MCHC RDW Std Deviation RDW Coeff of [place] Plt Count MPV Immature Gran % (Auto) 0.2 Neut % (Auto) 87.7 Lymph % (Auto) 6.7 [place] % (Auto) 4.7 Eos % (Auto) 0.6 Baso % (Auto) 0.1 Immature Gran # (Auto) 0.02 Neut # (Auto) 7.64 H Lymph # (Auto) 0.58 L [place] # (Auto) 0.41 Eos # (Auto) 0.05 Baso # (Auto) 0.01 RBC Morphology Unremarkable PT 12.1 H INR 1.2 H APTT 27.5 PTT Ratio 1.1 Sodium Potassium Chloride Carbon Dioxide Anion Gap BUN Creatinine Est Cr Clr Drug Dosing Est GFR ( Amer) Est GFR (Non-Af Amer) BUN/Creatinine Ratio Glucose Calcium Prostate Specific Ag Urine Color Urine Appearance Urine pH Ur Specific [place] Urine Protein Urine Glucose (UA) Urine Ketones Urine Blood Urine Nitrite Urine Bilirubin Urine Urobilinogen Ur Leukocyte Esterase Urine RBC Urine WBC Ur Epithelial Cells Urine Bacteria Stool Occult Bld Scrn Stl C. diff Tox B Gene Blood Type A Positive Antibody Screen NEGATIVE Crossmatch See Detail 07/21/18 07/21/18 07/21/18 14:38 18:05 20:03 WBC RBC Hgb 6.7 L* Hct 21.3 L MCV MCH MCHC RDW Std Deviation RDW Coeff of [place] Plt Count MPV Immature Gran % (Auto) Neut % (Auto) Lymph % (Auto) [place] % (Auto) Eos % (Auto) Baso % (Auto) Immature Gran # (Auto) Neut # (Auto) Lymph # (Auto) [place] # (Auto) Eos # (Auto) Baso # (Auto) RBC Morphology PT INR APTT PTT Ratio Sodium Potassium Chloride Carbon Dioxide Anion Gap BUN Creatinine Est Cr Clr Drug Dosing Est GFR ( Amer) Est GFR (Non-Af Amer) BUN/Creatinine Ratio Glucose Calcium Prostate Specific Ag Urine Color Red Urine Appearance Cloudy H Urine pH Ur Specific [place] 1.011 Urine Protein Urine Glucose (UA) Urine Ketones Urine Blood Urine Nitrite Urine Bilirubin Urine Urobilinogen Ur Leukocyte Esterase Urine RBC >30 H Urine WBC >30 H Ur Epithelial Cells 5-10 H Urine Bacteria 1+ H Stool Occult Bld Scrn Stl C. diff Tox B Gene Neg C.diff Toxin B Blood Type Antibody Screen Crossmatch 07/22/18 07/22/18 07/22/18 07:49 07:49 07:49 WBC 7.77 RBC 3.50 L Hgb 10.3 L D Hct 31.4 L MCV 89.7 MCH 29.4 MCHC 32.8 RDW Std Deviation 51.9 H RDW Coeff of [place] 16.2 H Plt Count 219 MPV 10.6 H Immature Gran % (Auto) 0.5 Neut % (Auto) 83.2 Lymph % (Auto) 7.6 [place] % (Auto) 4.9 Eos % (Auto) 3.5 Baso % (Auto) 0.3 Immature Gran # (Auto) 0.04 H Neut # (Auto) 6.47 Lymph # (Auto) 0.59 L [place] # (Auto) 0.38 Eos # (Auto) 0.27 Baso # (Auto) 0.02 RBC Morphology PT 11.9 INR 1.2 H APTT PTT Ratio Sodium 137 Potassium Chloride 109 H Carbon Dioxide 22 Anion Gap 6.0 BUN 21 H Creatinine 0.85 Est Cr Clr Drug Dosing 70.0 Est GFR ( Amer) 107.5 Est GFR (Non-Af Amer) 92.7 BUN/Creatinine Ratio 24.9 H Glucose 84 Calcium 7.3 L Prostate Specific Ag 0.174 Urine Color Urine Appearance Urine pH Ur Specific [place] Urine Protein Urine Glucose (UA) Urine Ketones Urine Blood Urine Nitrite Urine Bilirubin Urine Urobilinogen Ur Leukocyte Esterase Urine RBC Urine WBC Ur Epithelial Cells Urine Bacteria Stool Occult Bld Scrn Stl C. diff Tox B Gene Blood Type Antibody Screen Crossmatch 07/22/18 07/22/18 07/22/18 09:50 11:34 11:34 WBC RBC Hgb 9.2 L Hct 27.8 L MCV MCH MCHC RDW Std Deviation RDW Coeff of [place] Plt Count MPV Immature Gran % (Auto) Neut % (Auto) Lymph % (Auto) [place] % (Auto) Eos % (Auto) Baso % (Auto) Immature Gran # (Auto) Neut # (Auto) Lymph # (Auto) [place] # (Auto) Eos # (Auto) Baso # (Auto) RBC Morphology PT INR APTT PTT Ratio Sodium Potassium 3.5 Chloride Carbon Dioxide Anion Gap BUN Creatinine Est Cr Clr Drug Dosing Est GFR ( Amer) Est GFR (Non-Af Amer) BUN/Creatinine Ratio Glucose Calcium Prostate Specific Ag Urine Color Urine Appearance Urine pH Ur Specific [place] Urine Protein Urine Glucose (UA) Urine Ketones Urine Blood Urine Nitrite Urine Bilirubin Urine Urobilinogen Ur Leukocyte Esterase Urine RBC Urine WBC Ur Epithelial Cells Urine Bacteria Stool Occult Bld Scrn Positive H Stl C. diff Tox B Gene Blood Type Antibody Screen Crossmatch 07/22/18 07/23/18 07/23/18 20:10 06:29 06:29 WBC RBC Hgb 9.1 L Hct 27.5 L MCV MCH MCHC RDW Std Deviation RDW Coeff of [place] Plt Count MPV Immature Gran % (Auto) Neut % (Auto) Lymph % (Auto) [place] % (Auto) Eos % (Auto) Baso % (Auto) Immature Gran # (Auto) Neut # (Auto) Lymph # (Auto) [place] # (Auto) Eos # (Auto) Baso # (Auto) RBC Morphology PT 12.0 INR 1.2 H APTT PTT Ratio Sodium 138 Potassium 3.5 Chloride 111 H Carbon Dioxide 21 Anion Gap 6.0 BUN 12 Creatinine 0.65 Est Cr Clr Drug Dosing 91.8 Est GFR ( Amer) 120.0 Est GFR (Non-Af Amer) 103.5 BUN/Creatinine Ratio 18.1 Glucose 77 Calcium 6.9 L Prostate Specific Ag Urine Color Urine Appearance Urine pH Ur Specific [place] Urine Protein Urine Glucose (UA) Urine Ketones Urine Blood Urine Nitrite Urine Bilirubin Urine Urobilinogen Ur Leukocyte Esterase Urine RBC Urine WBC Ur Epithelial Cells Urine Bacteria Stool Occult Bld Scrn Stl C. diff Tox B Gene Blood Type Antibody Screen Crossmatch 07/23/18 07/23/18 08:54 08:54 WBC 5.73 RBC 3.12 L Hgb 9.1 L Hct 28.4 L MCV 91.0 MCH 29.2 MCHC 32.0 RDW Std Deviation 53.6 H RDW Coeff of [place] 16.5 H Plt Count 235 MPV 9.9 Immature Gran % (Auto) 0.3 Neut % (Auto) 75.8 Lymph % (Auto) 14.7 [place] % (Auto) 5.9 Eos % (Auto) 3.1 Baso % (Auto) 0.2 Immature Gran # (Auto) 0.02 Neut # (Auto) 4.34 Lymph # (Auto) 0.84 L [place] # (Auto) 0.34 Eos # (Auto) 0.18 Baso # (Auto) 0.01 RBC Morphology PT INR APTT PTT Ratio Sodium 138 Potassium 4.0 Chloride 110 H Carbon Dioxide 22 Anion Gap 6.0 BUN 13 Creatinine 0.76 Est Cr Clr Drug Dosing 78.5 Est GFR ( Amer) 112.5 Est GFR (Non-Af Amer) 97.1 BUN/Creatinine Ratio 17.1 Glucose 80 Calcium 7.0 L Prostate Specific Ag Urine Color Urine Appearance Urine pH Ur Specific [place] Urine Protein Urine Glucose (UA) Urine Ketones Urine Blood Urine Nitrite Urine Bilirubin Urine Urobilinogen Ur Leukocyte Esterase Urine RBC Urine WBC Ur Epithelial Cells Urine Bacteria Stool Occult Bld Scrn Stl C. diff Tox B Gene Blood Type Antibody Screen Crossmatch Diagnostic Findings CT SCAN OF THE ABDOMEN AND PELVIS WITH IV CONTRAST CLINICAL HISTORY: Hematuria. Generalized abdominal pain. COMPARISON STUDY: Abdominal CT dated 07/10/2018 and 01/30/2017. TECHNIQUE: Following the IV administration of 94 cc of Optiray 320, CT scan of the abdomen and pelvis is performed from the lung bases to the proximal femora. Images are reviewed in the axial, sagittal, and coronal planes. IV contrast was administered without complication. A dose lowering technique was utilized adhering to the principles of ALARA. CT DOSE: 280.85 mGy.cm FINDINGS: Lung bases: The heart is top normal in size and there is a small pericardial effusion. The coronary arteries are densely calcified. Emphysema is noted. There are small pleural effusions with bibasilar consolidation, new from 2018. Liver: The contrast-enhanced liver is normal in size, contour, and attenuation. There is no intrahepatic biliary ductal dilatation. The hepatic veins and portal veins are patent. Gallbladder: Calcified gallstones are noted. There is no CT evidence of acute cholecystitis. Spleen: Normal in size and attenuation. Pancreas: Unremarkable. Adrenal glands: Unremarkable. Kidneys: The contrast enhanced kidneys are normal in size and there is mild to moderate bilateral hydroureteronephrosis, left greater than right. The kidneys enhance heterogeneously. A 3 mm nonobstructing calculus is seen in the left lower pole. Scattered subcentimeter cortical hypodensities likely represent cysts but are too small for definitive characterization. Abdominal vasculature: There is advanced atherosclerotic calcification of the abdominal aorta. There are postoperative changes from aortoiliac bypass surgery. The aortic bypass and the left iliac bypass are patent. The right iliac bypass is thrombosed. A stent is present within the iliamna left external iliac artery. There is some reconstitution of flow within the iliamna left iliac vessels. Bowel: There are postoperative changes from left-sided colon resection with left lower quadrant colostomy. No bowel obstruction is identified. There is wall thickening and hyperemia seen involving the rectosigmoid colon. The appendix is not clearly identified. Peritoneum: There is no intraperitoneal free air or abdominal ascites. Lymphadenopathy: There are numerous mildly enlarged retroperitoneal and iliac chain lymph nodes which measure up to 13 mm in short axis. Pelvic viscera: There is nonspecific presacral induration. The prostate gland is mildly enlarged and heterogeneous. The bladder is markedly abnormal in appearance. The bladder is distended and a Reynolds catheter is in place. The bladder wall is thickened comment trabeculated, and hyperemic. There are large intraluminal septations. There is a large volume of hyperdense debris within the bladder lumen, likely representing blood clots. Gas is also seen within the bladder lumen. Pericystic inflammation is observed. There is an ovoid fluid collection identified in the right peroneal soft tissues as seen on image #[id number]. This measures 3.4 x 2.0 cm, and is located between the obturator internus muscle and the prostate gland. Skeletal structures: The skeletal structures are osteopenic. There are mild superior endplate compression deformities of L1 and L4. Lumbar sacral spondylosis is observed. No lytic or blastic lesions are seen. There has been amputation of the subtrochanteric right femur, with asymmetric atrophy of the right pelvic musculature. Erosive change is suggested involving the anterior aspect of the intertrochanteric right femur. This closely abuts the dermal surface. Cutaneous defect/wound suggested. Soft tissues: There is body wall edema. IMPRESSION: 1. The bladder is markedly abnormal in appearance and is distended despite a Reynolds catheter in place. The bladder wall is thickened and trabeculated, likely related to chronic outlet obstruction. 2. The bladder wall is hyperemic and there is pericystic inflammation. Nonspecific gas is noted within the bladder lumen. Correlate clinically and with urinalysis for evidence of cystitis. 3. There are thick internal septations within the bladder lumen, as well as a large amount of hyperdense intraluminal debris. The debris likely represents blood clots. 4. There is mild to moderate bilateral hydroureteronephrosis, left greater than right. This is likely related to bladder outlet obstruction. 5. There are postoperative changes from partial left colon resection with left lower quadrant ostomy. No bowel obstruction is seen. 6. There are small pleural effusions with bibasilar consolidation. This could present atelectasis and/or pneumonia and clinical correlation will required. This is new from 07/10/2018. 7. The kidneys demonstrate heterogeneous enhancement. This may related to obstruction/hydronephrosis. Correlate clinically and with urinalysis for evidence of ascending urinary tract infection. 8. Cholelithiasis without CT evidence of acute cholecystitis. 9. There is an indeterminant 3.4 cm ovoid fluid collection identified in the right perineal soft tissues. A small abscess is not excluded. This is new from . 10. Mucosal thickening and hyperemia are noted in the rectosigmoid colon. This may be on an infectious basis or could be related to previous pelvic radiation. Clinical correlation will be required. 11. There are postoperative changes from aortobiiliac bypass surgery. The right iliac bypass is occluded. 12. There has been subtrochanteric resection of the right femur. Erosive change is suggested within the anterior intertrochanteric right femur. This may represent bony remodeling and postoperative change. Osteomyelitis would be impossible to exclude and clinical correlation will be required. This changes have been present dating back to 01/30/2017. 13. Left-sided nephrolithiasis. 14. There are mildly enlarged retroperitoneal and iliac chain lymph nodes which are likely on a reactive basis. _ (1) Hematuria Glomerular morphologic changes: Hematuria type: unspecified type Qualified Code(s): R31.9 - Hematuria, unspecified (2) GI bleed GI bleed type/associated pathology: melena Gastritis type: Qualified Code(s ): K92.1 - Melena (3) Anemia Anemia type: unspecified type Bone marrow failure anemia type: Chronic kidney disease stage: Folate deficiency anemia type: Hemolytic anemia type: Iron deficiency anemia type: Other causes of anemia: Vitamin B12 deficiency anemia type: Qualified Code(s): D64.9 - Anemia, unspecified
--- NOTE | 2018-07-23 15:43 | Hospitalist Progress Note ---
Date of Service July 23, 2018 Assessment & Plan (1) GI bleed: GI BLEED , PRESENT ON ADMISSION melena /mahogony stool noted in colostomy bag stool heme occult positive presented with required 2 units of PRBC tx GI eval requested Appreciate input No obvious cause of active GI bleed, IV Protonix discontinued, changed to oral Protonix 40 mill grams twice daily Diet advanced to full liquid, advance as tolerated Would defer colonoscopy evaluation at this time. Suspect prior melena and CT bowel changes may be related to Cdiff colitis. Monitor H/H and transfuse prn - Complete Vancomycin 125mg QID x 14 days course total for Cdiff - - May consider colonoscopy eval in outpt setting in 6-8 week's time if GI bleeding still suspected. - Advance diet as tolerated. (2) Hematuria: Improved hx of chronic urinary retention Hardin -draining hines coloured urine with blood clots hold Aspirin /Plavix ( pts home meds ) CT abdomen /pelvis with contrast : . The bladder is markedly abnormal in appearance and is distended despite a Hardin catheter in place. The bladder wall is thickened and trabeculated, likely related to chronic outlet obstruction. 2. The bladder wall is hyperemic and there is pericystic inflammation. Nonspecific gas is noted within the bladder lumen. Correlate clinically and with urinalysis for evidence of cystitis. 3. There are thick internal septations within the bladder lumen, as well as a large amount of hyperdense intraluminal debris. The debris likely represents blood clots. 4. There is mild to moderate bilateral hydroureteronephrosis, left greater than right. This is likely related to bladder outlet obstruction. Urology consult requested appreciate input recommend to cont with hardin / - catheter currently draining well and urine is relatively clear - base on admission CT - high probability that he has residual clot in the bladder, but at present he is stable - he has very substantial comorbidities - poor surgical candidate/pt is high risk for anesthesia , no plan for cystoscopy - attempt to manage catheter conservative (prn manual irrigation) if at all possible empiric Abx with IV Azactum ( pt is allergic to Zosyn ) avoid all anticoagulats follow H&H (3) Syncope: possible due to anemia /hypotension no evidence of ACS or arrythmia cont correct anemia with PRBC transfusion , to Keep Hb> 8 ( severe PVD ) CT head -no evidence of CVA (4) Facial contusion: due to fall cont local wound care CT of cervical spine : no Fx (5) Anemia: acute blood loss anemia with underlying anemia of chronic disease possible due to ongoing Hematuria /concern for GI bleed s/p 2 units of PRBC transfusion over night Hemoglobin remained stable 10.2�9.1 (6) Tachycardia: Resolved, due to dehydration , anemia , vol loss resolved after IVF , tranfuse PRBC as needed to correct anemia 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 difficile diarrhea: stool was positive for C diff in last admission repeat C diff assay -negative contact precaution CODE STATUS : DNR/DNI DISPOSITION ; lives with , wheel chair bound presents with significant deconditioning ordered for PT/OT pt refused to consider Rehab after discharge plan is to return home with home health /Home PT Social service consulted for discharge planning Subjective diet advanced to flul liquid tolerating well Hardin still has hematuria less amount of blood clot noted no complain of abdominal pain no fever or chills Physical Exam 2 Vital Signs (Past 24 Hours): Last Vital Signs Temp 36.7 C 07/23/18 15:25 Pulse 74 07/23/18 15:25 Resp 16 07/23/18 15:25 BP 135/76 07/23/18 15:25 Pulse Ox 94 07/23/18 15:25 Constitutional: + ill appearing and + cachectic Eyes: + anicteric sclerae ENMT: Mouth: + dry oral mucous membranes Respiratory: normal respiratory effort; no respiratory distress, no labored breathing and no cough Auscultation: lungs clear to auscultation bilaterally ; no crackles and no wheezes Gastrointestinal (Abdomen): Percussion/Palpation: abdomen soft; abdomen nontender Neurologic: PERRL, EOMI, accommodation nl, no face palsy, no dysarthria Psychiatric: Orientation: alert and oriented x 3 Affect: + depressed affect _ (1) Hematuria Glomerular morphologic changes: Hematuria type: unspecified type Qualified Code(s): R31.9 - Hematuria, unspecified (2) GI bleed GI bleed type/associated pathology: melena Gastritis type: Qualified Code(s ): K92.1 - Melena (3) Anemia Anemia type: unspecified type Bone marrow failure anemia type: Chronic kidney disease stage: Folate deficiency anemia type: Hemolytic anemia type: Iron deficiency anemia type: Other causes of anemia: Vitamin B12 deficiency anemia type: Qualified Code(s): D64.9 - Anemia, unspecified (4) Syncope Encounter type: Syncope type: unspecified Qualified Code(s): R55 - Syncope and collapse (5) Facial contusion Encounter type: initial encounter Qualified Code(s): S00.83XA - Contusion of other part of head, initial encounter
[2018-07-23] MEDS: TAMSULOSIN HCL 0.4 MG CAP PO SCH (20:24)
[2018-07-23] MEDS: PANTOprazole 40 MG TAB PO SCH (20:25)
[2018-07-24] MEDS: AZTREONAM 1,000 MG in DEXTROSE 5% 100 ML IV SCH ×3 (04:12→20:30)
[2018-07-24] MEDS: RASPBERRY SYRUP 5 ML UDP PO SCH ×4 (05:13→23:41)
[2018-07-24] MEDS: VANCOMYCIN HCL 125 MG/2.5ML SOLN PO SCH ×4 (05:13→23:41)
[2018-07-24 07:13] LABS: Hematocrit (blood only) 28.1 % (42-52); Mean Corpuscular Volume 91.5 fL (80-100); Mean Platelet Volume 9.5 fL (7.4-10.4); Platelet Count 239 K/uL (130-400); RDW Coefficient of Variation 16.5 % (11.5-14.5); RDW Standard Deviation 54.5 fL (36.4-46.3); Red Blood Count 3.07 M/uL (4.7-6.1); White Blood Count 5.94 K/uL (4.8-10.8)
[2018-07-24 07:41] LABS: BUN Creatinine Ratio 13.9 (10-20); Creatinine Clr Calc Pharmacy 73.3 ml/min; Est GFR (African American) 112.5; Est GFR (Non-African American) 97.1; Potassium 3.8 mmol/L (3.5-5.1)
[2018-07-24] MEDS: FERROUS SULFATE 325 MG TAB PO SCH ×2 (08:11→20:30)
[2018-07-24] MEDS: FINASTERIDE 5 MG TAB PO SCH (08:11)
[2018-07-24] MEDS: SIMVASTATIN 40 MG TAB PO SCH (08:11)
[2018-07-24] MEDS: PANTOprazole 40 MG TAB PO SCH ×2 (08:11→20:31)
--- NOTE | 2018-07-24 08:57 | Urology Progress Note ---
Date of Service July 24, 2018 Assessment & Plan (1) Hematuria: (2) Urine retention: Hardin catheter draining hines to pink urine, minimal clots appreciated today. Improved from yesterday's assessment. Has not required irrigation per nursing. Continue to hold plavix for now. H/H, Cr stable. VSS, afebrile. UC&S final, no growth. Continue conservative management with hardin catheter to allow maximal drainage. Continue tamsulosin and finesteride. If able to be arranged, we may entertain performing in-house cystoscopy to r/o tumor or other cause of recurrent hematuria, while off plavix. Will discuss with physicians tomorrow. Thank you for allowing us to participate in the care of Mr. Landon. We will continue to follow with primary service. Subjective Pt offers no new complaints or concerns today. Hardin catheter intact, denies suprapubic, abdominal or flank pain. No bladder spasms. Tolerating PO diet well. Pt states he had no hematuria at home with the catheter and only had hematuria when he had the hardin removed for a voiding trial. PSA nl less than 1 last visit. Pt does have a smoking history . Urine is clearing and would make sense to try to check a cysto for hematuria and his prostate if it can be arranged Review of Systems All systems reviewed & are unremarkable except as noted in HPI & below Physical Exam 2 Vital Signs (Past 24 Hours): Last Vital Signs Temp 36.8 C 07/24/18 08:05 Pulse 82 07/24/18 08:05 Resp 18 07/24/18 08:05 BP 137/77 07/24/18 08:05 Pulse Ox 96 07/24/18 08:05 Physical Exam: A&0x3 RRR abd soft, ostomy intact hardin catheter draining hines to pink, no clots. skin: healing lacerations to face Results & Data Laboratory Results Laboratory Results - last 48 hr 07/22/18 07/22/18 07/22/18 07:49 09:50 11:34 WBC 7.77 RBC 3.50 L Hgb 10.3 L D 9.2 L Hct 31.4 L 27.8 L MCV 89.7 MCH 29.4 MCHC 32.8 RDW Std Deviation 51.9 H RDW Coeff of [place] 16.2 H Plt Count 219 MPV 10.6 H Immature Gran % (Auto) 0.5 Neut % (Auto) 83.2 Lymph % (Auto) 7.6 [place] % (Auto) 4.9 Eos % (Auto) 3.5 Baso % (Auto) 0.3 Immature Gran # (Auto) 0.04 H Neut # (Auto) 6.47 Lymph # (Auto) 0.59 L [place] # (Auto) 0.38 Eos # (Auto) 0.27 Baso # (Auto) 0.02 PT INR Sodium Potassium Chloride Carbon Dioxide Anion Gap BUN Creatinine Est Cr Clr Drug Dosing Est GFR ( Amer) Est GFR (Non-Af Amer) BUN/Creatinine Ratio Glucose Calcium Stool Occult Bld Scrn Positive H 07/22/18 07/22/18 07/23/18 11:34 20:10 06:29 WBC RBC Hgb 9.1 L Hct 27.5 L MCV MCH MCHC RDW Std Deviation RDW Coeff of [place] Plt Count MPV Immature Gran % (Auto) Neut % (Auto) Lymph % (Auto) [place] % (Auto) Eos % (Auto) Baso % (Auto) Immature Gran # (Auto) Neut # (Auto) Lymph # (Auto) [place] # (Auto) Eos # (Auto) Baso # (Auto) PT 12.0 INR 1.2 H Sodium Potassium 3.5 Chloride Carbon Dioxide Anion Gap BUN Creatinine Est Cr Clr Drug Dosing Est GFR ( Amer) Est GFR (Non-Af Amer) BUN/Creatinine Ratio Glucose Calcium Stool Occult Bld Scrn 07/23/18 07/23/18 07/23/18 06:29 08:54 08:54 WBC 5.73 RBC 3.12 L Hgb 9.1 L Hct 28.4 L MCV 91.0 MCH 29.2 MCHC 32.0 RDW Std Deviation 53.6 H RDW Coeff of [place] 16.5 H Plt Count 235 MPV 9.9 Immature Gran % (Auto) 0.3 Neut % (Auto) 75.8 Lymph % (Auto) 14.7 [place] % (Auto) 5.9 Eos % (Auto) 3.1 Baso % (Auto) 0.2 Immature Gran # (Auto) 0.02 Neut # (Auto) 4.34 Lymph # (Auto) 0.84 L [place] # (Auto) 0.34 Eos # (Auto) 0.18 Baso # (Auto) 0.01 PT INR Sodium 138 138 Potassium 3.5 4.0 Chloride 111 H 110 H Carbon Dioxide 21 22 Anion Gap 6.0 6.0 BUN 12 13 Creatinine 0.65 0.76 Est Cr Clr Drug Dosing 91.8 78.5 Est GFR ( Amer) 120.0 112.5 Est GFR (Non-Af Amer) 103.5 97.1 BUN/Creatinine Ratio 18.1 17.1 Glucose 77 80 Calcium 6.9 L 7.0 L Stool Occult Bld Scrn 07/24/18 07/24/18 06:56 06:56 WBC 5.94 RBC 3.07 L Hgb 9.0 L Hct 28.1 L MCV 91.5 MCH 29.3 MCHC 32.0 RDW Std Deviation 54.5 H RDW Coeff of [place] 16.5 H Plt Count 239 MPV 9.5 Immature Gran % (Auto) Neut % (Auto) Lymph % (Auto) [place] % (Auto) Eos % (Auto) Baso % (Auto) Immature Gran # (Auto) Neut # (Auto) Lymph # (Auto) [place] # (Auto) Eos # (Auto) Baso # (Auto) PT INR Sodium 135 L Potassium 3.8 Chloride 110 H Carbon Dioxide 19 L Anion Gap 6.0 BUN 11 Creatinine 0.76 Est Cr Clr Drug Dosing 73.3 Est GFR ( Amer) 112.5 Est GFR (Non-Af Amer) 97.1 BUN/Creatinine Ratio 13.9 Glucose 78 Calcium 7.0 L Stool Occult Bld Scrn _ (1) Hematuria Glomerular morphologic changes: Hematuria type: unspecified type Qualified Code(s): R31.9 - Hematuria, unspecified
--- NOTE | 2018-07-24 14:32 | Hospitalist Progress Note ---
Date of Service July 24, 2018 Assessment & Plan (1) GI bleed: GI BLEED , PRESENT ON ADMISSION melena /mahogony stool noted in colostomy bag stool heme occult positive presented with acute blood loss anemia required 2 units of PRBC tx GI eval requested Appreciate input No obvious cause of active GI bleed, IV Protonix discontinued, changed to oral Protonix 40 mill grams twice daily Diet advanced to low residue , tolerating well high risk for anesthesia /also prohibitive in setting of C diff Would defer colonoscopy evaluation at this time with no evidence of active GI bleed . Suspect heme positive stool be related to Cdiff colitis. h&H been stable - Complete Vancomycin 125mg QID x 14 days course total for Cdiff - - May consider colonoscopy eval in outpt setting in 6-8 week's time if GI bleeding still suspected. - Advance diet as tolerated. (2) Hematuria: Improved hx of chronic urinary retention Hardin -draining hines coloured urine with blood clots Aspirin /Plavix ( pts home meds ) was on hold H&H stable Aspirin resumed CT abdomen /pelvis with contrast : . The bladder is markedly abnormal in appearance and is distended despite a Hardin catheter in place. The bladder wall is thickened and trabeculated, likely related to chronic outlet obstruction. 2. The bladder wall is hyperemic and there is pericystic inflammation. Nonspecific gas is noted within the bladder lumen. Correlate clinically and with urinalysis for evidence of cystitis. 3. There are thick internal septations within the bladder lumen, as well as a large amount of hyperdense intraluminal debris. The debris likely represents blood clots. 4. There is mild to moderate bilateral hydroureteronephrosis, left greater than right. This is likely related to bladder outlet obstruction. Urology consult requested appreciate input recommend to cont with hardin / - catheter currently draining well and urine is relatively clear - base on admission CT - high probability that he has residual clot in the bladder, but at present he is stable - he has very substantial comorbidities - poor surgical candidate/pt is high risk for anesthesia , no plan for cystoscopy - attempt to manage catheter conservative (prn manual irrigation) if at all possible empiric Abx with IV Azactum ( pt is allergic to Zosyn ) avoid all anticoagulats follow H&H (3) Syncope: possible due to anemia /hypotension no evidence of ACS or arrythmia cont correct anemia with PRBC transfusion , to Keep Hb> 8 ( severe PVD ) CT head -no evidence of CVA (4) Facial contusion: due to fall cont local wound care CT of cervical spine : no Fx (5) Anemia: acute blood loss anemia with underlying anemia of chronic disease possible due to ongoing Hematuria /concern for GI bleed s/p 2 units of PRBC transfusion Hemoglobin remained stable 10.2�9.1 (6) Tachycardia: due to dehydration , anemia , vol loss given IVF , tranfuse PRBC as needed to correct anemia (7) Complicated urinary tract infection: possible due to chronic urinary retention Continue IV Azactam management out lined as above (8) Urine retention: chronic CT abdomen /pelvis : report as above cont indwelling Hardin -will need to be in indefinitely Urology consult appreciated out pr follow up in clinic for possible Cystoscopy (9) Amputated right leg: due to severe PVD aspirin /plavix resumed for hematuria /GI bleed Asprin resumed cont to hold Palvix till hematuria resolves (10) Peripheral artery disease: hold aspirin , plavix for gross hematuria , anemia (11) C. difficile diarrhea: stool was positive for C diff in last admission repeat C diff assay -negative contact precaution CODE STATUS : DNR/DNI DISPOSITION ; lives with , wheel chair bound presents with significant deconditioning ordered for PT/OT -stable to return home pt refused have any service wants to be discharged home before weekend Subjective tolerting diet no nausea /vomiting no melanotic stool in colostomy hardin draining hines coloured urine minimum clot noted in the tubing no diarrhea present at bedside repeats her concern for PO Vancomycin for C diff ( concern about allergy /side effect) some one she knows had Leobardo Johnsons syndrome while on PO Vanco counselling provided -risk of SJ syndrome in very minimum pt will need to complete 10 days of PO vancomycin to prevent resistance / recurrent of c diff untreated C diff can lead to sepsis , life threatening colitis Physical Exam 2 Vital Signs (Past 24 Hours): Last Vital Signs Temp 36.9 C 07/24/18 11:29 Pulse 88 07/24/18 11:29 Resp 16 07/24/18 11:29 BP 123/74 07/24/18 11:29 Pulse Ox 97 07/24/18 11:29 Constitutional: + ill appearing and + cachectic Eyes: + anicteric sclerae ENMT: Mouth: + dry oral mucous membranes Respiratory: normal respiratory effort; no respiratory distress, no labored breathing and no cough Auscultation: lungs clear to auscultation bilaterally ; no crackles and no wheezes Gastrointestinal (Abdomen): Percussion/Palpation: abdomen soft; abdomen nontender Neurologic: PERRL, EOMI, accommodation nl, no face palsy, no dysarthria Psychiatric: Orientation: alert and oriented x 3 Affect: + depressed affect _ (1) Hematuria Glomerular morphologic changes: Hematuria type: unspecified type Qualified Code(s): R31.9 - Hematuria, unspecified (2) GI bleed GI bleed type/associated pathology: melena Gastritis type: Qualified Code(s ): K92.1 - Melena (3) Anemia Anemia type: unspecified type Bone marrow failure anemia type: Chronic kidney disease stage: Folate deficiency anemia type: Hemolytic anemia type: Iron deficiency anemia type: Other causes of anemia: Vitamin B12 deficiency anemia type: Qualified Code(s): D64.9 - Anemia, unspecified (4) Syncope Encounter type: Syncope type: unspecified Qualified Code(s): R55 - Syncope and collapse (5) Facial contusion Encounter type: initial encounter Qualified Code(s): S00.83XA - Contusion of other part of head, initial encounter
[2018-07-24] MEDS: TAMSULOSIN HCL 0.4 MG CAP PO SCH (20:30)
[2018-07-25] MEDS: AZTREONAM 1,000 MG in DEXTROSE 5% 100 ML IV SCH ×3 (03:50→19:58)
[2018-07-25] MEDS: RASPBERRY SYRUP 5 ML UDP PO SCH ×4 (05:43→23:29)
[2018-07-25] MEDS: VANCOMYCIN HCL 125 MG/2.5ML SOLN PO SCH ×4 (05:43→23:29)
[2018-07-25 06:38] LABS: Hematocrit (blood only) 27.4 % (42-52); Hemoglobin 8.8 g/dL (14.0-18.0); Mean Corpuscular Hgb Conc 32.1 g/dL (32-36); Mean Corpuscular Volume 92.3 fL (80-100); Mean Platelet Volume 9.4 fL (7.4-10.4); Platelet Count 252 K/uL (130-400); RDW Coefficient of Variation 16.6 % (11.5-14.5); RDW Standard Deviation 54.5 fL (36.4-46.3); Red Blood Count 2.97 M/uL (4.7-6.1); White Blood Count 5.74 K/uL (4.8-10.8)
[2018-07-25 07:10] LABS: BUN Creatinine Ratio 16.8 (10-20); Calcium 6.9 mg/dl (8.5-10.1); Creatinine Clr Calc Pharmacy 76.8 ml/min; Est GFR (African American) 114.4; Est GFR (Non-African American) 98.7; Potassium 3.6 mmol/L (3.5-5.1)
[2018-07-25] MEDS: FERROUS SULFATE 325 MG TAB PO SCH ×2 (08:50→21:42)
[2018-07-25] MEDS: FINASTERIDE 5 MG TAB PO SCH (08:50)
[2018-07-25] MEDS: PANTOprazole 40 MG TAB PO SCH ×2 (08:50→21:42)
[2018-07-25] MEDS: SIMVASTATIN 40 MG TAB PO SCH (08:50)
[2018-07-25] MEDS ORDERED: ASPIRIN 81 MG ECTAB PO SCH (09:00)
--- NOTE | 2018-07-25 15:48 | Urology Progress Note ---
Date of Service July 25, 2018 Assessment & Plan (1) Urine retention: Baby ASA restarted, continues to hold plavix Continue to hold plavix indefinitely per patient/'s report. Hematuria appears slightly darker today, as compared to yesterday's assessment. Has not required irrigation per nursing. H/H and Cr remain stable. VSS, afebrile. UC&S negative Continue tamsulosin and finesteride. Discussed potential inpatient cystoscopy with Dr. Oseguera. Feels patient would benefit from conservative approach with bladder rest. Plan to maintain hardin catheter and perform cystoscopy/voding trial as outpatient in 1-[address] Gan as originally planned. Will arrange with our office. No further intervention required at this time. Thank you for the consultation. Please reconsult us with any additional questions, concerns or issues. Subjective Baby aspirin restarted this AM. Has not required irrigation per nursing. Hematuria appears to darker hines today, some tiny clots in tubing. Denies suprapubic or flank pain. Denies bladder spasms Denies n/v. Tolerating PO well. at bedside. Physical Exam 2 Vital Signs (Past 24 Hours): Last Vital Signs Temp 36.7 C 07/25/18 14:52 Pulse 74 07/25/18 15:13 Resp 17 07/25/18 14:52 BP 131/74 07/25/18 14:52 Pulse Ox 98 07/25/18 14:52 Physical Exam: A&ox3 RRR abd soft, colostomy intact : hines red urine, scant clots. Results & Data Laboratory Results Laboratory Results - last 48 hr 07/24/18 07/24/18 07/25/18 06:56 06:56 06:20 WBC 5.94 5.74 RBC 3.07 L 2.97 L Hgb 9.0 L 8.8 L Hct 28.1 L 27.4 L MCV 91.5 92.3 MCH 29.3 29.6 MCHC 32.0 32.1 RDW Std Deviation 54.5 H 54.5 H RDW Coeff of [place] 16.5 H 16.6 H Plt Count 239 252 MPV 9.5 9.4 Sodium 135 L Potassium 3.8 Chloride 110 H Carbon Dioxide 19 L Anion Gap 6.0 BUN 11 Creatinine 0.76 Est Cr Clr Drug Dosing 73.3 Est GFR ( Amer) 112.5 Est GFR (Non-Af Amer) 97.1 BUN/Creatinine Ratio 13.9 Glucose 78 Calcium 7.0 L 07/25/18 06:20 WBC RBC Hgb Hct MCV MCH MCHC RDW Std Deviation RDW Coeff of [place] Plt Count MPV Sodium 137 Potassium 3.6 Chloride 110 H Carbon Dioxide 18 L Anion Gap 9.0 BUN 12 Creatinine 0.73 Est Cr Clr Drug Dosing 76.8 Est GFR ( Amer) 114.4 Est GFR (Non-Af Amer) 98.7 BUN/Creatinine Ratio 16.8 Glucose 86 Calcium 6.9 L
--- NOTE | 2018-07-25 18:55 | Hospitalist Progress Note ---
Date of Service July 25, 2018 Assessment & Plan (1) GI bleed: Presented with melena. Hgb was as low as 6.7. Received 2 units pRBC's. GI consulted. Receiving aspirin and clopidogrel for vascular disease. Recent diagnosed with C diff. [place] that GI bleeding could be due to C diff. PPI + Rx for C diff recommended. Hgb today = 8.8. May need endoscopic evaluation if stools remain heme positive. (2) C. difficile diarrhea: (present on admission) Continue PO vancomycin. (3) Hematuria: Reynolds cath placed recently for urinary retention with associated hydronephrosis. Now with gross hematuria. Taking aspirin and clopidogrel for vascular disease. CT demonstrated distension of bladder with thickening and trabeculation of bladder wall as well as suspected clots / debris within tht bladder. Urology consulted. Hold aspirin and clopidogrel. Further management per Urology. (4) Urine retention: Continue Reynolds cath. Ongoing management per Urology. (5) Acute blood loss anemia: Hgb as low as 6.7. Secondary to GI bleeding + hematuria. Received 2 units pRBC's. Hgb today = 8.8. (6) Syncope: Syncopal episode day of admission. Probably secondary to blood loss / orthostasis. (7) Peripheral artery disease: Holding aspirin and clopidogrel due to GI bleeding and gross hematuria. (8) DVT prophylaxis: No anticoagulants due to GI bleeding and gross hematuria. SCD's ordered. (9) Discharge planning issues: Anticipated discharge to home. Internal Medicine follow-up with Dr. Al. Subjective Recheck for multiple problems. Patient was seen in his room around 1815. His was visiting. Stool appearance / consistency via colostomy improved. No melena or hematochezia. No abdominal pain, nausea, vomiting. Persistent hematuria via Reynolds cath- seems worse than yesterday. No fever. Occasional nonproductive cough. No chest pain or SOB. Physical Exam 2 Vital Signs (Past 24 Hours): Last Vital Signs Temp 36.7 C 07/25/18 14:52 Pulse 74 07/25/18 15:13 Resp 17 07/25/18 14:52 BP 131/74 07/25/18 14:52 Pulse Ox 98 07/25/18 14:52 Constitutional: no acute distress Respiratory: no respiratory distress Auscultation: + wheezes (mild) Cardiovascular: Rate/Rhythm: regular rate and regular rhythm Vessels: no JVD Extremities: no calf tenderness and no edema Gastrointestinal (Abdomen): Inspection/Auscultation: normal bowel sounds; + abdomen abnormal to inspection (colostomy with brown stool) Percussion/ Palpation: abdomen soft; abdomen nontender Musculoskeletal: Extremities: + extremities abnormal to inspection (right AKA ) Skin: no rashes, warm and dry Psychiatric: Orientation: alert and oriented x 3 Genitourinary: + external exam abnormal (Reynolds cath draining urine with moderate hematuria) _ (1) GI bleed GI bleed type/associated pathology: melena Gastritis type: Qualified Code(s ): K92.1 - Melena (2) Hematuria Glomerular morphologic changes: Hematuria type: unspecified type Qualified Code(s): R31.9 - Hematuria, unspecified (3) Syncope Encounter type: Syncope type: unspecified Qualified Code(s): R55 - Syncope and collapse
[2018-07-25] MEDS: TAMSULOSIN HCL 0.4 MG CAP PO SCH (21:42)
[2018-07-26] MEDS: AZTREONAM 1,000 MG in DEXTROSE 5% 100 ML IV SCH ×2 (04:38→12:32)
[2018-07-26] MEDS: RASPBERRY SYRUP 5 ML UDP PO SCH ×2 (06:29→12:28)
[2018-07-26] MEDS: VANCOMYCIN HCL 125 MG/2.5ML SOLN PO SCH ×2 (06:30→12:28)
[2018-07-26 07:06] LABS: Hematocrit (blood only) 29.2 % (42-52); Hemoglobin 9.3 g/dL (14.0-18.0); Mean Corpuscular Hgb Conc 31.8 g/dL (32-36); Mean Corpuscular Volume 92.1 fL (80-100); Mean Platelet Volume 9.1 fL (7.4-10.4); Platelet Count 251 K/uL (130-400); RDW Coefficient of Variation 16.5 % (11.5-14.5); RDW Standard Deviation 54.4 fL (36.4-46.3); Red Blood Count 3.17 M/uL (4.7-6.1); White Blood Count 6.25 K/uL (4.8-10.8)
[2018-07-26 07:39] LABS: BUN Creatinine Ratio 17.7 (10-20); Calcium 6.9 mg/dl (8.5-10.1); Est GFR (African American) 116.4; Est GFR (Non-African American) 100.4; Potassium 3.8 mmol/L (3.5-5.1)
[2018-07-26] MEDS: FINASTERIDE 5 MG TAB PO SCH (08:51)
[2018-07-26] MEDS: SIMVASTATIN 40 MG TAB PO SCH (08:51)
[2018-07-26] MEDS: PANTOprazole 40 MG TAB PO SCH (08:51)
[2018-07-26] MEDS: FERROUS SULFATE 325 MG TAB PO SCH (08:51)
--- NOTE | 2018-07-26 13:27 | Hospitalist Progress Note ---
Date of Service Date of admission: 07/21/18 Date of discharge: 07/26/18 Assessment & Plan (1) GI bleed: Presented with melena. Hgb was as low as 6.7. Received 2 units pRBC's. GI consulted. Receiving aspirin and clopidogrel for vascular disease. Recent diagnosed with C diff. [place] that GI bleeding could be due to C diff. PPI + Rx for C diff recommended. Hgb today = 9.3. It was explained to patient and his spouse that GI felt that there was high risk for performing endoscopy at this time and safest approach would be to treat with PPI and vancomycin at this time. Endoscopic evaluation can be re-considered if an acute need develops or if there is ongoing GI blood loss. (2) C. difficile diarrhea: (present on admission) Continue PO vancomycin to complete 14 day course of therapy. (3) Hematuria: Reynolds cath placed recently for urinary retention with associated hydronephrosis. Now with gross hematuria. Taking aspirin and clopidogrel for vascular disease. CT demonstrated distension of bladder with thickening and trabeculation of bladder wall as well as suspected clots / debris within tht bladder. Urology consulted. They recommended holding aspirin and clopidogrel. Outpatient cystoscopy in 1-2 weeks recommended. Further management per Urology. Rationale for not having cystoscopy performed at this time explained to patient and his spouse. (4) Urine retention: Continue Reynolds cath. Ongoing management per Urology. (5) Acute blood loss anemia: Hgb as low as 6.7. Secondary to GI bleeding + hematuria. Received 2 units pRBC's. Hgb today = 9.3. Discharge on . Follow H/H closely as outpatient. (6) Syncope: Syncopal episode day of admission. Probably secondary to blood loss / orthostasis. (7) Peripheral artery disease: Holding aspirin and clopidogrel due to GI bleeding and gross hematuria. Resume one or both agents when able to do so safely. (8) Abnormal chest x-ray: Admission chest x-ray showed left basilar density and small pleural effusion. Occasional nonproductive cough. No fever. No leukocytosis. Lungs clear day of discharge. O2 sats 98% on RA. Does not appear to have pneumonia from clinical perspective. [place] best not to give additional antibiotics unless clearly necessary due to current C diff. Re-evaluate as necessary if fever or pulmonary symptoms develop. Check follow-up chest x-ray in clinic. (9) DVT prophylaxis: No anticoagulants due to GI bleeding and gross hematuria. SCD's ordered. (10) Discharge planning issues: Discharge to home with home health services. Internal Medicine follow-up with Dr. Al. Urology follow-up with Dr. Gan. Subjective Recheck for multiple problems. Patient was seen in his room around 1305. His arrived later in the afternoon. No melena or hematochezia via colostomy. No abdominal pain, nausea, vomiting. Persistent hematuria via Reynolds cath- about the same as yesterday. No fever. No chest pain. No cough or SOB. Patient states that he feels well and is very insistent on going home. His is concerned about the GI bleeding and hematuria and questions why GI endoscopies and cystoscopy have not been performed. Physical Exam 2 Vital Signs (Past 24 Hours): Last Vital Signs Temp 36.8 C 07/26/18 11:18 Pulse 79 07/26/18 12:01 Resp 17 07/26/18 11:18 BP 128/76 07/26/18 11:18 Pulse Ox 98 07/26/18 11:18 Constitutional: no acute distress Respiratory: no respiratory distress Auscultation: + wheezes (mild) Cardiovascular: Rate/Rhythm: regular rate and regular rhythm Vessels: no JVD Extremities: no calf tenderness and no edema Gastrointestinal (Abdomen): Inspection/Auscultation: normal bowel sounds; + abdomen abnormal to inspection (colostomy with brown stool) Percussion/ Palpation: abdomen soft; abdomen nontender Musculoskeletal: Extremities: + extremities abnormal to inspection (right AKA ) left foot warm with good capillary refill left DP 1/2, left PT 2/2 Skin: no rashes, warm and dry Psychiatric: Orientation: alert and oriented x 3 Genitourinary: + external exam abnormal (Reynolds cath draining urine with moderate hematuria) _ (1) GI bleed GI bleed type/associated pathology: melena Gastritis type: Qualified Code(s ): K92.1 - Melena (2) Hematuria Glomerular morphologic changes: Hematuria type: unspecified type Qualified Code(s): R31.9 - Hematuria, unspecified (3) Syncope Encounter type: Syncope type: unspecified Qualified Code(s): R55 - Syncope and collapse
--- NOTE | 2018-07-27 10:02 | Discharge Summary ---
Date of Service Date of admission: 07/21/18 Date of discharge: 07/26/18 Admission HPI Per Admitting Provider this is a 63 yo M with severe Peripheral vascular disease s/p rt lower ext below knee amputation , s/p colectomy was discharged from [facility] yesterday 07/21/18 -with diagnosis of C diff colitis, urinary retention anemia , requiring 1 unit of PRBC transfusion pt had a syncope episode this Am fell out of his wheel chair , landed on floor , with facial contusion , nose bleed, left shoulder skin tear pt denies of any chest pain , SOB or palpitation prior to fall did not lost consciousness pt had been having ongoing hematuria , warner blood from urethra since hardin was discontinued prior to discharge home yesterday presented with Anemia ; HB ~7 , tachycardia , hypotension no report of fever or chills no headache , or blurred vision , no weakness or paresthesia Admission Exam Per Admitting Provider Constitutional: + ill appearing and + cachectic Eyes: + anicteric sclerae ENMT: Mouth: + dry oral mucous membranes dried blood on nose multiple skin tear , facial laceration wound present , mostly on rt side of face -injury occured after fall Respiratory: normal respiratory effort; no respiratory distress, no labored breathing and no cough Auscultation: lungs clear to auscultation bilaterally; no crackles and no wheezes Gastrointestinal (Abdomen): Percussion/Palpation: abdomen soft; abdomen nontender colostomy bag on left lower quadrant Musculoskeletal: s/p rt BKA Skin: multiple skin tear on face , shoulder , hand and arm -injury sustained after fall Neurologic: PERRL, EOMI, accommodation nl, no face palsy, no dysarthria Psychiatric: Orientation: alert and oriented x 3 Affect: + depressed affect Principal Diagnosis acute blood loss anemia GI bleed hematuria syncope Discharge Data Allergies Allergy/AdvReac Type Severity Reaction Status Date / Time piperacillin Allergy Unknown Unverified 07/21/18 12:42 Consultations 07/21/18 15:06 ED Decision to Admit Stat 07/21/18 16:13 Consult Case Management - Discharge Planning Routine 07/21/18 16:58 Consult Urology Routine 07/22/18 10:19 Consult Gastroenterology Routine Ordered Studies 07/21/18 12:52 CT cervical spine wo con Stat CT head/brain wo con Stat 07/21/18 16:55 CT abd pelvis IV con only Stat Hospital Course (1) GI bleed: Presented with melena. Hgb was as low as 6.7. Received 2 units pRBC's. GI consulted. Receiving aspirin and clopidogrel for vascular disease. Aspirin and clopidogrel held. Recent diagnosed with C diff. [place] that GI bleeding could be due to C diff. PPI for possible gastropathy + ongoing treatment for C diff recommended. Hgb today = 9.3. It was explained to patient and his spouse that GI consultants felt that there was high risk for performing endoscopy at this time and safest approach would be to treat with PPI and vancomycin. Endoscopic evaluation can be re-considered if an acute need develops or if there is ongoing GI blood loss. (2) C. difficile diarrhea: (present on admission) Continue PO vancomycin to complete 14 day course of therapy. (3) Hematuria: Hardin cath placed recently for urinary retention with associated hydronephrosis. Now with gross hematuria. Taking aspirin and clopidogrel for vascular disease. CT demonstrated distension of bladder with thickening and trabeculation of bladder wall as well as suspected clots / debris within tht bladder. Urology consulted. They recommended holding aspirin and clopidogrel. Outpatient cystoscopy in 1-2 weeks recommended. Further management per Urology. Rationale for not having cystoscopy performed at this time explained to patient and his spouse. (4) Urine retention: Continue Hardin cath. Ongoing management per Urology. (5) Acute blood loss anemia: Hgb as low as 6.7. Secondary to GI bleeding + hematuria. Received 2 units pRBC's. Hgb today = 9.3. Discharge on . Follow H/H closely as outpatient. (6) Syncope: Syncopal episode day of admission. Probably secondary to blood loss / orthostasis. (7) Peripheral artery disease: Holding aspirin and clopidogrel due to GI bleeding and gross hematuria. Resume one or both agents when able to do so safely. (8) Abnormal chest x-ray: Admission chest x-ray showed left basilar density and small pleural effusion. Occasional nonproductive cough. No fever. No leukocytosis. Lungs clear day of discharge. O2 sats 98% on RA. Does not appear to have pneumonia from clinical perspective. [place] best not to give additional antibiotics unless clearly necessary due to current C diff. Re-evaluate as necessary if fever or pulmonary symptoms develop. Check follow-up chest x-ray in clinic. (9) DVT prophylaxis: No anticoagulants due to GI bleeding and gross hematuria. SCD's ordered. (10) Discharge planning issues: Discharge to home with home health services. Internal Medicine follow-up with Dr. Al. Urology follow-up with Dr. Gan. Total Time Total Time Spent Total Time Spent (In Minutes): 45 Discharge Plan Discharge Items Patient Disposition: Home - Home Health Services Reason For Visit: anemia Discharge Diagnosis: bleeding from stomach or intestine bleeding from bladder Condition: Fair Discharge Goals: Decrease discomfort and Improve disease control Activity: Resume your previous activity Non-emergency contact: Primary Care Provider and Hospitalist Call non-emergency contact if: you have any medication questions and your symptoms worsen Follow-up/Referrals: Wilian Gan MD [Physician] - 08/02/18 3:40 pm (Follow-up cystoscopy) Alfred Al DO [Primary Care Provider] - (07/31/2018 4:00 PM Alfred Al DO) Diet: Heart Healthy Addtl Provider Instructions: OTHER INSTRUCTIONS: Your blood count was low. There was blood in your stool which could be coming from stomach or intestine, possibly because of C diff. Gastroenterologists recommend treatment with pantoprazole (Protonix) and completing treatment for C diff. Colonoscopy recommended if you continue to have blood in your stool. There was blood in your urine, probably due to inflammation of bladder. Urologists recommend examining bladder with cystoscopy in 1-2 weeks. Hemoglobin level (blood count) was 9.3 on day of discharge. Dr. Al will recheck your blood count in clinic. Continue vancomycin for 7 more days to treat C diff. Take pantoprazole (Protonix) 40 mg daily to control stomach acid. Hold aspirin and clopidogrel (Plavix) until further notice. Urology would like you to hold both until cystoscopy in their office. Please discuss with Dr. Al when you should restart either or both of these medications. Do not take any anti-inflammatory medicines like ibuprofen (Advil, Motrin, and other brands) and naproxen (Aleve). They may cause or worsen bleeding problems. Seek medical attention if you have: * temperature above 101 * chest pain or trouble breathing * abdominal pain, nausea, vomiting * diarrhea, dark stools or bloody stools * Hardin catheter not draining well * any unanswered questions or concerns Call 911 if symptoms are severe. Call if you have any questions or problems. My cell # is [phone]. You can also reach a [facility] hospitalist on duty at [facility] 24 hours a day by calling [phone]. Prescriptions: New pantoprazole 40 mg tablet,delayed release (DR/EC) 40 mg PO DAILY Qty: 30 RF: 5 Continue simvastatin 40 mg Tablet 40 mg PO DAILY RF: 0 ferrous sulfate [iron] 325 mg (65 mg iron) Tablet 325 mg PO BID RF: 0 tamsulosin 0.4 mg Capsule 0.4 mg PO HS 30 Days Qty: 30 RF: 1 finasteride [Proscar] 5 mg Tablet 5 mg PO QAM 30 Days Qty: 30 RF: 1 vancomycin 125 mg capsule 125 mg PO Q6H 7 Days Qty: 28 RF: 0 Discontinued clopidogrel [Plavix] 75 mg Tablet 75 mg PO DAILY RF: 0 aspirin 81 mg Tablet,Delayed Release (Dr/Ec) 81 mg PO DAILY RF: 0 Stand-Alone Forms: My [facility] Discharge Orders: Discharge Order (Routine); Ordered 07/26/18 Ordered By: Franco Martinez Admission Data Admit Date/Time: 07/21/18 16:10 Attending Provider: Franco Martinez Admit Provider: Malathi Pat Primary Care Provider: Alfred Al Other Providers: Wilian Gan ; Rufus Salinas ; Henry Oseguera I. ; Arthur Darby ; Sapna Modi ; Stan Beebe II ; Debbie Murphy ; Malathi Pat ; Clay Reyna ; Ambrose Vital ; Kenia Valerio ; Jerzy Bowser ; Jessica Yi ; Velia Root ; Izzy Younger ; Vikas Wu ; Jared Patel ; Mariah Crum ; Naz Ramos ; Breann Garcia ; Gifty Srinivasan ; Ann Coley Service: Telemetry Other Interventions: Discharge Summary Assessment (RN) Last Done: 07/26/18 14:37 DC Date/Time DO NOT enter until pt leaves facility: 07/26/18 15:50
== END 2018-07-26 15:50 | disposition home health service (06) ==
LOC: ED 11:39 → SUATTDRO 16:10 → 2S 16:10

== ENCOUNTER 2019-02-07 14:18 | Inpatient (IN) ==
[2019-02-07] MEDS ORDERED: KETOROLAC TROMETHAMINE 15 MG/ML VIAL IV STA (14:37)
[2019-02-07 14:59] LABS: Hematocrit (blood only) 33.7 % (42-52); Mean Corpuscular Hemoglobin 30.3 pg (25-34); Mean Corpuscular Hgb Conc 32.6 g/dL (32-36); Mean Corpuscular Volume 92.8 fL (80-100); Mean Platelet Volume 9.2 fL (7.4-10.4); Platelet Count 305 K/uL (130-400); RDW Coefficient of Variation 19.3 % (11.5-14.5); RDW Standard Deviation 65.6 fL (36.4-46.3); Red Blood Count 3.63 M/uL (4.7-6.1); White Blood Count 13.02 K/uL (4.8-10.8)
[2019-02-07 15:16] LABS: Alanine Aminotransferase 10 U/L (12-78); Albumin Level 2.4 gm/dl (3.4-5.0); Aspartate Aminotransferase 15 U/L (15-37); BUN Creatinine Ratio 14.5 (10-20); Blood Urea Nitrogen 29 mg/dl (7-18); Calcium 9.4 mg/dl (8.5-10.1); Carbon Dioxide 15 mmol/L (21-32); Chloride 114 mmol/L (98-107); Est GFR (African American) 39.2; Est GFR (Non-African American) 33.8; Glucose 87 mg/dl (70-99); Lipase 108 U/L (73-393); Potassium 3.6 mmol/L (3.5-5.1); Sodium 136 mmol/L (136-145)
[2019-02-07 15:19] LABS: Albumin Globulin Ratio 0.4 (0.9-2); Alkaline Phosphatase 134 U/L (45-117); Bilirubin,Total 0.3 mg/dl (0.2-1); Globulin 6.6 gm/dl (2.5-4.0)
[2019-02-07 15:27] LABS: Basophils # (auto) 0.01 K/uL (0-0.2); Basophils % (auto) 0.1 %; Eosinophils # (auto) 0.01 K/uL (0-0.5); Eosinophils % (auto) 0.1 %; Immature Granulocytes # (auto) 0.07 K/uL (0.00-0.02); Immature Granulocytes % (auto) 0.5 %; Lymphocytes # (auto) 0.57 K/uL (1.2-3.4); Lymphocytes % (auto) 4.4 %; Monocytes # (auto) 0.44 K/uL (0.11-0.59); Monocytes % (auto) 3.4 %; Neutrophils # (auto) 11.92 K/uL (1.4-6.5); Neutrophils % (auto) 91.5 %
--- NOTE | 2019-02-07 16:34 | Ultrasound Report ---
SCROTAL ULTRASOUND CLINICAL HISTORY: pain and swelling eval for abscess/hernia/torsion COMPARISON STUDY: None. TECHNIQUE: Grayscale and color and duplex Doppler sonography of the scrotum was performed. FINDINGS: The testes are slightly heterogeneous. However, there is no evidence for torsion. There is no testicular mass. Color flow within each testis is symmetric. There is no evidence for epididymitis . There are small bilateral hydroceles. Several epididymal cysts are noted bilaterally. There is scro dejan wall edema and thickening. No abscess is identified by sonography. IMPRESSION: 1. No evidence of testicular torsion. No testicular mass. No evidence for epididymitis. 2. Moderate scrotal wall thickening and edema. No abscess identified. 3. Mildly heterogeneous bilateral testes. 4. Small bilateral hydroceles. Electronically signed by: Tim Avila M.D. 02/07/2019 4:33 PM
[2019-02-07 16:39] LABS: Appearance Urine Turbid (Clear); Bacteria Urine Automated 2+ (Negative); Bilirubin Urine Negative (Negative); Blood Urine 3+ (Negative); Color Urine Yellow; Epithelial Cell Urine Auto >30 /lpf (0-5); Glucose Urine UA Negative (Negative); Ketones Urine Negative (Negative); Leukocyte Esterase Urine 3+ (Negative); Nitrite Urine Positive (Negative); Protein Urine 2+ (Negative); Specific Gravity Urine 1.017 (1.000-1.030); Urobilinogen Urine Negative (Negative); WBC Urine Automated >30 /hpf (0-5); pH Urine 5.5 (4.5-7.5)
[2019-02-07] MEDS ORDERED: SODIUM CHLORIDE 0.9% 1000ML 1,000 ML IV ONE (16:42)
[2019-02-07] MEDS ORDERED: CEFEPIME 2,000 MG/20 ML VIAL IV STA (16:46)
--- NOTE | 2019-02-07 19:03 | CT Scan Report ---
CT abd pelvis wo con CLINICAL HISTORY: 64 years-old Male presenting with flank and abdominal pain, eval for stone. TECHNIQUE: Multidetector CT of the abdomen and pelvis was performed without the use of intravenous co ntrast. IV contrast: None. One or more dose lowering techniques were used consistent with the princip les of ALARA (as low as reasonably achievable), including automatic exposure control, mA or kV adjust ment to individual patient size, and/or use of iterative reconstruction. COMPARISON: 07/21/2018. CT DOSE (mGy.cm): The estimated cumulative dose is 252.10 mGy.cm. FINDINGS: Carroter topogram: Unremarkable. Lung bases: Normal heart size. Coronary artery calcification. No pericardial or pleural effusion. Emp hysema. Bibasilar scarring or atelectasis in the dependent portions of the lower lobes. Liver: Normal morphology. Density consistent with hepatic steatosis. Biliary: No gross biliary ductal dilatation allowing for noncontrast technique. Normal gallbladder. Pancreas: Normal noncontrast appearance. Spleen: Normal noncontrast appearance. Adrenal glands: Normal noncontrast appearance. Kidneys and ureters: Nonobstructing 3 mm left renal calculus. Normal noncontrast appearance of the ri ght kidney. No right hydronephrosis. Mild left pelvocaliectasis with dilatation of the right ureter. There is no obstructing calculus. Left urothelial thickening. The right ureter is nondistended. Bladder: Bladder wall thickening with irregular protrusion of the bladder at the bladder dome. There is no intraluminal gas within the bladder to suggest a fistula. The outpouching has a thick wall. Pelvic organs: Prostate enlargement likely secondary to benign prostatic hyperplasia. Abnormal soft t issue in the region of the base of the penis (series 3 image 391). Interval resolution of the prior r im-enhancing fluid collection along the right inferior lateral aspect of the prostate. Bowel: Fluid in the rectum suggests a diarrheal state. The left colon terminates proximally as a muco us fistula in the left and abdomen. Transverse colostomy noted at this site with moderate upstream st ool burden. The appendix is normal. The no bowel obstruction. Peritoneal cavity: No free fluid or intraperitoneal gas. Fascial thickening and infiltrative changes in the mesorectal fascia and presacral region suggest a history of pelvic radiation. Lymph nodes: Numerous prominent retroperitoneal lymph nodes, which are largely subcentimeter in short axis. Few prominent left external iliac lymph nodes. No pathologically enlarged lymph node in the ab domen or pelvis. Vasculature: Extensive atherosclerosis. Evidence of postsurgical changes of aortoiliac bypass graftin g of the right aortofemoral bypass grafting on the left. Evaluation for patency cannot be made in the absence of intravenous contrast. Extensive postsurgical changes in the inguinal regions. Abdominal wall: Left mid abdominal double barrel colostomy as mentioned. Musculoskeletal: Posterior changes of subtrochanteric resection of the right femur as on prior exam. Degenerative changes of the spine. Osteopenia. No gross evidence of fracture allowing for the degree of osteopenia. Mild vertebral body height loss of L1 with mild to moderate intervertebral height loss at L2. There is a subtle compression deformity of the superior endplate of L3. The compression fract ure at L2 is new from prior and may be acute. IMPRESSION: 1. Left hydroureteronephrosis. No obstructing calculus. An underlying obstructing mass or stricture may be present. 2. 3 mm nonobstructing left renal calculus. 3. Potentially acute mild to moderate compression fracture of L2 new from prior exam. 4. Abnormal soft tissue along the base of the penis. Given the presumed history of prostate cancer, this is suspicious for recurrent disease. A nonurgent outpatient contrast-enhanced MR the prostate is recommended. Correlate with PSA. 5. Significant bladder irregularity at the dome with a thick-walled diverticulum. Recommend nonurgen t urologic consultation for the potential for cystoscopy. This could potentially be related to the pr esumed pelvic radiation and/or chronic bladder outlet obstruction with an underlying bladder divertic ulum. 6. Hepatic steatosis. 7. Postsurgical changes of aortoiliac and aortofemoral bypass grafting. Evaluation for patency canno t be confirmed. 8. Additional chronic findings as above. Electronically signed by: Moustapha Ford M.D. 02/07/2019 7:01 PM
[2019-02-07] MEDS ORDERED: ACETAMINOPHEN 325 MG TAB PO PRN (19:04)
--- NOTE | 2019-02-07 19:07 | History & Physical Report ---
Date of Service February 07, 2019 Assessment & Plan (1) TAZ (acute kidney injury): (2) Epididymitis: (3) UTI (urinary tract infection): (4) Urine retention: -admit to med/surg -patient presenting from home with reports of scrotal pain x 5 days -history of chronic urinary retention requiring CIC however patient has not been doing for the past 2 weeks; also history of chronic urinary pseudomonas colonization -was evaluated by urology on 01/23, it was decided to not treat positive urine culture at that time due to lack of symptoms and also due to patient's history of C. Diff -in the ED, U/A suggestive of UTI, WBC 14K; patient afebrile and hemodynamically stable -received IV Cefepime in the ED, will continue with and de-escalate according to culture results -also by exam, seems to have epididymitis; scrotal US negative for torsion, abscess, or mass -creat noted to be 2.0 (was 0.7 07/26); HCO3 15 - continue to monitor; renal function and HCO3 should improve with bladder drainage and hydration -TAZ likely multifactorial due to obstructive uropathy and infection -CT results noted -will place hardin to ensure bladder is draining and to monitor urine output -IVF -urology consult (5) Peripheral artery disease: -continue ASA and statin (6) DVT prophylaxis: -SQ Heparin History of Present Illness Chief Complaint: Scrotal Pain Primary Care Provider: Alfred Al DO 64 year old male who presents to the ED with scrotal pain and swelling. Patient reports symptoms began about 5 days ago. Patient has history of chronic urinary retention and requires CIC however he reports he hasn't used the catheter in about 2 weeks because he "didn't feel like it". He reports he is otherwise incontinent of urine. He is unsure of how much urine of is making. He reports he did not go at all today. He was cathed for 35cc of urine in the ED. He denies penile discharge. He is not sexually active. Patient reports his oral intake has been poor however unchanged. He has a colostomy and stools are loose which is unchanged as well. He has not noted any bright red blood or dark tarry stools. He denies abdominal pain, nausea, vomiting. No chest pain or shortness of breath. Denies lightheadedness, dizziness, diaphoresis, or syncopal event. No fevers or chills. In the ED, U/A is suggestive of UTI and WBC 14K. Patient is hemodynamically stable. He was given IVF, IV Toradol, and IV Cefepime. Allergies Allergy/AdvReac Type Severity Reaction Status Date / Time piperacillin Allergy Unknown Unverified 02/07/19 14:58 Home Medications Home Medications Medication Instructions Recorded Confirmed Type ferrous sulfate [iron] 325 mg PO DAILY 07/10/18 02/07/19 History finasteride 5 mg tablet 5 mg PO DAILY tab 01/03/19 02/07/19 History acetaminophen [Arthritis Pain 650 mg PO Q8H PRN 02/07/19 02/07/19 History Reliever] aspirin [Aspirin Low Dose] 81 mg PO DAILY 02/07/19 02/07/19 History simvastatin 40 mg PO HS 02/07/19 02/07/19 History Past Med/Surg History Medical History Colostomy in place (Chronic) C. 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: No Beliefs That Will Affect Care: None marital status: Current Living Situation: Spouse current occupational status: retired Other Information That Helps Us Care for You: No Feels Safe at Home: Yes Safety Concerns: Feels Safe At This Time Smoking Status: Former smoker Do You Dip or Chew Tobacco: No ; Smoking End Date: quit 2 weeks ago, was smoking up to 2 PPD at times ; Hx Alcohol Use: No Hx Substance Use: No Review of Systems Review of Systems: ROS per HPI, all other systems reviewed and negative Physical Exam Constitutional: + thin; no acute distress vitals as above Eyes: PERRL, conjunctivae normal, anicteric sclerae ENMT: Ears: no external ear abnormality Nose: no external nose abnormality Mouth: + edentulous Respiratory: normal respiratory effort, lungs clear to auscultation Cardiovascular: Rate/Rhythm: regular rate and regular rhythm Vessels: normal peripheral pulses Extremities: no edema Gastrointestinal (Abdomen): normal bowel sounds, soft, nontender, no hepatosplenomegaly colostomy in place, pink stoma Musculoskeletal: no cyanosis or clubbing, extremities motor strength 5/5 Extremities: + amputation noted (right high AKA) Skin: no rashes, warm and dry Neurologic: PERRL, EOMI, accommodation nl, no face palsy, no dysarthria Psychiatric: Orientation: alert and oriented x 3 Affect: + angry affect Genitourinary: + scrotal swelling, + testicular swelling (L > R ) and + testicular tenderness Results & Data Vital Signs (Past 12 Hours) Vital Signs Temp Pulse Pulse Resp BP BP Pulse Ox 02/07/19 18:00 88 16 152/87 H 96 02/07/19 17:00 96 H 17 135/77 96 02/07/19 16:29 107 H 18 119/78 02/07/19 16:14 104 H 17 119/74 02/07/19 15:18 37.0 C 113 H 20 161/94 H 98 02/07/19 15:14 100 02/07/19 14:22 36.6 C 147 H 18 155/95 H 100 Laboratory Results Short CBC 02/07/19 02/07/19 Range/Units 14:52 19:12 WBC 13.02 H 14.07 H (4.8-10.8) K/uL Hgb 11.0 L 9.2 L (14.0-18.0) g/dL Hct 33.7 L 28.0 L (42-52) % Plt Count 305 244 (130-400) K/uL BMP 02/07/19 14:52 Sodium 136 Potassium 3.6 Chloride 114 H Carbon Dioxide 15 L BUN 29 H Creatinine 2.02 H Glucose 87 Calcium 9.4 Liver Function 02/07/19 Range/Units 14:52 Total Bilirubin 0.3 (0.2-1) mg/dl AST 15 (15-37) U/L ALT 10 L (12-78) U/L Alkaline Phosphatase 134 H (45-117) U/L Albumin 2.4 L (3.4-5.0) gm/dl Urine 02/07/19 Range/Units 16:30 Urine Color Yellow Urine Appearance Turbid A (Clear) Urine pH 5.5 (4.5-7.5) Ur Specific [place] 1.017 (1.000-1.030) Urine Protein 2+ H (Negative) Urine Glucose (UA) Negative (Negative) Diagnostic Findings SCROTUM US IMPRESSION: 1. No evidence of testicular torsion. No testicular mass. No evidence for epididymitis. 2. Moderate scrotal wall thickening and edema. No abscess identified. 3. Mildly heterogeneous bilateral testes. 4. Small bilateral hydroceles. CT ABD/PELVIS IMPRESSION: 1. Left hydroureteronephrosis. No obstructing calculus. An underlying obstructing mass or stricture may be present. 2. 3 mm nonobstructing left renal calculus. 3. Potentially acute mild to moderate compression fracture of L2 new from prior exam. 4. Abnormal soft tissue along the base of the penis. Given the presumed history of prostate cancer, this is suspicious for recurrent disease. A nonurgent outpatient contrast-enhanced MR the prostate is recommended. Correlate with PSA. 5. Significant bladder irregularity at the dome with a thick-walled diverticulum. Recommend nonurgent urologic consultation for the potential for cystoscopy. This could potentially be related to the presumed pelvic radiation and/or chronic bladder outlet obstruction with an underlying bladder diverticulum. 6. Hepatic steatosis. 7. Postsurgical changes of aortoiliac and aortofemoral bypass grafting. Evaluation for patency cannot be confirmed. 8. Additional chronic findings as above. Code Status & VTE Plan Code Status Patient is a DNR as per my discussion with him. VTE Prophylaxis Plan VTE Prophylaxis will be ordered: Yes Supervising Physician Co-Signing Physician Notes I have seen and examined the patient and have discussed the case with the provider above. I agree with the assessment and plan as stated with the following exceptions. 64 yo man presents with 5 days of testicular swelling and pain R>L. No fevers, chills or evidence of sepsis. UTI also present with h/o intermittent catheterizations that he has stopped performing. TAZ likely as a result of this and possibly some dehydration. Thin appearing on exam, reports weight loss since 2017 when his right leg was amputated. He is wheelchair bound as amputation level was too high to fit a prosthesis per his report. He is in NAD, but there is pain with movement. Lungs are CTAB, heart exam reveals regular rate and rhythm with no murmurs, gallops or rubs. exam reveals t esticular enlargement R>L with epididymal pain bilaterally. There are no penile lesions or rash present. Hardin is in place. Abdomen is soft with suprapubic tenderness, and no distension. He was unable to situp for me to perform taps to CVA areas, but he was not reporting pain in flanks. Agree with IVF, cont broad spectrum abx with h/o pseudomonas in urine pending urine cultures and clinical i mprovement. Ideally would de-escalate to a fluoroquinolone as this will penetrate the prostate well, also. Appreciate Urology input. CT revealing bladder irregularities and diverticula are similar to prior cystoscopy results. Inflammation may be consistent with epididymitis/UTI as above. Repeat bloodwork in am. Ward, DO
[2019-02-07 19:20] LABS: Hemoglobin 9.2 g/dL (14.0-18.0); Mean Corpuscular Hemoglobin 30.6 pg (25-34); Mean Corpuscular Hgb Conc 32.9 g/dL (32-36); Mean Platelet Volume 8.9 fL (7.4-10.4); Platelet Count 244 K/uL (130-400); RDW Coefficient of Variation 19.2 % (11.5-14.5); RDW Standard Deviation 65.6 fL (36.4-46.3); Red Blood Count 3.01 M/uL (4.7-6.1); White Blood Count 14.07 K/uL (4.8-10.8)
[2019-02-07] MEDS: SODIUM CHLORIDE 0.9% 1000ML 1,000 ML IV SCH (19:21)
[2019-02-07] MEDS: HEPARIN SOD 5,000 UNIT/0.5 ML VIAL SQ SCH (19:36)
--- NOTE | 2019-02-07 21:12 | Emergency Department Note ---
Entered by Kalyn Saravia acting as a scribe for Axel Antoine MD History of Present Illness General Chief complaint: Testicular Pain Stated complaint: TESTICULAR PAIN Time Seen by Provider: 02/07/19 14:26 Source: patient Mode of arrival: ambulatory Limitations: no limitations History of Present Illness Onset (ago): day(s) 5 Location: genitals (bilateral testicles) Radiation: non-radiation Pain Consistency: + constant Maximum Pain Intensity: 8 Current Pain Intensity: 8 Relieved By: + none Exacerbated By: + none Associated symptoms: + other (-abdominal pain, +cloudy urine); no fever/chills and no nausea/vomiting Treatments prior to arrival: none The patient is a 64 year old male who presents to the ED with complaints of testicular pain and swelling for the past 5 days. He rates his pain as an 8/10 in severity and states it has worsened over the past 2 days. He does self- catheterize for a history of an enlarged prostate. He admits his urine has been cloudy and states he saw Dr. Gan of Urology on 01/23 and was diagnosed with a UTI, but was not placed on antibiotics. The patient underwent a colostomy in September of 2018 for a history of "2 blockages". He denies any recent fevers, vomiting or abdominal pain. Home Medications Home Medications Medication Instructions Recorded Confirmed Type ferrous sulfate [iron] 325 mg PO DAILY 07/10/18 02/07/19 History finasteride 5 mg tablet 5 mg PO DAILY tab 01/03/19 02/07/19 History acetaminophen [Arthritis Pain 650 mg PO Q8H PRN 02/07/19 02/07/19 History Reliever] aspirin [Aspirin Low Dose] 81 mg PO DAILY 02/07/19 02/07/19 History simvastatin 40 mg PO HS 02/07/19 02/07/19 History Allergies Allergy/AdvReac Type Severity Reaction Status Date / Time piperacillin Allergy Unknown Unverified 02/07/19 14:58 Past Med/Surg History Medical History Colostomy in place (Chronic) C. difficile diarrhea (Resolved) Enlarged prostate (Chronic) Urine retention (Chronic) Peripheral artery disease (Chronic) with multiple interventions Hypertension (Chronic) Medical non-compliance (Chronic) Surgical History Amputated right leg (Chronic) Family History Father Bladder cancer Social History Preferred Language: Cymro Communication Ability: Effective Brick Burner Required: No Beliefs That Will Affect Care: None marital status: Current Living Situation: Spouse current occupational status: retired Other Information That Helps Us Care for You: No Feels Safe at Home: Yes Safety Concerns: Feels Safe At This Time Smoking Status: Former smoker Do You Dip or Chew Tobacco: No ; Smoking End Date: quit 2 weeks ago, was smoking up to 2 PPD at times ; Hx Alcohol Use: No Hx Substance Use: No Review of Systems See HPI for pertinent positives & negatives. and A total of 10 systems reviewed and were otherwise negative Physical Exam Vital Signs Vital Signs - 24 hr 02/07/19 14:22 02/07/19 15:14 02/07/19 15:18 Temperature 36.6 C 37.0 C Temperature Source Oral Oral Sepsis Recent Fever Within 48 Hours No Sepsis New/Unexplained Change in Mental Status No Sepsis Action Taken by Nursing No Action Required Pulse Rate 147 H Pulse Rate [Apical] 113 H Pulse Rate from SpO2 Sensor Respiratory Rate 18 20 Respiratory Effort / Characteristics Non-Labored Spontaneous Non-Labored Respiratory Depth Normal Normal Respiratory Pattern Regular Regular Blood Pressure 155/95 H Blood Pressure [Left Arm] 161/94 H Blood Pressure Mean 115 Blood Pressure Mean [Left Arm] 116 Blood Pressure Position Sitting Pulse Oximetry 100 100 98 Oxygen Delivery Method Room Air Room Air Room Air 02/07/19 16:14 02/07/19 16:29 02/07/19 17:00 Temperature Temperature Source Sepsis Recent Fever Within 48 Hours Sepsis New/Unexplained Change in Mental Status Sepsis Action Taken by Nursing Pulse Rate 104 H 107 H 96 H Pulse Rate [Apical] Pulse Rate from SpO2 Sensor 96 H Respiratory Rate 17 18 17 Respiratory Effort / Characteristics Respiratory Depth Respiratory Pattern Blood Pressure 119/74 119/78 135/77 Blood Pressure [Left Arm] Blood Pressure Mean 89 91 96 Blood Pressure Mean [Left Arm] Blood Pressure Position Pulse Oximetry 96 Oxygen Delivery Method Room Air Constitutional: Vital signs reviewed. Eyes: Pupils are equal round reactive to light. Conjunctiva are noninjected. ENT: Pharynx is clear without erythema or exudate. Mucous membranes are dry. Neck supple without meningeal signs. Respiratory: Clear to auscultation bilaterally. Breath sounds are equal bilaterally. Cardiovascular: Tachycardic heart rate, regular rhythm. No rubs or gallops. GI: Soft, nondistended and nontender. Left colostomy with dark brown stool. Bowel sounds are present. : Mild diffuse swelling without erythema to the scrotum, tenderness along both inguinal ligaments as well as scrotum diffusely. Musculoskeletal: No peripheral edema. Right leg amputation. Integumentary: No cyanosis. Neurological: The patient is awake and alert. No focal deficits. Psychiatric: Normal affect. Course 1429: The patient was evaluated in room C4 and a complete history and physical were performed. 1640: I discussed his test results. He still has some tenderness to the scrotum. There is no perineal involvement or Fourniers gangrene. I discussed my recommendation he remain in the hospital for further evaluation and management and he is agreeable with the plan. 1652: I discussed the patients case with SUNDAR Domingo [facility]. The patient will be further evaluated. Consultations Consultation #1: I discussed the patients case with SUNDAR Domingo [facility]. The patient will be further evaluated. Time: 16:52 Administered Medications Heparin Sodium (Porcine) (Heparin Sodium (Porcine)) 5,000 units SQ Q12 JOSEPH Stop: 03/09/19 20:59 Last Admin: 02/07/19 19:36 Dose: Not Given Documented by: [id number] Sodium Chloride (Nss 1000ml) 1,000 mls @ 100 mls/hr IV .Q10H JOSEPH Stop: 03/09/19 19:29 Last Admin: 02/07/19 19:21 Dose: 100 mls/hr Documented by: [id number] Discontinued Medications Sodium Chloride (Nss 1000ml) 1,000 mls @ 999 mls/hr IV .Q1H1M ONE Stop: 02/07/19 17:42 Last Infusion: 02/07/19 18:02 Dose: 0 mls/hr Documented by: [id number] Admin: 02/07/19 17:11 Dose: 999 mls/hr Documented by: [id number] Cefepime HCl (Maxipime) 2,000 mg in 20 mls @ 5 mls/min IV NOW STA; Protocol Stop: 02/07/19 16:49 Last Admin: 02/07/19 17:11 Dose: 5 mls/min Documented by: [id number] Ketorolac Tromethamine (Toradol) 10 mg IV NOW STA Stop: 02/07/19 14:38 Last Admin: 02/07/19 15:14 Dose: 10 mg Documented by: [id number] Medical Decision Making Differential Diagnosis The differential diagnoses considered include: epididymitis, orchitis, inguinal hernia, third spacing, testicular torsion, testicular mass, UTI. Medical Records Attestation: I reviewed the patient's medical records. I did perform a limited focused review of portions of the patient's old chart on the electronic medical record. The patient was seen on 01/23 by Urology for a UTI. His urine culture grew out pseudomonas and gamma strep on January 23, sensitive to Cefepime. Home Medications Current Medication List: was personally reviewed by me Laboratory Data Attestation: I reviewed the patient's lab results. Result diagrams: 02/07/19 19:12 02/07/19 14:52 Lab Results 02/07/19 02/07/19 02/07/19 Range/Units 14:52 14:52 16:30 WBC 13.02 H (4.8-10.8) K/uL RBC 3.63 L (4.7-6.1) M/uL Hgb 11.0 L (14.0-18.0) g/dL Hct 33.7 L (42-52) % MCV 92.8 (80-100) fL MCH 30.3 (25-34) pg MCHC 32.6 (32-36) g/dL RDW Std Deviation 65.6 H (36.4-46.3) fL RDW Coeff of [place] 19.3 H (11.5-14.5) % Plt Count 305 (130-400) K/uL MPV 9.2 (7.4-10.4) fL Immature Gran % (Auto) 0.5 % Neut % (Auto) 91.5 % Lymph % (Auto) 4.4 % [place] % (Auto) 3.4 % Eos % (Auto) 0.1 % Baso % (Auto) 0.1 % Immature Gran # (Auto) 0.07 H (0.00-0.02) K/uL Neut # (Auto) 11.92 H (1.4-6.5) K/uL Lymph # (Auto) 0.57 L (1.2-3.4) K/uL [place] # (Auto) 0.44 (0.11-0.59) K/uL Eos # (Auto) 0.01 (0-0.5) K/uL Baso # (Auto) 0.01 (0-0.2) K/uL Sodium 136 (136-145) mmol/L Potassium 3.6 (3.5-5.1) mmol/L Chloride 114 H (98-107) mmol/L Carbon Dioxide 15 L (21-32) mmol/L Anion Gap 7.0 (3-11) BUN 29 H (7-18) mg/dl Creatinine 2.02 H (0.6-1.4) mg/dl Est Cr Clr Drug Dosing Not Reportable Est GFR ( Amer) 39.2 Est GFR (Non-Af Amer) 33.8 BUN/Creatinine Ratio 14.5 (10-20) Glucose 87 (70-99) mg/dl Calcium 9.4 (8.5-10.1) mg/dl Total Bilirubin 0.3 (0.2-1) mg/dl AST 15 (15-37) U/L ALT 10 L (12-78) U/L Alkaline Phosphatase 134 H (45-117) U/L Total Protein 9.0 H (6.4-8.2) gm/dl Albumin 2.4 L (3.4-5.0) gm/dl Globulin 6.6 H (2.5-4.0) gm/dl Albumin/Globulin Ratio 0.4 L (0.9-2) Lipase 108 (73-393) U/L Urine Color Yellow Urine Appearance Turbid A (Clear) Urine pH 5.5 (4.5-7.5) Ur Specific Cut Off 1.017 (1.000-1.030) Urine Protein 2+ H (Negative) Urine Glucose (UA) Negative (Negative) Urine Ketones Negative (Negative) Urine Blood 3+ H (Negative) Urine Nitrite Positive A (Negative) Urine Bilirubin Negative (Negative) Urine Urobilinogen Negative (Negative) Ur Leukocyte Esterase 3+ H (Negative) Urine WBC (Auto) >30 H (0-5) /hpf Urine RBC (Auto) 10-30 H (0-4) /hpf U Hyaline Cast (Auto) 1-5 (0-5) /lpf U Epithel Cells (Auto) >30 H (0-5) /lpf Urine Bacteria (Auto) 2+ H (Negative) Urine Yeast Not Reportable Imaging Data Radiologist's Impression: Radiology results as stated below per my review and the radiologist's interpretation: SCROTAL ULTRASOUND CLINICAL HISTORY: pain and swelling eval for abscess/hernia/torsion COMPARISON STUDY: None. TECHNIQUE: Grayscale and color and duplex Doppler sonography of the scrotum was performed. FINDINGS: The testes are slightly heterogeneous. However, there is no evidence for torsion. There is no testicular mass. Color flow within each testis is symm etric. There is no evidence for epididymitis. There are small bilateral hydroceles. Several epididymal cysts are noted bilaterally. There is scrotal wall edema and thickening. No abscess is identified by sonography. IMPRESSION: 1. No evidence of testicular torsion. No testicular mass. No evidence for epididymitis. 2. Moderate scrotal wall thickening and edema. No abscess identified. 3. Mildly heterogeneous bilateral testes. 4. Small bilateral hydroceles. Electronically signed by: Tim Avila M.D. 02/07/2019 4:[address] abd pelvis wo con CLINICAL HISTORY: 64 years-old Male presenting with flank and abdominal pain, eval for stone. TECHNIQUE: Multidetector CT of the abdomen and pelvis was performed without the use of intravenous contrast. IV contrast: None. One or more dose lowering techniques were used consistent with the principles of ALARA (as low as reasonably achievable), including automatic exposure control, mA or kV adjustment to individual patient size, and/or use of iterative reconstruction. COMPARISON: 07/21/2018. CT DOSE (mGy.cm): The estimated cumulative dose is 252.10 mGy.cm. FINDINGS: Program Services Assistant topogram: Unremarkable. Lung bases: Normal heart size. Coronary artery calcification. No pericardial or pleural effusion. Emphysema. Bibasilar scarring or atelectasis in the dependent portions of the lower lobes. Liver: Normal morphology. Density consistent with hepatic steatosis. Biliary: No gross biliary ductal dilatation allowing for noncontrast technique. Normal gallbladder. Pancreas: Normal noncontrast appearance. Spleen: Normal noncontrast appearance. Adrenal glands: Normal noncontrast appearance. Kidneys and ureters: Nonobstructing 3 mm left renal calculus. Normal noncontrast appearance of the right kidney. No right hydronephrosis. Mild left pelvocaliectasis with dilatation of the right ureter. There is no obstructing calculus. Left urothelial thickening. The right ureter is nondistended. Bladder: Bladder wall thickening with irregular protrusion of the bladder at the bladder dome. There is no intraluminal gas within the bladder to suggest a fistula. The outpouching has a thick wall. Pelvic organs: Prostate enlargement likely secondary to benign prostatic hyperplasia. Abnormal soft tissue in the region of the base of the penis (series 3 image 391). Interval resolution of the prior rim-enhancing fluid collection along the right inferior lateral aspect of the prostate. Bowel: Fluid in the rectum suggests a diarrheal state. The left colon terminates proximally as a mucous fistula in the left and abdomen. Transverse colostomy n oted at this site with moderate upstream stool burden. The appendix is normal. The no bowel obstruction. Peritoneal cavity: No free fluid or intraperitoneal gas. Fascial thickening and infiltrative changes in the mesorectal fascia and presacral region suggest a history of pelvic radiation. Lymph nodes: Numerous prominent retroperitoneal lymph nodes, which are largely subcentimeter in short axis. Few prominent left external iliac lymph nodes. No pathologically enlarged lymph node in the abdomen or pelvis. Vasculature: Extensive atherosclerosis. Evidence of postsurgical changes of aortoiliac bypass grafting of the right aortofemoral bypass grafting on the left. Evaluation for patency cannot be made in the absence of intravenous contrast. Extensive postsurgical changes in the inguinal regions. Abdominal wall: Left mid abdominal double barrel colostomy as mentioned. Musculoskeletal: Posterior changes of subtrochanteric resection of the right femur as on prior exam. Degenerative changes of the spine. Osteopenia. No gross evidence of fracture allowing for the degree of osteopenia. Mild vertebral body height loss of L1 with mild to moderate intervertebral height loss at L2. There is a subtle compression deformity of the superior endplate of L3. The compression fracture at L2 is new from prior and may be acute. IMPRESSION: 1. Left hydroureteronephrosis. No obstructing calculus. An underlying obstructing mass or stricture may be present. 2. 3 mm nonobstructing left renal calculus. 3. Potentially acute mild to moderate compression fracture of L2 new from prior exam. 4. Abnormal soft tissue along the base of the penis. Given the presumed history of prostate cancer, this is suspicious for recurrent disease. A nonurgent outpatient contrast-enhanced MR the prostate is recommended. Correlate with PSA. 5. Significant bladder irregularity at the dome with a thick-walled div erticulum. Recommend nonurgent urologic consultation for the potential for cystoscopy. This could potentially be related to the presumed pelvic radiation and/or chronic bladder outlet obstruction with an underlying bladder diverticulum. 6. Hepatic steatosis. 7. Postsurgical changes of aortoiliac and aortofemoral bypass grafting. Evaluation for patency cannot be confirmed. 8. Additional chronic findings as above. Electronically signed by: Moustapha Ford M.D. 02/07/2019 7:01 PM Blood Pressure Blood Pressure Findings: Elevated blood pressure Blood Pressure Disposition: further management by hospitalist BUCK Narrative I did evaluate the patient as noted above. The patient is presenting with scrotal pain and cloudy urine. He does self catheterize. IV access was est ablished. The patient was placed on a continuous color television console monitor. I did treat him with Toradol 10 mg IV. I did order a urine analysis. He does have evidence of infection. Urine culture is pending. Previous culture showed Pseudomonas. I did treat him with cefepime 2 g IV here. I did order and review the patient's blood work as noted in the electronic medical record. White count is 14,000. He is anemic with a hemoglobin of 9.2. Creatinine is 2.0 with an elevated BUN. I did treat him with a liter normal saline IV. I did order a scrotal ultrasound which showed no signs of torsion or epididymitis. He does have thickening to the wall. There is no evidence of Matthias's gangrene on physical examination or ultrasound. I did order a CT of the abdomen and pelvis. I did review the im ages myself as well as the radiology report as described above. He does have left-sided hydronephrosis. I did reassess patient. He was agreeable with hospitalization. I did discuss case with the hospitalist and shelter case manager. Impression & Plan TAZ (acute kidney injury), UTI (urinary tract infection), Infection of scrotum, Hydronephrosis Discharge Plan Visit Data *Final* Discharge Date/Time: 02/07/19 18:37 Chief Complaint: Testicular Pain Stated Complaint: TESTICULAR PAIN ED Provider: Axel Antoine Discharge Problem: TAZ (acute kidney injury), UTI (urinary tract infection), Infection of scrotum, Hydronephrosis Patient Disposition: Admitted As Inpatient Discharge Instructions Interventions: ED Discharge Assessment Last Done: 02/07/19 18:37 Discharge Problem: UTI (urinary tract infection) Qualifiers: Urinary tract infection type: catheter-associated UTI Indwelling urinary catheter type: unspecified Encounter type: initial encounter Qualified Code(s): T83.511A - Infection and inflammatory reaction due to indwelling urethral catheter, initial encounter Hydronephrosis Qualifiers: Hydronephrosis type: unspecified Qualified Code(s): N13.30 - Unspecified hydronephrosis The scribe's documentation has been prepared under my direction and personally reviewed by me in its entirety. I confirm that the note above accurately reflects all work, treatment, procedures, and medical decision making performed by me.
[2019-02-08] MEDS: SODIUM CHLORIDE 0.9% 1000ML 1,000 ML IV SCH ×2 (05:20→15:20)
[2019-02-08 07:55] LABS: Hematocrit (blood only) 27.8 % (42-52); Mean Corpuscular Hgb Conc 32.4 g/dL (32-36); Mean Corpuscular Volume 92.7 fL (80-100); Mean Platelet Volume 9.6 fL (7.4-10.4); Platelet Count 233 K/uL (130-400); RDW Coefficient of Variation 19.5 % (11.5-14.5); RDW Standard Deviation 66.6 fL (36.4-46.3); White Blood Count 8.67 K/uL (4.8-10.8)
[2019-02-08 08:23] LABS: BUN Creatinine Ratio 18.1 (10-20); Calcium 8.1 mg/dl (8.5-10.1); Est GFR (African American) 53.6; Est GFR (Non-African American) 46.3; Potassium 3.3 mmol/L (3.5-5.1)
[2019-02-08] MEDS: HEPARIN SOD 5,000 UNIT/0.5 ML VIAL SQ SCH ×2 (10:17→20:21)
--- NOTE | 2019-02-08 10:27 | Urology Consultation ---
Date of Consultation February 08, 2019 Assessment & Plan (1) TAZ (acute kidney injury): (2) UTI (urinary tract infection): 64yo M with right epididymitis secondary to UTI, lack of bladder emptying; noncompliant with CIC regimen. Plan to continue IV cefepime while awaiting sensitivities. Continue hardin catheter to maintain max drainage. Okay to irrigate with sterile water prn clots. No need for acute surgical intervention at this time. Will continue to monitor while inpatient. Thank you for allowing us to participate in the acute care of Mr. Landon. History of Present Illness Reason for Consultation: epididymitis secondary to UTI Requesting Physician: Dr. tyler Attending Physician: Kristin Tyler, History of Present Illness 64yo M with multiple comorbidities, well known to our practice s/p UR, Hematuria, chronically infected urine, was admitted through [facility] ED with c/o testicular pain and swelling x5days. 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 We opted to not treat at that time due to asymptomatic nature, and hx of C.diff infection. Hx multiple UTIs, recently evaluated in office by Dr. Gan, encouraged to continue to perform CIC. Pt is noncompliant with this regimen. He states he does not drink much water so he doesn't have to. He will do it when he needs to. He became visibly upset when discussing this. CT imaging and scrotal US reviewed. CT reveals chronic left hydro, no obstruction. US reveals no sign of torsion, no masses; some scrotal wall thickening and edema consistent with epididymitis. On exam, right epididymitis is tender upon palpation. Not overly swollen or inflammed, some increased warmth but no cellulitis. Hardin catheter draining yellow with white sediment. Pt is very cantankerous, difficulty receiving answers. Minimal ROS and history obtained due to this. Leukocytosis improving today. He remains afebrile. Creatinine elevated to 2.02, improved to 1.56 with max drainage and hydration. Allergies Allergy/AdvReac Type Severity Reaction Status Date / Time piperacillin Allergy Unknown Unverified 02/07/19 14:58 Home Medications Home Medications Medication Instructions Recorded Confirmed Type ferrous sulfate [iron] 325 mg PO DAILY 07/10/18 02/07/19 History finasteride 5 mg tablet 5 mg PO DAILY tab 01/03/19 02/07/19 History acetaminophen [Arthritis Pain 650 mg PO Q8H PRN 02/07/19 02/07/19 History Reliever] aspirin [Aspirin Low Dose] 81 mg PO DAILY 02/07/19 02/07/19 History simvastatin 40 mg PO HS 02/07/19 02/07/19 History Patient History Medical History Colostomy in place (Chronic) C. difficile diarrhea (Resolved) Enlarged prostate (Chronic) Urine retention (Chronic) Peripheral artery disease (Chronic) with multiple interventions Hypertension (Chronic) Medical non-compliance (Chronic) Surgical History Amputated right leg (Chronic) Family History Father Bladder cancer Social History Preferred Language: Nepali Communication Ability: Effective Mobile Marketing Specialist Required: No Beliefs That Will Affect Care: None marital status: Current Living Situation: Spouse current occupational status: retired Other Information That Helps Us Care for You: No Feels Safe at Home: Yes Safety Concerns: Feels Safe At This Time Smoking Status: Former smoker Do You Dip or Chew Tobacco: No ; Smoking End Date: quit 2 weeks ago, was smoking up to 2 PPD at times ; Hx Alcohol Use: No Hx Substance Use: No Review of Systems Review of Systems: Unobtainable due to mental health condition (very ornery, difficulty recieving answers. ) Results & Data Vital Signs (Past 12 Hours) Vital Signs Temp Pulse Pulse Resp BP Pulse Ox 02/08/19 07:33 36.5 C 70 16 124/64 98 02/08/19 02:30 36.5 C 64 16 137/52 L 98 02/07/19 23:14 36.6 C 76 18 122/70 99 (1) UTI (urinary tract infection) Encounter type: initial encounter Indwelling urinary catheter type: unspecified Urinary tract infection type: catheter-associated UTI Qualified Code(s): T83.511A - Infection and inflammatory reaction due to indwelling urethral catheter, initial encounter; N39.0 - Urinary tract infection, site not specified
[2019-02-08] MEDS ORDERED: CEFEPIME 1,000 MG in SYRINGE 0 ML IV SCH (17:00)
--- NOTE | 2019-02-08 17:13 | Hospitalist Progress Note ---
Date of Service February 08, 2019 Assessment & Plan (1) TAZ (acute kidney injury): 2/2 obstruction from BPH. Cont hardin catheter. Will plan for TOV once kidney function has normalized, and will resume intermittent self- catheterizations, which he had stopped at home prior to this. (2) Epididymitis: Acute, cont cefepime pending urine culture results. Will likely de- escalate to ciprofloxacin pending results as previous urine culture revealed Pse udomonas sensitive to this. (3) BPH (benign prostatic hyperplasia): Cont finasteride for BPH per home medication regimen. (4) UTI (urinary tract infection): Cont Cefepime pending urine culture results and clinical improvement. (5) Urine retention: Noncompliant with CIC as outpatient. Hardin placed. (6) Peripheral artery disease: -continue ASA and statin (7) DVT prophylaxis: Pt declines DVT chemoprophylaxis DNR Dispo-pending improvement of renal function, improvement in pain and discomfort, and urine culture results. Appreciate Urology recommendations for abx and CIC frequency. Kristin Hopper DO [facility] Hospitalist Subjective yelling at his , candelario trinh, cursing about the food, appears very unhappy. When asked how he is doing he replies that he feels lousy in general because he is in the hospital. Reports pain is slightly improved in abdomen, but testicles are still swollen. Tolerating food but is chronically apathetic to it. Catheter in place and denies any bladder spasms or other dysuria. Review of Systems Review of Systems: All systems reviewed & are unremarkable except as noted in HPI & below Physical Exam Physical Exam: CONSTITUTIONAL: WNWD, vitals as above, NAD EYES: normal conjunctivae, no scleral icterus ENT: MMM RESPIRATORY: clear to auscultation bilaterally, no crackles, rales or wheezes, normal respiratory effort CARDIOVASCULAR: regular rate and rhythm, S1 and 2 heard without murmurs, gallops or rubs, no JVD, no peripheral edema GASTROINTESTINAL: soft, nontender, nondistended MUSCULOSKELETAL: generally weak and deconditioned, head is normocephalic and atraumatic : R>L testicular swelling and pain in epididymal area. No redness or cellulitis present. Hardin catheter in place. SKIN: warm and dry Results & Data Vital Signs (Past 12 Hours) Vital Signs Temp Pulse Resp BP Pulse Ox 02/08/19 15:19 36.9 C 72 18 137/68 98 02/08/19 07:33 36.5 C 70 16 124/64 98 Laboratory Results Short CBC 02/07/19 02/08/19 Range/Units 19:12 07:28 WBC 14.07 H 8.67 (4.8-10.8) K/uL Hgb 9.2 L 9.0 L (14.0-18.0) g/dL Hct 28.0 L 27.8 L (42-52) % Plt Count 244 233 (130-400) K/uL BMP 02/08/19 07:28 Sodium 140 Potassium 3.3 L Chloride 121 H Carbon Dioxide 13 L BUN 28 H Creatinine 1.56 H D Glucose 81 Calcium 8.1 L Medications Administered Current Inpatient Medications Acetaminophen (Tylenol) 650 mg PO Q4H PRN PRN Reason: pain/fever Stop: 03/09/19 19:03 Heparin Sodium (Porcine) (Heparin Sodium (Porcine)) 5,000 units SQ Q12 JOSEPH Stop: 03/09/19 20:59 Last Admin: 02/08/19 10:17 Dose: Not Given Documented by: Sodium Chloride (Nss 1000ml) 1,000 mls @ 100 mls/hr IV .Q10H JOSEPH Stop: 03/09/19 19:29 Last Admin: 02/08/19 15:20 Dose: 100 mls/hr Documented by: Cefepime HCl 1,000 mg/ Syringe 11.3 mls @ 5.5 mls/min IV Q24H JOSEPH; Protocol Stop: 02/18/19 16:59 Last Admin: 02/08/19 16:51 Dose: 5.5 mls/min Documented by:
[2019-02-08] MEDS ORDERED: POTASSIUM CHLORIDE 20 MEQ TABCR PO ONE (18:30)
[2019-02-08] MEDS: FINASTERIDE 5 MG TAB PO SCH (18:34)
[2019-02-08] MEDS: FERROUS SULFATE 325 MG TAB PO SCH (18:34)
[2019-02-08] MEDS: ASPIRIN 81 MG ECTAB PO SCH (18:35)
[2019-02-08] MEDS: SIMVASTATIN 40 MG TAB PO SCH (20:25)
[2019-02-09 06:02] LABS: Hematocrit (blood only) 26.8 % (42-52); Hemoglobin 8.8 g/dL (14.0-18.0); Mean Corpuscular Hemoglobin 30.2 pg (25-34); Mean Corpuscular Hgb Conc 32.8 g/dL (32-36); Mean Corpuscular Volume 92.1 fL (80-100); Mean Platelet Volume 9.4 fL (7.4-10.4); Platelet Count 228 K/uL (130-400); RDW Coefficient of Variation 19.3 % (11.5-14.5); RDW Standard Deviation 65.6 fL (36.4-46.3); Red Blood Count 2.91 M/uL (4.7-6.1); White Blood Count 10.23 K/uL (4.8-10.8)
[2019-02-09 06:35] LABS: BUN Creatinine Ratio 16.9 (10-20); Creatinine Clr Calc Pharmacy 36.9 ml/min; Est GFR (African American) 66.2; Est GFR (Non-African American) 57.1
[2019-02-09] MEDS: FINASTERIDE 5 MG TAB PO SCH (09:24)
[2019-02-09] MEDS: ASPIRIN 81 MG ECTAB PO SCH (09:24)
[2019-02-09] MEDS: FERROUS SULFATE 325 MG TAB PO SCH (09:24)
[2019-02-09] MEDS: HEPARIN SOD 5,000 UNIT/0.5 ML VIAL SQ SCH ×2 (09:24→21:27)
--- NOTE | 2019-02-09 09:24 | Urology Progress Note ---
Date of Service February 09, 2019 Assessment & Plan (1) BPH (benign prostatic hyperplasia): A/P 64-year-old male with chronic urinary retention, ongoing UTI. Patient understands the importance of compliance with his CIC regimen to avoid recurrent issues in the future. We will leave his Reynolds catheter in place for a couple of weeks to allow for maximal bladder rest. Will arrange for outpatient trial of void. Management of his infection and renal function per the primary service. We will continue to follow. Thank you for allowing us to participate in this patient's inpatient care. Please contact our service with any questions or concerns. (2) UTI (urinary tract infection): Subjective 64-year-old male hospital day #2 admitted for urinary tract infection and epididymitis after noncompliance with clean intermittent catheterization regimen for urinary retention and a comorbid patient. Reynolds catheter has been in place and is draining freely with clear urine currently. Patient reports he is feeling somewhat improved over his admission. He seems to be in better spirits than reported on past notes and examination. Inpatient chart reviewed. Review of Systems Constitutional: no fever and no chills Eyes: no diplopia Ear, Nose, Mouth, Throat: no ear trauma Respiratory: no hemoptysis Cardiovascular: no chest pain Integumentary: no acne and no boil Neurologic: no paralysis Psychiatric: no hopelessness Allergy / Immunological: no tongue swelling Physical Exam Constitutional: + thin; no acute distress Eyes: eyes not dysmorphic ENMT: Ears: no external ear abnormality Partially edentulous Neck: trachea midline; no anterior neck swelling Respiratory: no respiratory distress and does not use accessory muscles Cardiovascular: Vessels: radial pulses present Gastrointestinal (Abdomen): Inspection/Auscultation: abdomen not distended Percussion/Palpation: abdomen soft; abdomen nontender Musculoskeletal: Head/Neck/Chest: neck supple Skin: normal turgor Neurologic: awake; not obtunded Psychiatric: Orientation: oriented x 3 Lymphatic: no lymphadenopathy Results & Data Vital Signs (Past 12 Hours) Vital Signs Temp Pulse Resp BP Pulse Ox 02/09/19 07:01 36.8 C 74 16 130/53 L 100 02/08/19 23:11 36.8 C 71 16 120/64 97 PG Care Time/CCT Total # of Minutes Spent Total Time Spent with Patient: Total time spent is greater than 50% in coordination of care (as documented) at patient's floor/unit and/or counseling patient: (1) UTI (urinary tract infection) Encounter type: initial encounter Indwelling urinary catheter type: unspecified Urinary tract infection type: catheter-associated UTI Qualified Code(s): T83.511A - Infection and inflammatory reaction due to indwelling urethral catheter, initial encounter; N39.0 - Urinary tract infection, site not specified
[2019-02-09] MEDS ORDERED: CEFEPIME 2,000 MG in SYRINGE 0 ML IV SCH (15:30)
[2019-02-09] MEDS ORDERED: levoFLOXacin 500 MG TAB PO ONE (17:30)
[2019-02-09] MEDS: SIMVASTATIN 40 MG TAB PO SCH (21:27)
[2019-02-10 05:36] LABS: Hematocrit (blood only) 26.7 % (42-52); Hemoglobin 8.7 g/dL (14.0-18.0); Mean Corpuscular Hemoglobin 29.6 pg (25-34); Mean Corpuscular Hgb Conc 32.6 g/dL (32-36); Mean Corpuscular Volume 90.8 fL (80-100); Mean Platelet Volume 9.5 fL (7.4-10.4); Platelet Count 239 K/uL (130-400); RDW Standard Deviation 63.5 fL (36.4-46.3); Red Blood Count 2.94 M/uL (4.7-6.1); White Blood Count 10.36 K/uL (4.8-10.8)
[2019-02-10 06:04] LABS: BUN Creatinine Ratio 22.3 (10-20); Calcium 8.2 mg/dl (8.5-10.1); Creatinine Clr Calc Pharmacy 41.3 ml/min; Est GFR (African American) 75.9; Est GFR (Non-African American) 65.5; Potassium 3.6 mmol/L (3.5-5.1)
[2019-02-10] MEDS: FINASTERIDE 5 MG TAB PO SCH (09:51)
[2019-02-10] MEDS: HEPARIN SOD 5,000 UNIT/0.5 ML VIAL SQ SCH (09:51)
[2019-02-10] MEDS: FERROUS SULFATE 325 MG TAB PO SCH (09:51)
[2019-02-10] MEDS: ASPIRIN 81 MG ECTAB PO SCH (09:51)
--- NOTE | 2019-02-10 10:56 | Urology Progress Note ---
Date of Service February 10, 2019 Assessment & Plan (1) BPH (benign prostatic hyperplasia): A/P 64-year-old male with chronic urinary retention, ongoing UTI. Patient understands the importance of compliance with his CIC regimen to avoid recurrent issues in the future. We will leave his Hardin catheter in place for a couple of weeks to allow for maximal bladder rest, leg bag training. Will arrange for outpatient trial of void and resumption of CIC. Management of his Klebsiella infection per primary service. Stable for DC home from perspective. Thank you for allowing us to participate in this patient's inpatient care. Please contact our service with any questions or concerns. (2) UTI (urinary tract infection): Subjective 64-year-old male hospital day #3 admitted for urinary tract infection and epididymitis after noncompliance with clean intermittent catheterization regimen for urinary retention and a comorbid patient. Hardin catheter has been in place and is draining freely with clear urine currently. No new notes since visit by our service yesterday. Only recent uropathogen in UC&S is essentially pansensitive Klebsiella, also in past infections. Patient resting without new complaints save the desire to go home, tolerating hardin well. Review of Systems Constitutional: no fever and no chills Eyes: no diplopia Ear, Nose, Mouth, Throat: no ear trauma Respiratory: no hemoptysis Cardiovascular: no chest pain Integumentary: no acne and no boil Neurologic: no paralysis Psychiatric: no hopelessness Allergy / Immunological: no tongue swelling Physical Exam Constitutional: + thin; no acute distress Eyes: eyes not dysmorphic ENMT: Ears: no external ear abnormality Neck: trachea midline; no anterior neck swelling Respiratory: no respiratory distress and does not use accessory muscles Cardiovascular: Vessels: radial pulses present Gastrointestinal (Abdomen): Inspection/Auscultation: abdomen not distended Percussion/Palpation: abdomen soft; abdomen nontender Musculoskeletal: Head/Neck/Chest: neck supple Skin: normal turgor Neurologic: awake; not obtunded Psychiatric: Orientation: oriented x 3 Lymphatic: no lymphadenopathy Results & Data Vital Signs (Past 12 Hours) Vital Signs Temp Pulse Resp BP Pulse Ox 02/10/19 07:05 36.7 C 79 16 149/84 H 98 Laboratory Results Laboratory Results - last 48 hr 02/09/19 02/09/19 02/10/19 05:49 05:49 05:16 WBC 10.23 10.36 RBC 2.91 L 2.94 L Hgb 8.8 L 8.7 L Hct 26.8 L 26.7 L MCV 92.1 90.8 MCH 30.2 29.6 MCHC 32.8 32.6 RDW Std Deviation 65.6 H 63.5 H RDW Coeff of [place] 19.3 H 19.0 H Plt Count 228 239 MPV 9.4 9.5 Sodium 136 Potassium 4.0 D Chloride 117 H Carbon Dioxide 14 L Anion Gap 5.0 BUN 22 H Creatinine 1.31 Est Cr Clr Drug Dosing 36.9 Est GFR ( Amer) 66.2 Est GFR (Non-Af Amer) 57.1 BUN/Creatinine Ratio 16.9 Glucose 81 Calcium 8.0 L 02/10/19 05:16 WBC RBC Hgb Hct MCV MCH MCHC RDW Std Deviation RDW Coeff of [place] Plt Count MPV Sodium 135 L Potassium 3.6 Chloride 113 H Carbon Dioxide 15 L Anion Gap 7.0 BUN 26 H Creatinine 1.17 Est Cr Clr Drug Dosing 41.3 Est GFR ( Amer) 75.9 Est GFR (Non-Af Amer) 65.5 BUN/Creatinine Ratio 22.3 H Glucose 85 Calcium 8.2 L (1) UTI (urinary tract infection) Encounter type: initial encounter Indwelling urinary catheter type: unspecified Urinary tract infection type: catheter-associated UTI Qualified Code(s): T83.511A - Infection and inflammatory reaction due to indwelling urethral catheter, initial encounter; N39.0 - Urinary tract infection, site not specified
[2019-02-10] MEDS ORDERED: levoFLOXacin 250 MG TABLET PO SCH (11:00)
--- NOTE | 2019-02-10 11:20 | Discharge Summary ---
Date of Service February 10, 2019 Admission HPI Per Admitting Provider 64 year old male who presents to the ED with scrotal pain and swelling. Patient reports symptoms began about 5 days ago. Patient has history of chronic urinary retention and requires CIC however he reports he hasn't used the catheter in about 2 weeks because he "didn't feel like it". He reports he is otherwise incontinent of urine. He is unsure of how much urine of is making. He reports he did not go at all today. He was cathed for 35cc of urine in the ED. He denies penile discharge. He is not sexually active. Patient reports his oral intake has been poor however unchanged. He has a colostomy and stools are loose which is unchanged as well. He has not noted any bright red blood or dark tarry stools. He denies abdominal pain, nausea, vomiting. No chest pain or shortness of breath. Denies lightheadedness, dizziness, diaphoresis, or syncopal event. No fevers or chills. In the ED, U/A is suggestive of UTI and WBC 14K. Patient is hemodynamically stable. He was given IVF, IV Toradol, and IV Cefepime. Admission Exam Per Admitting Provider + thin; no acute distress vitals as above Eyes: PERRL, conjunctivae normal, anicteric sclerae ENMT: Ears: no external ear abnormality Nose: no external nose abnormality Mouth: + edentulous Respiratory: normal respiratory effort, lungs clear to auscultation Cardiovascular: Rate/Rhythm: regular rate and regular rhythm Vessels: normal peripheral pulses Extremities: no edema Gastrointestinal (Abdomen): normal bowel sounds, soft, nontender, no hepatosplenomegaly colostomy in place, pink stoma Musculoskeletal: no cyanosis or clubbing, extremities motor strength 5/5 Extremities: + amputation noted (right high AKA) Skin: no rashes, warm and dry Neurologic: PERRL, EOMI, accommodation nl, no face palsy, no dysarthria Psychiatric: Orientation: alert and oriented x 3 Affect: + angry affect Genitourinary: + scrotal swelling, + testicular swelling (L > R ) and + testicular tenderness Principal Diagnosis TAZ 2/2 obstructive uropathy BPH Noncompliant with self-catheterizations Acute epididymitis Discharge Data Allergies Allergy/AdvReac Type Severity Reaction Status Date / Time piperacillin Allergy Unknown Unverified 02/07/19 14:58 Consultations 02/07/19 16:56 ED Decision to Admit Stat 02/07/19 19:55 Consult Urology Routine Ordered Studies 02/07/19 14:37 US scrotum/testicle Stat 02/07/19 16:53 CT abd pelvis wo con Stat Hospital Course (1) TAZ (acute kidney injury): 2/2 obstruction from BPH. Reynolds catheter was placed and Urology was consulted who recommended leaving this in place for a couple of weeks and then following in the office. Taz had resolved at time of discharge. (2) Epididymitis: Acute, cefepime was initially given pending urine culture results in the setting of h/o pseudomonas, which revealed gamma strep, not enterococcus, consistent with colonization. He was placed on a course of Levaquin going home. Pain and swelling were improving at time of discharge. (3) BPH (benign prostatic hyperplasia): Cont finasteride for BPH per home medication regimen. Outpatient management per Urology. (4) UTI (urinary tract infection): Initially felt this might be the case and cefepime was started. However, culture results revealed gamma strep consistent with colonization and cefepime was discontinued. Levaquin was given for acute epididymitis as above. (5) Urine retention: Noncompliant with CIC as outpatient. Reynolds placed. (6) Peripheral artery disease: -continue ASA and statin AT time of discharge a face to face examination was performed revealed a hemodynamically stable and afebrile patient who was mentating at baseline and tolerating PO. He was notably a high level RLE amputee who was wheelchair- bound. Heart and lung exam was unchanged and unremarkable. The suprapubic tenderness that was present on admission was completely resolved. He did have some persistent R testicular swelling>left, but full exam was deferred. He was sent home in stable condition with a Reynolds catheter in place. Close primary care and Urology follow-up was recommended. Total Time Total Time Spent Total Time Spent (In Minutes): 60 Total Time Includes: Examination of the Patient, Discharge Planning, Medication Reconciliation and Communication With Other Providers Discharge Plan Discharge Items Patient Disposition: Home - Self-Care Reason For Visit: TAZ Discharge Diagnosis: TAZ 2/2 obstructive uropathy BPH Noncompliant with self-catheterizations Acute epididymitis Condition: Good Discharge Goals: Improve disease control Activity: Resume your previous activity Non-emergency contact: Primary Care Provider Call non-emergency contact if: you have any medication questions, your symptoms worsen, your pain is not controlled, your pain is worsening, your pain is unusual for you, your pain is concerning for you and you have a fever Follow-up/Referrals: Wilian Gan MD [Family Provider] - Alfred Al, [Primary Care Provider] - Diet: Regular Addtl Provider Instructions: Please take all medications as instructed. It is recommended that you followup with your primary care physician in one week and your Urologist in two weeks or as otherwise instructed. Please leave your Reynolds catheter in until you are seen by your Urologist. Please complete the antibiotic course for your testicular infection. Primary care follow-up is to ensure that this is improving. It was a pleasure taking care of you! Please call if you have any questions or problems. You can reach a [facility] hospitalist on duty at [facility] 24 hours a day by calling [phone]. Take care of yourself. Kristin Ho[facility] Pres[facility]: New levofloxacin 250 mg Tablet 250 mg PO DAILY@1100 Qty: 8 RF: 0 Continued finasteride 5 mg tablet 5 mg PO DAILY RF: 0 ferrous sulfate [iron] 325 mg (65 mg iron) Tablet 325 mg PO DAILY RF: 0 aspirin [Aspirin Low Dose] 81 mg Tablet,Delayed Release (Dr/Ec) 81 mg PO DAILY RF: 0 acetaminophen [Arthritis Pain Reliever] 650 mg Tablet Extended Release 650 mg PO Q8H PRN (Reason: Pain) RF: 0 simvastatin 40 mg tablet 40 mg PO HS RF: 0 Stand-Alone Forms: My [facility]/Other Patient Handouts: Catheter Bag Urinary Empty Clean, Catheter Indwelling Urinary Dc, Leg Bag Care Dc Discharge Orders: Discharge Order (Routine); Ordered 02/10/19 Ordered By: Kristin Hopper Admission Data Admit Date/Time: 02/07/19 17:48 Attending Provider: Kristin Hopper Admit Provider: Kristin Hopper Primary Care Provider: Alfred Al Other Providers: Kristin Hopper ; Stan Beebe II Service: Medical Other Interventions: Discharge Summary Assessment (RN) Last Done: 02/10/19 12:33 DC Date/Time DO NOT enter until pt leaves facility: 02/10/19 13:10
== END 2019-02-10 13:10 | disposition home or self-care (01) | DRG 699 ==
LOC: ED 14:18 → 2W 17:48 → 3W 02-08 02:38